=== PATIENT | male | born 1980 | race Caucasian/White ===

== ENCOUNTER 2019-10-06 16:20 | Emergency (ER) | payer SELFPAY ==
[2019-10-06 16:27] VITALS: BP 168/111; PULSE 118; RESP 18; TEMP 37.6; O2SAT 100
--- NOTE | 2019-10-06 16:49 | ED.GENADULT ---
HPI - General Adult General Chief complaint: Ear Stated complaint: fever/right ear Time Seen by Provider: 10/06/19 16:49 Source: patient and RN notes reviewed Mode of arrival: ambulatory Limitations: no limitations History of Present Illness HPI narrative: This is a 39 years old male presented office for evaluation of left ear pain since last night. Associated with sore throat and sinus congestion. He also reports cough; but contributed to smoker cough. He took tramadol and Tylenol for pain with minimal relief. Denies sick contact. He did not receive influenza vaccine. Related Data Allergies Allergy/AdvReac Type Severity Reaction Status Date / Time prednisone AdvReac Intermediate mess with Verified 10/29/15 00:21 my lungs, headache azithromycin AdvReac Unknown Other Verified 03/06/18 15:50 steroid Allergy Mild Uncoded 06/21/14 19:29 Review of Systems Review of Systems: Narrative: CONSTITUTIONAL: Denies fever or bodyache EYES: Denies visual changes, redness, discharge. ENT:Reports left ear pain with discharge, sinus congestion CARDIOVASCULAR: Denies chest pain RESPIRATORY: Denies dyspnea, wheezing. Reports cough GASTROINTESTINAL: Denies abdominal pain, nausea, vomiting, diarrhea. SKIN: Denies rash MUSCULOSKELETAL: Denies acute back pain NEUROLOGIC: Denies lightheaded PMFSH Family History Family History Mother Cerebrovascular accident Family history of diabetes mellitus in first degree relative Grandparent Family history of lung cancer Social History Social History (Updated 10/06/19 @ 18:00 by JUSTA Zambrano) Smoking status: Current every day smoker Second hand tobacco smoke exposure: No Alcohol intake: never Gender identity (if verbalized by the patient): Male Comments At time of signature, I agree with nursing past medical, surgical, social and family history. There is no relevant family history pertinent to the presenting complaint. Exam Narrative: Exam Narrative: GENERAL: This is a well-nourished, well-developed patient, in no apparent distress. EYES:Sclera clear/white. Vision is grossly intact. EARS: External ears normal, right auditory canals clear and without drainage, right TM normal without perforation. Left canal appears erythema with drainage and tragal tenderness, TM appears erythema and bulging. Hearing grossly intact. NOSE: External nose normal with no obvious nasal discharge, nares without redness, no rhinorrhea. THROAT: Mucous membranes moist, posterior pharynx clear. NECK: Neck supple, non-tender without lymphadenopathy, masses or thyromegaly. CARDIOVASCULAR: Regular rate and rhythm without murmurs, gallops, or rubs. RESPIRATORY: Clear to auscultation, Diminished in her lower lobe with occasional cough noted during examination. Breath sounds equal bilaterally. No wheezes, rales, or rhonchi. GASTROINTESTINAL: Abdomen soft, non-tender, nondistended. Bowel sounds are active.No guarding. NEURO: awake, alert, and oriented to person, place and time. There were no obvious focal neurologic abnormalities. Steady gait [place] Coma Scale Eye Opening: Spontaneous 4 [place] Coma Scale Motor: Obeys Commands 6 [place] Coma Scale Verbal: Oriented 5 Course Vital Signs Vital signs: Vital Signs Temperature 99.6 F 10/06/19 16:27 Pulse Rate 118 H 10/06/19 16:27 Respiratory Rate 18 10/06/19 16:27 Blood Pressure 168/111 H 10/06/19 16:27 Pulse Oximetry 100 10/06/19 16:27 Temperature 99.6 F 10/06/19 16:27 Pulse Rate 88 10/06/19 17:10 Respiratory Rate 20 10/06/19 17:10 Blood Pressure 140/92 H 10/06/19 17:10 Pulse Oximetry 100 10/06/19 16:27 Medical Decision Making MDM Narrative Medical decision making narrative: Discharge instructions reviewed with patient, as well as provided in writing per nursing staff. The instructions also include specific and strict return/GO TO THE ER as we
[2019-10-06 17:10] VITALS: BP 140/92; PULSE 88; RESP 20
== END 2019-10-06 17:03 | disposition home or self-care (01) ==
PROVIDERS: Emergency Provider Nurse Practitioner; PCP Internal Medicine
DX: H66.90 Otitis media, unspecified, unspecified ear (principal); H60.90 Unspecified otitis externa, unspecified ear; R03.0 Elevated blood-pressure reading, without diagnosis of hypertension; F17.200 Nicotine dependence, unspecified, uncomplicated
CPT/HCPCS: 99213; G0463

== ENCOUNTER 2019-10-09 15:29 | Emergency (ER) | payer SELFPAY ==
[2019-10-09 15:38] VITALS: BP 142/94; PULSE 103; RESP 20; TEMP 37.6; O2SAT 100
--- NOTE | 2019-10-09 15:49 | ED.EAR ---
HPI - Ear Problem General Chief complaint: Ear Stated complaint: ear pain Time Seen by Provider: 10/09/19 15:42 Source: patient and RN notes reviewed Mode of arrival: ambulatory Limitations: no limitations History of Present Illness HPI Narrative: Patient presents today complaining of left ear pain x4 days. He was seen on 10/06/2019 [facility], diagnosed with left otitis media and otitis externa. He was given prescriptions for Omnicef and Cipro Dex drops. He did not get the Ciprodex drops filled due to reagan. States he has been taking the Omnicef as prescribed. States pain is not improving. Currently rates pain 7/10 and has been taking tramadol, ibuprofen, and Tylenol without much relief. Reports drainage for a few days, but none today. MD Complaint: ear pain Location: left ear Related Data Allergies Allergy/AdvReac Type Severity Reaction Status Date / Time prednisone AdvReac Intermediate mess with Verified 10/09/19 15:41 my lungs, headache azithromycin AdvReac Unknown Other Verified 10/09/19 15:41 Review of Systems Review of Systems: Narrative: CONSTITUTIONAL: Denies body aches, fever, chills, or sweats. EYES: Denies visual changes, redness, or discharge. ENT: Denies rhinorrhea, congestion, sore throat. + Ear pain CARDIOVASCULAR: Denies chest pain, palpitations, or edema. RESPIRATORY: Denies cough or dyspnea. GASTROINTESTINAL: Denies abdominal pain, nausea, vomiting, or diarrhea. GENITOURINARY: Denies dysuria or hematuria. SKIN: Denies rash, itching, or wounds. MUSCULOSKELETAL: Denies back pain, joint pain, or myalgia. NEUROLOGIC: Denies headache, numbness, tingling, or weakness. PSYCH: Denies depression or anxiety. PMFSH Social History Social History (Updated 10/06/19 @ 18:00 by JUSTA Zambrano) Smoking status: Current every day smoker Second hand tobacco smoke exposure: No Alcohol intake: never Gender identity (if verbalized by the patient): Male Comments At time of signature, I have reviewed and agree with nursing past medical, surgical, social and family history unless otherwise noted. Please see nursing chart for further information. There is no relevant family history pertinent to the presenting complaint Exam Narrative: Exam Narrative: GENERAL: Well-appearing, well-nourished, and in no acute distress. HEAD: Normocephalic, atraumatic. EYES: EOMI. No redness or drainage. Conjunctivae normal. ENT: Mucous membranes pink and moist. Nares clear. No rhinorrhea. Right TM occluded with wax. Left ear canal is severely erythematous and mildly edematous. There is a large clear fluid-filled blister to the inferior half of the ear canal. No active drainage. Movement tenderness. Tragal tenderness.. Throat normal. Uvula midline. NECK: Normal AROM. Supple. No lymphadenopathy. CHEST: No respiratory distress. EXTREMITIES: Normal range of motion. No edema. SKIN: Warm, dry, no rash. NEURO: No focal deficits. Alert and oriented x3. Gait steady. PSYCH: Normal affect. No signs of depression or anxiety. Course Vital Signs Vital signs: Vital Signs Temperature 99.7 F H 10/09/19 15:38 Pulse Rate 103 H 10/09/19 15:38 Respiratory Rate 10/09/19 15:38 Blood Pressure 142/94 H 10/09/19 15:38 Pulse Oximetry 100 10/09/19 15:38 Temperature 99.7 F H 10/09/19 15:38 Pulse Rate 103 H 10/09/19 15:38 Respiratory Rate 10/09/19 15:38 Blood Pressure 142/94 H 10/09/19 15:38 Pulse Oximetry 100 10/09/19 15:38 Reviewed. Pt has been instructed to follow up with his PCP regarding his elevated blood pressure today. Medical Decision Making Differential Diagnosis Differential Diagnosis: Otitis media, otitis externa, ruptured TM, serous otitis, eustachian tube dysfunction Medical Records Medical records reviewed: Yes I reviewed the patient's medical records. Vital Signs Vital Signs: Vital Signs Temperature 99.7 F H 10/09/19 15:38 Pulse Rate 103 H 10/09/19 15:38
== END 2019-10-09 15:57 | disposition home or self-care (01) ==
PROVIDERS: Emergency Provider Nurse Practitioner; PCP Internal Medicine
DX: H60.502 Unspecified acute noninfective otitis externa, left ear (principal); F17.200 Nicotine dependence, unspecified, uncomplicated
CPT/HCPCS: 99213; G0463

== ENCOUNTER 2020-04-11 16:02 | Emergency (ER) | payer SELFPAY ==
[2020-04-11 16:12] VITALS: BP 153/108; PULSE 119; RESP 18; TEMP 37.9; O2SAT 100
--- NOTE | 2020-04-11 16:15 | ED.GENADULT ---
HPI - General Adult General Chief complaint: Wound/Laceration Stated complaint: R/swollen Source: patient Mode of arrival: ambulatory Limitations: no limitations History of Present Illness HPI narrative: Patient presents for evaluation of swelling and pain to the right hand. He indicates he caught the dorsal aspect of her right hand 4 days ago on an exhaust fan. He noted swelling and erythema in the affected area yesterday. Today he was physical labor with some tools when he noted some purulent drainage from the right hand. He denies any fever, chills, nausea, vomiting. No underlying history of diabetes. Date of last tetanus unknown. He is right-hand dominant. No additional complaints or concerns. Related Data Allergies Allergy/AdvReac Type Severity Reaction Status Date / Time prednisone AdvReac Intermediate mess with Verified 02/08/20 11:48 my lungs, headache azithromycin AdvReac Unknown Other Verified 02/08/20 11:48 Review of Systems Review of Systems: Narrative: CONSTITUTIONAL: Denies fever, chills, or sweats. EYES: Denies visual changes, redness, or discharge. ENT: Denies rhinorrhea, congestion, sore throat, or otalgia. CARDIOVASCULAR: Denies chest pain, palpitations, or edema. RESPIRATORY: Denies cough or dyspnea. GASTROINTESTINAL: Denies abdominal pain, nausea, vomiting, or diarrhea. GENITOURINARY: Denies dysuria or hematuria. SKIN: Denies rash or itching. Reports redness in right hand MUSCULOSKELETAL: Denies back pain. Reports pain in right hand. NEUROLOGIC: Denies headache, numbness, dizziness, or weakness. PSYCHIATRIC: Denies anxiety or depression. [facility] Surgical History Surgical History Hx of tonsillectomy Family History Family History Mother Cerebrovascular accident Family history of diabetes mellitus in first degree relative Grandparent Family history of lung cancer Social History Social History (Updated 04/11/20 @ 16:19 by JUSTA Allison, ) Smoking packs per day: 1 Smoking cigarettes per day: 20.0 Smoking status: Current every day smoker Second hand tobacco smoke exposure: No Alcohol intake: never Gender identity (if verbalized by the patient): Male Exam Narrative: Exam Narrative: GENERAL: Well-appearing, well-nourished, and in no acute distress. HEAD: Normocephalic, atraumatic. EYES: PERRLA and EOMI. ENT: Nares clear, no rhinorrhea or epistaxis. Mucous membranes moist. Oropharynx without tonsillar hypertrophy exudate or other lesions. Bilateral TMs pearly arreola nonbulging NECK: Supple. No adenopathy or masses. No carotid bruits or JVD CHEST: Clear to auscultation. No respiratory distress. No wheezes rales or rhonchi HEART: Regular rhythm. Rate 115. No murmur heard. Normal peripheral pulses. ABDOMEN: Soft, nontender, nondistended, normal active bowel sounds. EXTREMITIES: Normal range of motion. Trace swelling noted to dorsal aspect of right hand SKIN: Approximately 2 cm linear abrasion to dorsal aspect of right hand with dried sanguinous drainage noted. There is mild erythema noted to majority of dorsal aspect of right hand NEURO: No focal deficits. Alert and oriented x3. PSYCH: Normal mood and affect. Course Vital Signs Vital signs: Vital Signs Temperature 37.9 C H 04/11/20 16:12 Pulse Rate 119 H 04/11/20 16:12 Respiratory Rate 18 04/11/20 16:12 Blood Pressure 153/108 H 04/11/20 16:12 Pulse Oximetry 100 04/11/20 16:12 Temperature 37.9 C H 04/11/20 16:12 Pulse Rate 119 H 04/11/20 16:12 Respiratory Rate 18 04/11/20 16:12 Blood Pressure 153/108 H 04/11/20 16:12 Pulse Oximetry 100 04/11/20 16:12 Procedures Abscess I/D right hand: Date of Incision: 04/11/20 Side (if applicable): right (hand) Local Anesthetic: lidocaine 1% Amount of anesthesia used (mL): 3
[2020-04-11 16:18] LABS: Glucose Point of Care 116 (65-105)
[2020-04-11] MEDS: TETANUS,DIPHTHERIA,AC PERTUSSIS ADULT (0.5 ML) BOOSTRIX IM (16:23)
--- NOTE | 2020-04-11 16:37 | PC.NURSE ---
Tylenol 1000 mg admisitered as ordered Contacted pharamcy about not being able to scan medsication spoke with ED
--- NOTE | 2020-04-11 16:45 | PC.NURSE ---
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
[2020-04-11 17:13] VITALS: PULSE 105; RESP 20; TEMP 37.4; O2SAT 100
== END 2020-04-11 17:32 | disposition home or self-care (01) ==
PROVIDERS: Emergency Provider Nurse Practitioner; PCP Internal Medicine
DX: L03.113 Cellulitis of right upper limb (principal); Z23 Encounter for immunization
CPT/HCPCS: 10060; 87070; 87075; 87147; 87186; 87205; 90471; 90715; 99213; A9270; G0463

== ENCOUNTER 2020-07-18 06:54 | Outpatient (NON) | payer SELFPAY ==
[2020-07-18 19:16] LABS: SARS-CoV-2 RNA PCR Negative
== END 2020-07-18 06:55 ==
PROVIDERS: PCP Internal Medicine; Visit Provider Internal Medicine
DX: R68.89 Other general symptoms and signs (principal); Z20.828 Contact with and (suspected) exposure to other viral communicable diseases
CPT/HCPCS: 87635; C9803; U0003

== ENCOUNTER 2020-07-24 15:25 | Emergency (ER) | payer SELFPAY ==
--- NOTE | 2020-07-24 15:37 | ED.EAR ---
HPI - Ear Problem General Chief complaint: Ear Stated complaint: ear pain Time Seen by Provider: 07/24/20 15:37 Source: patient and RN notes reviewed Mode of arrival: ambulatory Limitations: no limitations History of Present Illness HPI Narrative: 40-year-old male presents concern for bilateral ear pain, sore throat. Reports symptoms started approximate 11 days ago. Denies fever, cough, shortness of breath, body aches, chills, sweats. Reports taking medication [id number] with no relief. Reports he had a negative Covid test 1 week ago. MD Complaint: ear pain Related Data Allergies Allergy/AdvReac Type Severity Reaction Status Date / Time prednisone AdvReac Intermediate mess with Verified 07/24/20 15:37 my lungs, headache azithromycin AdvReac Unknown Other Verified 07/24/20 15:37 Review of Systems Review of Systems: Narrative: CONSTITUTIONAL: Denies malaise, chills, sweats, or fever. EYES: Denies visual changes, redness, or discharge. ENT: Denies rhinorrhea, congestion, sinus pain. Reports otalgia and sore throat. CARDIOVASCULAR: Denies chest pain, palpitations, or edema. RESPIRATORY: Denies cough or dyspnea. GASTROINTESTINAL: Denies abdominal pain, nausea, vomiting, diarrhea SKIN: Denies rash or itching. MUSCULOSKELETAL: Denies myalgia. NEUROLOGIC: Denies headache. All systems reviewed & are unremarkable except as noted in HPI and below PMFSH Surgical History Surgical History Hx of tonsillectomy Family History Family History Mother Cerebrovascular accident Family history of diabetes mellitus in first degree relative Grandparent Family history of lung cancer Social History Social History (Updated 04/11/20 @ 16:19 by JUSTA Allison, ) Smoking packs per day: 1 Smoking cigarettes per day: 20.0 Smoking status: Current every day smoker Second hand tobacco smoke exposure: No Alcohol intake: never Gender identity (if verbalized by the patient): Male Comments At time of signature, agree with nursing past medical, surgical, social and family history. There is no relevant family history pertinent to the presenting complaint Exam Narrative: Exam Narrative: GENERAL: Well-appearing, well-nourished, and in no acute distress. HEAD: Normocephalic EYES: PERRLA, conjunctivae clear ENT: Nares clear, turbinates erythematous, clear discharge. Mucous membranes moist. Left TM pearly arreola with dull light reflex right TM yellow, erythematous, bulging; no tragal tenderness. Oropharynx mildly erythematous without lesions. Tonsils not enlarged and without exudate, no drooling, no hoarseness, no trismus, uvula midline. NECK: Supple. No lymphadenopathy CHEST: Clear to auscultation, breath sounds equal. No wheezing, rhonchi, rales, or stridor. No respiratory distress, speaks in full sentences. HEART: Regular rate and rhythm. No murmur heard. SKIN: Warm, dry, no rash. NEURO: Alert and oriented x3. PSYCH: Normal mood and affect Course Course Emergency Course: Patient is aware of diagnosis, understands and agrees to treatment plan. Anticipatory guidance given. Patient agrees to follow-up as directed and is aware of reasons to seek care at the emergency department. Portions of this record may have been created with voice recognition software Vital Signs Vital signs: Vital Signs Temperature 98.7 F 07/24/20 15:38 Pulse Rate 105 H 07/24/20 15:38 Respiratory Rate 07/24/20 15:38 Blood Pressure 159/105 H 07/24/20 15:38 Pulse Oximetry 100 07/24/20 15:38 Temperature 98.7 F 07/24/20 15:38 Pulse Rate 105 H 07/24/20 15:38 Respiratory Rate 20 07/24/20 15:38 Blood Pressure 159/105 H 07/24/20 15:38 Pulse Oximetry 100 07/24/20 15:38 Reviewed. Pt has been instructed to follow up with his primary care provider within the next week regarding his el
[2020-07-24 15:38] VITALS: BP 159/105; PULSE 105; RESP 20; TEMP 37.1; O2SAT 100
== END 2020-07-24 15:50 | disposition home or self-care (01) ==
PROVIDERS: Emergency Provider Nurse Practitioner; PCP Internal Medicine
DX: H66.91 Otitis media, unspecified, right ear (principal); H61.21 Impacted cerumen, right ear; F17.210 Nicotine dependence, cigarettes, uncomplicated
CPT/HCPCS: 69210; 99213; G0463

== ENCOUNTER 2021-11-03 13:13 | Emergency (ER) | payer OTHER, SELFPAY ==
[2021-11-03 13:47] VITALS: BP 152/96; PULSE 95; RESP 18; TEMP 36.9; O2SAT 100
--- NOTE | 2021-11-03 14:03 | WPDEDEXPGENP ---
HPI - General Ped General Chief complaint: Upper Respiratory Infection Stated complaint: sorethroat,bilateral ear pain Time Seen by Provider: 11/03/21 14:03 Source: patient Mode of arrival: ambulatory Limitations: no limitations Nursing Documentation: reviewed/agree History of Present Illness HPI narrative: 41-year-old male presents to the [facility] with complaints of bilateral ear pain and sore throat. Patient states that he has had issues with his right ear on and off for about a year and the left ear has started hurting him about a week ago. Patient states he is also had a sore throat that also started about couple of days ago. Denies fevers, body aches or chills. Patient states he has had some drainage coming from the right ear. Patient denies taking any [id number] medications for this issues. Patient denies any cough or fevers. Related Data Allergies Allergy/AdvReac Type Severity Reaction Status Date / Time azithromycin AdvReac Unknown Other Verified 11/03/21 14:16 Pediatric Review of Systems Review of Systems: CONSTITUTIONAL: Denies fever, chills, or sweats. EYES: Denies visual changes, redness, or discharge. ENT: Denies rhinorrhea, congestion, positive sore throat, positive bilateral otalgia. CARDIOVASCULAR: Denies chest pain, palpitations, or edema. RESPIRATORY: Denies cough or dyspnea. GASTROINTESTINAL: Denies abdominal pain, nausea, vomiting, or diarrhea. GENITOURINARY: Denies dysuria or hematuria. SKIN: Denies rash or itching. MUSCULOSKELETAL: Denies back pain, joint pain, or myalgia. NEUROLOGIC: Denies headache, numbness, or weakness. PSYCHIATRIC: Denies anxiety or depression. [facility] Past Medical History Medical History (Updated 11/03/21 @ 14:22 by JUSTA Zuñiga) Anxiety disorder, unspecified Spondylosis of lumbar region without myelopathy or radiculopathy Surgical History Surgical History Hx of tonsillectomy Family History Family History Mother Cerebrovascular accident Family history of diabetes mellitus in first degree relative Grandparent Family history of lung cancer Social History Social History Smoking packs per day: 1 Smoking cigarettes per day: 20.0 Smoking status: Current every day smoker Second hand tobacco smoke exposure: No Alcohol intake: never Gender identity (if verbalized by the patient): Male Comments At the time of my signature I agree with nursing past medical history, surgical, social, and family history. There is no relevant family history pertinent to the presenting complaint. Pediatric Exam Narrative: Physical exam: GENERAL: Well-appearing, well-nourished, and in no acute distress. HEAD: Normocephalic, atraumatic. EYES: PERRLA and EOMI. ENT: Nares clear, no rhinorrhea or epistaxis. Mucous membranes moist. Posterior pharynx does have some erythema noted to the uvula. Left ear does have some fluid behind the tympanic membrane. The right ear canal does appear to have swelling and some drainage present along with some fluid noted behind the right tympanic membrane. NECK: Supple. No lymphadenopathy CHEST: Clear to auscultation. No respiratory distress. HEART: Regular rate and rhythm. No murmur heard. Normal peripheral pulses. ABDOMEN: Soft, nontender, nondistended, normal active bowel sounds. EXTREMITIES: Normal range of motion. No edema. SKIN: Warm, dry, no rash. NEURO: No focal deficits. Alert and oriented x3. Course Course Level of Care: Express Care Visit Vital Signs Vital signs: Vital Signs Temperature 36.9 C 11/03/21 13:47 Pulse Rate 95 11/03/21 13:47 Respiratory Rate 18 11/03/21 13:47 Blood Pressure 152/96 H 11/03/21 13:47 Pulse Oximetry 100 11/03/21 13:47 Temperature 36.9 C 11/03/21 13:47 Pulse Rate 95 11/03/21 13:47 Respiratory Rate
== END 2021-11-03 14:25 | disposition home or self-care (01) ==
PROVIDERS: Emergency Provider Nurse Practitioner Family
DX: H66.93 Otitis media, unspecified, bilateral (principal); H60.91 Unspecified otitis externa, right ear; F17.210 Nicotine dependence, cigarettes, uncomplicated; M47.816 Spondylosis without myelopathy or radiculopathy, lumbar region
CPT/HCPCS: 99213; G0463

== ENCOUNTER 2022-04-23 08:45 | Observation (INO) | payer OTHER, SELFPAY ==
[2022-04-23] VITALS (7 sets, daily range): BP systolic 135–173; BP diastolic 90–107; PULSE 89–110; RESP 14–18; TEMP 36.2–37.2; O2SAT 97–100; BMI 30.4; BMI 30.5
--- NOTE | ~2022-04-23 | CT_ITS ---
EXAMINATION: CT chest abdomen pelvis w con DATE: 04/23/2022 10:27 INDICATION: Foreign body sensation in the chest, diffuse abdominal pain, hematemesis TECHNIQUE: Transaxial computed tomographic images of the chest, abdomen, and pelvis were obtained aft er the administration of 100 cc of Omnipaque 350 intravenous contrast. The dose-length product (DLP) was 1124.20 mGy-cm. Automated exposure control and iterative reconstruction technique were employed. COMPARISON: None FINDINGS: CHEST CT: There is mild dependent atelectasis. No pleural effusion or pneumothorax. No pathologically enlarged thoracic lymph nodes are identified. The heart size is normal. There is a small sliding hiatal hernia . There is mild wall thickening of the esophagus. ABDOMEN/PELVIS CT: The liver is diffusely low in attenuation when compared with the spleen, consistent with hepatic stea tosis. The spleen, pancreas, gallbladder, and adrenal glands are normal. The kidneys are unremarkable . No pathologically enlarged abdominal or pelvic lymph nodes are identified. The appendix is normal. There is no free intraperitoneal gas or evidence of bowel obstruction. There is liquid stool in the c olon to the level of the rectum. There is mild wall thickening of the distal colon which is relativel y featureless. IMPRESSION: 1. Mild wall thickening in the esophagus which could reflect esophagitis. 2. Wall thickening of the distal colon which is relatively featureless. Findings could reflect infect ious colitis or possibly ulcerative colitis. 3. Diffuse hepatic steatosis. Reviewed, dictated and finalized at location B. IMPRESSION: 1. Mild wall thickening in the esophagus which could reflect esophagitis. 2. Wall thickening of the distal colon which is relatively featureless. Finding s could reflect infectious colitis or possibly ulcerative colitis. 3. Diffuse hepatic steatosis.
--- NOTE | ~2022-04-23 | XR_ITS ---
EXAMINATION: XR soft tissue neck DATE: 04/23/2022 11:07 INDICATION: Foreign body sensation. TECHNIQUE: 2 views of the neck soft tissues were obtained. COMPARISON: CT maxillofacial and cervical spine 10/29/2015 FINDINGS: The adenoids are enlarged. The epiglottis, palatine tonsils, prevertebral soft tissues, and glottis are normal. IMPRESSION: 1. No radiopaque foreign body. 2. Enlarged adenoids. Reviewed, dictated and finalized at location A.
[2022-04-23 09:05] LABS: Basophils Absolute Auto 0.1 K/mm3 (0.0-0.1); Basophils Percent Auto 0.4 % (0.2-1.2); Eosinophils Absolute Auto 0.1 K/mm3 (0-0.3); Eosinophils Percent Auto 0.9 % (0-4.4); Hematocrit 46.7 % (42.0-52.0); Hemoglobin 15.6 g/dL (14.0-18.0); Immature Granulocyte Absolute 0.04 K/mm3 (0.00-0.031); Immature Granulocyte Percent A 0.3 % (0-0.5); Lymphocytes Absolute Auto 2.49 K/mm3 (0.9-3.2); Lymphocytes Percent Auto 20.4 % (18.3-44.2); Mean Corpuscular HGB Conc 33.4 g/dl (32-36); Mean Corpuscular Hemoglobin 30.2 pg (26-34); Mean Corpuscular Volume 90.3 fl (80-100); Mean Platelet Volume 10.1 fl (7.4-10.4); Monocytes Percent Auto 7.9 % (2.6-8.5); Neutrophils Absolute Auto 8.6 K/mm3 (1.3-6.7); Neutrophils Percent Auto 70.1 % (45.5-73.1); Platelet Count Result 330 k/mm3 (150-375); Red Blood Count 5.17 M/mm3 (4.6-6.20); Red Cell Distribution Width 13.2 % (11.5-14.5); White Blood Count 12.2 K/mm3 (4.5-10.0)
--- NOTE | 2022-04-23 09:18 | ED.NAVMDI ---
HPI - Nausea/Vomiting/Diarrhea General Chief complaint: Nausea/Vomiting/Diarrhea <JOI Way Last Filed: 04/23/22 17:30> Stated complaint: vomiting, feels like something is stuck in throat <JOI Way Last Filed: 04/23/22 17:30> Time Seen by Provider: 04/23/22 08:54 <[address] Last Filed: 04/23/22 17:30> History of Present Illness HPI Narrative: Patient is a 41-year-old male here for evaluation of nausea and vomiting over the past day. Patient states that he has had numerous episodes of vomiting that was preceded by a diffuse, stabbing abdominal pain. He notes that last evening, every episode of vomit contained a large amount of blood, looks like [employer], blood mixed in vomit and not streaking along the sides. He has never had an episode of hematemesis in the past. He also states that he has a globus sensation in his throat, but is unsure what this might be. He notes that he drinks about 10 alcoholic beverages per week, denies significant NSAID use or history of ulcer. States he used to drink a lot more. <JOI Way Last Filed: 04/23/22 17:30> Related Data Home medications: Home Medications Medication Instructions Recorded Confirmed Zoloft 50 mg PO DAILY PRN Anxiety 04/23/22 04/23/22 nicotine 21 mg/24 hr daily 1 patch transdermal DAILY 04/23/22 04/23/22 transdermal patch (Nicoderm CQ) <JOI Way Last Filed: 04/23/22 17:30> Allergies/Adverse reactions: Allergies Allergy/AdvReac Type Severity Reaction Status Date / Time azithromycin AdvReac Unknown Other Verified 04/23/22 12:[address] <[address] Last Filed: 04/23/22 17:30> Review of Systems Review of Systems: Gen: Denies fevers or chills Eyes: Denies eye pain or visual change ENT: Denies congestion Respiratory: Denies shortness of breath or cough CV: Denies chest pain or palpitations GI: Reports nausea, vomiting, diffuse abdominal pain. 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 <Darling Vera PA-C - Last Filed: 04/23/22 17:30> Surgical History Surgical History: Surgical History (Updated 04/23/22 @ 14:22 by Sunita Cook NP) Hx of tonsillectomy S/P cubital tunnel release <Darling Vera PA-C - Last Filed: 04/23/22 17:30> Family History Family History: Family History (Updated 04/23/22 @ 14:23 by Sunita Cook NP) Mother Family history of diabetes mellitus in first degree relative Grandparent Family history of lung cancer Father Cancer <Darling Vera PA-C - Last Filed: 04/23/22 17:30> Social History Social History: Social History (Updated 04/23/22 @ 14:24 by Sunita Cook NP) Social History: The patient is and he has 3 children. 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 The patient continues to smoke 1 pack a cigarettes a day. The patient stated that he usually drinks about 10 alcoholic beverages a week. He states every other week any does not drink when he has his child. The patient denies any marijuana or any other illicit drugs. 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 Code status full code Smoking packs per day: 1 Smoking cigarettes per day: 20.0 Years smoked: 20 Smoking pack-years: 20.00 Smoking status: Cur
[2022-04-23 09:32] LABS: Appearance Urine Clear (Clear); Bilirubin Urine 2+ (Negative); Blood Urine Negative (Negative); Color Urine Yellow (Yellow); Glucose Urine UA Negative (Negative); Ketones Urine Negative (Negative); Leukocyte Esterase Ur Negative LEU/UL (Negative); Nitrate Urine Negative (Negative); Protein Urine 1+ mg/dL (Negative); Specific Grav Ur 1.025 (1.001-1.035); Urobilinogen Urine 0.2 mg/dL (<2.0)
[2022-04-23 09:40] LABS: Prothrombin Time 12.6 Seconds (11.1-14.7)
[2022-04-23] MEDS: PANTOPRAZOLE SODIUM IV 40 MG VIAL 80 MG IV PUSH (09:42)
[2022-04-23] MEDS: SODIUM CHLORIDE 0.9% IV 1,000 ML 999 ML IV CONT (09:42)
[2022-04-23] MEDS: ONDANSETRON INJ 4 MG/2 ML VIAL IV PUSH (09:42)
[2022-04-23 09:45] LABS: Alanine Aminotransferase 82 U/L (6-50); Albumin Level 4.4 g/dL (3.5-5.1); Alkaline Phosphatase 123 U/L (38-126); Anion Gap 17 mmol/L (8-16); Aspartate Amino Transferase 104 U/L (17-59); Bilirubin,Total 0.6 mg/dL (0.2-1.3); Blood Urea Nitrogen 11 mg/dL (9-20); Calcium 8.5 mg/dL (8.4-10.2); Carbon Dioxide 23 mmol/L (22-30); Chloride 97 mmol/L (98-107); Estimated CRCL calculation 135 ml/min; Estimated Glomerular Filt Rate > 60; Glucose 136 mg/dL (65-110); Lipase 51 U/L (23-300); Potassium 3.4 mmol/L (3.4-5.0); Sodium 137 mmol/L (137-145)
[2022-04-23 09:50] LABS: Add Urine Microscopic? YES
[2022-04-23 09:51] LABS: Bacteria Urine Trace /hpf; Squamous Epithelial Cell Urine Few /hpf (Few)
[2022-04-23 09:52] LABS: Mucus Urine Moderate /lpf
[2022-04-23] MEDS: OCTREOTIDE ACETATE 50 MCG/ML VIAL IV PUSH (11:13)
[2022-04-23] MEDS: SODIUM CHLORIDE 0.9% IV 1,000 ML 125 ML IV CONT ×2 (13:08→21:05)
--- NOTE | 2022-04-23 14:15 | PM.IMHP ---
H&P: HPI History of Present Illness Date/Time: 04/23/22 14:15 Chief Complaint: Nausea vomiting diarrhea Narrative: This is a 41-year-old male patient who came to the emergency room for evaluation of nausea vomiting over the past day. The patient stated that he had several episodes of dry heaving and vomiting. The patient stated that he had not had any previous stomach problems except large hematoma from a fall a long time ago. The patient noted that last night he was having large amount of blood that look like Coca-[employer]a that he had vomited. The patient states that he only drinks approximately 10 alcoholic beverages per week. He has had no prior history of any ulcers. He denies any significant NSAID usage. His white count is noted to be 12.12. His H&H is within normal limits at 15.6 and 46.7. His AsT is 104 and ALT is 82. The patient was given Protonix IV, normal saline, Zofran, Rocephin, and octreotide. GI had been consulted and suggested that octreotide. Soft tissue the neck was read as no radiopaque foreign body, enlarged adenoids. CT of the abdomen and pelvis was read as the following 1. Mild wall thickening in the esophagus which could reflect esophagitis. 2. Wall thickening of the distal colon which is relatively featureless. Findings could reflect infectious colitis or possibly ulcerative colitis. 3. Diffuse hepatic steatosis. The patient was initially admitted to inpatient and then changed to observation on the date of service of 04/23/2022. Review of Systems Review of Systems: See HPI All systems reviewed & are unremarkable except as noted in HPI and below Constitutional: Constitutional: Reports as per HPI and Reports no additional constitutional complaints Eyes: Eyes: Reports as per HPI and Reports no additional eye complaints ENT: Reports system reviewed and no additional complaints, except as documented and Reports Normal hearing present Cardiovascular: Cardiovascular: Reports no additional cardiovascular complaints Respiratory: Respiratory: Reports no additional respiratory complaints and Reports no additional respiratory complaints Gastrointestinal: Gastrointestinal: Reports as per HPI and Reports no additional gastrointestinal complaints Musculoskeletal: Musculoskeletal: Reports no additional musculoskeletal complaints Integumentary/Breasts: Skin/Breast: Reports system reviewed and no additional complaints, except as docu and Reports as per HPI Neurologic: Reports system reviewed and no additional complaints, except as documented, Reports as per HPI and Reports Normal hearing present Psychiatric: Psychiatric: Reports no additional psychiatric complaints and Reports as per HPI Endocrine: Endocrine: Reports no additional endocrine complaints Hematologic/Lymphatic: Hematologic/Lymphatic: Reports no additional hematologic/lymphatic complaints Allergic/Immunologic: Allergic/Immunologic: Reports no additional allergic/immunologic complaints [facility] Past Medical History Medical History (Updated 04/23/22 @ 14:30 by Sunita Cook NP) Anxiety disorder, unspecified 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 The patient continues to smoke 1 pack a cigarettes a day. The patient stated that he usually drinks about 10 alcoholic beverages a week. He states every other week any does not drink when he has his child. T
--- NOTE | 2022-04-23 14:55 | WPDGICN ---
Assessment and Plan Assessment and plan (1) Upper GI bleed: Code(s): K92.2 - Gastrointestinal hemorrhage, unspecified Status: Acute Assessment and Plan: noted abnormal esophagus by ct scan, differential includes esophagitis, also varices given alcohol abuse- started on octreotide and given iv protonix egd in am monitor for more signs of bleeding (2) Coffee ground emesis: Code(s): K92.0 - Hematemesis Status: Acute Assessment and Plan: iv protonix (3) Alcohol abuse: Code(s): F10.10 - Alcohol abuse, uncomplicated Status: Acute Assessment and Plan: will need to quit drinking supportive care (4) Elevated liver enzymes: Code(s): R74.8 - Abnormal levels of other serum enzymes Status: Acute Assessment and Plan: probably from alcohol use, will get hepatitis panel GI Consult Note Consult date/time: 04/23/22 14:55 Reason for consult: coffee ground emesis HPI: Sagar Cota is a 41 year old male with history of depression and alcohol abuse (he says that used to get drunk most of the nights with vodka, for last 6 months only drinking 1-2 beers daily). He came here with new onset of several episodes of dry heaving and vomiting, finally then noted coffee ground emesis with blood. No recent nsaid's use. His white count 12, H&H is within normal limits at 15.6 and 46.7.? His AsT is 104 and ALT is 82.? The patient was given Protonix IV, normal saline, Zofran, Rocephin, and octreotide.?CT of the abdomen and pelvis reviewed and showed Mild wall thickening in the esophagus which could reflect esophagitis, Wall thickening of the distal colon which is relatively featureless, Diffuse hepatic steatosis. Never had EGD. Review of Systems Review of Systems: See HPI All systems reviewed & are unremarkable except as noted in HPI and below Constitutional: Constitutional: Reports as per HPI and Reports no additional constitutional complaints Eyes: Eyes: Reports as per HPI and Reports no additional eye complaints ENT: Reports system reviewed and no additional complaints, except as documented and Reports Normal hearing present Cardiovascular: Cardiovascular: Reports no additional cardiovascular complaints Respiratory: Respiratory: Reports no additional respiratory complaints and Reports no additional respiratory complaints Gastrointestinal: Gastrointestinal: Reports as per HPI and Reports no additional gastrointestinal complaints Musculoskeletal: Musculoskeletal: Reports no additional musculoskeletal complaints Integumentary/Breasts: Skin/Breast: Reports system reviewed and no additional complaints, except as docu and Reports as per HPI Neurologic: Reports system reviewed and no additional complaints, except as documented, Reports as per HPI and Reports Normal hearing present Psychiatric: Psychiatric: Reports no additional psychiatric complaints and Reports as per HPI Endocrine: Endocrine: Reports no additional endocrine complaints Hematologic/Lymphatic: Hematologic/Lymphatic: Reports no additional hematologic/lymphatic complaints Allergic/Immunologic: Allergic/Immunologic: Reports no additional allergic/immunologic complaints [facility] Past Medical History Medical History (Updated 04/23/22 @ 15:00 by Tato Beltran MD) Alcohol abuse Anxiety disorder, unspecified Coffee ground emesis Elevated liver enzymes 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
[2022-04-23 15:48] LABS: Hematocrit 42.3 % (42.0-52.0); Hemoglobin 14.1 g/dL (14.0-18.0)
[2022-04-23] MEDS: NICOTINE (*PBKC) 21 MG PATCH 1 PATCH TRANSDERM (16:55)
[2022-04-23] MEDS: metroNIDAZOLE 500 MG/ISO 100ML 500 MG/100 ML BAG 100 MG IVPB ×2 (17:01→21:04)
--- NOTE | 2022-04-23 17:59 | ADMGEN ---
This patient, Sagar Cota, was admitted to 3 [facility] Surg Room 317-01 at 1220. Patient/family oriented to hospital policies and general routines including ID bracelet, bed and alarms, visiting hours, pain management, procedures, bathroom and other care routines, personal items, smoking policy, room service/diet, and visiting hours. Information on how to activate the Rapid Response Team has been discussed. Patient/Family are encouraged to report perceived risks to care and to ask questions if they do not understand what they are told or what they should do.
[2022-04-23] MEDS: hydrALAZINE HCL 20 MG/ML VIAL 10 MG IV PUSH (19:38)
[2022-04-23] MEDS: PANTOPRAZOLE SODIUM IV 40 MG VIAL IV PUSH (21:04)
[2022-04-23 21:24] LABS: Hematocrit 42.4 % (42.0-52.0)
[2022-04-23] MEDS: diphenhydrAMINE HCl INJ 50 MG/ML VIAL IV PUSH (22:37)
[2022-04-24] VITALS (7 sets, daily range): BP systolic 146–164; BP diastolic 95–114; PULSE 65–93; RESP 17–26; TEMP 36.6; O2SAT 97–98
[2022-04-24 03:14] LABS: Alanine Aminotransferase 62 U/L (6-50); Albumin Level 3.3 g/dL (3.5-5.1); Alkaline Phosphatase 106 U/L (38-126); Anion Gap 4 mmol/L (8-16); Aspartate Amino Transferase 66 U/L (17-59); Basophils Absolute Auto 0.1 K/mm3 (0.0-0.1); Basophils Percent Auto 0.7 % (0.2-1.2); Blood Urea Nitrogen 9 mg/dL (9-20); Calcium 8.3 mg/dL (8.4-10.2); Carbon Dioxide 25 mmol/L (22-30); Chloride 106 mmol/L (98-107); Eosinophils Absolute Auto 0.2 K/mm3 (0-0.3); Eosinophils Percent Auto 2.2 % (0-4.4); Estimated CRCL calculation 121 ml/min; Estimated Glomerular Filt Rate > 60; Glucose 126 mg/dL (65-110); Hemoglobin 13.6 g/dL (14.0-18.0); Immature Granulocyte Absolute 0.02 K/mm3 (0.00-0.031); Immature Granulocyte Percent A 0.3 % (0-0.5); Lactate Dehydrogenase 156 U/L (120-246); Lactic Acid Reflex 0.8 mmol/L (0.7-2.0); Lymphocytes Absolute Auto 2.45 K/mm3 (0.9-3.2); Lymphocytes Percent Auto 35.3 % (18.3-44.2); Magnesium 2.1 mg/dL (1.6-2.3); Mean Corpuscular HGB Conc 32.4 g/dl (32-36); Mean Corpuscular Hemoglobin 30.1 pg (26-34); Mean Corpuscular Volume 92.9 fl (80-100); Mean Platelet Volume 10.5 fl (7.4-10.4); Monocytes Absolute Auto 0.7 K/mm3 (0.1-0.6); Monocytes Percent Auto 10.2 % (2.6-8.5); Neutrophils Absolute Auto 3.6 K/mm3 (1.3-6.7); Neutrophils Percent Auto 51.3 % (45.5-73.1); Platelet Count Result 241 k/mm3 (150-375); Potassium 3.4 mmol/L (3.4-5.0); Red Blood Count 4.52 M/mm3 (4.6-6.20); Red Cell Distribution Width 13.2 % (11.5-14.5); Sodium 135 mmol/L (137-145)
[2022-04-24 04:13] LABS: Thyroid Stimulating Hormone Reflex 0.886 uIU/mL (0.465-4.68)
[2022-04-24 04:18] LABS: Hepatitis B Surface Antigen Negative (Negative)
[2022-04-24 04:23] LABS: HAV RESULT Negative (Negative); Hepatitis B Core IgM Result Negative (Negative)
[2022-04-24 04:54] LABS: Hepatitis C Virus Antibody Negative (Negative)
[2022-04-24] MEDS: metroNIDAZOLE 500 MG/ISO 100ML 500 MG/100 ML BAG 100 MG IVPB (05:32)
[2022-04-24 08:15] LABS: Hematocrit 43.5 % (42.0-52.0); Hemoglobin 14.1 g/dL (14.0-18.0)
--- NOTE | 2022-04-24 08:32 | PC.NURSE ---
patient leaving for EGD now, will give protonix and nicotine patch when patient returns.
[2022-04-24] MEDS: LACTATED RINGERS 1,000 ML 150 ML IV CONT (08:59)
--- NOTE | 2022-04-24 09:19 | WPDANESEPPF ---
Anes - Initial Pre Proc Eval Procedure: Operation Date: 04/24/22 14:00 Proposed Procedures p Esophagogastroduodenoscopy EGD - Tato Beltran MD Date/Time: 04/24/22 09:19 Surgeon: Agustin Morillo MD Pre Op Diagnosis: Hematemesis Patient Data Age: 41 Gender: M Height: 1.85 m Weight: 105 kg Last Vital Signs Temp 97.9 F 04/24/22 09:00 Pulse 76 04/24/22 09:00 Resp 20 04/24/22 09:00 BP 158/97 H 04/24/22 09:00 Pulse Ox 97 04/24/22 09:00 O2 Del Method Room Air 04/24/22 09:00 Allergies Allergy/AdvReac Type Severity Reaction Status Date / Time azithromycin AdvReac Unknown Other Verified 04/24/22 08:50 Home Medications Medication Instructions Recorded Confirmed Type Zoloft 50 mg PO DAILY PRN Anxiety 04/23/22 04/23/22 History nicotine 21 mg/24 hr daily 1 patch transdermal DAILY 04/23/22 04/23/22 History transdermal patch (Nicoderm CQ) Laboratory Tests 04/23/22 04/23/22 04/23/22 09:20 09:20 09:20 WBC RBC Hgb Hct MCV MCH MCHC RDW Plt Count MPV Immature Gran % (Auto) Neut % (Auto) Lymph % (Auto) [place] % (Auto) Eos % (Auto) Baso % (Auto) Lymph # (Auto) [place]iwether # (Auto) Eos # (Auto) Baso # (Auto) Abs Immat Gran (auto) Absolute Neuts (auto) Absolute Nucleated RBC Nucleated RBC % PT 12.6 Seconds Seconds (11.1-14.7) INR 1.0 APTT 25.0 SECONDS SECONDS (22.3-36.8) Sodium 137 mmol/L mmol/L (137-145) Potassium 3.4 mmol/L mmol/L (3.4-5.0) Chloride 97 mmol/L L mmol/L (98-107) Carbon Dioxide 23 mmol/L mmol/L (22-30) Anion Gap 17 mmol/L H mmol/L (8-16) BUN 11 mg/dL mg/dL (9-20) Creatinine 0.70 mg/dL mg/dL (0.7-1.3) Estim Creat Clear Calc 135 ml/min ml/min Estimated GFR > 60 (59 - ) Glucose 136 mg/dL H mg/dL (65-110) Lactic Acid Calcium 8.5 mg/dL mg/dL (8.4-10.2) Magnesium Ferritin Total Bilirubin 0.6 mg/dL mg/dL (0.2-1.3) AST 104 U/L H U/L (17-59) ALT 82 U/L H U/L (6-50) Alkaline Phosphatase 123 U/L U/L (38-126) Lactate Dehydrogenase Total Protein 8.0 g/dL g/dL (6.3-8.2) Albumin 4.4 g/dL g/dL (3.5-5.1) Lipase 51 U/L U/L (23-300) TSH (Reflex) Urine Color Yellow (Yellow) Urine Appearance Clear (Clear) Urine pH 7.0 (5.0-9.0) Ur Specific Varney 1.025 (1.001-1.035) Urine Protein 1+ mg/dL H mg/dL (Negative) Urine Glucose (UA) Negative mg/dL mg/dL (Negative) Urine Ketones Negative mg/dL mg/dL (Negative) Ur Blood (Man) Negative (Negative) Urine Nitrate Negative (Negative) Urine Bilirubin 2+ H (Negative) Urine Urobilinogen 0.2 mg/dL mg/dL (<2.0) Leukocyte Esterase Rfl Negative DIMAS/UL DIMAS/UL (Negative) Urine WBC 4-6 /hpf H /hpf (0-3) Ur Squamous Epith Cells Few /hpf /hpf (Few) Urine Bacteria Trace /hpf /hpf (None) Hyaline Casts 1-2 /lpf /lpf (None) Urine Mucus Moderate /lpf H /lpf Hepatitis A IgM Ab Hep Bs Antigen Hep B Core IgM Ab Hepatitis C Ab Screen Blood Type Antibody Screen 04/23/22 04/23/22 04/23/22 09:20 15:28 21:07 WBC RBC Hgb 14.1 g/dL g/dL 14.0 g/dL g/dL (14.0-18.0) (14.0-18.0) Hct 42.3 % % 42.4 % % (42.0-52.0) (42.0-52.0) MCV MCH
[2022-04-24] MEDS: BENZOCAINE (*SP) 60 ML SPRAY CAN (HURRICAINE) 1 SPRAY MUCOUS MEM (09:28)
[2022-04-24] MEDS: PANTOPRAZOLE SODIUM IV 40 MG VIAL IV PUSH (10:40)
--- NOTE | 2022-04-24 12:44 | PM.DS ---
DS: Admitting Diagnosis Discharge Date Admitting Diagnosis nausea vomiting DS: Discharge Diagnosis Discharge Diagnosis (1) Upper GI bleed: Code(s): K92.2 - Gastrointestinal hemorrhage, unspecified Status: Acute (2) Colitis: Code(s): K52.9 - Noninfective gastroenteritis and colitis, unspecified Status: Acute (3) Tobacco use: Code(s): Z72.0 - Tobacco use Status: Acute (4) Anxiety disorder, unspecified: Code(s): F41.9 - Anxiety disorder, unspecified Status: Acute (5) Spondylosis of lumbar region without myelopathy or radiculopathy: Code(s): M47.816 - Spondylosis without myelopathy or radiculopathy, lumbar region Status: Acute DS: Summary Hospital Course Reason for hospitalization: This is a 41-year-old male patient who came to the emergency room for evaluation of nausea vomiting over the past day.? The patient stated that he had several episodes of dry heaving and vomiting.? The patient stated that he had not had any previous stomach problems except large hematoma from a fall a long time ago.? The patient noted that last night he was having large amount of blood that look like Coca-Cola that he had vomited.? The patient states that he only drinks approximately 10 alcoholic beverages per week.? He has had no prior history of any ulcers.? He denies any significant NSAID usage.? His white count is noted to be 12.12.? His H&H is within normal limits at 15.6 and 46.7.? His AsT is 104 and ALT is 82.? The patient was given Protonix IV, normal saline, Zofran, Rocephin, and octreotide.? GI had been consulted and suggested that octreotide.? Soft tissue the neck was read as no radiopaque foreign body, enlarged adenoids.? CT of the abdomen and pelvis was read as the following 1. Mild wall thickening in the esophagus which could reflect esophagitis. 2. Wall thickening of the distal colon which is relatively featureless. Findings could reflect infectious colitis or possibly ulcerative colitis. 3. Diffuse hepatic steatosis. The patient was initially admitted to inpatient and then changed to observation on the date of service of 04/23/2022. Hospital Course: patient was admitted for observation. GI was consulted. He underwent EGD which showed reflux esophagitis and small hiatal hernia. His advised to stay away from alcohol. Hepatitis panel was negative. His started on Protonix twice daily. Avoid NSAIDs which he does not take regularly. Hemodynamically stable blood pressure was elevated during the hospital stay. He advised to follow-up with PCP for further evaluation and recheck of blood pressure and monitoring. H&H was monitored during the hospital stay and remained stable. He was initially also on Protonix and octreotide drip. CT abdomen showed some wall thickening of the distal colon could reflect infectious colitis or ulcerative colitis however he did not have any abdominal pain to count for this he was on IV antibiotics initially for this which was stopped at the time of discharge. Time Spent with Patient Time attestation: Total time spent providing and/or coordinating discharge services: 40 minutes Exam Narrative: GENERAL: The patient is well developed, not in acute distress HEENT: Nonicteric sclerae, PERRLA, EOMI. Oropharynx clear. Moist mucous membranes. Conjunctivae appear well perfused. CHEST: Chest wall is nontender. HEART: Regular rate and rhythm without murmur, rubs, or gallops LUNGS: Clear to auscultation bilaterally. no respiratory distress ABDOMEN: Soft, positive bowel sounds, non-tender, no organomegaly. SKIN: No rash, no excessive bruising, petechiae, or purpura. NEUROLOGIC: Cranial nerves II-XII intact, alert and oriented x 3, no gross motor deficits EXTREMITIES: no edema, cyanosis or clubbing DS: Data Data Completed and Pending Pending studies at discharge: Pending at discharge 04/24/22 09:36 Surgical [PTH] Routine Labs on day of discharge: Labs
--- NOTE | 2022-04-24 14:13 | PC.NURSE ---
Spoke with Dr. Rodgers to confirm he is okay with patietn discharging. He confirmed that is okay
== END 2022-04-24 14:27 | disposition home or self-care (01) ==
LOC: ANHED 09:07 → ANH3MEDSUR 12:28
PROVIDERS: Internal Medicine Gastroenterology; Nurse Practitioner; Physician Assistant; Admitting Provider Student in an Organized Health Care Education/Training Program; Emergency Provider Emergency Medicine; Visit Provider Internal Medicine
PROC: 0DJ08ZZ Inspection of Upper Intestinal Tract, Via Natural or Artificial Opening Endoscopic (ICD-10-PCS; CPT 43235; principal; 2022-04-24 14:00)
DX: K52.9 Noninfective gastroenteritis and colitis, unspecified (principal); F17.210 Nicotine dependence, cigarettes, uncomplicated; F41.9 Anxiety disorder, unspecified; M47.816 Spondylosis without myelopathy or radiculopathy, lumbar region; K21.00 Gastro-esophageal reflux disease with esophagitis, without bleeding; K44.9 Diaphragmatic hernia without obstruction or gangrene; F10.10 Alcohol abuse, uncomplicated; R00.0 Tachycardia, unspecified; R74.8 Abnormal levels of other serum enzymes; K76.0 Fatty (change of) liver, not elsewhere classified; J35.2 Hypertrophy of adenoids; E66.9 Obesity, unspecified; Z68.30 Body mass index [BMI] 30.0-30.9, adult; Z79.899 Other long term (current) drug therapy
CPT/HCPCS: 43239; 36415; 70360; 71260; 74177; 80053; 80074; 81001; 82728; 83605; 83615; 83690; 83735; 84443; 85014; 85018; 85025; 85610; 85730; 86850; 86900; 86901; 88305; 96361; 96365; 96366; 96368; 96375; 96376; 99285; A9270; C9113; G0378; J0131; J0360; J0696; J1200; J2354; J2405; J2704; J7030; J7120; Q9967

== ENCOUNTER 2022-07-23 17:45 | Emergency (ER) | payer OTHER, SELFPAY ==
[2022-07-23 18:07] VITALS: BP 147/94; PULSE 100; RESP 18; TEMP 37.1; O2SAT 99
--- NOTE | 2022-07-23 18:20 | ED.URI ---
HPI - URI/Sore Throat General Chief Complaint: Upper Respiratory Infection Stated Complaint: cough,nasal congestion Time Seen by Provider: 07/23/22 18:20 Source: patient Mode of arrival: ambulatory Limitations: no limitations History of Present Illness HPI Narrative: 42-year-old male presents with complaint of fever, fatigue, congestion, sinus pressure for 5 days. Reports bilateral ear pain for over week. Is concerned he has bacterial sinusitis. Also reports recent influenza exposure. Has missed several days of work and needs note. denies chest pain and shortness of breath. Denies nausea vomiting diarrhea. Taking ibuprofen and Tylenol to treat symptoms. All Systems reviewed and negative except as noted above. Related Data Home Medications Medication Instructions Recorded Confirmed sertraline 50 mg tablet 50 mg PO HS 07/23/22 07/23/22 Allergies Allergy/AdvReac Type Severity Reaction Status Date / Time azithromycin AdvReac Unknown Other Verified 07/23/22 18:10 Review of Systems Review of Systems: CONSTITUTIONAL: reports fever, chills, or sweats. EYES: Denies visual changes, redness, or discharge. ENT: reports rhinorrhea, congestion, sore throat, or otalgia. CARDIOVASCULAR: Denies chest pain, palpitations, or edema. RESPIRATORY: reports cough. Deniesdyspnea. GASTROINTESTINAL: Denies abdominal pain, nausea, vomiting, or diarrhea. GENITOURINARY: Denies dysuria or hematuria. SKIN: Denies rash or itching. MUSCULOSKELETAL: Denies back pain, joint pain, or myalgia. NEUROLOGIC: Denies headache, numbness, or weakness. PSYCHIATRIC: Denies anxiety or depression. All other systems reviewed are negative, except as documented in HPI. 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 The patient continues to smoke 1 pack a cigarettes a day. The patient stated that he usually drinks about 10 alcoholic beverages a week. He states every other week any does not drink when he has his child. The patient denies any marijuana or any other illicit drugs. 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 Code status full code Smoking packs per day: 1 Smoking cigarettes per day: 20.0 Years smoked: 20 Smoking pack-years: 20.00 Smoking status: Current every day smoker Tobacco type: cigarettes Second hand tobacco smoke exposure: No Alcohol intake: current Drinks per week: 2 Substance use: never Gender identity (if verbalized by the patient): Male Spiritual care concerns: No Comments At time of signature, agree with nursing past medical, surgical, social and family history. There is no relevant family history pertinent to the presenting complaint. Exam Narrative: GENERAL: This is a well-nourished, well-developed patient. Patient ill-appearing but no distress. HEAD: normocephalic, atraumatic. EYES: PERRL. Sclera clear/white. Vision is grossly intact. EARS: External ears normal, auditory canals clear and without drainage, Fluid, erythema to bilateral TMs. NOSE: External nose normal with Clear nasal drainage, moderate congestion, maxillary sinus tenderness bilaterally. THROAT: Mucous membranes moist, Erythema wit
== END 2022-07-23 18:35 | disposition home or self-care (01) ==
PROVIDERS: Emergency Provider Nurse Practitioner Family
DX: J01.90 Acute sinusitis, unspecified (principal); H65.03 Acute serous otitis media, bilateral; Z20.822 Contact with and (suspected) exposure to COVID-19; F17.210 Nicotine dependence, cigarettes, uncomplicated; F41.9 Anxiety disorder, unspecified; M47.816 Spondylosis without myelopathy or radiculopathy, lumbar region
CPT/HCPCS: 87426; 99213; C9803; G0463

== ENCOUNTER 2022-08-05 17:24 | Emergency (ER) | payer OTHER, SELFPAY ==
[2022-08-05 17:48] VITALS: BP 134/96; PULSE 115; RESP 18; TEMP 37.3; O2SAT 97
--- NOTE | 2022-08-05 18:25 | ED.URI ---
HPI - URI/Sore Throat General Chief Complaint: Upper Respiratory Infection Stated Complaint: fever,bilateral ear pain,bodyache Time Seen by Provider: 08/05/22 18:26 Source: patient and RN notes reviewed Mode of arrival: ambulatory Limitations: no limitations History of Present Illness HPI Narrative: 42-year-old male presented for complaint of headache, body aches, sinus pressure/congestion, cough, fever/chills. onset yesterday. Endorses temp up to 102. He denies sick contacts. He has taken Tylenol and ibuprofen and resting for symptoms. He denies shortness of breath, wheezing, vomiting or diarrhea. 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 The patient continues to smoke 1 pack a cigarettes a day. The patient stated that he usually drinks about 10 alcoholic beverages a week. He states every other week any does not drink when he has his child. The patient denies any marijuana or any other illicit drugs. The patient a durable power traffic law attorney for healthcare. Code status full code Smoking packs per day: 1 Smoking cigarettes per day: 20.0 Years smoked: 20 Smoking pack-years: 20.00 Smoking status: Current every day smoker Tobacco type: cigarettes Second hand tobacco smoke exposure: No Alcohol intake: current Drinks per week: 2 Substance use: never Gender identity (if verbalized by the patient): Male Spiritual care concerns: No Exam Narrative: GENERAL: Ill-appearing, nontoxic EYES: PERRLA, conjunctivae clear ENT: Mucous membranes moist. TMs pearly arreola with dull light reflex bilaterally; no tragal tenderness. CHEST: Clear to auscultation, breath sounds equal. No wheezing, rhonchi, rales, or stridor. HEART: Regular rate and rhythm. No murmur heard. SKIN: Warm, dry, no rash. NEURO: Alert and oriented x3. PSYCH: Normal mood and affect Course Course Emergency Course: Patient is aware of diagnosis, understands and agrees to treatment plan. Anticipatory guidance given. Patient agrees to follow-up as directed and is aware of reasons to seek care at the emergency department. Portions of this record may have been created with voice recognition software Level of Care: Express Care Visit Vital Signs Vital signs: Vital Signs Temperature 99.2 F 08/05/22 17:48 Pulse Rate 115 H 08/05/22 17:48 Respiratory Rate 18 08/05/22 17:48 Blood Pressure 134/96 H 08/05/22 17:48 Pulse Oximetry 97 08/05/22 17:48 Oxygen Delivery Room Air 08/05/22 17:48 Temperature 99.2 F 08/05/22 17:48 Pulse Rate 115 H 08/05/22 17:48 Respiratory Rate 18 08/05/22 17:48 Blood Pressure 134/96 H 08/05/22 17:48 Pulse Oximetry 97 08/05/22 17:48 Oxygen Delivery Room Air 08/05/22 17:48 reviewed MDM - URI/Sore Throat MDM Narrative Medical decision making narrative: result of positive COVID test reviewed with patient. He requests the positive COVID B printed on the ret
== END 2022-08-05 18:34 | disposition home or self-care (01) ==
PROVIDERS: Emergency Provider Nurse Practitioner Family
DX: U07.1 COVID-19 (principal); F17.210 Nicotine dependence, cigarettes, uncomplicated; M47.816 Spondylosis without myelopathy or radiculopathy, lumbar region
CPT/HCPCS: 87426; 87804; 99213; C9803; G0463

== ENCOUNTER 2023-06-26 09:48 | Outpatient (CLI) | payer OTHER, SELFPAY ==
--- NOTE | ~2023-06-26 | XR_ITS ---
Left Shoulder Technique: AP and axillary views were obtained. Clinical History: Pain Findings: No fracture or dislocation is seen. Osseous alignment is anatomic. Glenohumeral joint is pr eserved. There is mild degenerative changes AC joint. Soft tissues are unremarkable. Impression: Mild AC joint degenerative change. Reviewed, dictated and finalized at location . NA ATTENDANT Impression: Mild AC joint degenerative change.
--- NOTE | ~2023-06-26 | XR_ITS ---
Right Shoulder Technique: AP and axillary views were obtained. Clinical History: Pain Findings: No fracture or dislocation is seen. Osseous alignment is anatomic. The glenohumeral and acr omioclavicular joint spaces are preserved. Soft tissues are unremarkable. Impression: Unremarkable right shoulder radiographs. Reviewed, dictated and finalized at [facility]. RAL RESOURCE MANAGER Impression: Unremarkable right shoulder radiographs.
[2023-06-26 10:44] LABS: Basophils Absolute Auto 0.1 K/mm3 (0.0-0.1); Basophils Percent Auto 0.9 % (0.2-1.2); Eosinophils Absolute Auto 0.2 K/mm3 (0-0.3); Eosinophils Percent Auto 2.3 % (0-4.4); Hematocrit 46.8 % (42.0-52.0); Hemoglobin 15.2 g/dL (14.0-18.0); Immature Granulocyte Absolute 0.05 K/mm3 (0.00-0.031); Immature Granulocyte Percent A 0.6 % (0-0.5); Lymphocytes Absolute Auto 2.12 K/mm3 (0.9-3.2); Lymphocytes Percent Auto 23.5 % (18.3-44.2); Mean Corpuscular HGB Conc 32.5 g/dl (32-36); Mean Corpuscular Hemoglobin 30.5 pg (26-34); Mean Corpuscular Volume 93.8 fl (80-100); Mean Platelet Volume 10.1 fl (7.4-10.4); Monocytes Absolute Auto 0.8 K/mm3 (0.1-0.6); Neutrophils Absolute Auto 5.8 K/mm3 (1.3-6.7); Neutrophils Percent Auto 63.7 % (45.5-73.1); Platelet Count Result 243 k/mm3 (150-375); Red Blood Count 4.99 M/mm3 (4.6-6.20); Red Cell Distribution Width 13.5 % (11.5-14.5)
[2023-06-26 10:51] LABS: Appearance Urine Clear (Clear); Bacteria Urine None Seen /hpf; Bilirubin Urine 1+ (Negative); Blood Urine Negative (Negative); Color Urine Dark Yellow (Yellow); Glucose Urine UA Negative (Negative); Ketones Urine Negative (Negative); Leukocyte Esterase Ur Negative LEU/UL (NEGATIVE); Nitrate Urine Negative (Negative); Protein Urine Trace mg/dL (Negative); RBC Urine 0-2 /hpf (0-2); Squamous Epithelial Cell Urine None seen /hpf (Few); WBC Urine 0-5 /hpf (0-3); pH Urine 5.5 (5.0-9.0)
[2023-06-26 10:56] LABS: Alanine Aminotransferase 137 U/L (6-50); Albumin Level 4.8 g/dL (3.5-5.1); Alkaline Phosphatase 106 U/L (38-126); Anion Gap 7 mmol/L (8-16); Aspartate Amino Transferase 109 U/L (17-59); Bilirubin,Total 1.1 mg/dL (0.2-1.3); Blood Urea Nitrogen 9 mg/dL (9-20); Calcium 9.2 mg/dL (8.4-10.2); Carbon Dioxide 29 mmol/L (22-30); Chloride 101 mmol/L (98-107); Cholesterol 234 mg/dL (0-200); Estimated Glomerular Filt Rate > 60; Glucose 117 mg/dL (65-110); HDL Direct 75 mg/dL; Sodium 137 mmol/L (137-145); Triglycerides 144 mg/dL (<150)
--- NOTE | 2023-06-26 11:00 | ECG_ITS ---
Measurements Intervals [place] Rate: 104 P: -11 W[place]: 116 QRS: -13 QRSD: 98 T: -7 QT: 358 QTc: 472 Interpretive Statements SINUS TACHYCARDIA WITH SHORT WY INTERVAL VOLTAGE CRITERIA FOR LVH BORDERLINE ST-T WAVE ABNORMALITY- INFERIOR LEADS BORDERLINE ECG NO PREVIOUS ECG AVAILABLE FOR COMPARISON Electronically Signed On 06-26-2023 11:36:48 COREMAKER MACHINE by Cristiano Ramirez D.O.
[2023-06-26 11:01] LABS: Add Urine Microscopic? YES
[2023-06-26 11:07] LABS: LDL Cholesterol Direct 121 mg/dL
== END 2023-06-26 09:49 | disposition home or self-care (01) ==
PROVIDERS: PCP Nurse Practitioner Family; Visit Provider Nurse Practitioner Family
DX: R00.0 Tachycardia, unspecified (principal); I10 Essential (primary) hypertension; R53.83 Other fatigue; R74.8 Abnormal levels of other serum enzymes; E78.5 Hyperlipidemia, unspecified; M25.511 Pain in right shoulder; M25.512 Pain in left shoulder; R94.31 Abnormal electrocardiogram [ECG] [EKG]; M19.012 Primary osteoarthritis, left shoulder; M19.011 Primary osteoarthritis, right shoulder
CPT/HCPCS: 36415; 73030; 80053; 80061; 81001; 84443; 85025; 93005

== ENCOUNTER 2023-08-19 11:48 | Emergency (ER) | payer OTHER, SELFPAY ==
--- NOTE | 2023-08-19 12:01 | ED.URI ---
HPI - URI/Sore Throat General Chief Complaint: Ear Stated Complaint: bilateral ear discomfort,cough Time Seen by Provider: 08/19/23 12:10 Source: patient, RN notes reviewed and old records reviewed Mode of arrival: ambulatory Limitations: no limitations History of Present Illness HPI Narrative: 43-year-old male presents to the [facility] with complaints of bilateral ear pressure, cough, fatigue and a sore throat only when coughing, not when swallowing. Denies any fevers. Has had symptoms since Friday, 4 days. No treatment prior to arrival. Requesting a work note the called off work today. States he has not taken his blood pressure medication, does not taking pills. Onset (ago): day(s) (4) Related Data Allergies Allergy/AdvReac Type Severity Reaction Status Date / Time azithromycin AdvReac Unknown Other Verified 08/19/23 12:02 Review of Systems Review of Systems: All systems reviewed & are unremarkable except as noted in HPI and below Constitutional: Constitutional: Reports as per HPI, Reports fatigue and Denies fever(s) Eyes: Eyes: Reports no additional eye complaints ENT: Reports as per HPI and Reports otalgia Cardiovascular: Cardiovascular: Reports no additional cardiovascular complaints, Denies chest pain and Denies dyspnea Respiratory: Respiratory: Reports as per HPI, Denies chest congestion, Reports cough and Denies dyspnea Gastrointestinal: Gastrointestinal: Reports no additional gastrointestinal complaints, Denies abdominal pain, Denies nausea and Denies vomiting Musculoskeletal: Musculoskeletal: Reports no additional musculoskeletal complaints Integumentary/Breasts: Skin/Breast: Reports system reviewed and no additional complaints, except as docu Neurologic: Reports system reviewed and no additional complaints, except as documented Psychiatric: Psychiatric: Reports no additional psychiatric complaints Allergic/Immunologic: Allergic/Immunologic: Reports no additional allergic/immunologic complaints [facility] Past Medical History Medical History Acute otitis media Alcohol abuse Anxiety disorder, unspecified Bilateral shoulder pain Coffee ground emesis Elevated glucose Elevated liver enzymes Encounter to establish care Fatigue GERD (gastroesophageal reflux disease) Headache Hyperlipidemia Hypertension Loose stools Nausea & vomiting Spondylosis of lumbar region without myelopathy or radiculopathy Tachycardia 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 The patient continues to smoke 1 pack a cigarettes a day. The patient stated that he usually drinks about 10 alcoholic beverages a week. He states every other week any does not drink when he has his child. The patient denies any marijuana or any other illicit drugs. The patient a durable power fieldwork coordinator for healthcare. Code status full code Smoking packs per day: 1 Smoking cigarettes per day: 20.0 Years smoked: 20 Smoking pack-years: 20.00 Smoking status: Current every day smoker Tobacco type: cigarettes Second hand tobacco smoke exposure: No Alcohol intake: current Drinks per week: 10 Substance use: never Substance use type: does not use Lack of Transportation: No Lack of Food: Never True Current Housing: I Have Housing Concerned About Future Housing: No Difficulty Paying Gas/Electric Bills: No Difficulty Paying for Meds:
[2023-08-19 12:05] VITALS: BP 167/108; PULSE 105; RESP 16; TEMP 36.7; O2SAT 100
== END 2023-08-19 12:40 | disposition home or self-care (01) ==
PROVIDERS: Emergency Provider Nurse Practitioner; PCP Nurse Practitioner Family
DX: J40 Bronchitis, not specified as acute or chronic (principal); J01.40 Acute pansinusitis, unspecified; E78.5 Hyperlipidemia, unspecified; I10 Essential (primary) hypertension; F17.210 Nicotine dependence, cigarettes, uncomplicated; Z20.822 Contact with and (suspected) exposure to COVID-19
CPT/HCPCS: 87426; 87804; 99213; C9803; G0463

== ENCOUNTER 2024-10-13 14:17 | Emergency (ER) | payer OTHER, SELFPAY ==
--- NOTE | 2024-10-13 14:22 | ED.EXTPRO ---
HPI - Extremity Problem General Chief complaint: Extremity Problem,Nontraumatic Stated complaint: shoulder pain Time Seen by Provider: 10/13/24 14:22 Source: patient Mode of arrival: ambulatory Limitations: no limitations History of Present Illness HPI Narrative: 44 yo M presents with pain to L shoulder. Has been worse that last 2 to 3 wks. Has seen his PCP in the past and told arthritis. Given meloxicam and states never helped. 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 Pt's BP elevated today. States he checks at home with home monitor and it's never elevated so he does not take his prescribed BP medication. all systems reviewed and negative except as noted above. Related Data Allergies Allergy/AdvReac Type Severity Reaction Status Date / Time azithromycin AdvReac Unknown Other Verified 10/13/24 14:19 Review of Systems Review of Systems: CONSTITUTIONAL: Denies fever, chills, or sweats. EYES: Denies visual changes, redness, or discharge. ENT: Denies rhinorrhea, congestion, sore throat, or otalgia. CARDIOVASCULAR: Denies chest pain, palpitations, or edema. RESPIRATORY: Denies cough or dyspnea. GASTROINTESTINAL: Denies abdominal pain, nausea, vomiting, or diarrhea. GENITOURINARY: Denies dysuria or hematuria. SKIN: Denies rash or itching. MUSCULOSKELETAL: Denies back pain, joint pain, or myalgia. Reports pain to left shoulder NEUROLOGIC: Denies headache, numbness, or weakness. PSYCHIATRIC: Denies anxiety or depression. All other systems reviewed are negative, except as documented in HPI. 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 The patient continues to smoke 1 pack a cigarettes a day. The patient stated that he usually drinks about 10 alcoholic beverages a week. He states every other week any does not drink when he has his child. The patient denies any marijuana or any other illicit drugs. The patient a durable power deputy attorney general for healthcare. Code status full code Smoking packs per day: 1 Smoking cigarettes per day: 20.0 Years smoked: 20 Smoking pack-years: 20.00 Smoking status: Current every day smoker Tobacco type: cigarettes Second hand tobacco smoke exposure: No Alcohol intake: current Drinks per week: 10 Substance use: never Substance use type: does not use Lack of Transportation: No Lack of Food: Never True Current Housing: I Have Housing Concerned About Future Housing: No Difficulty Paying Gas/Electric Bills: No Difficulty Paying for Meds: No Currently Unemployed: No Education: High School Diploma/GED Difficulty w/ Childcare or Family Care: No Gender identity (if verbalized by the patient): Male Spiritual care concerns: No Comments At time of signature, agree with nursing past medical, surgical, social and family history. There is no relevant family history pertinent to the presenting complaint. Exam Narrative: GENERAL: This is a well-nourished, well-developed patient, in no apparent distress. HEAD: normocephalic, atraumatic. EYES: PERRL. Sclera clear/white. Vision is grossly intact. EARS: External ears normal NOSE: External nose normal NECK: Neck supple, non-tender without lymphadenopathy, masses or thyromegaly. CARDIOVASCULAR: Regular rate and rhythm without murmurs, gallops, or rubs. RESPIRATORY: Clear to auscultation. Breath sounds equal bilaterally. No wheezes, rales, or rhonchi. SKIN: warm, Dry, intact with no suspicious lesions or rash, good texture and turgor. NEURO: awake, alert, and oriented to person, place and time. There were no obvious focal neurologic abnormalities. EXTREMITIES:generalized tenderness to L shoulder joint and L rhomboid muscle. full passive ROM Course Course Level of Care: Express Care Visit Vital Signs Vital signs: reviewed MDM - Extremity (Nontraumatic) MDM Narrative Medical decision making narrative: patient had x-ray of shoulder June 2023. Has requested an MRI from his primary care physician but she recommended physical therapy First and patient stating he does not have time to schedule those. Recommend he follow-up with his primary care physician at next available appointment. Is currently not taking his prescribed blood pressure medications because he does not feel that his blood pressure is elevated. Did explain to him that his blood pressure was elevated today. Patient is alert, nontoxic. Please be advised this is a medical document. It is intended for [id number] communication. It is written in medical language and may contain unfamiliar abbreviations or verbiage. Medical documents are intended to carry relevant information, facts as evident, and the clinical opinion of the practitioner at the time of the encounter. This report may have been done utilizing a voice recognition system. Attempts have been made to correct errors. However, there may be uncorrected grammatical, spelling, and recognition errors present. The file time of this note does not necessarily represent the time of service. Discharge Plan Discharge Clinical Impression: Acute pain of left shoulder, Elevated blood pressure reading Patient Disposition: Home, Self-Care Condition: Stable Instructions: Shoulder Pain (ED) Additional Instructions: take medications as prescribed. Methocarbamol as a muscle relaxant may cause drowsiness. Do not drive while taking this medication. Alternate between ice and heat. Do stretching exercises as tolerated. Follow-up with your primary care physician in 1 week. Patient Language: Lithuanian Prescriptions: New prednisone 20 mg tablet See Rx Instructions .ROUTE .COMPLEX Qty: 12 0RF Rx Instructions: Take 3 tablets today, then 2 tablets daily for 3 days then 1 tablet daily for 3 days. methocarbamol 750 mg tablet 750 mg PO Q8H PRN (Reason: muscle pain/spasm) Qty: 30 0RF diclofenac sodium 50 mg tablet,delayed release (DR/EC) 50 mg PO BID 30 Days Qty: 60 0RF No Action methylprednisolone [Medrol (Teddy)] 4 mg tablets,dose pack See Rx Instructions PO .COMPLEX Qty: 21 0RF Rx Instructions: orally per package directions Follow-up/Referrals: Kell Lopez NP [Primary Care Provider] - Stand Alone Forms: Work/School Release IP Time of Disposition: 14:38
[2024-10-13 14:26] VITALS: BP 157/116; PULSE 100; RESP 18; TEMP 36.3; O2SAT 100
--- OUTSIDE RECORDS SUMMARY | 2024-10-13 16:18 | XMS_ITS | Clinical Summary ---
Author Organization [facility] Address [address] [place] [address] Care Team Providers Care Clamp Forklift Operator Name Role Phone Kell Lopez Primary Care Provider [phone] Allergies No known active allergies Medications No known medications Active Problems Problem Noted Date Diagnosed Date Hematoma 03/15/2019 Family History Medical History Relation Comments Cancer Father Depression Mother Cancer Paternal Grandfather Relation Status Comments Father Mother Paternal Grandfather Social History Tobacco Use Types Packs/Day Years Used Date Smoking Tobacco: Every Day Cigarettes Smokeless Tobacco: Never Tobacco Cessation:Ready to Q uit: Not Asked; Counseling Given: Not Answered Alcohol Use Standard Drinks/Week Comments Yes 13.3 (1 standard drink = 0.6 oz pure alcohol) Sex and Gender Information Value Date Recorded Sex Assigned at Not on file Legal Sex Male 8:29 PM CDT Gender Identity Not on file Sexual Orientation Not on file Last Filed Vital Signs Vital Sign Reading Time Taken Comments Blood Pressure 151/100 04/09/2024 1:22 PM CDT Pulse 94 04/09/2024 1:22 PM CDT Temperature 36.6 C (97.8 F) 04/09/2024 1:22 PM CDT Respiratory Rate 17 04/09/2024 1:22 PM CDT Oxygen Saturation 99% 04/09/2024 1:22 PM CDT Inhaled Oxygen Concentration - - Weight 110.4 kg (243 lb 6.2 oz) 024 11:34 AM CDT Height 185.4 cm (6' 1 ) 04/09/2024 11:3 4 AM CDT Body Mass Index 32.11 04/09/2024 11:34 AM CDT Plan of Treatment Health Maintenance Due Date Last Done Comments Annual Physical 1983 Pneumococcal Vaccine: Pediat rics (0 to 5 Years) and At-Risk Patients (6 to 64 Years) (1 of 2 - PCV) 1986 Hepatitis C 1998 Hepatitis B Vaccines (1 of 3 - 19+ 3-dose series) 1999 COVID-19 Vaccine ( - 2023-2 5 season) 2024 Influenza Adult (#1) 2024 DTaP, Tdap and Td Vaccines ( 2 - Td or Tdap) 10/28/2025 10/29/2015 HPV Vaccines Aged Out No longer eligi ble based on patient's age to complete this topic Meningococcal B Vaccine Aged Out No l onger eligible based on patient's age to complete this topic Meningococcal Vaccine Aged Out No adrienne donna eligible based on patient's age to complete this topic RSV Immunizations Under 20 Months Aged Out No longer eligible based on patient's age to complete this topic Insurance UHC [facility] Care Teams Clamp Forklift Operator Relationship Specialty Start Date End Date Kell Lopez APNP [address] [address] PCP - General Nurse Practitioner Family 01/31/23
--- OUTSIDE RECORDS SUMMARY | 2024-10-13 16:18 | XMS_ITS ---
Author Organization [facility] [employer] [facility] Address [facility] [facility] [address] [place] [address] Care Team Providers Care Fiber Locking Supervisor Name Role Phone Raf Vera Unavailable [phone] Migration, Provider Unavailable Unavailable REASON FOR VISIT EMR-[facility] Social History Sex Assigned At : Social History Observation Description Sex Assigned At Male Encounters Encounter Location Date Provider Diagnosis [facility] [employer] [facility] [address] [address] 01/04/2024 Provider Migration Plan Of Treatment No Information Progress Notes * CHERELLE SHERWOODDOB:[birth year] (43 yo M)Acc No.[id number]:01/04/2024 Patient: Karla CONNORCHERELLE :1980 A ge:43 Y S ex:Male Phone: Address:[address] [place] [address], [id number] Subjective: * Chief Complaints: * E MR-Venancio * Medical History: * Surgical History: * Hospitalization/Major Diagno stic Procedure: * Medications: Objective: * Vitals: * Physical Examination: Assessment: Plan: * Treatment: * Procedure Codes: * true * Date: Generated for Beny choi/Fapaulinag/eTransmitting on: 0 10/13/2024 04:18 PM SHADE MAKER
--- OUTSIDE RECORDS SUMMARY | 2024-10-13 16:18 | XMS_ITS | Patient Health Record ---
Author Organization [facility] [employer] [facility] Address [facility] [address] [facility] [address] [place] [address] Care Team Providers Care Immigration Services Officer Name Role Phone JodyTeo reyesjay Unavailable [phone] Migration, Provider Unavailable Unavailable Reason For Referral No Information Social History Sex Assigned At : Social History Observation Description Sex Assigned At Male Encounters Encounter Location Date Provider Diagnosis [facility] [employer] [facility] [address] [facility] [address] [address] 2024 Raf Vera [facility] [place] [address] [address] [facility] [address] [address] 01/03/2024 Provider Migration [facility] [employer] [facility] [address] [facility] [address] [address] 01/04/2024 Provider Migration Plan Of Treatment No Information Insurance Providers Payer Name Payer Address Payer Phone Subscriber Number Group Number Insured Name Patient Relationship to Insured Coverage Start Date Coverage End Date [facility] [address] [place] [phone] [id number] CHERELLE THOMAS Self - patient is the insured
--- OUTSIDE RECORDS SUMMARY | 2024-10-13 16:19 | XMS_ITS | Patient Health Record ---
Author Organization [facility] Address [address] [place] [address] Care Team Providers Care Furniture Finisher Name Role Phone Margo Jimenez Primary Care Provider Allergies Allergen (clinical drug ingredient) Drug/Non Drug Allergy documented on EMR Reaction Allergy Type Onset Date Status STEROID FOR HIVES & SWELLING (uncoded) Unknown Allergy Active Reason For Referral No Information Medications Medication SIG (Take, Route, Frequency, Duration) Notes Start Date End Date Status Zoloft 50 MG 1 tablet Orally Once a day for 30 day(s) 02/28/2022 Active Social History Tobacco Use: Social History Observation Description Date Details (start date - stop date) Current Smoker NA - NA Sex Assigned At : Social History Observation Description Sex Assigned At Male Dont use, Tobacco Use/Smoking Question Answer Notes Are you a current every day smoker Problems Problem Type SNOMED Code ICD Code Onset Dates Problem Status W/U Status Risk Notes Problem Generalized anxiety disorder (74900141) Generalized anxiety disorder (F41.1) Active confirmed Problem Major depressive disorder (805730942) Major depressive disorder (F32.9) Active confirmed Problem Nicotine dependence (39528563) Nicotine dependence (F17.200) Active confirmed Plan Of Treatment No Information Insurance Providers Payer Name Payer Address Payer Phone Subscriber Number Group Number Insured Name Patient Relationship to Insured Coverage Start Date Coverage End Date [facility] [id number] [place] [phone] [id number] Sagar Quiñonez Self - patient is the insured 2 Medical (General) History Medical History History ICD Code DRUG ABUSE DISORDER ALCOHOL ABUSE DISORDER SEVERE DEPRESSION Surgical History Surgery Date(Month/Year) Tonsillectomy 2011 Hospitalization History Reason Date(Month/Year) Severe depression- admitted to [place] o n Friday01/16/2022 Shira @ age 17
--- OUTSIDE RECORDS SUMMARY | 2024-10-13 16:19 | XMS_ITS ---
Author Organization [facility] [employer] [facility] Address [facility] [facility] [address] [place] [address] Care Team Providers Care File Keeper Name Role Phone Raf Vera Unavailable [phone] Migration, Provider Unavailable Unavailable REASON FOR VISIT [place] [place] [place] Sex Assigned At : Social History Observation Description Sex Assigned At Male Encounters Encounter Location Date Provider Diagnosis [facility] [employer] [facility] [address] [address] 01/03/2024 Provider Migration Plan Of Treatment No Information Progress Notes * CHERELLE SHERWOODDOB:[birth year] (43 yo M)Acc No.[id number]:01/03/2024 Patient: Karla CONNORCHERELLE :1980 A ge:43 Y S ex:Male Phone: Address:[address] [place] [address], [address] Subjective: * Chief Complaints: * E MR-Venancio * Medical History: * Surgical History: * Hospitalization/Major Diagno stic Procedure: * Medications: Objective: * Vitals: * Physical Examination: Assessment: Plan: * Treatment: * Procedure Codes: * true * Date: Generated for Beny choi/Fapaulinag/eTransmitting on: 0 10/13/2024 04:18 PM ENGRAVING PLATE MAKER
--- OUTSIDE RECORDS SUMMARY | 2024-10-13 16:19 | XMS_ITS ---
Author Organization [facility] [employer] Address [facility] [address] [facility] [address] [place] [address] Care Team Providers Care Molybdenum Steamer Operator Name Role Phone Jody, Raf Unavailable [phone] Social History Sex Assigned At : Social History Observation Description Sex Assigned At Male Encounters Encounter Location Date Provider Diagnosis [facility] [employer] [facility] [address] [facility] [address] [address] 2024 Raf Caraballo Plan Of Treatment No Information Progress Notes * CHERELLE SHERWOODDOB:[birth year] (44 yo M)Acc No.[id number]:2024 Patient: CHERELLE RUDD Provider: Emely CARABALLO MD :1980 A ge:44 Y S ex:Male Date:2024 Phone: Address:[address] [place], [place] [phone] Subjective: * Chief Complaints: * * Medical History: Objective: * Vitals: Assessment: Plan: * Treatment: * Procedure Codes: N S NO SHOW * Billing Information: * Visit Code: * Procedure Codes: NS NO SHOW. 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
== END 2024-10-13 14:40 | disposition home or self-care (01) ==
PROVIDERS: Emergency Provider Nurse Practitioner Family; PCP Nurse Practitioner Family
DX: M25.512 Pain in left shoulder (principal); I10 Essential (primary) hypertension; F17.210 Nicotine dependence, cigarettes, uncomplicated; K21.9 Gastro-esophageal reflux disease without esophagitis; E78.5 Hyperlipidemia, unspecified; M47.816 Spondylosis without myelopathy or radiculopathy, lumbar region
CPT/HCPCS: 99213; G0463

== ENCOUNTER 2024-11-02 20:48 | Observation (INO) | payer OTHER, SELFPAY ==
[2024-11-02] VITALS (8 sets, daily range): BP systolic 139–153; BP diastolic 104–122; PULSE 111–128; RESP 17–20; TEMP 36.7; O2SAT 96–100
--- NOTE | ~2024-11-02 | CT_ITS ---
CLINICAL INDICATION: Abdominal pain, proteinuria, elevated transaminases COMPARISON: 04/23/2022. TECHNIQUE: Multiple contiguous axial images of the abdomen and pelvis were performed following the ad ministration of with 100 mL Omnipaque-350 intravenous contrast The dose-length product (DLP) was 1012.10 mGy-cm. Automated exposure control and iterative reconstruction technique were employed. FINDINGS/OBSERVATIONS: Visualized lower thorax: The bilateral lung bases are clear. Multiple nonpathologically enlarged but morphologically suspicious paraesophageal lymph nodes are antwan ntified, increased in size and number since 2021 examination. Redemonstration of mural thickening within the distal esophagus demonstrating progression from 2021 e xamination for which direct visualization is recommended. The heart is within the upper limits of normal for size, without pericardial effusion. A small hiatal hernia is present. Liver: The liver demonstrates homogeneous enhancement, decreased attenuation and global enlargement, measuri ng 23 cm in longitudinal dimension, increased from 2021 examination. Gallbladder and biliary system: The gallbladder is only minimally distended, and otherwise unremarkable. Pancreas: The pancreas enhances homogeneously without ductal dilatation. Spleen: The spleen enhances homogeneously and is not enlarged measuring 10 cm in longitudinal dimension. Kidneys: The bilateral kidneys enhance symmetrically without hydronephrosis or renal calculi. Adrenal glands: Unremarkable. Gastrointestinal tract: Mural thickening and edema is identified within the ascending colon to the level of the hepatic flexu re with trace surrounding inflammatory change, for which a short segment colitis suspected. Appendix: The air-filled appendix is of normal caliber (axial series, images 137 through 150). Vasculature: Unremarkable. Lymph nodes: No pathologically enlarged or morphologically suspicious lymph nodes within the retroperitoneum or at the root of the mesentery. Pelvic structures: The bladder is decompressed, and otherwise unremarkable. The prostate gland is not enlarged, but contains multiple bulky calcifications.. Body wall and musculoskeletal: Trace degenerative disease within the lumbosacral spine at the level of L5/S1 with osteophyte formati on, disc space narrowing and vacuum phenomena. IMPRESSION: Interval increase in the mural thickening of the distal esophagus with multiple paraesophageal lymph nodes, increased in size from the 2021 examination for which direct visualization is recommended. Fatty infiltration of a significantly enlarged liver, increased in size from the 2021 examination. Short segment colitis involving the ascending colon is suspected. Reviewed, dictated and finalized at location A. IMPRESSION: Interval increase in the mural thickening of the distal esophagus with multiple paraesophageal lymph nodes, increased in size from the 2021 examination for wh ich direct visualization is recommended. Fatty infiltration of a significantly enlarged liver, increased in size from e 2021 examination. Short segment colitis involving the ascending colon is suspected.
--- NOTE | ~2024-11-02 | XR_ITS ---
CHEST RADIOGRAPH, PA AND LATERAL CLINICAL HISTORY: cough x 3 weeks . COMPARISON: None TECHNIQUE: PA and lateral views of the chest. FINDINGS The cardiomediastinal silhouette is unremarkable. The lungs are clear. Visualized osseous structures and soft tissues are unremarkable. IMPRESSION: No focal infiltrate or effusion. Reviewed, dictated and finalized at location A.
--- OUTSIDE RECORDS SUMMARY | 2024-11-02 20:51 | XMS_ITS | Patient Health Record ---
Author Organization [facility] [employer] [facility] Address [facility] [address] [facility] [address] [place] [address] Care Team Providers Care Lecturer In Computer Science Name Role Phone JodyTeo reyesjay Unavailable [phone] Migration, Provider Unavailable Unavailable Reason For Referral No Information Social History Sex Assigned At : Social History Observation Description Sex Assigned At Male Encounters Encounter Location Date Provider Diagnosis [facility] [employer] [facility] [address] [facility] [address] [address] 2024 Raf Vera [facility] [employer] [place] [address] [facility] [address] [address] 01/03/2024 Provider Migration [facility] [employer] [facility] [address] [facility] [address] [address] 01/04/2024 Provider Migration Plan Of Treatment No Information Insurance Providers Payer Name Payer Address Payer Phone Subscriber Number Group Number Insured Name Patient Relationship to Insured Coverage Start Date Coverage End Date [facility] [address] [place] [phone] [id number] CHERELLE THOMAS Self - patient is the insured
--- OUTSIDE RECORDS SUMMARY | 2024-11-02 20:51 | XMS_ITS ---
Author Organization [facility] [employer] [facility] Address [facility] [facility] [address] [place] [address] Care Team Providers Care Network Support Engineer Name Role Phone Raf Vera Unavailable [phone] Migration, Provider Unavailable Unavailable REASON FOR VISIT EMR-[facility] [place] Social History Sex Assigned At : Social History Observation Description Sex Assigned At Male Encounters Encounter Location Date Provider Diagnosis [facility] [employer] [facility] [address] [address] 01/04/2024 Provider Migration Plan Of Treatment No Information Progress Notes * CHERELLE SHERWOODDOB:[birth year] (43 yo M)Acc No.[id number]:01/04/2024 Patient: Karla CONNORCHERELLE :1980 A ge:43 Y S ex:Male Phone: Address:[address] [place] [address], [address] Subjective: * Chief Complaints: * E MR-Venancio * Medical History: * Surgical History: * Hospitalization/Major Diagno stic Procedure: * Medications: Objective: * Vitals: * Physical Examination: Assessment: Plan: * Treatment: * Procedure Codes: * true * Date: Generated for Angiei ng/Fapaulinag/eTransmitting on: 0 11/02/2024 08:50 PM CDT
--- OUTSIDE RECORDS SUMMARY | 2024-11-02 20:51 | XMS_ITS | Patient Health Record ---
Author Organization [facility] Address [address] [place] [address] Care Team Providers Care Information Technology Audit Manager Name Role Phone Margo Jimenez Primary Care [...] Status Risk Notes Problem Generalized anxiety disorder (14297243) Generalized anxiety disorder (F41.1) Active confirmed Problem Major depressive disorder (911230713) Major depressive disorder (F32.9) Active confirmed Problem Nicotine dependence (37309648) Nicotine dependence (F17.200) Active confirmed Plan Of Treatment No Information Insurance Providers Payer Name Payer Address Payer Phone Subscriber Number Group Number Insured Name Patient Relationship to Insured Coverage Start Date Coverage End Date [facility] [address] [place] [phone] [id number] Sagar Quiñonez Self - patient is the insured 2 Medical (General) History Medical History History ICD Code DRUG ABUSE DISORDER ALCOHOL ABUSE DISORDER SEVERE DEPRESSION Surgical History Surgery Date(Month/Year) Tonsillectomy 2011 Hospitalization History Reason Date(Month/Year) Severe depression- admitted to [facility] o n Friday01/16/2022 Shira @ age 17
--- OUTSIDE RECORDS SUMMARY | 2024-11-02 20:51 | XMS_ITS ---
Author Organization [facility] [employer] Address [facility] [address] [facility] [address] [place] [address] Care Team Providers Care Metal Burrer Name Role Phone Jody, Raf Unavailable [phone] Social History Sex Assigned At : Social History Observation Description Sex Assigned At Male Encounters Encounter Location Date Provider Diagnosis [facility] [employer] [facility] [address] [facility] [address] [facility] [address] [place] [address] 2024 Raf Caraballo Plan Of Treatment No Information Progress Notes * CHERELLE SHERWOODDOB:[birth year] (44 yo M)Acc No.[id number]:2024 Patient: CHERELLE RUDD Provider: Emely CARABALLO MD :1980 A ge:44 Y S ex:Male Date:2024 Phone: Address:[address] [place], [place] [phone] Subjective: * Chief Complaints: * * Medical History: Objective: * Vitals: Assessment: Plan: * Treatment: * Procedure Codes: N S NO SHOW * Billing Information: * Visit Code: * Procedure Codes: NS NO SHOW. * Sign off status: Completed true * Provider: Emely CARABALLO MD Date: Generated for Beny choi/Adan/Fide on: 11/02/2024 08:51 PM CDT
--- OUTSIDE RECORDS SUMMARY | 2024-11-02 20:51 | XMS_ITS | Clinical Summary ---
Author Organization [facility] Address [address] [place] [address] Care Team Providers Care Linen Keeper Name Role Phone Kell Lopez Primary Care Provider [phone] Allergies No known active allergies Medications No [...] age to complete this topic Insurance UHC [facility] Care Teams Linen Keeper Relationship Specialty Start Date End Date Kell Lopez APNP [address] [address] PCP - General Nurse Practitioner Family 01/31/23
--- OUTSIDE RECORDS SUMMARY | 2024-11-02 20:51 | XMS_ITS ---
Author Organization [facility] [employer] [facility] Address [facility] [address] Care Team Providers Care Biomass Power Plant Superintendent Name Role Phone Raf Vera Unavailable [phone] Migration, Provider Unavailable Unavailable REASON FOR VISIT [place] [place] Social History Sex Assigned At : Social History Observation Description Sex Assigned At Male Encounters Encounter Location Date Provider Diagnosis [facility] [place] [address] [address] 01/03/2024 Provider Migration Plan Of Treatment No Information Progress Notes * CHERELLE SHERWOODDOB:[birth year] (43 yo M)Acc No.[id number]:01/03/2024 Patient: Karla CONNORCHERELLE :1980 A ge:43 Y S ex:Male Phone: Address:[address] [place] [address], [address] Subjective: * Chief Complaints: * E MR-Venancio * Medical History: * Surgical History: * Hospitalization/Major Diagno stic Procedure: * Medications: Objective: * Vitals: * Physical Examination: Assessment: Plan: * Treatment: * Procedure Codes: * true * Date: Generated for Angiei ng/Fapaulinag/eTransmitting on: 0 11/02/2024 08:50 PM CDT
[2024-11-02 21:37] LABS: Hematocrit 44.2 % (42.0-52.0); Hemoglobin 15.9 g/dL (14.0-18.0); Mean Corpuscular Hemoglobin 31.4 pg (26-34); Mean Corpuscular Volume 87.2 fl (80-100); Mean Platelet Volume 11.2 fl (7.4-10.4); Platelet Count Result 151 k/mm3 (150-375); Red Blood Count 5.07 M/mm3 (4.6-6.20); Red Cell Distribution Width 14.7 % (11.5-14.5); White Blood Count 7.6 K/mm3 (4.5-10.0)
[2024-11-02 21:47] LABS: Alanine Aminotransferase 183 U/L (6-50); Albumin Level 3.8 g/dL (3.5-5.1); Alkaline Phosphatase 289 U/L (38-126); Anion Gap 14 mmol/L (4-12); Aspartate Amino Transferase 251 U/L (17-59); Bilirubin,Total 6.3 mg/dL (0.2-1.3); Blood Urea Nitrogen 9 mg/dL (9-20); Calcium 8.7 mg/dL (8.4-10.2); Carbon Dioxide 22 mmol/L (22-30); Chloride 98 mmol/L (98-107); Estimated CRCL calculation 99 ml/min; Estimated Glomerular Filt Rate > 60; Glucose 216 mg/dL (65-110); Potassium 3.7 mmol/L (3.4-5.0); Sodium 134 mmol/L (137-145)
[2024-11-02 21:52] LABS: Neutrophils Percent Manual 59 % (46-73); Total Cells Counted 100
[2024-11-02 21:53] LABS: Band Neutrophils Percent 0 % (0-6); Eosinophils Absolute Manual 0.07 K/mm3 (0.02-0.50); Eosinophils Percent Manual 1 % (0-4); Lymphocytes Absolute Manual 2.73 K/mm3 (1.1-4.5); Lymphocytes Percent Manual 36 % (18-44); Monocytes Percent Manual 4 % (3-9); Neutrophils Absolute Manual 4.48 K/mm3 (1.3-6.7); Platelet Estimate Adequate (Adequate); Schistocytes None Seen; Target Cells 2+
[2024-11-02 22:13] LABS: Influenza A QL RT-PCR Negative (Negative); Influenza B QL RT-PCR Negative (Negative); SARS-CoV-2 RNA PCR Negative (Negative)
[2024-11-02 22:17] LABS: Lipase 130 U/L (23-300)
[2024-11-02 22:26] LABS: Add Urine Microscopic? YES; Appearance Urine Turbid (Clear); Bacteria Urine Rare /hpf; Blood Urine Negative (Negative); Color Urine Orange (Yellow); Glucose Urine UA Trace mg/dL (Negative); Hyaline Casts Urine Present /lpf; Mucus Urine Present /lpf; Need Manual Microscopic Reviewed; Non Pathogenic Casts >20; Protein Urine 2+ mg/dL (Negative); Specific Grav Ur 1.037 (1.001-1.035); Squamous Epithelial Cell Urine Many /hpf (Few)
[2024-11-02] MEDS: SODIUM CHLORIDE 0.9% IV 1,000 ML 999 ML IV CONT ×2 (22:29→22:30)
[2024-11-02 22:34] LABS: Prothrombin Time 13.1 Seconds (11.1-14.7)
[2024-11-02 22:35] LABS: Partial Thromboplastin Time 24.9 Seconds (22.3-36.8)
[2024-11-02 22:45] LABS: Procalcitonin 1.2 ng/mL
--- OUTSIDE RECORDS SUMMARY | 2024-11-02 22:46 | XMS_ITS | Clinical Summary ---
Author Organization [facility] Address [address] [place] [address] Care Team Providers Care Balancer Scale Name Role Phone Kell Lopez Primary Care Provider Allergies No known active allergies Medications No [...] age to complete this topic Insurance [employer] [facility] Care Teams Balancer Scale Relationship Specialty Start Date End Date Kell Lopez APNP [address] [address] PCP - General Nurse Practitioner Family 01/31/23
[2024-11-02 22:56] LABS: Lactic Acid Reflex 2.1 mmol/L (0.7-2.0)
[2024-11-03] VITALS (20 sets, daily range): BP systolic 129–165; BP diastolic 93–103; PULSE 78–115; RESP 13–20; TEMP 37; O2SAT 95–100; BMI 30.4
--- NOTE | 2024-11-03 00:11 | ED_ITS ---
HPI - General Adult General Chief complaint: Urogenital-Male Stated complaint: Urinating blood, N/V Time Seen by Provider: 11/02/24 22:03 History of Present Illness HPI narrative: Patient is a 44-year-old woman emergency department with chief complaint of dark colored urine. The patient states that he has had some episodes of vomiting and has noticed that his urine has turned very dark colored and is concerned that there might be blood in his urine patient does report that he does drink alcohol the patient reports no bright red blood reports no trauma reports no abdominal pain Related Data Allergies Allergy/AdvReac Type Severity Reaction Status Date / Time azithromycin AdvReac Unknown Other Verified 10/13/24 14:19 Review of Systems 2 Review of Systems: A 10 system review of systems was completed on the patient and is negative except for what is stated in the HPI. Nursing and ancillary documentation was reviewed. 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 The patient continues to smoke 1 pack a cigarettes a day. The patient stated that he usually drinks about 10 alcoholic beverages a week. He states every other week any does not drink when he has his child. The patient denies any marijuana or any other illicit drugs. The patient a durable power litigation attorney for healthcare. Code status full code Smoking packs per day: 1 Smoking cigarettes per day: 20.0 Years smoked: 20 Smoking pack-years: 20.00 Smoking status: Current every day smoker Tobacco type: cigarettes Second hand tobacco smoke exposure: No Alcohol intake: current Drinks per week: 10 Substance use: never Substance use type: does not use Lack of Transportation: No Lack of Food: Never True Current Housing: I Have Housing Concerned About Future Housing: No Difficulty Paying Gas/Electric Bills: No Difficulty Paying for Meds: No Currently Unemployed: No Education: High School Diploma/GED Difficulty w/ Childcare or Family Care: No Gender identity (if verbalized by the patient): Male Spiritual care concerns: No Exam 2 Narrative: GENERAL: Well-appearing, well-nourished, and in no acute distress. HEAD: Normocephalic, atraumatic. EYES: PERRLA and EOMI. Slight icteric nature of the sclera ENT: Nares clear, no rhinorrhea or epistaxis. Mucous membranes moist. NECK: Supple. CHEST: Clear to auscultation. No respiratory distress. HEART: Regular rate and rhythm. No murmur heard. Normal peripheral pulses. ABDOMEN: Soft, nontender, nondistended, normal active bowel sounds. EXTREMITIES: Normal range of motion. No edema. SKIN: Warm, dry, no rash. NEURO: No focal deficits. Alert and oriented x3. PSYCH: Normal mood and affect. Course Vital Signs Vital signs: Vital Signs Temperature 36.7 C 11/02/24 21:19 Pulse Rate 126 H 11/02/24 21:19 Respiratory Rate 18 11/02/24 21:19 Blood Pressure 153/122 H 11/02/24 21:19 Pulse Oximetry 99 11/02/24 21:19 Oxygen Delivery Room Air 11/02/24 21:19 Temperature 36.7 C 11/02/24 21:19 Pulse Rate 105 H 11/03/24 00:15 Respiratory Rate 20 11/03/24 00:15 Blood Pressure 139/104 H 11/02/24 23:15 Pulse Oximetry 98 11/03/24 00:15 Oxygen Delivery Room Air 11/02/24 21:19 Medical Decision Making MDM Narrative Medical decision making narrative: Differential diagnosis includes intra-abdominal infection, cholecystitis, choledocholithiasis, acute hepatitis, Laboratory studies were obtained showed elevated bilirubin at 6.3. CT scan of the abdomen pelvis showed no acute obstructive process Vital Signs Vital Signs: Vital Signs Temperature 36.7 C 11/02/24 21:19 Pulse Rate 126 H 11/02/24 21:19 Respiratory Rate 18 11/02/24 21:19 Blood Pressure 153/122 H 11/02/24 21:19 Pulse Oximetry 99 11/02/24 21:19 Oxygen Delivery Room Air 11/02/24 21:19 Temperature 36.7 C 11/02/24 21:19 Pulse Rate 105 H 11/03/24 00:15 Respiratory Rate 20 11/03/24 00:15 Blood Pressure 139/104 H 11/02/24 23:15 Pulse Oximetry 98 11/03/24 00:15 Oxygen Delivery Room Air 11/02/24 21:19 Lab Data 11/02/24 21:31 11/02/24 21:31 Labs: Lab Results 11/02/24 11/02/24 11/02/24 Range/Units 21:30 21:31 22:08 WBC 7.6 (4.5-10.0) K/mm3 RBC 5.07 (4.6-6.20) M/mm3 Hgb 15.9 (14.0-18.0) g/dL Hct 44.2 (42.0-52.0) % MCV 87.2 (80-100) fl MCH 31.4 (26-34) pg MCHC 36.0 (32-36) g/dl RDW 14.7 H (11.5-14.5) % Plt Count 151 (150-375) k/mm3 MPV 11.2 H (7.4-10.4) fl Immature Gran % (Auto) Not Reportable Neut % (Auto) Not Reportable Lymph % (Auto) Not Reportable [place] % (Auto) Not Reportable Eos % (Auto) Not Reportable Baso % (Auto) Not Reportable Lymph # (Auto) Not Reportable [place] # (Auto) Not Reportable Eos # (Auto) Not Reportable Baso # (Auto) Not Reportable Abs Immat Gran (auto) Not Reportable Absolute Neuts (auto) Not Reportable Absolute Nucleated RBC Not Reportable Total Counted 100 Neutrophils % (Manual) 59 (46-73) % Band Neutrophils % 0 (0-6) % Lymphocytes % (Manual) 36 (18-44) % Monocytes % (Manual) 4 (3-9) % Eosinophils % (Manual) 1 (0-4) % Nucleated RBC % Not Reportable Abs Neuts (Manual) 4.48 (1.3-6.7) K/mm3 Abs Lymphs (Manual) 2.73 (1.1-4.5) K/mm3 Abs Monocytes (Manual) 0.30 (0.1-0.90) K/mm3 Absolute Eos (Manual) 0.07 (0.02-0.50) K/mm3 Platelet Estimate Adequate (Adequate) Target Cells 2+ Schistocytes None seen PT 13.1 (11.1-14.7) Seconds INR 1.0 APTT 24.9 (22.3-36.8) Seconds Sodium 134 L (137-145) mmol/L Potassium 3.7 (3.4-5.0) mmol/L Chloride 98 (98-107) mmol/L Carbon Dioxide 22 (22-30) mmol/L Anion Gap 14 H (4-12) mmol/L BUN 9 (9-20) mg/dL Creatinine 1.07 (0.7-1.3) mg/dL Estim Creat Clear Calc 99 ml/min Estimated GFR > 60 (59 - ) Glucose 216 H (65-110) mg/dL Lactic Acid (0.7-2.0) mmol/L Calcium 8.7 (8.4-10.2) mg/dL Total Bilirubin 6.3 H (0.2-1.3) mg/dL AST 251 H (17-59) U/L ALT 183 H (6-50) U/L Alkaline Phosphatase 289 H (38-126) U/L Total Protein 8.0 (6.3-8.2) g/dL Albumin 3.8 (3.5-5.1) g/dL Lipase 130 (23-300) U/L Procalcitonin 1.2 ng/mL Urine Color [place] H (Yellow) Urine Appearance Turbid H (Clear) Urine pH 5.0 (5.0-9.0) Ur Specific [place] 1.037 H (1.001-1.035) Urine Protein 2+ H (Negative) mg/dL Urine Glucose (UA) Trace H (Negative) mg/dL Urine Ketones TNP Ur Blood (Man) Negative (Negative) Urine Nitrate TNP Urine Bilirubin TNP Urine Urobilinogen TNP Add Ur Microanalysis Reviewed Leukocyte Esterase Rfl TNP Urine RBC 6-10 H (0-2) /hpf Urine WBC 6-10 H (0-3) /hpf Ur Squamous Epith Cells Many H (Few) /hpf Urine Bacteria Rare /hpf Urine Casts >20 Hyaline Casts Present (None) /lpf Urine Mucus Present /lpf Ethyl Alcohol < 10 (<10) mg/dL Influenza A (RT-PCR) Negative (Negative) Influenza B (RT-PCR) Negative (Negative) SARS-CoV-2 RNA (RT-PCR) Negative (Negative) 11/02/24 11/03/24 Range/Units 22:24 00:38 WBC (4.5-10.0) K/mm3 RBC (4.6-6.20) M/mm3 Hgb (14.0-18.0) g/dL Hct (42.0-52.0) % MCV (80-100) fl MCH (26-34) pg MCHC (32-36) g/dl RDW (11.5-14.5) % Plt Count (150-375) k/mm3 MPV (7.4-10.4) fl Immature Gran % (Auto) Neut % (Auto) Lymph % (Auto) [place] % (Auto) Eos % (Auto) Baso % (Auto) Lymph # (Auto) [place] # (Auto) Eos # (Auto) Baso # (Auto) Abs Immat Gran (auto) Absolute Neuts (auto) Absolute Nucleated RBC Total Counted Neutrophils % (Manual) (46-73) % Band Neutrophils % (0-6) % Lymphocytes % (Manual) (18-44) % Monocytes % (Manual) (3-9) % Eosinophils % (Manual) (0-4) % Nucleated RBC % Abs Neuts (Manual) (1.3-6.7) K/mm3 Abs Lymphs (Manual) (1.1-4.5) K/mm3 Abs Monocytes (Manual) (0.1-0.90) K/mm3 Absolute Eos (Manual) (0.02-0.50) K/mm3 Platelet Estimate (Adequate) Target Cells Schistocytes PT (11.1-14.7) Seconds INR APTT (22.3-36.8) Seconds Sodium (137-145) mmol/L Potassium (3.4-5.0) mmol/L Chloride (98-107) mmol/L Carbon Dioxide (22-30) mmol/L Anion Gap (4-12) mmol/L BUN (9-20) mg/dL Creatinine (0.7-1.3) mg/dL Estim Creat Clear Calc ml/min Estimated GFR (59 - ) Glucose (65-110) mg/dL Lactic Acid 2.1 H Pending (0.7-2.0) mmol/L Calcium (8.4-10.2) mg/dL Total Bilirubin (0.2-1.3) mg/dL AST (17-59) U/L ALT (6-50) U/L Alkaline Phosphatase (38-126) U/L Total Protein (6.3-8.2) g/dL Albumin (3.5-5.1) g/dL Lipase (23-300) U/L Procalcitonin ng/mL Urine Color (Yellow) Urine Appearance (Clear) Urine pH (5.0-9.0) Ur Specific [place] (1.001-1.035) Urine Protein (Negative) mg/dL Urine Glucose (UA) (Negative) mg/dL Urine Ketones Ur Blood (Man) (Negative) Urine Nitrate Urine Bilirubin Urine Urobilinogen Add Ur Microanalysis Leukocyte Esterase Rfl Urine RBC (0-2) /hpf Urine WBC (0-3) /hpf Ur Squamous Epith Cells (Few) /hpf Urine Bacteria /hpf Urine Casts Hyaline Casts (None) /lpf Urine Mucus /lpf Ethyl Alcohol (<10) mg/dL Influenza A (RT-PCR) (Negative) Influenza B (RT-PCR) (Negative) SARS-CoV-2 RNA (RT-PCR) (Negative) Discharge Plan Discharge Clinical Impression: Transaminitis Patient Disposition: Still a Patient Condition: Stable Patient Language: Macedonian Prescriptions: No Action prednisone 20 mg tablet See Rx Instructions .ROUTE .COMPLEX Qty: 12 0RF Rx Instructions: Take 3 tablets today, then 2 tablets daily for 3 days then 1 tablet daily for 3 days. methocarbamol 750 mg tablet 750 mg PO Q8H PRN (Reason: muscle pain/spasm) Qty: 30 0RF diclofenac sodium 50 mg tablet,delayed release (DR/EC) 50 mg PO BID 30 Days Qty: 60 0RF methylprednisolone [Medrol (Teddy)] 4 mg tablets,dose pack See Rx Instructions PO .COMPLEX Qty: 21 0RF Rx Instructions: orally per package directions Follow-up/Referrals: Kell Lopez, COLLE[facility] DEAN [Primary Care Provider] - Time of Disposition: 01:18
[2024-11-03 00:30] LABS: Reflex Lactic Acid Yes or No Add Lactic
[2024-11-03] MEDS: LORazepam INJ (*CRX) 2 MG/ML VIAL 1 MG IV PUSH (00:44)
[2024-11-03 00:50] LABS: Ethanol < 10 mg/dL (<10)
[2024-11-03] MEDS: THIAMINE 500 MG/NS 100 ML 500 MG/100 ML BAG 200 MG IVPB (01:09)
[2024-11-03 01:35] LABS: Glucose Point of Care 124 mg/dl (65-105)
[2024-11-03] MEDS: DEXTROSE 5%/0.9% SOD CHL 1,000 ML 125 ML IV CONT ×3 (01:36→17:57)
[2024-11-03] MEDS: SODIUM CHLORIDE 0.9% IV 1,000 ML 999 ML IV CONT (01:36)
[2024-11-03 05:15] LABS: Hepatitis B Surface Antigen Negative (Negative)
[2024-11-03 05:20] LABS: HAV RESULT Negative (Negative); Hepatitis B Core IgM Result Negative (Negative)
[2024-11-03 05:32] LABS: Hepatitis C Virus Antibody Negative (Negative)
--- NOTE | 2024-11-03 08:12 | PC.NURSE ---
called hospitalist at this time. pt requesting a nicotine patch and pt asked for anxiety meds. this RN passed the message along to the hospitalist. no new orders at this time
--- NOTE | 2024-11-03 09:25 | PC.NURSE ---
talked to Dr. Odonnell at this time. Hospitalist gave a verbal order for 5mg PO of Buspar, this RN entered the order
--- NOTE | 2024-11-03 09:46 | PC.NURSE ---
pt refused the Buspar. pt says it doesn't work for me
--- NOTE | 2024-11-03 10:48 | P.HP_ITS ---
H&P: HPI History of Present Illness Date/Time: 11/03/24 10:48 Chief Complaint: Urinating blood, N/V Narrative: 44-year-old man emergency department with chief complaint of dark colored urine. Patient states that he has had nausea and vomiting with a cough for about 3 weeks. He states that he has had very little p.o. intake. He states that he also has a sore throat. He also complains of blood in urine. Patient denies diarrhea or blood in stools. In the ED patient had hyponatremia at 1:36 a.m., glucose of 216, total bili of 6.3, AST of 251, ALT of 183, alkaline phos of 289, UA shows orange turbid urine with 6-10 rbc's. Chest x-ray with no acute findings. CT chest abdomen pelvis show Interval increase in the mural thickening of the distal esophagus with multiple paraesophageal lymph nodes, increased in size from the 2021 examination for which direct visualization is recommended. Fatty infiltration of a significantly enlarged liver, increased in size from the 2021 examination. Short segment colitis involving the ascending colon is suspected. GI was consulted. Review of Systems Review of Systems: 12 systems were reviewed and are negativ e except for as per HPI. 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 The patient continues to smoke 1 pack a cigarettes a day. The patient stated that he usually drinks about 10 alcoholic beverages a week. He states every other week any does not drink when he has his child. The patient denies any marijuana or any other illicit drugs. The patient a durable power criminal defense attorney for healthcare. Code status full code Smoking packs per day: 1 Smoking cigarettes per day: 20.0 Years smoked: 20 Smoking pack-years: 20.00 Smoking status: Current every day smoker Tobacco type: cigarettes Second hand tobacco smoke exposure: No Alcohol intake: current Drinks per week: 10 Substance use: never Substance use type: does not use Lack of Transportation: No Lack of Food: Never True Current Housing: I Have Housing Concerned About Future Housing: No Difficulty Paying Gas/Electric Bills: No Difficulty Paying for Meds: No Currently Unemployed: No Education: High School Diploma/GED Difficulty w/ Childcare or Family Care: No Gender identity (if verbalized by the patient): Male Spiritual care concerns: No Meds Home Medications and Allergies Home Medications ?Medication ?Instructions ?Recorded ?Confirmed ?Type methylprednisolone 4 mg tablets in See Rx Instructions PO .COMPLEX 08/19/23 Rx a dose pack (Medrol ([place])) #21 ea diclofenac sodium 50 mg 50 mg PO BID 30 days #60 tabs 10/13/24 Rx tablet,delayed release methocarbamol 750 mg tablet 750 mg PO Q8H PRN muscle 10/13/24 Rx pain/spasm #30 tabs prednisone 20 mg tablet See Rx Instructions .Route 10/13/24 Rx .COMPLEX #12 tabs Allergies Allergy/AdvReac Type Severity Reaction Status Date / Time azithromycin AdvReac Unknown Other Verified 10/13/24 14:19 Vital Signs Vital Signs - 24 hr 11/02/24 21:19 11/02/24 22:20 11/02/24 22:30 Temperature 98.1 F Pulse Rate 126 H 128 H 124 H Respiratory Rate 18 20 17 Blood Pressure 153/122 H Pulse Oximetry 99 Oxygen Delivery Room Air 11/02/24 22:54 11/02/24 23:10 11/02/24 23:11 Temperature Pulse Rate 118 H 120 H 112 H Respiratory Rate 19 17 18 Blood Pressure 146/104 H Pulse Oximetry 97 97 100 Oxygen Delivery 11/02/24 23:12 11/02/24 23:15 11/03/24 00:04 Temperature Pulse Rate 111 H 112 H 108 H Respiratory Rate 20 20 20 Blood Pressure 139/104 H Pulse Oximetry 98 96 99 Oxygen Delivery 11/03/24 00:15 11/03/24 01:11 11/03/24 01:50 Temperature Pulse Rate 105 H 109 H 115 H Respiratory Rate 20 17 16 Blood Pressure Pulse Oximetry 98 98 97 Oxygen Delivery 11/03/24 02:01 11/03/24 02:40 11/03/24 03:45 Temperature Pulse Rate 110 H 110 H 94 Respiratory Rate 13 19 19 Blood Pressure Pulse Oximetry 98 99 97 Oxygen Delivery 11/03/24 04:00 11/03/24 04:30 11/03/24 04:46 Temperature Pulse Rate 88 89 89 Respiratory Rate 16 17 18 Blood Pressure Pulse Oximetry 98 97 97 Oxygen Delivery 11/03/24 05:00 11/03/24 05:45 11/03/24 06:30 Temperature Pulse Rate 85 87 84 Respiratory Rate 17 16 19 Blood Pressure 129/93 H 134/99 H 135/96 H Pulse Oximetry 98 98 95 Oxygen Delivery 11/03/24 06:55 11/03/24 07:54 11/03/24 08:00 Temperature Pulse Rate 83 85 86 Respiratory Rate 14 15 19 Blood Pressure 135/96 H 155/102 H 165/103 H Pulse Oximetry 100 96 97 Oxygen Delivery 11/03/24 09:02 Temperature Pulse Rate 86 Respiratory Rate 20 Blood Pressure 140/99 H Pulse Oximetry 98 Oxygen Delivery Exam Narrative: General: well appearing, appears stated age. HEENT: normocephalic, atraumatic. Mucous membranes moist. EOMI, PERRLA, bilateral sclera anicteric, no conjunctival injection. Neck supple without JVD, lymphadenopathy, or bruit. Unable to feel lymph nodes Respiratory: clear to ascultation bilaterally. No rales/rhonic/wheezes. Cardiovascular: Regular rate and rhythm, normal S1-S2 upon ascultation. No murmurs, rubs, or clicks. PMI is nondisplaced, capillary refill less than 3 second. Abdomen: Soft, round, no pulsatile masses, nondistended and nontender. No rebound, no guarding. No CVA tenderness, no hepatosplenomegaly. Bowel sounds present to all four quadrants. No high pitch or tinkling sounds, resonant to percussion. Extremities: No cyanosis, clubbing, or edema present. Pulses are palpable 2/2. Active ROM to all four extremities. Neuro: Alert and orientated x 4. PERRLA. Cranial nerves 2-12 intact without focal deficit. Skin: Warm, dry, and intact, without rash, erythema, or lesion. Psych: pleasant, cooperative, normal speech, normal affect, no hallucinations, no dysarthia H&P: Results Labs Labs: Short CBC 11/02/24 Range/Units 21:31 WBC 7.6 (4.5-10.0) K/mm3 Hgb 15.9 (14.0-18.0) g/dL Hct 44.2 (42.0-52.0) % Plt Count 151 (150-375) k/mm3 BMP 11/02/24 21:31 Sodium 134 L Potassium 3.7 Chloride 98 Carbon Dioxide 22 BUN 9 Creatinine 1.07 Glucose 216 H Calcium 8.7 Liver Function 11/02/24 Range/Units 21:31 Total Bilirubin 6.3 H (0.2-1.3) mg/dL AST 251 H (17-59) U/L ALT 183 H (6-50) U/L Alkaline Phosphatase 289 H (38-126) U/L Albumin 3.8 (3.5-5.1) g/dL Urine 11/02/24 Range/Units 22:08 Urine Color [place] H (Yellow) Urine Appearance Turbid H (Clear) Urine pH 5.0 (5.0-9.0) Ur Specific [place] 1.037 H (1.001-1.035) Urine Protein 2+ H (Negative) mg/dL Urine Glucose (UA) Trace H (Negative) mg/dL Assessment and Plan Assessment and plan (1) Alcoholic hepatitis: Code(s): K70.10 - Alcoholic hepatitis without ascites Status: Acute Assessment and Plan: GI consulted MELD 3.0 score of 16 Recommends hospitalization for 7 days to monitor for withdrawals cessation of chronic alcohol use (2) Hematuria: Code(s): R31.9 - Hematuria, unspecified Status: Acute Assessment and Plan: UA shows orange turbid urine noninfective, RBCs 6-10 Hematuria versus bilirubin in urine Continue to monitor CT with normal kidneys and bladder Continue to monitor (3) Alcohol abuse: Code(s): F10.10 - Alcohol abuse, uncomplicated Status: Acute Assessment and Plan: Fatty infiltration of a significantly enlarged liver, increased in size from the 2021 examination. Hepatitis A, B, C negative [facility] protocol with Ativan, thiamine, B12 and folic acid. (4) Nausea & vomiting: Code(s): R11.2 - Nausea with vomiting, unspecified Status: Acute Assessment and Plan: Could be due to withdrawals IVF for hydration (5) Hyperglycemia: Code(s): R73.9 - Hyperglycemia, unspecified Status: Acute Assessment and Plan: A1C pending (6) Abnormal finding on CT scan: Code(s): R93.89 - Abnormal findings on diagnostic imaging of other specified body st ructures Status: Acute Assessment and Plan: Interval increase in the mural thickening of the distal esophagus with multiple paraesophageal lymph nodes, increased in size from the 2021 examination for which direct visualization is recommended. Unable palpate lymph nodes Patient states that he had of sore throat from vomiting Protonix (7) Colitis: Code(s): K52.9 - Noninfective gastroenteritis and colitis, unspecified Status: Acute Assessment and Plan: Short segment colitis involving the ascending colon is suspected. Patient denies diarrhea or blood in stools (8) Hyperlipidemia: Code(s): E78.5 - Hyperlipidemia, unspecified Status: Acute Assessment and Plan: Patient does not appear to be on medications for hyperlipidemia (9) Hypertension: Code(s): I10 - Essential (primary) hypertension Status: Acute Assessment and Plan: Patient does not appear to be on medications for hypertension Quality VTE Prophylaxis VTE prophylaxis: mechanical ordered Waiting for med rec from nurse. Hospitalist MIPS Advance Care Plan I have confirmed that the patient's Advanced Care Plan is present, code status is documented, or surrogate decision maker is listed in patient medical record.: Yes Medication Reconciliation I have utilized all available resources to obtain, update and review the patients current medications (includes all prescriptions, OTC, herbals, cannabis, and nutritional supplements).: No The patient is not eligible for med reconciliation; the patient is in a emergent medical situation where delaying treatment would jeopardize the patients health.: No
[2024-11-03 12:32] LABS: Glucose Point of Care 166 mg/dl (65-105)
[2024-11-03] MEDS: NICOTINE (*PBKC) 21 MG PATCH 1 PATCH TRANSDERM (13:59)
[2024-11-03] MEDS: LORazepam (*CRX) 1 MG TABLET PO ×2 (14:01→19:24)
--- NOTE | 2024-11-03 14:40 | P.CONGI_ITS ---
Assessment and Plan Assessment and plan (1) Alcoholic hepatitis: Code(s): K70.10 - Alcoholic hepatitis without ascites Status: Acute Assessment and Plan: The patient demonstrates clinical and laboratory findings consistent with acute alcoholic hepatitis. Although current hepatic synthetic function is intact and there are no clinical signs of portal hypertension, his prolonged history of heavy alcohol consumption raises strong suspicion for advanced liver fibrosis. His MELD 3.0 score of 16 does not meet criteria for corticosteroid treatment,however we will check labs daily while hospitalized. He will be closely observed for alcohol withdrawal syndrome, with daily laboratory monitoring for up to 7 days, given the potential for delayed onset DTs following cessation of chronic alcohol use. Thiamine and lorazepam will be administered for withdrawal prophylaxis Plan - Thiamine and Lorazepam -Daily labs: CMP, Liver profile, INR - Should be kept to complete 7 days of [place] abstinence for observation - Arrange for alcohol abuse counseling as an outpatient GI Consult Note Consult date/time: 11/03/24 14:40 HPI: Sagar Cota, a 44-year-old male, presents to the emergency department complaining of dark urine of recent onset. He has a 10-year history of chronic alcohol abuse, consuming an average of 4-5 shots of vodka daily, with consumption doubling on weekends. His last alcohol intake was four days prior, ceasing due to severe nausea. He denies prior attempts at alcohol cessation or participation in rehabilitation programs. 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 The patient continues to smoke 1 pack a cigarettes a day. The patient stated that he usually drinks about 10 alcoholic beverages a week. He states every other week any does not drink when he has his child. The patient denies any marijuana or any other illicit drugs. The patient a durable power workers compensation defense attorney for healthcare. Code status full code Smoking packs per day: 1 Smoking cigarettes per day: 20.0 Years smoked: 20 Smoking pack-years: 20.00 Smoking status: Current every day smoker Tobacco type: cigarettes Second hand tobacco smoke exposure: No Alcohol intake: current Drinks per week: 10 Substance use: never Substance use type: does not use Lack of Transportation: No Lack of Food: Never True Current Housing: I Have Housing Concerned About Future Housing: No Difficulty Paying Gas/Electric Bills: No Difficulty Paying for Meds: No Currently Unemployed: No Education: High School Diploma/GED Difficulty w/ Childcare or Family Care: No Gender identity (if verbalized by the patient): Male Spiritual care concerns: No Meds Home Medications and Allergies Home Medications ?Medication ?Instructions ?Recorded ?Confirmed ?Type methylprednisolone 4 mg tablets in See Rx Instructions PO .COMPLEX 08/19/23 Rx a dose pack (Medrol ([place])) #21 ea diclofenac sodium 50 mg 50 mg PO BID 30 days #60 tabs 10/13/24 Rx tablet,delayed release methocarbamol 750 mg tablet 750 mg PO Q8H PRN muscle 10/13/24 Rx pain/spasm #30 tabs prednisone 20 mg tablet See Rx Instructions .Route 10/13/24 Rx .COMPLEX #12 tabs Allergies Allergy/AdvReac Type Severity Reaction Status Date / Time azithromycin AdvReac Unknown Other Verified 10/13/24 14:19 Vital Signs Vital Signs - 24 hr 11/02/24 21:19 11/02/24 22:20 11/02/24 22:30 Temperature 98.1 F Pulse Rate 126 H 128 H 124 H Respiratory Rate 18 20 17 Blood Pressure 153/122 H Pulse Oximetry 99 Oxygen Delivery Room Air 11/02/24 22:54 11/02/24 23:10 11/02/24 23:11 Temperature Pulse Rate 118 H 120 H 112 H Respiratory Rate 19 17 18 Blood Pressure 146/104 H Pulse Oximetry 97 97 100 Oxygen Delivery 11/02/24 23:12 11/02/24 23:15 11/03/24 00:04 Temperature Pulse Rate 111 H 112 H 108 H Respiratory Rate 20 20 20 Blood Pressure 139/104 H Pulse Oximetry 98 96 99 Oxygen Delivery 11/03/24 00:15 11/03/24 01:11 11/03/24 01:50 Temperature Pulse Rate 105 H 109 H 115 H Respiratory Rate 20 17 16 Blood Pressure Pulse Oximetry 98 98 97 Oxygen Delivery 11/03/24 02:01 11/03/24 02:40 11/03/24 03:45 Temperature Pulse Rate 110 H 110 H 94 Respiratory Rate 13 19 19 Blood Pressure Pulse Oximetry 98 99 97 Oxygen Delivery 11/03/24 04:00 11/03/24 04:30 11/03/24 04:46 Temperature Pulse Rate 88 89 89 Respiratory Rate 16 17 18 Blood Pressure Pulse Oximetry 98 97 97 Oxygen Delivery 11/03/24 05:00 11/03/24 05:45 11/03/24 06:30 Temperature Pulse Rate 85 87 84 Respiratory Rate 17 16 19 Blood Pressure 129/93 H 134/99 H 135/96 H Pulse Oximetry 98 98 95 Oxygen Delivery 11/03/24 06:55 11/03/24 07:54 11/03/24 08:00 Temperature Pulse Rate 83 85 86 Respiratory Rate 14 15 19 Blood Pressure 135/96 H 155/102 H 165/103 H Pulse Oximetry 100 96 97 Oxygen Delivery 11/03/24 09:02 Temperature Pulse Rate 86 Respiratory Rate 20 Blood Pressure 140/99 H Pulse Oximetry 98 Oxygen Delivery Exam 2 Narrative: Alert and oriented x3. Moderately jaundiced, cooperative. Lungs and cardiovascular: Within normal limits. Abdomen: No collateral circulation, no shifting dullness, no hepatosplenomegaly, no tenderness. Extremities: No edema. Neurologically: Grossly intact. Results Labs 11/02/24 21:31 11/02/24 21:31 Labs: Short CBC 11/02/24 Range/Units 21:31 WBC 7.6 (4.5-10.0) K/mm3 Hgb 15.9 (14.0-18.0) g/dL Hct 44.2 (42.0-52.0) % Plt Count 151 (150-375) k/mm3 BMP 11/02/24 21:31 Sodium 134 L Potassium 3.7 Chloride 98 Carbon Dioxide 22 BUN 9 Creatinine 1.07 Glucose 216 H Calcium 8.7 Liver Function 11/02/24 Range/Units 21:31 Total Bilirubin 6.3 H (0.2-1.3) mg/dL AST 251 H (17-59) U/L ALT 183 H (6-50) U/L Alkaline Phosphatase 289 H (38-126) U/L Albumin 3.8 (3.5-5.1) g/dL Urine 11/02/24 Range/Units 22:08 Urine Color [place] H (Yellow) Urine Appearance Turbid H (Clear) Urine pH 5.0 (5.0-9.0) Ur Specific [place] 1.037 H (1.001-1.035) Urine Protein 2+ H (Negative) mg/dL Urine Glucose (UA) Trace H (Negative) mg/dL
[2024-11-03 17:01] LABS: Glucose Point of Care 143 mg/dl (65-105)
--- NOTE | 2024-11-03 17:02 | ADMGEN ---
This patient, Sagar Cota, was admitted to Medical Room 348-01. Patient/family oriented to hospital policies and general routines including ID bracelet, bed and alarms, visiting hours, pain management, procedures, bathroom and other care routines, personal items, smoking policy, room service/diet, and visiting hours. Information on how to activate the Rapid Response Team has been discussed. Patient/Family are encouraged to report perceived risks to care and to ask questions if they do not understand what they are told or what they should do.
[2024-11-03] MEDS: PANTOPRAZOLE SODIUM IV 40 MG VIAL IV PUSH (17:59)
[2024-11-03 20:53] LABS: Glucose Point of Care 139 mg/dl (65-105)
[2024-11-04] VITALS (7 sets, daily range): BP systolic 144–153; BP diastolic 97–98; PULSE 71–115; RESP 18; TEMP 36.5–36.7; O2SAT 98–99
[2024-11-04] MEDS: LORazepam (*CRX) 1 MG TABLET PO ×3 (00:11→15:34)
[2024-11-04 06:26] LABS: Hematocrit 36.4 % (42.0-52.0); Hemoglobin 12.6 g/dL (14.0-18.0); Immature Platelet Fraction Pct 10.3 % (0.9-11.2); Mean Corpuscular HGB Conc 34.6 g/dl (32-36); Mean Corpuscular Hemoglobin 30.7 pg (26-34); Mean Corpuscular Volume 88.6 fl (80-100); Mean Platelet Volume 11.5 fl (7.4-10.4); Platelet Count Result 128 k/mm3 (150-375); Red Blood Count 4.11 M/mm3 (4.6-6.20)
[2024-11-04 06:34] LABS: Partial Thromboplastin Time 25.5 Seconds (22.3-36.8); Prothrombin Time 13.7 Seconds (11.1-14.7)
[2024-11-04 07:08] LABS: Alanine Aminotransferase 112 U/L (6-50); Albumin Level 2.9 g/dL (3.5-5.1); Alkaline Phosphatase 186 U/L (38-126); Anion Gap 7 mmol/L (4-12); Aspartate Amino Transferase 134 U/L (17-59); Bilirubin,Total 4.8 mg/dL (0.2-1.3); Calcium 8.2 mg/dL (8.4-10.2); Carbon Dioxide 24 mmol/L (22-30); Chloride 106 mmol/L (98-107); Estimated CRCL calculation 142 ml/min; Estimated Glomerular Filt Rate > 60; Glucose 131 mg/dL (65-110); Magnesium 1.8 mg/dL (1.6-2.3); Potassium 3.5 mmol/L (3.4-5.0); Sodium 137 mmol/L (137-145)
[2024-11-04 07:17] LABS: Blood Urea Nitrogen < 2 mg/dL (9-20)
[2024-11-04] MEDS: NICOTINE (*PBKC) 21 MG PATCH 1 PATCH TRANSDERM (08:20)
[2024-11-04] MEDS: THIAMINE HCL 200 MG/2 ML VIAL 100 MG IV PUSH (08:20)
[2024-11-04] MEDS: PANTOPRAZOLE SODIUM IV 40 MG VIAL IV PUSH (08:20)
[2024-11-04 09:14] LABS: Glucose Point of Care 142 mg/dl (65-105)
--- NOTE | 2024-11-04 10:06 | P.PNIM_ITS ---
Progress Note: A&P Assessment and Plan (1) Alcoholic hepatitis: Code(s): K70.10 - Alcoholic hepatitis without ascites Status: Acute Assessment and Plan: GI consulted MELD 3.0 score of 16 Recommends hospitalization for 7 days to monitor for withdrawals cessation of chronic alcohol use (2) Hematuria: Code(s): R31.9 - Hematuria, unspecified Status: Acute Assessment and Plan: UA shows orange turbid urine noninfective, RBCs 6-10 Hematuria versus bilirubin in urine Continue to monitor CT with normal kidneys and bladder Continue to monitor Check for urine bilirubin (3) Alcohol abuse: Code(s): F10.10 - Alcohol abuse, uncomplicated Status: Acute Assessment and Plan: Fatty infiltration of a significantly enlarged liver, increased in size from the 2021 examination. Hepatitis A, B, C negative [facility] protocol with Ativan, thiamine, B12 and folic acid. (4) Nausea & vomiting: Code(s): R11.2 - Nausea with vomiting, unspecified Status: Acute Assessment and Plan: Could be due to withdrawals IVF for hydration (5) Hyperglycemia: Code(s): R73.9 - Hyperglycemia, unspecified Status: Acute Assessment and Plan: A1C 5.3 (6) Abnormal finding on CT scan: Code(s): R93.89 - Abnormal findings on diagnostic imaging of other specified body structures Status: Acute Assessment and Plan: Interval increase in the mural thickening of the distal esophagus with multiple paraesophageal lymph nodes, increased in size from the 2021 examination for whic h direct visualization is recommended. Unable palpate lymph nodes Patient states that he had of sore throat from vomiting Protonix (7) Colitis: Code(s): K52.9 - Noninfective gastroenteritis and colitis, unspecified Status: Acute Assessment and Plan: Short segment colitis involving the ascending colon is suspected. GI on board Patient denies diarrhea or blood in stools (8) Hyperlipidemia: Code(s): E78.5 - Hyperlipidemia, unspecified Status: Acute Assessment and Plan: Patient does not appear to be on medications for hyperlipidemia (9) Hypertension: Code(s): I10 - Essential (primary) hypertension Status: Acute Assessment and Plan: Patient does not appear to be on medications for hypertension Subjective Date/time seen: 11/04/24 10:06 Interval history: 44-year-old man emergency department with chief complaint of dark colored urine. Patient states that he has had nausea and vomiting with a cough for about 3 weeks, and a chronic drinker. Review of Systems Review of Systems: 12 systems were reviewed and are negativ e except for as per HPI. Exam Narrative: General: well appearing, appears stated age. HEENT: normocephalic, atraumatic. Mucous membranes moist. EOMI, PERRLA, bilateral sclera anicteric, no conjunctival injection. Neck supple without JVD, lymphadenopathy, or bruit. Unable to feel lymph nodes Respiratory: clear to ascultation bilaterally. No rales/rhonic/wheezes. Cardiovascular: Regular rate and rhythm, normal S1-S2 upon ascultation. No murmurs, rubs, or clicks. PMI is nondisplaced, capillary refill less than 3 second. Abdomen: Soft, round, no pulsatile masses, nondistended and nontender. No rebound, no guarding. No CVA tenderness, no hepatosplenomegaly. Bowel sounds present to all four quadrants. No high pitch or tinkling sounds, resonant to percussion. Extremities: No cyanosis, clubbing, or edema present. Pulses are palpable 2/2. Active ROM to all four extremities. Neuro: Alert and orientated x 4. PERRLA. Cranial nerves 2-12 intact without focal deficit. Skin: Warm, dry, and intact, without rash, erythema, or lesion. Psych: pleasant, cooperative, normal speech, normal affect, no hallucinations, no dysarthia Objective Data Vital Signs Vital Signs: Vital Signs - 24 hr 11/03/24 16:00 11/03/24 18:18 11/03/24 20:00 Temperature Pulse Rate Respiratory Rate Blood Pressure 140/99 H Pulse Oximetry Oxygen Delivery Room Air Room Air 11/03/24 20:00 11/03/24 20:09 11/04/24 00:00 Temperature 98.6 F Pulse Rate 79 78 71 Respiratory Rate 17 Blood Pressure 159/96 H Pulse Oximetry 97 Oxygen Delivery 11/04/24 04:00 11/04/24 05:03 11/04/24 08:00 Temperature 98.0 F Pulse Rate 79 89 Respiratory Rate 18 Blood Pressure 153/97 H 144/98 H Pulse Oximetry 98 Oxygen Delivery 11/04/24 08:00 11/04/24 08:37 Temperature 97.7 F Pulse Rate 103 H Respiratory Rate 18 Blood Pressure 144/98 H Pulse Oximetry 99 Oxygen Delivery Room Air Intake/Output Intake/Output: Intake & Output 11/01/24 11/02/24 11/03/24 11/04/24 23:59 23:59 23:59 23:59 Intake Total 5100 0 Output Total 200 Balance 4900 0 Meds/Results Medications: Active Medications Generic Name Dose Route Start Last Admin Trade Name Freq PRN Reason Stop Dose Admin Dextrose 12.5 gm 11/03/24 11:00 Dextrose 50% 25 Gm/50 Ml Syringe IV PUSH PRN PRN Hypoglycemia Protocol Glucagon 1 mg 11/03/24 11:00 Glucagon For Inj 1 Mg Vial IM PRN PRN Hypoglycemia Protocol Glucose 15 gm 11/03/24 11:00 Glucose Oral Gel 15 Gm Of Glucse In 37.5 Gm Tube PO PRN PRN Hypoglycemia Protocol Dextrose/Sodium Chloride 1,000 mls @ 125 mls/hr 11/03/24 01:15 11/03/24 17:57 Dextrose 5% Sodium Chloride 0.9% IV CONT 125 mls/hr .Q8H BRAULIO Administration Dextrose 1,000 mls @ 100 mls/hr 11/03/24 11:00 Dextrose 5% 1,000 Ml IVPB PRN PRN Hypoglycemia Protocol Insulin Aspart 2 - 5 units 11/03/24 12:00 11/03/24 17:10 Insulin Aspart (*Bkc) 100 Units/Ml SUB-Q Not Given TIDWM BRAULIO Protocol Lorazepam 1 mg 11/03/24 11:56 11/04/24 08:23 Lorazepam (*Crx) 1 Mg Tablet PO 1 mg Q4H PRN Administration Anxiety Nicotine 1 patch 11/03/24 11:45 11/04/24 08:20 Nicotine (*Pbkc) 21 Mg Patch TRANSDERM 1 patch DAILY BRAULIO Administration Ondansetron HCl 4 mg 11/03/24 01:12 Ondansetron Inj 4 Mg/2 Ml Vial IV PUSH Q6H PRN Nausea And Vomiting Pantoprazole Sodium 40 mg 11/03/24 17:10 11/04/24 08:20 Pantoprazole Sodium Iv 40 Mg Vial IV PUSH 40 mg QAM BRAULIO Administration Thiamine HCl 100 mg 11/04/24 09:00 11/04/24 08:20 Thiamine Hcl 200 Mg/2 Ml Vial IV PUSH 100 mg DAILY BRAULIO Administration Radiology Results: ITS Impressions Chest X-Ray 11/02/24 21:46 IMPRESSION: No focal infiltrate or effusion. Abdomen/Pelvis CT 11/02/24 23:13 IMPRESSION: Interval increase in the mural thickening of the distal esophagus with multiple paraesophageal lymph nodes, increased in size from the 2021 examination for which direct visualization is recommended. Fatty infiltration of a significantly enlarged liver, increased in size from the 2021 examination. Short segment colitis involving the ascending colon is suspected. Labs Labs: Laboratory Results - last 24 hr 11/02/24 11/03/24 11/03/24 21:30 12:28 16:54 WBC RBC Hgb Hct MCV MCH MCHC RDW Plt Count MPV % Immature Plt Fraction PT INR APTT Sodium Potassium Chloride Carbon Dioxide Anion Gap BUN Creatinine Estim Creat Clear Calc Estimated GFR Glucose POC Capillary Glucose 166 H 143 H Calcium Magnesium Total Bilirubin AST ALT Alkaline Phosphatase Total Protein Albumin Vitamin B12 954.0 H Folate 6.0 11/03/24 11/04/24 11/04/24 20:07 05:52 09:08 WBC 8.0 RBC 4.11 L Hgb 12.6 L D Hct 36.4 L MCV 88.6 MCH 30.7 MCHC 34.6 RDW 15.0 H Plt Count 128 L MPV 11.5 H % Immature Plt Fraction 10.3 PT 13.7 INR 1.0 APTT 25.5 Sodium 137 Potassium 3.5 Chloride 106 Carbon Dioxide 24 Anion Gap 7 BUN < 2 L Creatinine 0.73 Estim Creat Clear Calc 142 Estimated GFR > 60 Glucose 131 H POC Capillary Glucose 139 H 142 H Calcium 8.2 L Magnesium 1.8 Total Bilirubin 4.8 H AST 134 H ALT 112 H Alkaline Phosphatase 186 H Total Protein 6.0 L Albumin 2.9 L Vitamin B12 Folate Quality VTE Prophylaxis VTE prophylaxis: mechanical ordered
--- NOTE | 2024-11-04 14:58 | WPDGIPROGNO ---
Progress Note: A&P Assessment and Plan (1) Alcoholic hepatitis: Code(s): K70.10 - Alcoholic hepatitis without ascites Status: Acute Assessment and Plan: Patient with alcoholic hepatitis, not fulfilling criteria for steroid therapy. No evidence of withdrawal. Ideally he should complete 7 days of observation for withdrawal prevention, however he needs to be discharged due to family issues. He will get specialized counseling for alcohol abuse after discharge. Plan - Follow up in our clinic in 3-4 weeks - Outpatient counselling for alcohol abuse Time Spent With Patient Time with patient: less than 15 minutes Subjective Date/time seen: 11/04/24 14:58 Interval history: the patient did not have evidence of alcohol withdrawal. He is currenty asymptomatic. Review of Systems Review of Systems: All systems reviewed & are unremarkable except as noted in HPI and below Exam Narrative: Unchanged from yesterday. Objective Data Vital Signs Vital Signs: Vital Signs - 24 hr 11/03/24 16:00 11/03/24 18:18 11/03/24 20:00 Temperature Pulse Rate Respiratory Rate Blood Pressure 140/99 H Pulse Oximetry Oxygen Delivery Room Air Room Air 11/03/24 20:00 11/03/24 20:09 11/04/24 00:00 Temperature 98.6 F Pulse Rate 79 78 71 Respiratory Rate 17 Blood Pressure 159/96 H Pulse Oximetry 97 Oxygen Delivery 11/04/24 04:00 11/04/24 05:03 11/04/24 08:00 Temperature 98.0 F Pulse Rate 79 89 Respiratory Rate 18 Blood Pressure 153/97 H 144/98 H Pulse Oximetry 98 Oxygen Delivery 11/04/24 08:00 11/04/24 08:00 11/04/24 08:37 Temperature 97.7 F Pulse Rate 115 H 103 H Respiratory Rate 18 Blood Pressure 144/98 H Pulse Oximetry 99 Oxygen Delivery Room Air 11/04/24 12:00 Temperature Pulse Rate 92 Respiratory Rate Blood Pressure Pulse Oximetry Oxygen Delivery Intake/Output Intake/Output: Intake & Output 11/01/24 11/02/24 11/03/24 11/04/24 23:59 23:59 23:59 23:59 Intake Total 5100 0 Output Total 200 Balance 4900 0 Meds/Results Medications: Active Medications Generic Name Dose Route Start Last Admin Trade Name Freq PRN Reason Stop Dose Admin Dextrose 12.5 gm 11/03/24 11:00 Dextrose 50% 25 Gm/50 Ml Syringe IV PUSH PRN PRN Hypoglycemia Protocol Glucagon 1 mg 11/03/24 11:00 Glucagon For Inj 1 Mg Vial IM PRN PRN Hypoglycemia Protocol Glucose 15 gm 11/03/24 11:00 Glucose Oral Gel 15 Gm Of Glucse In 37.5 Gm Tube PO PRN PRN Hypoglycemia Protocol Dextrose/Sodium Chloride 1,000 mls @ 125 mls/hr 11/03/24 01:15 11/04/24 12:32 Dextrose 5% Sodium Chloride 0.9% IV CONT Not Given .Q8H BRAULIO Dextrose 1,000 mls @ 100 mls/hr 11/03/24 11:00 Dextrose 5% 1,000 Ml IVPB PRN PRN Hypoglycemia Protocol Insulin Aspart 2 - 5 units 11/03/24 12:00 11/04/24 12:32 Insulin Aspart (*Bkc) 100 Units/Ml SUB-Q Not Given TIDWM BRAULIO Protocol Lorazepam 1 mg 11/03/24 11:56 11/04/24 08:23 Lorazepam (*Crx) 1 Mg Tablet PO 1 mg Q4H PRN Administration Anxiety Nicotine 1 patch 11/03/24 11:45 11/04/24 08:20 Nicotine (*Pbkc) 21 Mg Patch TRANSDERM 1 patch DAILY BRAULIO Administration Ondansetron HCl 4 mg 11/03/24 01:12 Ondansetron Inj 4 Mg/2 Ml Vial IV PUSH Q6H PRN Nausea And Vomiting Pantoprazole Sodium 40 mg 11/03/24 17:10 11/04/24 08:20 Pantoprazole Sodium Iv 40 Mg Vial IV PUSH 40 mg QAM BRAULIO Administration Thiamine HCl 100 mg 11/04/24 09:00 11/04/24 08:20 Thiamine Hcl 200 Mg/2 Ml Vial IV PUSH 100 mg DAILY BRAULIO Administration Radiology Results: ITS Impressions Chest X-Ray 11/02/24 21:46 IMPRESSION: No focal infiltrate or effusion. Abdomen/Pelvis CT 11/02/24 23:13 IMPRESSION: Interval increase in the mural thickening of the distal esophagus with multiple paraesophageal lymph nodes, increased in size from the 2021 examination for which direct visualization is recommended. Fatty infiltration of a significantly enlarged liver, increased in size from the 2021 examination. Short segment colitis involving the ascending colon is suspected. Labs Labs: Laboratory Results - last 24 hr 11/02/24 11/03/24 11/03/24 21:30 16:54 20:07 WBC RBC Hgb Hct MCV MCH MCHC RDW Plt Count MPV % Immature Plt Fraction PT INR APTT Sodium Potassium Chloride Carbon Dioxide Anion Gap BUN Creatinine Estim Creat Clear Calc Estimated GFR Glucose POC Capillary Glucose 143 H 139 H Calcium Magnesium Total Bilirubin AST ALT Alkaline Phosphatase Total Protein Albumin Vitamin B12 954.0 H Folate 6.0 11/04/24 11/04/24 05:52 09:08 WBC 8.0 RBC 4.11 L Hgb 12.6 L D Hct 36.4 L MCV 88.6 MCH 30.7 MCHC 34.6 RDW 15.0 H Plt Count 128 L MPV 11.5 H % Immature Plt Fraction 10.3 PT 13.7 INR 1.0 APTT 25.5 Sodium 137 Potassium 3.5 Chloride 106 Carbon Dioxide 24 Anion Gap 7 BUN < 2 L Creatinine 0.73 Estim Creat Clear Calc 142 Estimated GFR > 60 Glucose 131 H POC Capillary Glucose 142 H Calcium 8.2 L Magnesium 1.8 Total Bilirubin 4.8 H AST 134 H ALT 112 H Alkaline Phosphatase 186 H Total Protein 6.0 L Albumin 2.9 L Vitamin B12 Folate
--- NOTE | 2024-11-04 16:14 | P.DS_ITS ---
DS: Admitting Diagnosis Discharge Date 11/04/2024 Admitting Diagnosis Alcohol induced nausea and vomiting DS: Discharge Diagnosis Discharge Diagnosis (1) Alcoholic hepatitis: Code(s): K70.10 - Alcoholic hepatitis without ascites Status: Acute Assessment and Plan: GI consulted MELD 3.0 score of 16 Recommends hospitalization for 7 days to monitor for withdrawals cessation of chronic alcohol use (2) Hematuria: Code(s): R31.9 - Hematuria, unspecified Status: Acute Assessment and Plan: Improved with hydration UA shows orange turbid urine noninfective, RBCs 6-10 Hematuria versus bilirubin in urine Continue to monitor CT with normal kidneys and bladder Continue to monitor (3) Alcohol abuse: Code(s): F10.10 - Alcohol abuse, uncomplicated Status: Acute Assessment and Plan: Fatty infiltration of a significantly enlarged liver, increased in size from the 2021 examination. Hepatitis A, B, C negative [facility] protocol with Ativan, thiamine, B12 and folic acid. (4) Nausea & vomiting: Code(s): R11.2 - Nausea with vomiting, unspecified Status: Acute Assessment and Plan: Could be due to withdrawals Current oral intake Patient tolerating diet (5) Hyperglycemia: Code(s): R73.9 - Hyperglycemia, unspecified Status: Acute Assessment and Plan: A1C 5.3 (6) Abnormal finding on CT scan: Code(s): R93.89 - Abnormal findings on diagnostic imaging of other specified body structures Status: Acute Assessment and Plan: Interval increase in the mural thickening of the distal esophagus with multiple paraesophageal lymph nodes, increased in size from the 2021 examination for which direct visualization is recommended. Unable palpate lymph nodes Patient states that he had of sore throat from vomiting Protonix (7) Colitis: Code(s): K52.9 - Noninfective gastroenteritis and colitis, unspecified Status: Acute Assessment and Plan: Short segment colitis involving the ascending colon is suspected. GI on board Patient denies diarrhea or blood in stools (8) Hyperlipidemia: Code(s): E78.5 - Hyperlipidemia, unspecified Status: Acute Assessment and Plan: Patient does not appear to be on medications for hyperlipidemia Follow up with PCP (9) Hypertension: Code(s): I10 - Essential (primary) hypertension Status: Acute Assessment and Plan: Patient does not appear to be on medications for hypertension Follow up with PCP (10) Alcoholic hepatitis without ascites: Code(s): K70.10 - Alcoholic hepatitis without ascites Status: Acute Assessment and Plan: GI consulted Plan for follow-up with GI in 3-4 weeks Outpatient counseling for alcohol abuse No current signs of withdrawals DS: Summary Hospital Course Reason for hospitalization: Alcoholic hepatitis Hospital Course: 44-year-old man emergency department with chief complaint of dark colored urine. Patient states that he has had nausea and vomiting with a cough for about 3 weeks. He states that he has had very little p.o. intake. He states that he also has a sore throat. He also complains of blood in urine. Patient denies diarrhea or blood in stools. In the ED patient had hyponatremia at 1:36 a.m., glucose of 216, total bili of 6.3, AST of 251, ALT of 183, alkaline phos of 289, UA shows orange turbid urine with 6-10 rbc's. Chest x-ray with no acute findings. CT chest abdomen pelvis show Interval increase in the mural thickening of the distal esophagus with multiple paraesophageal lymph nodes, increased in size from the 2021 examination for which direct visualization is recommended. Fatty infiltration of a significantly enlarged liver, increased in size from the 2021 examination. Short segment colitis involving the ascending colon is suspected. GI was consulted. Time Spent with Patient Time attestation: Total time spent providing and/or coordinating discharge services: Time spent: Greater than 30 minutes Exam Narrative: General: well appearing, appears stated age. HEENT: normocephalic, atraumatic. Mucous membranes moist. EOMI, PERRLA, bilateral sclera anicteric, no conjunctival injection. Neck supple without JVD, lymphadenopathy, or bruit. Unable to feel lymph nodes Respiratory: clear to ascultation bilaterally. No rales/rhonic/wheezes. Cardiovascular: Regular rate and rhythm, normal S1-S2 upon ascultation. No murmurs, rubs, or clicks. PMI is nondisplaced, capillary refill less than 3 second. Abdomen: Soft, round, no pulsatile masses, nondistended and nontender. No rebound, no guarding. No CVA tenderness, no hepatosplenomegaly. Bowel sounds present to all four quadrants. No high pitch or tinkling sounds, resonant to percussion. Extremities: No cyanosis, clubbing, or edema present. Pulses are palpable 2/2. Active ROM to all four extremities. Neuro: Alert and orientated x 4. PERRLA. Cranial nerves 2-12 intact without focal deficit. Skin: Warm, dry, and intact, without rash, erythema, or lesion. Psych: pleasant, cooperative, normal speech, normal affect, no hallucinations, no dysarthia DS: Data Data Completed and Pending Labs on day of discharge: Labs from last 24 hours 11/04/24 11/04/24 11/03/24 09:08 05:52 20:07 WBC 8.0 RBC 4.11 L Hgb 12.6 L D Hct 36.4 L MCV 88.6 MCH 30.7 MCHC 34.6 RDW 15.0 H Plt Count 128 L MPV 11.5 H % Immature Plt Fraction 10.3 PT 13.7 INR 1.0 APTT 25.5 Sodium 137 Potassium 3.5 Chloride 106 Carbon Dioxide 24 Anion Gap 7 BUN < 2 L Creatinine 0.73 Estim Creat Clear Calc 142 Estimated GFR > 60 Glucose 131 H POC Capillary Glucose 142 H 139 H Calcium 8.2 L Magnesium 1.8 Total Bilirubin 4.8 H AST 134 H ALT 112 H Alkaline Phosphatase 186 H Total Protein 6.0 L Albumin 2.9 L Vitamin B12 Folate 11/03/24 11/02/24 16:54 21:30 WBC RBC Hgb Hct MCV MCH MCHC RDW Plt Count MPV % Immature Plt Fraction PT INR APTT Sodium Potassium Chloride Carbon Dioxide Anion Gap BUN Creatinine Estim Creat Clear Calc Estimated GFR Glucose POC Capillary Glucose 143 H Calcium Magnesium Total Bilirubin AST ALT Alkaline Phosphatase Total Protein Albumin Vitamin B12 954.0 H Folate 6.0 Preliminary micro results at discharge 11/02/24 22:24 Blood Culture - Preliminary Blood 11/02/24 22:32 Blood Culture - Preliminary Blood Discharge Plan Discharge Consulting providers: Viri Concepcion; Clyde Macedo; Collette Buck Discharging Clinician: Viri Concepcion Anticipated Discharge Date/Time: 11/04/24 16:19 Patient Disposition: Home, Self-Care Activity: may shower Diet: regular Discharge Instructions: Discharge instructions: Take medications as prescribed No new medications were prescribed you in the hospital You have alcoholic hepatitis, you have been counseled for alcohol abuse while in hospital and is recommended that you follow-up outpatient. You are activity as tolerated Monitor blood pressures Avoid social areas, you wear a mask when in social settings Encouraged to continue with yearly vaccinations Return to the emergency department if he developed sudden shortness of breath, chest pain, nausea, vomiting, upset stomach or intractable diarrhea Return to the emergency department if you develop fever greater than 101.5 Follow-up with: Your primary care physician within 1-2 weeks for post hospitalization check up Follow-up with GI in 3-4 weeks Thank you for [facility] for your healthcare needs Patient Instructions: Antibiotic Form, Alcoholic Hepatitis (DC), Chronic Liver Disease (DC) Patient Language: Romansh Stand Alone Forms: General Discharge Information, Work/School Release IP Follow-up/Referrals: Tato Beltran MD [Physician] - 3 Weeks Discharge Medications: Continued methocarbamol 750 mg tablet 750 mg PO Q8H PRN (Reason: muscle pain/spasm) Qty: 30 0RF No Action fluticasone propionate [Flonase Allergy Relief] 50 mcg/actuation spray,suspension 1 spray intranasal Q12H Qty: 16 2RF Rx Instructions: administer into each nostril buspirone 7.5 mg tablet 7.5 mg PO BID Qty: 60 5RF amlodipine 5 mg tablet 5 mg PO DAILY Date of admission: 11/03/24 01:12 Primary Care Provider: Kell Lopez Admitting Provider: Judy Bernabe Attending physician on admission: Judy Bernabe Condition: Stable Quality VTE Prophylaxis VTE prophylaxis: mechanical ordered Hospitalist MIPS Heart Failure (Exclusion) Patient has history of Heart Transplant or Left Ventricular Assistive Device?: No IF YES, STOP HERE Heart Failure (Qualifier) Patient has current or prior documentation of LVEF less than or equal to 40%, or mod/servere depressed LVSF?: No IF NO, STOP HERE
== END 2024-11-04 17:05 | disposition home or self-care (01) ==
LOC: ANHED 11-03 01:18 → ANH3MEDSUR 11-03 01:22 → ANH3MED 11-03 15:43
PROVIDERS: Nurse Practitioner Gerontology; Admitting Provider Internal Medicine; Emergency Provider Emergency Medicine; PCP Nurse Practitioner Family; Visit Provider Internal Medicine
DX: K70.10 Alcoholic hepatitis without ascites (principal); F10.10 Alcohol abuse, uncomplicated; R31.9 Hematuria, unspecified; R74.01 Elevation of levels of liver transaminase levels; E87.1 Hypo-osmolality and hyponatremia; R11.2 Nausea with vomiting, unspecified; R73.9 Hyperglycemia, unspecified; R93.89 Abnormal findings on diagnostic imaging of other specified body structures; K52.9 Noninfective gastroenteritis and colitis, unspecified; I10 Essential (primary) hypertension; E78.5 Hyperlipidemia, unspecified; F17.210 Nicotine dependence, cigarettes, uncomplicated; Z20.822 Contact with and (suspected) exposure to COVID-19; Z79.899 Other long term (current) drug therapy
CPT/HCPCS: 36415; 71046; 74177; 80053; 80074; 81001; 82077; 82607; 82746; 82948; 83605; 83690; 83735; 84145; 85025; 85027; 85055; 85610; 85730; 87040; 87636; 96361; 96365; 96375; 99285; A9270; G0378; J2060; J2470; J3411; J7030; J7042; Q9967

== ENCOUNTER 2024-12-17 20:10 | Emergency (ER) | payer SELFPAY ==
--- NOTE | 2024-12-17 20:15 | PC.NURSE ---
Kiya provided for pt d/t SI attempt
--- NOTE | 2024-12-17 20:23 | ECG_ITS ---
Test Date: 2024-12-17 20:29:58 Measurements Intervals [place] Rate: 111 P: 24 MI: 133 QRS: -32 QRSD: 102 T: 14 QT: 344 QTc: 468 Interpretive Statements SINUS TACHYCARDIA POSSIBLE LEFT ATRIAL ENLARGEMENT [-0.1mV P WAVE IN V1/V2] MARKED LEFT AXIS DEVIATION [QRS AXIS < -30] PATTERN CONSISTENT WITH PULMONARY DISEASE LEFT VENTRICULAR HYPERTROPHY AND ST-T CHANGE [VOLTAGE CRITERIA PLUS ST/T ABNORMALITY] No previous ECG available for comparison Electronically Signed On 12-18-2024 11:46:27 CDT by Bora Harmon M.D.
[2024-12-17 20:24] VITALS: BP 168/107; PULSE 120; RESP 15; O2SAT 97
--- NOTE | 2024-12-17 20:30 | PC.NURSE ---
patient provided with green disposable scrubs and belongings placed in a patient belongings bag and locked in a locker.
--- NOTE | 2024-12-17 20:35 | ED.GENADULT ---
HPI - General Adult General Chief complaint: Psychiatric Symptoms <Michael Montano MD - Last Filed: 12/18/24 02:48> Stated complaint: SI, with attempt/Heavy ETOH <Michael Montano MD - Last Filed: 12/18/24 02:48> Time Seen by Provider: 12/17/24 20:11 <Michael Montano MD - Last Filed: 12/18/24 02:48> History of Present Illness HPI narrative: Patient is a 44-year-old male who presents to the emergency department this evening due to concern for suicidal ideations. Patient is also intoxicated and admits to drinking 16 shots in the past 5 hours. Patient does have a history of alcohol abuse. Patient did cut his forearm prior to calling EMS. Otherwise, EMS deny any additional injuries. Patient denies any additional concerns at this time. <Michael Montano MD - Last Filed: 12/18/24 02:48> Related Data Allergies/adverse reactions: Allergies Allergy/AdvReac Type Severity Reaction Status Date / Time azithromycin AdvReac Unknown Other Verified 11/11/24 11:23 <Michael Montano MD - Last Filed: 12/18/24 02:48> Review of Systems Review of Systems: All systems are reviewed and are negative unless stated otherwise in the HPI. 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 Anxiety disorder, unspecified Spondylosis of lumbar region without myelopathy or radiculopathy <Michael Montano MD - Last Filed: 12/18/24 02:48> Surgical History Surgical History: Surgical History S/P cubital tunnel release Hx of tonsillectomy <Michael Montano MD - Last Filed: 12/18/24 02:48> Family History Family History: Family History Mother Family history of diabetes mellitus in first degree relative Grandparent Family history of lung cancer Father Cancer <Michael Montano MD - Last Filed: 12/18/24 02:48> Social History Social History: Social History Social History: The patient is and he has 3 children. 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 The patient continues to smoke 1 pack a cigarettes a day. The patient stated that he usually drinks about 10 alcoholic beverages a week. He states every other week any does not drink when he has his child. The patient denies any marijuana or any other illicit drugs. 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 Code status full code Smoking packs per day: 1 Smoking cigarettes per day: 20.0 Years smoked: 20 Smoking pack-years: 20.00 Smoking status: Current every day smoker Second hand tobacco smoke exposure: No Alcohol intake: current Drinks per week: 10 Substance use: never Substance use type: does not use Do You Feel Safe in your Home?: Yes Lack of Transportation: No Lack of Food: Never True Current Housing: I Have Housing Concerned About Future Housing: No Difficulty Paying Gas/Electric Bills: No Difficulty Paying for Meds: No Currently Unemployed: No Education: High School Diploma/GED Difficulty w/ Childcare or Family Care: No Gender identity (if verbalized by the patient): Male Spiritual care concerns: No <Michael Montano MD - Last Filed: 12/18/24 02:48> Exam Narrative: General: Alert, awake, afebrile, in no acute distress, intoxicated. HEENT: PERRL, no rhinorrhea, no post nasal drip, oropharynx clear. Neck: Trachea midline, no JVD, no lymphadenopathy. Cardiovascular: Tachycardic with regular rhythm, no murmurs, rubs or gallops, no peripheral edema. Respiratory: Clear to auscultation bilaterally, no tachypnea, no wheezing, no rhonchi, no rubs, no respiratory distress. Abdomen: Soft, nontender, nondistended, no rebound, no guarding, no peritoneal signs. Musculoskeletal: No joint swelling or deformity, normal muscle tone. Skin: Superficial linear laceration to the left forearm along the volar aspect measuring approximately 8 cm, no active bleeding. Psychiatric: Alert and oriented, intoxicated otherwise normal behavior and judgment for situation. Neurological: Alert and oriented to person, place, and time. Follows all commands. No focal deficits, speech is clear and fluent. <Michael Montano MD - Last Filed: 12/18/24 02:48> Course Vital Signs Vital signs: Vital Signs Pulse Rate 120 H 12/17/24 20:24 Respiratory Rate 15 12/17/24 20:24 Blood Pressure 168/107 H 12/17/24 20:24 Pulse Oximetry 97 12/17/24 20:24 Oxygen Delivery Room Air 12/17/24 20:24 Pulse Rate 100 12/17/24 21:30 Respiratory Rate 14 12/17/24 21:30 Blood Pressure 136/102 H 12/17/24 21:30 Pulse Oximetry 96 12/17/24 21:30 Oxygen Delivery Room Air 12/17/24 20:24 <Michael Montano MD - Last Filed: 12/18/24 02:48> Vital Signs Pulse Rate 120 H 12/17/24 20:24 Respiratory Rate 15 12/17/24 20:24 Blood Pressure 168/107 H 12/17/24 20:24 Pulse Oximetry 97 12/17/24 20:24 Oxygen Delivery Room Air 12/17/24 20:24 Pulse Rate 100 12/17/24 21:30 Respiratory Rate 14 12/17/24 21:30 Blood Pressure 136/102 H 12/17/24 21:30 Pulse Oximetry 96 12/17/24 21:30 Oxygen Delivery Room Air 12/17/24 20:24 <JOI Carney Last Filed: 12/18/24 00:09> Procedures Laceration Laceration 1: Date: 01/19/25 <JOI Carney Last Filed: 12/18/24 00:09> Time: 00:08 <JOI Carney Last Filed: 12/18/24 00:09> Site: upper extremity <JOI Carney Hever Filed: 12/18/24 00:09> Side (If applicable): left <JOI Carney Hever Filed: 12/18/24 00:09> Size (cm): 8 <JOI Carney Hever Filed: 12/18/24 00:09> Description: linear <JOI Carney Hever Filed: 12/18/24 00:09> Depth: simple, single layer <JOI Carney Hever Filed: 12/18/24 00:09> Pre-repair: wound explored, irrigated and irrigated extensively <JOI Carney Hever Filed: 12/18/24 00:09> ====== Skin Level ======: Skin layer closed with: dermabond <JOI Carney Hever Filed: 12/18/24 00:09> ====== Subcutaneous Layer ======: ====== Muscle Layer ======: ====== Tendon Layer ======: Medical Decision Making MDM Narrative Medical decision making narrative: The patient was evaluated by myself in the emergency department. History is obtained from patient who is an independent historian along with EMS report and physical exam was performed. External medical records were reviewed at this time. IV was established and pertinent tests were ordered. Patient was administered 1 L IV fluid bolus with normal saline. EKG was obtained which revealed sinus tachycardia rate of 111 beats per minute, no evidence of acute ischemia. EKG was independently interpreted by me and is currently pending official cardiology read. Laboratory results obtained revealing a blood alcohol level of 285 otherwise unremarkable. Urinalysis unremarkable. Your urine drug screen negative. Patient has a repeat blood alcohol level timed for 6 AM. Differential diagnosis considerations include alcohol occasion, suicidal ideations, homicidal ideation depression/anxiety. Comorbidities impacting this visit include history of alcohol abuse. I have evaluated and discussed social determinants of health with the patient that could potentially impact subsequent diagnosis and treatment plans. On repeat assessment of the patient, reevaluation revealed that the patient is doing well and is in no acute distress. Patient symptoms have improved since he arrived to our emergency department. Repeat vital signs were all reviewed and noted to be stable. Patient was signed out to AM ED physician pending clinical sobriety and psychiatric evaluation. <Michael Montano MD - Last Filed: 12/18/24 02:48> Vital Signs Vital Signs: Vital Signs Pulse Rate 120 H 12/17/24 20:24 Respiratory Rate 15 12/17/24 20:24 Blood Pressure 168/107 H 12/17/24 20:24 Pulse Oximetry 97 12/17/24 20:24 Oxygen Delivery Room Air 12/17/24 20:24 Pulse Rate 100 12/17/24 21:30 Respiratory Rate 14 12/17/24 21:30 Blood Pressure 136/102 H 12/17/24 21:30 Pulse Oximetry 96 12/17/24 21:30 Oxygen Delivery Room Air 12/17/24 20:24 <Michael Montano MD - Last Filed: 12/18/24 02:48> Vital Signs Pulse Rate 120 H 12/17/24 20:24 Respiratory Rate 15 12/17/24 20:24 Blood Pressure 168/107 H 12/17/24 20:24 Pulse Oximetry 97 12/17/24 20:24 Oxygen Delivery Room Air 12/17/24 20:24 Pulse Rate 100 12/17/24 21:30 Respiratory Rate 14 12/17/24 21:30 Blood Pressure 136/102 H 12/17/24 21:30 Pulse Oximetry 96 12/17/24 21:30 Oxygen Delivery Room Air 12/17/24 20:24 <Elvira Matthew PA-C - Last Filed: 12/18/24 00:09> Lab Data Result diagrams: 12/17/24 20:48 12/17/24 20:48 <Michael Montano MD - Last Filed: 12/18/24 02:48> Labs: Lab Results 12/17/24 Range/Units 20:48 WBC 9.5 (4.5-10.0) K/mm3 RBC 5.15 (4.6-6.20) M/mm3 Hgb 15.9 D (14.0-18.0) g/dL Hct 49.7 (42.0-52.0) % MCV 96.5 (80-100) fl MCH 30.9 (26-34) pg MCHC 32.0 (32-36) g/dl RDW 13.5 (11.5-14.5) % Plt Count 357 D (150-375) k/mm3 MPV 10.2 (7.4-10.4) fl Immature Gran % (Auto) 0.3 (0-0.5) % Neut % (Auto) 53.7 (45.5-73.1) % Lymph % (Auto) 32.0 (18.3-44.2) % [place] % (Auto) 11.4 H (2.6-8.5) % Eos % (Auto) 1.2 (0-4.4) % Baso % (Auto) 1.4 H (0.2-1.2) % Lymph # (Auto) 3.04 (0.9-3.2) K/mm3 [place] # (Auto) 1.1 H (0.1-0.6) K/mm3 Eos # (Auto) 0.1 (0-0.3) K/mm3 Baso # (Auto) 0.1 (0.0-0.1) K/mm3 Abs Immat Gran (auto) 0.03 (0.00-0.031) K/mm3 Absolute Neuts (auto) 5.1 (1.3-6.7) K/mm3 Absolute Nucleated RBC 0.000 (0.0-0.012) K/mm3 Nucleated RBC % 0.0 (0.0-0.2) % Sodium 145 (137-145) mmol/L Potassium 3.5 (3.4-5.0) mmol/L Chloride 104 (98-107) mmol/L Carbon Dioxide 26 (22-30) mmol/L Anion Gap 15 H (4-12) mmol/L BUN 5 L (9-20) mg/dL Creatinine 0.85 (0.7-1.3) mg/dL Estim Creat Clear Calc 113 ml/min Estimated GFR > 60 (59 - ) Glucose 104 (65-110) mg/dL Calcium 9.3 (8.4-10.2) mg/dL Magnesium 2.2 (1.6-2.3) mg/dL Total Bilirubin 0.3 (0.2-1.3) mg/dL AST 81 H (17-59) U/L ALT 79 H (6-50) U/L Alkaline Phosphatase 97 (38-126) U/L Total Protein 9.0 H (6.3-8.2) g/dL Albumin 4.9 (3.5-5.1) g/dL Urine Color Yellow (Yellow) Urine Appearance Clear (Clear) Urine pH 6.0 (5.0-9.0) Ur Specific [place] 1.004 (1.001-1.035) Urine Protein Negative (Negative) mg/dL Urine Glucose (UA) Negative (Negative) mg/dL Urine Ketones Negative (Negative) mg/dL Ur Blood (Man) Negative (Negative) Urine Nitrate Negative (Negative) Urine Bilirubin Negative (Negative) Urine Urobilinogen 0.2 (<2.0) mg/dL Leukocyte Esterase Rfl Negative (Negative) DIMAS/UL Salicylates < 1.0 L (2-20) mg/dL Urine Opiates Screen Negative (Negative) Urine Methadone Screen Negative (Negative) Acetaminophen < 10 L (10-30) ug/mL Ur Barbiturates Screen Negative (Negative) Ur Phencyclidine Scrn Negative (Negative) Ur Amphetamine Screen Negative (Negative) U Benzodiazepines Scrn Negative (Negative) Urine Cocaine Screen Negative (Negative) U Cannabinoids Screen Negative (Negative) Ethyl Alcohol 285 (<10) mg/dL Influenza A (RT-PCR) Negative (Negative) Influenza B (RT-PCR) Negative (Negative) RSV (RT-PCR) Negative (Negative) SARS-CoV-2 RNA (RT-PCR) Negative (Negative) <Michael Montano MD - Last Filed: 12/18/24 02:48> Lab Results 12/17/24 Range/Units 20:48 WBC 9.5 (4.5-10.0) K/mm3 RBC 5.15 (4.6-6.20) M/mm3 Hgb 15.9 D (14.0-18.0) g/dL Hct 49.7 (42.0-52.0) % MCV 96.5 (80-100) fl MCH 30.9 (26-34) pg MCHC 32.0 (32-36) g/dl RDW 13.5 (11.5-14.5) % Plt Count 357 D (150-375) k/mm3 MPV 10.2 (7.4-10.4) fl Immature Gran % (Auto) 0.3 (0-0.5) % Neut % (Auto) 53.7 (45.5-73.1) % Lymph % (Auto) 32.0 (18.3-44.2) % [place] % (Auto) 11.4 H (2.6-8.5) % Eos % (Auto) 1.2 (0-4.4) % Baso % (Auto) 1.4 H (0.2-1.2) % Lymph # (Auto) 3.04 (0.9-3.2) K/mm3 [place] # (Auto) 1.1 H (0.1-0.6) K/mm3 Eos # (Auto) 0.1 (0-0.3) K/mm3 Baso # (Auto) 0.1 (0.0-0.1) K/mm3 Abs Immat Gran (auto) 0.03 (0.00-0.031) K/mm3 Absolute Neuts (auto) 5.1 (1.3-6.7) K/mm3 Absolute Nucleated RBC 0.000 (0.0-0.012) K/mm3 Nucleated RBC % 0.0 (0.0-0.2) % Sodium 145 (137-145) mmol/L Potassium 3.5 (3.4-5.0) mmol/L Chloride 104 (98-107) mmol/L Carbon Dioxide 26 (22-30) mmol/L Anion Gap 15 H (4-12) mmol/L BUN 5 L (9-20) mg/dL Creatinine 0.85 (0.7-1.3) mg/dL Estim Creat Clear Calc 113 ml/min Estimated GFR > 60 (59 - ) Glucose 104 (65-110) mg/dL Calcium 9.3 (8.4-10.2) mg/dL Magnesium 2.2 (1.6-2.3) mg/dL Total Bilirubin 0.3 (0.2-1.3) mg/dL AST 81 H (17-59) U/L ALT 79 H (6-50) U/L Alkaline Phosphatase 97 (38-126) U/L Total Protein 9.0 H (6.3-8.2) g/dL Albumin 4.9 (3.5-5.1) g/dL Urine Color Yellow (Yellow) Urine Appearance Clear (Clear) Urine pH 6.0 (5.0-9.0) Ur Specific [place] 1.004 (1.001-1.035) Urine Protein Negative (Negative) mg/dL Urine Glucose (UA) Negative (Negative) mg/dL Urine Ketones Negative (Negative) mg/dL Ur Blood (Man) Negative (Negative) Urine Nitrate Negative (Negative) Urine Bilirubin Negative (Negative) Urine Urobilinogen 0.2 (<2.0) mg/dL Leukocyte Esterase Rfl Negative (Negative) DIMAS/UL Salicylates < 1.0 L (2-20) mg/dL Urine Opiates Screen Negative (Negative) Urine Methadone Screen Negative (Negative) Acetaminophen < 10 L (10-30) ug/mL Ur Barbiturates Screen Negative (Negative) Ur Phencyclidine Scrn Negative (Negative) Ur Amphetamine Screen Negative (Negative) U Benzodiazepines Scrn Negative (Negative) Urine Cocaine Screen Negative (Negative) U Cannabinoids Screen Negative (Negative) Ethyl Alcohol 285 (<10) mg/dL Influenza A (RT-PCR) Negative (Negative) Influenza B (RT-PCR) Negative (Negative) RSV (RT-PCR) Negative (Negative) SARS-CoV-2 RNA (RT-PCR) Negative (Negative) <Elvira Matthew PA-C - Last Filed: 12/18/24 00:09> Discharge Plan Discharge Clinical Impression: Alcohol intoxication, Alcohol abuse, Transaminitis <Michael Montano MD - Last Filed: 12/18/24 02:48> Patient Disposition: Still a Patient <Michael Montano MD - Last Filed: 12/18/24 02:48> Condition: Stable <Michael Montnao MD - Last Filed: 12/18/24 02:48> Patient Language: Polish <Michael Montano MD - Last Filed: 12/18/24 02:48> Prescriptions: No Action methocarbamol 750 mg tablet 750 mg PO Q8H PRN (Reason: muscle pain/spasm) Qty: 30 0RF fluticasone propionate [Flonase Allergy Relief] 50 mcg/actuation spray,suspension 1 spray intranasal Q12H Qty: 16 2RF Rx Instructions: administer into each nostril buspirone 7.5 mg tablet 7.5 mg PO BID Qty: 60 5RF amlodipine 5 mg tablet 5 mg PO DAILY Qty: 30 5RF <Michael Montano MD - Last Filed: 12/18/24 02:48> Follow-up/Referrals: Kell Lopez, PROMISE [Primary Care Provider] - <Michael Montano MD - Last Filed: 12/18/24 02:48> Time of Disposition: 02:46 <Michael Montano MD - Last Filed: 12/18/24 02:48> 02:46 <Elvira Matthew PA-C - Last Filed: 12/18/24 00:09>
[2024-12-17 20:57] LABS: Basophils Absolute Auto 0.1 K/mm3 (0.0-0.1); Basophils Percent Auto 1.4 % (0.2-1.2); Eosinophils Absolute Auto 0.1 K/mm3 (0-0.3); Eosinophils Percent Auto 1.2 % (0-4.4); Hematocrit 49.7 % (42.0-52.0); Hemoglobin 15.9 g/dL (14.0-18.0); Immature Granulocyte Absolute 0.03 K/mm3 (0.00-0.031); Immature Granulocyte Percent A 0.3 % (0-0.5); Lymphocytes Absolute Auto 3.04 K/mm3 (0.9-3.2); Mean Corpuscular Hemoglobin 30.9 pg (26-34); Mean Corpuscular Volume 96.5 fl (80-100); Mean Platelet Volume 10.2 fl (7.4-10.4); Monocytes Absolute Auto 1.1 K/mm3 (0.1-0.6); Monocytes Percent Auto 11.4 % (2.6-8.5); Neutrophils Absolute Auto 5.1 K/mm3 (1.3-6.7); Neutrophils Percent Auto 53.7 % (45.5-73.1); Platelet Count Result 357 k/mm3 (150-375); Red Blood Count 5.15 M/mm3 (4.6-6.20); Red Cell Distribution Width 13.5 % (11.5-14.5); White Blood Count 9.5 K/mm3 (4.5-10.0)
[2024-12-17 20:58] LABS: Add Urine Microscopic? NO; Appearance Urine Clear (Clear); Bilirubin Urine Negative (Negative); Blood Urine Negative (Negative); Color Urine Yellow (Yellow); Glucose Urine UA Negative (Negative); Ketones Urine Negative (Negative); Leukocyte Esterase Ur Negative LEU/UL (Negative); Nitrate Urine Negative (Negative); Protein Urine Negative (Negative); Specific Grav Ur 1.004 (1.001-1.035); Urobilinogen Urine 0.2 mg/dL (<2.0)
[2024-12-17] MEDS: SODIUM CHLORIDE 0.9% IV 1,000 ML 999 ML IV CONT (21:07)
[2024-12-17 21:08] LABS: Alanine Aminotransferase 79 U/L (6-50); Albumin Level 4.9 g/dL (3.5-5.1); Alkaline Phosphatase 97 U/L (38-126); Anion Gap 15 mmol/L (4-12); Aspartate Amino Transferase 81 U/L (17-59); Bilirubin,Total 0.3 mg/dL (0.2-1.3); Blood Urea Nitrogen 5 mg/dL (9-20); Calcium 9.3 mg/dL (8.4-10.2); Carbon Dioxide 26 mmol/L (22-30); Chloride 104 mmol/L (98-107); Estimated CRCL calculation 113 ml/min; Estimated Glomerular Filt Rate > 60; Glucose 104 mg/dL (65-110); Magnesium 2.2 mg/dL (1.6-2.3); Potassium 3.5 mmol/L (3.4-5.0); Sodium 145 mmol/L (137-145)
[2024-12-17 21:15] LABS: Acetaminophen < 10 ug/mL (10-30); Ethanol 285 mg/dL (<10); Salicylate < 1.0 mg/dL (2-20)
--- NOTE | 2024-12-17 21:20 | PC.NURSE ---
Pt told sitter he wants to leave. This RN to bedside to discuss plan of care. 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 Pt agreeable to stay until sober to speak with crisis.
--- NOTE | 2024-12-17 21:20 | PC.NURSE ---
patient easily agitated, when he was told his insurance was cancelled he ripped off his telemetry leads, bandage on his wound, and blood pressure cuff and threw them across the room. discussed that behavior is inappropriate. patient verbalized understanding and stated that he just got pissed
[2024-12-17 21:26] LABS: Amphetamine Screen Urine Negative (Negative); Barbiturate Screen Urine Negative (Negative); Benzodiazepines Screen Urine Negative (Negative); Cannabinoid Screen Urine Negative (Negative); Cocaine Screen Urine Negative (Negative); Methadone Screen Urine Negative (Negative); Opiate Screen Urine Negative (Negative); Phencyclidine Screen Urine Negative (Negative)
[2024-12-17 21:30] VITALS: BP 136/102; PULSE 100; RESP 14; O2SAT 96
[2024-12-17 21:34] LABS: Influenza A QL RT-PCR Negative (Negative); Influenza B QL RT-PCR Negative (Negative); RSV RNA, RT-PCR Negative (Negative); SARS-CoV-2 RNA PCR Negative (Negative)
--- NOTE | 2024-12-17 22:00 | PC.NURSE ---
Addendum entered by Tejal Carrizales RN 12/17/24 22:47: Pt only received approx 500 ml NS before leaking on floor. Per Dr Montano, give pt an additional liter. Original Note: Pt had asked to speak to this RN, but informed sitter it may be a bit d/t department load. Pt became upset and pulled apart his IV tubing and was bleeding onto floor, as well as saline draining from his IV bag onto floor. Pt very apologetic afterwards. Pt's IV addressed and room/floor/linens cleaned. Pt ambulatory to restroom with a steady gait.
[2024-12-18] MEDS: SODIUM CHLORIDE 0.9% IV 1,000 ML 999 ML IV CONT (00:33)
[2024-12-18 06:26] LABS: Ethanol 82 mg/dL (<10)
[2024-12-18 09:18] VITALS: BP 158/113; PULSE 105; RESP 16; TEMP 36.6; O2SAT 98
--- OUTSIDE RECORDS SUMMARY | 2024-12-18 15:31 | XMS_ITS | Patient Health Record ---
Author Organization [facility] [employer] [facility] Address [facility] [address] [facility] [address] [place] [address] Care Team Providers Care Business Systems Technician Name Role Phone JodyTeo reyesjay Unavailable [phone] Migration, Provider Unavailable Unavailable Reason For Referral No Information Social History Sex Assigned At : Social History Observation Description Sex Assigned At Male Encounters Encounter Location Date Provider Diagnosis [facility] [address] [facility] [address] [address] 2024 Raf Vera [facility] [place] [id number] [facility] [address] [phone] 01/03/2024 Provider Migration [facility] [address] [facility] [address] [address] 01/04/2024 Provider Migration Plan Of Treatment No Information Insurance Providers Payer Name Payer Address Payer Phone Subscriber Number Group Number Insured Name Patient Relationship to Insured Coverage Start Date Coverage End Date [facility] [address] [place] [phone] [id number] CHERELLE THOMAS Self - patient is the insured
--- OUTSIDE RECORDS SUMMARY | 2024-12-18 15:31 | XMS_ITS | Clinical Summary ---
Author Organization [facility] Address [address] [place] [address] Care Team Providers Care Managing Director Atlas Name Role Phone Kell Lopez WILFRIDO Primary Care Provider [phone] Allergies No known active allergies Medications No [...] Date Last Done Comments Annual Physical 1983 Hepatitis C 1998 Hepatitis B Vaccines (1 of 3 - 19+ 3-dose series) 1999 Pneumococcal Vaccine: Pediat rics (0 to 5 Years) and At-Risk Patients (6 to 49 Years) (1 of 2 - PCV) 1999 COVID-19 Vaccine ( - 2023-2 5 season) 2024 DTaP, Tdap and Td Vaccines ( [...] patient's age to complete this topic Insurance [facility] Care Teams Managing Director Atlas Relationship Specialty Start Date End Date Kell Lopez APNP [address] [address] PCP - General Nurse Practitioner Family 01/31/23
--- OUTSIDE RECORDS SUMMARY | 2024-12-18 15:31 | XMS_ITS | Patient Health Record ---
Author Organization [facility] Address [address] [place] [address] Care Team Providers Care Coil Winding Machines Set Up Mechanic Name Role Phone Margo Jimenez Primary Care [...] Status Risk Notes Problem Generalized anxiety disorder (38248303) Generalized anxiety disorder (F41.1) Active confirmed Problem Major depressive disorder (F32.9) Active confirmed Problem Nicotine dependence (40776044) Nicotine dependence (F17.200) Active confirmed Plan Of Treatment No Information Insurance Providers Payer Name Payer Address Payer Phone Subscriber Number Group Number Insured Name Patient Relationship to Insured Coverage Start Date Coverage End Date [facility] [address] [place] [phone] [id number] Sagar Quiñonez Self - patient is the insured 2 Medical (General) History Medical History History ICD Code DRUG ABUSE DISORDER ALCOHOL ABUSE DISORDER SEVERE DEPRESSION Surgical History Surgery Date(Month/Year) Tonsillectomy 2011 Hospitalization History Reason Date(Month/Year) Severe depression- admitted to [facility] o n Friday01/16/2022 Shira @ age 17
== END 2024-12-18 09:21 | disposition home or self-care (01) ==
PROVIDERS: Emergency Medicine; Emergency Provider Emergency Medicine; PCP Nurse Practitioner Family
DX: S51.812A Laceration without foreign body of left forearm, initial encounter (principal); F10.129 Alcohol abuse with intoxication, unspecified; Y90.8 Blood alcohol level of 240 mg/100 ml or more; R74.01 Elevation of levels of liver transaminase levels; Z11.52 Encounter for screening for COVID-19; I10 Essential (primary) hypertension; E78.5 Hyperlipidemia, unspecified; E53.8 Deficiency of other specified B group vitamins; K21.9 Gastro-esophageal reflux disease without esophagitis; F41.9 Anxiety disorder, unspecified; F17.210 Nicotine dependence, cigarettes, uncomplicated; R00.0 Tachycardia, unspecified; R94.31 Abnormal electrocardiogram [ECG] [EKG]; Z79.899 Other long term (current) drug therapy; X78.9XXA Intentional self-harm by unspecified sharp object, initial encounter
CPT/HCPCS: 12004; 36415; 80053; 80143; 80179; 80307; 81003; 82077; 83735; 85025; 87637; 93005; 96360; 96361; 99284; J7030

== ENCOUNTER 2025-04-27 23:42 | Inpatient (IN) | payer MEDICAID, SELFPAY ==
--- NOTE | ~2025-04-27 | XR_ITS ---
EXAMINATION: XR chest 1V portable DATE: 05/03/2025 05:43 INDICATION: Pneumonia TECHNIQUE: frontal view of the chest was obtained. COMPARISON: Chest radiograph dated 05/02/25 FINDINGS: Endotracheal tube tip 3.3 cm above the josé luis. Nasogastric tube extends below the left hemidiaphragm with distal tip collimated off the study. Right upper extremity peripherally inserted central venous catheter (PICC) tip at the right atrium. Opacities in the bilateral lower lung zones which could include small bilateral pleural effusions. This has increased in the retrocardiac left lower lung zone where there is obscuration of the medial aspect of the left hemidiaphragm. No pneumothorax. The cardiomediastinal silhouette is within normal limits for AP technique. IMPRESSION: 1. Persistent mild opacities at the bilateral lower lung zones with some progression on the left which could represent atelectasis, pneumonia, small bilateral pleural effusions or some combination thereof. Reviewed, dictated and finalized at location A. IMPRESSION: 1. Persistent mild opacities at the bilateral lower lung zones with some progre ssion on the left which could represent atelectasis, pneumonia, small bilateral pleural effusions or some combination thereof.
--- NOTE | ~2025-04-27 | XR_ITS ---
EXAMINATION: XR chest 1V portable DATE: 04/29/2025 05:25 INDICATION: Intubation TECHNIQUE: frontal view of the chest was obtained. COMPARISON: Chest radiograph dated 04/28/25 FINDINGS: Endotracheal tube tip 4.1 cm above the josé luis. Nasogastric tube extends below the left hemidiaphragm with distal tip collimated off the study. Right upper extremity peripherally inserted central venous catheter (PICC) tip at the caudal superior vena cava. Pulmonary vascular congestion. Mild opacities in the left mid and lower lung zone which could represent pneumonia, asymmetric mild pulmonary edema or atelectasis. No pleural effusion or pneumothorax. The cardiomediastinal silhouette is within normal limits for AP technique. IMPRESSION: 1. Pulmonary vascular congestion with increased opacities in the left mid and lower lung zones which represent pneumonia, asymmetric mild pulmonary edema or atelectasis. Reviewed, dictated and finalized at location A. IMPRESSION: 1. Pulmonary vascular congestion with increased opacities in the left mid and l ower lung zones which represent pneumonia, asymmetric mild pulmonary edema or a telectasis.
--- NOTE | ~2025-04-27 | XR_ITS ---
EXAMINATION: XR abdomen obstructive series, 05/02/2025 12:45 CDT HISTORY: Vomiting, constipation, rule out ileus COMPARISON: No comparisons available. Technique: 3 view. Findings: There is diminished air throughout the bowel with fluid-filled loops of small bowel suspected. No free air. No abnormal calcifications No acute osseous abnormality. Nasogastric tube terminates in the distal stomach. Impression: 1. Probable small bowel obstruction. Correlation with CT recommended Reviewed, dictated and finalized at location A. Impression: 1. Probable small bowel obstruction. Correlation with CT recommended
--- NOTE | ~2025-04-27 | XR_ITS ---
EXAMINATION: XR chest 1V portable DATE: 05/02/2025 06:08 INDICATION: Mechanical ventilation. Pneumonia. TECHNIQUE: frontal view of the chest was obtained. COMPARISON: Chest radiograph dated 05/01/25 FINDINGS: Endotracheal tube tip 1.3 cm above the josé luis. Nasogastric tube extends into the stomach with distal tip collimated beyond the inferior margin of the field of imaging. Decreased lung volumes. Gradient of hazy basilar predominant airspace opacities throughout the right lung and in the left mid to lower lung zone which could be due to body habitus, atelectasis, small bilateral pleural effusions or some combination thereof. Persistent small region of more dense retrocardiac consolidation at the medial left lower lung zone which could represent atelectasis or pneumonia. Heart size is within normal limits for AP technique. IMPRESSION: 1. Decreased bilateral lung volumes with bilateral hazy opacities with basilar predominance which could represent atelectasis, small bilateral pleural effusions, artifact and body habitus or some combination thereof. 2. More dense retrocardiac consolidation in the left lower lung zone which could represent atelectasis or pneumonia. Reviewed, dictated and finalized at location A. IMPRESSION: 1. Decreased bilateral lung volumes with bilateral hazy opacities with basilar predominance which could represent atelectasis, small bilateral pleural effusio ns, artifact and body habitus or some combination thereof. 2. More dense retrocardiac consolidation in the left lower lung zone which coul d represent atelectasis or pneumonia.
--- NOTE | ~2025-04-27 | CT_ITS ---
EXAMINATION: CT chest abdomen pelvis wo con DATE: 05/03/2025 11:01 INDICATION: Pneumonia. Acute kidney injury. Small bowel obstruction. TECHNIQUE: Computed tomography (CT) of the chest, abdomen, and pelvis was performed without intravenous contrast. Automated exposure control and iterative reconstruction technique were employed. The dose-length product was 1895.55 mGy-cm. COMPARISON: CT abdomen pelvis 11/02/2024 FINDINGS: CHEST CT: There are airspace opacities with air bronchograms and volume loss involving the lower lobes and lingula. There are dependent airspace opacities and centrilobular nodules in posterior segment right upper lobe. There are trace pleural effusions. The heart size is normal. No pericardial effusion. A right upper extremity peripherally inserted central venous catheter (PICC) is seen with tip in the right atrium. The nasogastric tube tip is in the distal stomach. The endotracheal tube tip is in expected position. There is mild thoracic spondylosis. There is mild chronic anterior wedging of multiple vertebral bodies. ABDOMEN/PELVIS CT: The liver, gallbladder, spleen, pancreas, adrenal glands, and kidneys are normal. There is no urolithiasis. The bladder is decompressed by a Marion catheter. The prostate is mildly enlarged. There are bilateral inguinal hernias containing fat. The appendix is normal. There are no dilated loops of bowel. There are no pathologically enlarged lymph nodes. There is no free intraperitoneal fluid. There is moderate lower lumbar spondylosis. IMPRESSION: 1. Extensive airspace opacities in the lower lobes with volume loss, consistent with atelectasis versus pneumonia. Mild atelectasis and pneumonia in right upper lobe. Reviewed, dictated and finalized at location E. IMPRESSION: 1. Extensive airspace opacities in the lower lobes with volume loss, consistent with atelectasis versus pneumonia. Mild atelectasis and pneumonia in right upp er lobe.
--- NOTE | ~2025-04-27 | XR_ITS ---
EXAMINATION: XR abdomen gastric tube insert, 04/28/2025 3:21 CDT HISTORY: ng placement COMPARISON: No comparisons available. Technique: 1 view. Findings: Bowel gas pattern unremarkable. No obstruction. No free air. No abnormal calcifications No acute osseous abnormality. Nasogastric tube terminates in the stomach. Impression: 1. No acute abnormality. Reviewed, dictated and finalized at location A. Impression: 1. No acute abnormality.
--- NOTE | ~2025-04-27 | XR_ITS ---
Examination: XR chest 1V portable Clinical History: INTUBATED Comparison: 1 day prior Technique: Portable AP Findings: ET tube, NG tube, right PICC. Heart size unchanged. Persistent bibasilar opacities.. Trace pleural effusions not excluded. No pneumothorax. No acute bony abnormality. IMPRESSION: 1. Little change, with persistent bibasilar atelectasis and/or airspace disease. 2. Small effusions not excluded. Reviewed, dictated and finalized at location R. IMPRESSION: 1. Little change, with persistent bibasilar atelectasis and/or airspace diseas e. 2. Small effusions not excluded.
--- NOTE | ~2025-04-27 | XR_ITS ---
EXAMINATION: XR chest ET placement, 04/28/2025 3:21 CDT HISTORY: ett and ng placement COMPARISON: No comparisons available. Technique: Single view. Findings: Mild pulmonary venous congestion. Small left lower lobe infiltrate. No pneumothorax. Mild cardiomegaly. Mediastinal and hilar contours are within normal limits. Bony thorax no acute abnormality. ET tube 2 cm above the josé luis, nasogastric tube in the stomach. Impression: Support apparatus as above Reviewed, dictated and finalized at location A. Impression: Support apparatus as above
--- NOTE | ~2025-04-27 | CT_ITS ---
EXAMINATION: CT brain wo con COMPARISON: None HISTORY: AMS TECHNIQUE: Axial images were obtained through the brain without IV contrast. CT scan performed using dose optimization techniques including the following automated exposure control; adjustment of mA and/or kV; use of iterative reconstruction technique. Automatic exposure control was used to reduce radiation dose. Permanent radiation dose record is archived to PACS. FINDINGS: No acute infarct or parenchymal hemorrhage. No abnormal mass or mass effect. No midline shift. No extra-axial fluid collections. No hydrocephalus. . Nonspecific small left mastoid effusion Sinuses and orbits unremarkable. No acute fracture. No significant facial or scalp soft tissue swelling evident. No radiopaque foreign body is seen. Impression: 1.No acute intracranial abnormality. Reviewed, dictated and finalized at location A. Impression: 1.No acute intracranial abnormality.
--- NOTE | ~2025-04-27 | XR_ITS ---
Examination: XR chest 1V portable Clinical History: intubated Comparison: 1 day prior Technique: Portable AP Findings: ET tube, NG tube, right PICC. Cardiomegaly. Worsening airspace markings right lung. Persistent left basilar opacity. Trace pleural effusions not excluded. No pneumothorax. No acute bony abnormality. IMPRESSION: 1. Worsening airspace opacities right lung versus merely overlying soft tissue artifact or 2. Persistent bibasilar atelectasis and/or airspace disease. 3. Small effusions not excluded. Reviewed, dictated and finalized at location R.
--- NOTE | ~2025-04-27 | XR_ITS ---
EXAMINATION: XR chest 1V portable COMPARISON: No comparisons available. HISTORY: pneumonia FINDINGS: Small basilar infiltrates. No pneumothorax. Mild cardiomegaly. Mediastinal and hilar contours are within normal limits. Bony thorax no acute abnormality. Miscellaneous: ET tube 2 cm above the josé luis, nasogastric tube in the stomach. Right PICC line terminates in the SVC. Impression: Early basilar pneumonia. Findings a. Relatively unchanged compared to the previous study. Reviewed, dictated and finalized at location A. Impression: Early basilar pneumonia. Findings a. Relatively unchanged [facility].
--- NOTE | ~2025-04-27 | XR_ITS ---
EXAMINATION: XR chest 1V portable DATE: 04/30/2025 05:46 INDICATION: Pneumonia. Mechanical ventilation. TECHNIQUE: frontal view of the chest was obtained. COMPARISON: Chest radiograph dated 04/29/25 FINDINGS: Endotracheal tube tip 3.2 cm above the josé luis. Right upper extremity peripherally inserted central venous catheter (PICC) tip at the superior cavoatrial junction. Nasogastric tube extends below the left hemidiaphragm with distal tip collimated off the study. Mild hazy opacities at the bilateral lower lung zones which could represent small bilateral posterior layering pleural effusions, atelectasis or pneumonia. No pneumothorax. The cardiomediastinal silhouette is normal. IMPRESSION: 1. Hazy opacities in the bilateral lower lung zones which could represent small bilateral posterior layering pleural effusions, atelectasis or pneumonia. Reviewed, dictated and finalized at location A.
--- NOTE | ~2025-04-27 | XR_ITS ---
EXAMINATION: XR abdomen/kub 1V DATE: 05/06/2025 08:08 INDICATION: Nausea TECHNIQUE: A supine view of the abdomen on 2 radiographs was obtained. COMPARISON: Obstructive series dated 05/02/[address] dated 05/03/2025 FINDINGS: Nasogastric tube tip and proximal side port in the body the stomach. No dilated loops of gas-filled bowel to suggest obstruction. Lung bases are clear. Heart size is normal. IMPRESSION: 1. No dilated loops of gas-filled bowel to suggest obstruction. Reviewed, dictated and finalized at location A.
--- NOTE | ~2025-04-27 | XR_ITS ---
EXAMINATION: XR abdomen obstructive series, 05/01/2025 6:29 CDT HISTORY: vomiting COMPARISON: No comparisons available. Technique: 3 view. Findings: Bowel gas pattern unremarkable. No obstruction. No free air. No abnormal calcifications No acute osseous abnormality. Nasogastric tube terminates in the mid to distal stomach Impression: 1. No acute abnormality. Reviewed, dictated and finalized at location A. Impression: 1. No acute abnormality.
[2025-04-27 23:49] VITALS: BP 108/55; PULSE 101; RESP 19; TEMP 36.6; O2SAT 93
[2025-04-27 23:54] VITALS: PULSE 102; RESP 12; O2SAT 97
[2025-04-28] VITALS (78 sets, daily range): BP systolic 79–167; BP diastolic 61–110; PULSE 58–117; RESP 15–22; TEMP 36.6–37.2; O2SAT 86–99; BMI 35.3
--- NOTE | 2025-04-28 | ECG_ITS ---
Test Date: 2025-04-28 00:04:04 Measurements Intervals Miller Rate: 96 P: 25 DC: 141 QRS: -19 QRSD: 110 T: 7 QT: 433 QTc: 548 Interpretive Statements SINUS RHYTHM MINIMAL VOLTAGE CRITERIA FOR LVH, CONSIDER NORMAL VARIANT [MEETS CRITERIA IN ONE OF: R(aVL), S(V1), R(V5), R(V5/V6)+S(V1)] NONSPECIFIC T-WAVE ABNORMALITY; REPOL VS ISCHEMIA PROLONGED QT INTERVAL Compared to ECG 12/17/2024 20:29:58 Prolonged QT interval now present Sinus tachycardia no longer present Electronically Signed On 04-28-2025 11:07:02 CDT by Lex Becerra M.D.
[2025-04-28 00:17] LABS: Acetaminophen < 10 ug/mL (10-30); Hematocrit 40.8 % (42.0-52.0); Hemoglobin 13.6 g/dL (14.0-18.0); Immature Granulocyte Percent A 0.3 % (0-0.5); Lymphocytes Absolute Auto 3.67 K/mm3 (0.9-3.2); Mean Corpuscular HGB Conc 33.3 g/dl (32-36); Mean Corpuscular Hemoglobin 29.5 pg (26-34); Mean Corpuscular Volume 88.5 fl (80-100); Nucleated Red Blood Cells Absolute Auto 0.000 K/mm3 (0.0-0.012); Nucleated Red Blood Cells Perc 0.0 % (0.0-0.2); Platelet Count Result 255 k/mm3 (150-375); Red Blood Count 4.61 M/mm3 (4.6-6.20); Salicylate < 1.0 mg/dL (2-20); White Blood Count 9.4 K/mm3 (4.5-10.0)
[2025-04-28 00:18] LABS: Alanine Aminotransferase 51 U/L (6-50); Albumin Level 4.1 g/dL (3.5-5.1); Alkaline Phosphatase 78 U/L (38-126); Anion Gap 14 mmol/L (4-12); Aspartate Amino Transferase 41 U/L (17-59); Bilirubin,Total 0.8 mg/dL (0.2-1.3); Blood Urea Nitrogen 7 mg/dL (9-20); Calcium 8.0 mg/dL (8.4-10.2); Carbon Dioxide 22 mmol/L (22-30); Chloride 103 mmol/L (98-107); Estimated CRCL calculation 146 ml/min; Estimated Glomerular Filt Rate > 60; Glucose 215 mg/dL (65-110); Potassium 2.8 mmol/L (3.4-5.0); Sodium 139 mmol/L (137-145); Total Protein 7.1 g/dL (6.3-8.2)
[2025-04-28] MEDS: POTASSIUM CHLORIDE INJ 40 MEQ in SODIUM CHLORIDE 0.9% IV 500 ML 130 MEQ IVPB (00:40)
[2025-04-28] MEDS: LACTATED RINGERS 3,000 ML 999 ML IV CONT (00:40)
[2025-04-28 00:50] LABS: SARS-CoV-2 RNA PCR Negative (Negative)
[2025-04-28 00:52] LABS: Thyroid Stimulating Hormone 3.520 uIU/mL (0.465-4.680)
[2025-04-28 01:11] LABS: Magnesium 2.0 mg/dL (1.6-2.3)
--- NOTE | 2025-04-28 01:32 | ED.GENADULT ---
HPI - General Adult General Chief complaint: Overdose Stated complaint: UNKNOWN PILL OD Time Seen by Provider: 04/27/25 23:51 History of Present Illness HPI narrative: This is a 44-year-old male presenting ED for suicide attempt. Patient said he attempted to commit suicide because he was homeless and he feels like he is stuck. He drink a large amount of alcohol and took hydroxyzine baclofen and trazodone. Right now the patient feels very disoriented but has no other physical complaints. The patient's medications were counted and he is missing the following dosages assuming he was taking them as directed since they were rx'd. 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 The patient continues to smoke 1 pack a cigarettes a day. The patient stated that he usually drinks about 10 alcoholic beverages a week. He states every other week any does not drink when he has his child. The patient denies any marijuana or any other illicit drugs. The patient a durable power state attorney for healthcare. Code status full code Smoking packs per day: 1 Smoking cigarettes per day: 20.0 Years smoked: 20 Smoking pack-years: 20.00 Smoking status: Current every day smoker Second hand tobacco smoke exposure: No Alcohol intake: current Drinks per week: 10 Substance use: never Substance use type: former substance user Do You Feel Safe in your Home?: Yes Lack of Transportation: No Lack of Food: Never True Current Housing: I Have Housing Concerned About Future Housing: No Difficulty Paying Gas/Electric Bills: No Difficulty Paying for Meds: No Currently Unemployed: No Education: High School Diploma/GED Difficulty w/ Childcare or Family Care: No Gender identity (if verbalized by the patient): Male Spiritual care concerns: No Exam Narrative: APPEARANCE: Patient is somnolent Head: atraumatic. EYES: EOMI, NOSE: Atraumatic NECK: Trachea midline RESPIRATORY: No increased rate of breathing clear to auscultation CARDIOVASCULAR: RRR, no peripheral edema ABDOMINAL: Non-distended soft nontender MUSCULOSKELETAl: No obvious deformities NEURO: Alert. Moving 4/4 extremities SKIN:: Warm, dry. Normal color PSYCHIATRIC: Abdominal Course Vital Signs Vital signs: Vital Signs Temperature 97.8 F 04/27/25 23:49 Pulse Rate 101 H 04/27/25 23:49 Respiratory Rate 04/27/25 23:49 Blood Pressure 108/55 L 04/27/25 23:49 Pulse Oximetry 93 04/27/25 23:49 Oxygen Delivery Room Air 04/27/25 23:49 Temperature 97.8 F 04/27/25 23:49 Pulse Rate 101 H 04/27/25 23:49 Respiratory Rate 04/27/25 23:49 Blood Pressure 108/55 L 04/27/25 23:49 Pulse Oximetry 93 04/27/25 23:49 Oxygen Delivery Room Air 04/27/25 23:49 Procedures Intubation Intubation #1: Intubation Date: 04/28/25 Time out performed: Yes sedative: Etomidate Mg Given: 20 paralytic: Rocuronium Mg Given: 100 Laryngoscope: fiber optic video scope Tube Size (cm): 7.5 Method of Intubation: orotracheal Number of Attempts: 3 Tube Secured Depth (cm): 24 Tube Secured Location: lips Tube Placement Confirmation: visualized tube passing through cords, equal breath sounds bilaterally, no breath sounds over epigastrium and confirmation by capnometry Patient Tolerated Procedure: well Intubation Complications: difficult intubation (Patient has a large tongue and anterior airway. Was unable to intubate him using a MAC 3 and a Mac 4 direct. I had to switch to a video laryngoscopy and was able to intubate the patient without difficulty. Patient was easy to bag and his oxygen saturations and not dip below 92 throughout the proc) Medical Decision Making MDM Narrative Medical decision making narrative: -Course: This is a 44-year-old male presenting after an intentional suicide attempt. On Exam patient is somnolent and slightly tachycardic but otherwise no acute findings. Patient given 3 L of LR. Poison control was contacted and are aware of the case. Patient's workup significant for alcohol level of 280. Potassium is 2.8 which is been repleted via the IV. EKG showed sinus rhythm with QT of 433 and a QTC of 486. Patient was being monitored as these medications with peak in 1-3 hours after ingestion. While being monitored the patient became more more lethargic. He stopped responding to painful stimuli. We eventually got him awake but he then he was very disoriented/agitated/combatitive and multiple staff members were called to the room to restrain him. Patient had to be intubated for airway protection. Patient will be admitted to the ICU for further management. Vital Signs Vital Signs: Vital Signs Temperature 97.8 F 04/27/25 23:49 Pulse Rate 101 H 04/27/25 23:49 Respiratory Rate 19 04/27/25 23:49 Blood Pressure 108/55 L 04/27/25 23:49 Pulse Oximetry 93 04/27/25 23:49 Oxygen Delivery Room Air 04/27/25 23:49 Temperature 97.8 F 04/27/25 23:49 Pulse Rate 101 H 04/27/25 23:49 Respiratory Rate 19 04/27/25 23:49 Blood Pressure 108/55 L 04/27/25 23:49 Pulse Oximetry 93 04/27/25 23:49 Oxygen Delivery Room Air 04/27/25 23:49 Lab Data 04/27/25 23:56 04/27/25 23:56 Labs: Lab Results 04/27/25 Range/Units 23:56 WBC 9.4 (4.5-10.0) K/mm3 RBC 4.61 (4.6-6.20) M/mm3 Hgb 13.6 L (14.0-18.0) g/dL Hct 40.8 L (42.0-52.0) % MCV 88.5 (80-100) fl MCH 29.5 (26-34) pg MCHC 33.3 (32-36) g/dl RDW 14.2 (11.5-14.5) % Plt Count 255 (150-375) k/mm3 MPV 10.0 (7.4-10.4) fl Immature Gran % (Auto) 0.3 (0-0.5) % Neut % (Auto) 47.8 (45.5-73.1) % Lymph % (Auto) 39.3 (18.3-44.2) % [place] % (Auto) 10.2 H (2.6-8.5) % Eos % (Auto) 1.7 (0-4.4) % Baso % (Auto) 0.7 (0.2-1.2) % Lymph # (Auto) 3.67 H (0.9-3.2) K/mm3 [place] # (Auto) 1.0 H (0.1-0.6) K/mm3 Eos # (Auto) 0.2 (0-0.3) K/mm3 Baso # (Auto) 0.1 (0.0-0.1) K/mm3 Abs Immat Gran (auto) 0.03 (0.00-0.031) K/mm3 Absolute Neuts (auto) 4.5 (1.3-6.7) K/mm3 Absolute Nucleated RBC 0.000 (0.0-0.012) K/mm3 Nucleated RBC % 0.0 (0.0-0.2) % Sodium 139 (137-145) mmol/L Potassium 2.8 L* (3.4-5.0) mmol/L Chloride 103 (98-107) mmol/L Carbon Dioxide 22 (22-30) mmol/L Anion Gap 14 H (4-12) mmol/L BUN 7 L (9-20) mg/dL Creatinine 0.73 (0.7-1.3) mg/dL Estim Creat Clear Calc 146 ml/min Estimated GFR > 60 (59 - ) Glucose 215 H (65-110) mg/dL Calcium 8.0 L (8.4-10.2) mg/dL Magnesium 2.0 (1.6-2.3) mg/dL Total Bilirubin 0.8 (0.2-1.3) mg/dL AST 41 (17-59) U/L ALT 51 H (6-50) U/L Alkaline Phosphatase 78 (38-126) U/L Total Protein 7.1 (6.3-8.2) g/dL Albumin 4.1 (3.5-5.1) g/dL TSH 3.520 (0.465-4.680) uIU/mL Salicylates < 1.0 L (2-20) mg/dL Acetaminophen < 10 L (10-30) ug/mL Ethyl Alcohol 280 (<10) mg/dL SARS-CoV-2 RNA (RT-PCR) Negative (Negative) Critical Care Time Critical Care Time Critical Care Time: Yes Total Critical Care Time: 35 Discharge Plan Discharge Clinical Impression: Acute drug overdose Patient Disposition: Still a Patient Condition: Stable Patient Language: Chinese Prescriptions: No Action methocarbamol 750 mg tablet 750 mg PO Q8H PRN (Reason: muscle pain/spasm) Qty: 30 0RF fluticasone propionate [Flonase Allergy Relief] 50 mcg/actuation spray,suspension 1 spray intranasal Q12H Qty: 16 2RF Rx Instructions: administer into each nostril buspirone 7.5 mg tablet 7.5 mg PO BID Qty: 60 5RF amlodipine 5 mg tablet 5 mg PO DAILY Qty: 30 5RF Follow-up/Referrals: Kell Lopez NP [Primary Care Provider, [facility]]
[2025-04-28] MEDS: ETOMIDATE 20 MG/10 ML AMPUL IV PUSH (03:00)
[2025-04-28] MEDS: ROCURONIUM BROMIDE 50 MG/5 ML VIAL 100 MG IV PUSH (03:01)
[2025-04-28] MEDS: HYDROmorphone HCL INJ (*CRX) 1 MG/ML SYR (03:08)
[2025-04-28] MEDS: MIDAZOLAM HCL (*CRX) 2 MG/2 ML VIAL 6 MG (03:08)
[2025-04-28] MEDS: FENTANYL 2,500MCG/NS250ML(*CRX 2,500 MCG/250 ML BAG 12.5 MCG IV CONT (03:15)
[2025-04-28 03:25] LABS: Add Urine Microscopic? NO; Appearance Urine Clear (Clear); Glucose Urine UA Negative (Negative); Leukocyte Esterase Ur Negative LEU/UL (Negative); Nitrate Urine Negative (Negative); Specific Grav Ur 1.007 (1.001-1.035)
[2025-04-28 03:25] LABS: Alveolar/Arterial O2 Gradient 371.7 mmHg; Carboxyhemoglobin 3.1 % THb (0-2.0); Fractional Inspired Oxygen 100 %; HCO3 ABG 24.8 mEq/l (22.0-26.0); Methemoglobin ABG 0.4 %THb (0-1.5); Oxygen Content ABG 19.2 %vol (16.0-22.0); Oxygen Saturation ABG 99.6 % (95.0-100.0); PCO2 ABG 51.0 mmHg (35.0-45.0); PO2 ABG 290.3 mmHg (80.0-100.0); PO2 FiO2 Ratio Arterial Blood 2.90 %; Reduced Hemoglobin 0.3 %THb (0-5.0)
[2025-04-28 03:27] LABS: Arterial Blood Gas Ventilator rate 16 /MIN; Modified Allen's Test Pass; Site Drawn LEFT RADIAL
[2025-04-28 03:30] LABS: Arterial Blood Gas Tidal Volume 500 ml
[2025-04-28] MEDS: MIDAZOLAM 100MG/NS 100ML(*CRX) 100 MG/100 ML BAG IV CONT (03:33)
[2025-04-28 03:43] LABS: Cannabinoid Screen Urine Negative (Negative)
[2025-04-28] MEDS: LACTATED RINGERS 1,000 ML 125 ML IV CONT (03:50)
[2025-04-28] MEDS: LACTATED RINGERS 1,000 ML 999 ML IV CONT ×2 (04:06→07:50)
--- NOTE | 2025-04-28 04:21 | PC.NURSE ---
Pt has been suspected to have taken 31 - Baclofen 20mg, 5 - trazodone 100mg, and possibly up to 60 hydroxyzine 25mg tablets in order to commit suicide. Pt wrote suicide note and it was found at the scene. Pt reports that he recently got out of rehab and is now homeless, living in a motel. This RN contacted poison control around 0045, she states that peak time for all of these medications is approx 1-3 hours but could be prolonged due to the combination and sheer volume. Pt reports that he took the medications around [id number]. Poison control reports to monitor QTC and pt condition, airway protection may be needed for over sedation. 0245 - this RN and MD attempted to wake patient via painful stimuli, pt unarousable to painful stimuli and appears to be becoming more sedated as we monitor pt. Decision to intubate for airway protection has been made at this time. 0300 - Intubation set up. 0308 - Pt successfully intubated with 7.5 ett at 23cm @ lip. 0407 - repeat EKG completed, showed worsening QTc prolongation. 0415 - Poison control again contacted. No further instructions other than continue to monitor with serial EKGs and telemetry, Versed drip may help protect QTc per poison control, continue this as long as pt will tolerate. 0430 - This RN spoke to pt's daughter, Makayla, with an update on pt's deterioration.
--- NOTE | 2025-04-28 04:47 | PM.IMHP ---
H&P: HPI History of Present Illness Date/Time: 04/28/25 04:47 Chief Complaint: Suicide attempt, intentional polysubstance overdose Narrative: This is a 44 year old male patient who is intubated, sedated and mechanically ventilated being admitted to the ICU after he reported intentional drug overdose. Patient was reported to have been drinking alcohol and then overdosed on approximately 60 tablets of hydroxyzine 25 mg, 31 tablets of baclofen 20 mg, and 5 tablets of trazodone 100 mg. A suicide note was found with patient in his hotel room. Unknown if he or a bystander called 911. Initially patient was drowsy in the ER but arousable. However, after decision was made to admit rather than sober in the emergency department he was less arousable requiring oxygen. ER provider stated that he needed to intubate the patient for airway protection. Intubation was complicated by very anterior airway and large tongue making use of regular equipment challenging and requiring use of video necessary. ABG showed acute respiratory acidosis with mildly elevated pCO2 and normal HCO3. EKG showed prolonged QTC of 548. He received 3 liters of LR and 40 mEq KCL IV in ER. Potassium 2.8. Labs otherwise unremarkable except for mildly elevated glucose at 200. 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 The patient continues to smoke 1 pack a cigarettes a day. The patient stated that he usually drinks about 10 alcoholic beverages a week. He states every other week any does not drink when he has his child. The patient denies any marijuana or any other illicit drugs. 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 Code status full code Smoking packs per day: 1 Smoking cigarettes per day: 20.0 Years smoked: 20 Smoking pack-years: 20.00 Smoking status: Current every day smoker Second hand tobacco smoke exposure: No Alcohol intake: unknown Drinks per week: 10 Substance use: unknown Substance use type: former substance user Do You Feel Safe in your Home?: Yes Lack of Transportation: No Lack of Food: Never True Current Housing: I Have Housing Concerned About Future Housing: No Difficulty Paying Gas/Electric Bills: No Difficulty Paying for Meds: No Currently Unemployed: No Education: High School Diploma/GED Difficulty w/ Childcare or Family Care: No Gender identity (if verbalized by the patient): Male Spiritual care concerns: No Meds Home Medications and Allergies Home Medications ?Medication ?Instructions ?Recorded ?Confirmed ?Type baclofen 20 mg tablet 20 mg PO BID 04/28/25 04/28/25 History docusate sodium 100 mg capsule 100 mg PO DAILY PRN constipation 04/28/25 04/28/25 History folic acid 1 mg tablet 1 mg PO DAILY 04/28/25 04/28/25 History hydroxyzine pamoate 25 mg capsule 25 mg PO Q4H PRN anxiety 04/28/25 04/28/25 History (Vistaril) naltrexone 50 mg tablet 50 mg PO DAILY 04/28/25 04/28/25 History trazodone 100 mg tablet 100 mg PO HS PRN insomnia 04/28/25 04/28/25 History venlafaxine 75 mg capsule,extended 75 mg PO HS 04/28/25 04/28/25 History release 24 hr Allergies Allergy/AdvReac Type Severity Reaction Status Date / Time azithromycin AdvReac Unknown Other Verified 04/28/25 05:37 Vital Signs Vital Signs - 24 hr 04/27/25 23:49 04/27/25 23:54 04/28/25 00:01 Temperature 36.6 C Pulse Rate 101 H 102 H Respiratory Rate 19 12 Blood Pressure 108/55 L Pulse Oximetry 93 97 86 L Oxygen Delivery Room Air Nasal Cannula Oxygen Flow Rate 2 Fraction of Inspired Oxygen 04/28/25 01:01 04/28/25 01:03 04/28/25 01:08 Temperature Pulse Rate 97 93 Respiratory Rate 22 H 16 Blood Pressure 93/68 L 119/78 Pulse Oximetry 98 Oxygen Delivery Oxygen Flow Rate Fraction of Inspired Oxygen 04/28/25 01:15 04/28/25 01:16 04/28/25 01:30 Temperature Pulse Rate 92 93 91 Respiratory Rate 18 18 17 Blood Pressure 109/72 Pulse Oximetry 92 92 Oxygen Delivery Oxygen Flow Rate Fraction of Inspired Oxygen 04/28/25 01:31 04/28/25 01:32 04/28/25 01:45 Temperature Pulse Rate 91 92 97 Respiratory Rate 17 18 22 H Blood Pressure 116/83 Pulse Oximetry 91 90 96 Oxygen Delivery Oxygen Flow Rate Fraction of Inspired Oxygen 04/28/25 01:46 04/28/25 02:00 04/28/25 02:01 Temperature Pulse Rate 95 87 86 Respiratory Rate 20 18 16 Blood Pressure 115/73 116/82 Pulse Oximetry 97 94 96 Oxygen Delivery Oxygen Flow Rate Fraction of Inspired Oxygen 04/28/25 02:15 04/28/25 02:16 04/28/25 02:30 Temperature Pulse Rate 82 81 79 Respiratory Rate 16 15 15 Blood Pressure 108/64 Pulse Oximetry 92 96 92 Oxygen Delivery Oxygen Flow Rate Fraction of Inspired Oxygen 04/28/25 02:31 04/28/25 02:45 04/28/25 02:46 Temperature Pulse Rate 80 81 82 Respiratory Rate 15 16 15 Blood Pressure 108/72 111/66 Pulse Oximetry 95 91 92 Oxygen Delivery Oxygen Flow Rate Fraction of Inspired Oxygen 04/28/25 03:00 04/28/25 03:04 04/28/25 03:05 Temperature Pulse Rate 116 H 106 H 89 Respiratory Rate 19 15 Blood Pressure 143/103 H Pulse Oximetry 97 92 99 Oxygen Delivery Mechanical Ventilation Oxygen Flow Rate Fraction of Inspired Oxygen 100 04/28/25 03:06 04/28/25 03:11 04/28/25 03:15 Temperature Pulse Rate 117 H 108 H 79 Respiratory Rate 22 H 19 20 Blood Pressure 167/110 H 164/101 H Pulse Oximetry 98 98 Oxygen Delivery Oxygen Flow Rate Fraction of Inspired Oxygen 04/28/25 03:16 04/28/25 03:17 04/28/25 03:21 Temperature Pulse Rate 96 96 86 Respiratory Rate 16 16 16 Blood Pressure 128/81 95/62 L Pulse Oximetry 98 99 99 Oxygen Delivery Oxygen Flow Rate Fraction of Inspired Oxygen 04/28/25 03:26 04/28/25 03:30 04/28/25 03:31 Temperature Pulse Rate 92 82 81 Respiratory Rate 16 20 20 Blood Pressure 95/71 L 100/70 Pulse Oximetry 99 96 96 Oxygen Delivery Oxygen Flow Rate Fraction of Inspired Oxygen 04/28/25 03:33 04/28/25 03:36 Temperature Pulse Rate 78 77 Respiratory Rate 20 20 Blood Pressure 88/61 L Pulse Oximetry 96 Oxygen Delivery Oxygen Flow Rate Fraction of Inspired Oxygen Exam Narrative: APPEARANCE: Intubated and sedated Head: atraumatic. EYES: EOMI, NOSE: Atraumatic NECK: Trachea midline RESPIRATORY: Ventilate via ETT, clear lungs throughout CARDIOVASCULAR: RRR, no peripheral edema ABDOMINAL: Non-distended soft nontender MUSCULOSKELETAL: No obvious deformities NEURO: Intubated and sedated SKIN:: Warm, dry. Normal color H&P: Results Labs Labs: Short CBC 04/27/25 Range/Units 23:56 WBC 9.4 (4.5-10.0) K/mm3 Hgb 13.6 L (14.0-18.0) g/dL Hct 40.8 L (42.0-52.0) % Plt Count 255 (150-375) k/mm3 BMP 04/27/25 23:56 Sodium 139 Potassium 2.8 L* Chloride 103 Carbon Dioxide 22 BUN 7 L Creatinine 0.73 Glucose 215 H Calcium 8.0 L Liver Function 04/27/25 Range/Units 23:56 Total Bilirubin 0.8 (0.2-1.3) mg/dL AST 41 (17-59) U/L ALT 51 H (6-50) U/L Alkaline Phosphatase 78 (38-126) U/L Albumin 4.1 (3.5-5.1) g/dL Urine 04/28/25 Range/Units 03:20 Urine Color Yellow (Yellow) Urine Appearance Clear (Clear) Urine pH 6.0 (5.0-9.0) Ur Specific [place] 1.007 (1.001-1.035) Urine Protein Negative (Negative) mg/dL Urine Glucose (UA) Negative (Negative) mg/dL ABG ABG results: PH 7.304, pCO2 51.0, PO2 290.3, HC03 24.8 Attestation: I personally reviewed and interpreted this ABG as follows: Interpretation: Acute Respiratory acidosis without compensation yet Pulse Oximetry SpO2 results: 97-98% on vent at FiO2 50% Attestation: I personally reviewed and interpreted this pulse oximetry as follows: Interpretation: Patient continues to require supplemental oxygen ECG Attestation: I personally reviewed and interpreted this ECG as follows: ECG completion date: 04/28/25 ECG completion time: 00:04 Prior ECG tracings: available for review Interpretation: Sinus rhythm rate of 96 W[place] interval 141 QRS duration 110 QTC 548 prolonged QT interval QRS axis -19? nonspecific T-wave abnormality no STEMI. Assessment and Plan Assessment and plan (1) Acute drug overdose: Qualifiers: Encounter type: initial encounter Injury intent: intentional self-harm Qualified Code(s): T50.902A - Poisoning by unspecified drugs, medicaments and biological substances, intentional self-harm, initial encounter Code(s): T50.901A - Poisoning by unspecified drugs, medicaments and biological substances, accidental (unintentional), initial encounter Status: Acute Assessment and Plan: -Intentional polysubstance overdose including ETOH, hydroxyzine, baclofen and trazodone -Happened in a hotel and suicide note reportedly found (2) Acute respiratory failure with hypoxia and hypercapnia: Code(s): J96.01 - Acute respiratory failure with hypoxia; J96.02 - Acute respiratory failure with hypercapnia Status: Acute Assessment and Plan: -Initially on room air then nasal cannula then intubated after more drowsy/obtunded in ER -Difficult airway per ER provider report -Fentanyl/Versed drips started for sedation (3) Alcohol abuse: Code(s): F10.10 - Alcohol abuse, uncomplicated Status: Acute Assessment and Plan: -ETOH level 280 in ER, chart history of ETOH abuse (4) Hypokalemia: Code(s): E87.6 - Hypokalemia Status: Acute Assessment and Plan: -Potassium 2.8 on ER arrival -40 mEq IV replacement given in ER -NG/OG placed, will give gastric replacement as well (5) QT prolongation: Code(s): R94.31 - Abnormal electrocardiogram [ECG] [EKG] Status: Acute Assessment and Plan: -Overdose on medications including hydroxyzine, baclofen and trazodone -Repeat EKG in 4-6 hours for trending -Avoid unnecessary QT prolonging medication Quality VTE Prophylaxis VTE prophylaxis: pharmacologic ordered (Lovenox) Due to intentional overdose, patient Full Code status by default. Due to a high probability of clinically significant, life threatening deterioration, the patient required my highest level of preparedness to intervene emergently and I personally spent this critical care time directly and personally managing the patient. This critical care time included obtaining a history; examining the patient; pulse oximetry; ordering and review of studies; arranging urgent treatment with development of a management plan; evaluation of patient's response to treatment; frequent reassessment; and discussions with other providers. It was exclusive of separately billable procedures and treating other patients and teaching time. Please see Assessment and Plan section and the rest of the note for further information on patient assessment and treatment. Critical Care time: 35 minutes Hospitalist MIPS Advance Care Plan I have confirmed that the patient's Advanced Care Plan is present, code status is documented, or surrogate decision maker is listed in patient medical record.: No The patient's Advanced Care plan is not present because:: Patient doesn't want to name surrogate or provider advance care plan (Patient intubated) Medication Reconciliation The patient is not eligible for med reconciliation; the patient is in a emergent medical situation where delaying treatment would jeopardize the patients health.: Yes
[2025-04-28 04:57] LABS: MRSA (PCR) NOT DETECTED (NOT DETECTE)
--- NOTE | 2025-04-28 05:34 | ADMGEN ---
This patient, [place] C[place], was admitted to Intensive Care Unit-5 at 0500. Patient/family oriented to hospital policies and general routines including ID bracelet, bed and alarms, visiting hours, pain management, procedures, bathroom and other care routines, personal items, smoking policy, room service/diet, and visiting hours. Information on how to activate the Rapid Response Team has been discussed. Patient/Family are encouraged to report perceived risks to care and to ask questions if they do not understand what they are told or what they should do.
[2025-04-28] MEDS: POTASSIUM CHLORIDE 20 MEQ PACKET (FOR LIQUID) 40 MEQ FEED TUBE (06:16)
--- NOTE | 2025-04-28 06:42 | PC.NURSE ---
Update given to daughter, BYRON Rodgers at 0640.
[2025-04-28 07:10] LABS: Hemoglobin A1C 6.3 % (<5.7)
[2025-04-28] MEDS: ENOXAPARIN 40 MG/0.4 ML SYRINGE SUB-Q (09:50)
[2025-04-28] MEDS: THIAMINE HCL 200 MG/2 ML VIAL 100 MG IV PUSH (09:50)
[2025-04-28] MEDS: FOLIC ACID 1 MG TABLET FEED TUBE (09:51)
[2025-04-28] MEDS: LIDOCAINE 1% PF INJ 5 ML VIAL INFILTRATE (10:45)
--- NOTE | 2025-04-28 11:00 | ECG_ITS ---
Test Date: 2025-04-28 04:07:40 Measurements Intervals [place] Rate: 72 P: 2 ID: 147 QRS: -21 QRSD: 107 T: -8 QT: 506 QTc: 556 Interpretive Statements SINUS RHYTHM LEFT VENTRICULAR HYPERTROPHY WITH ST- T WAVE CHANGES PROLONGED QT INTERVAL CRITICAL TEST RESULT Compared to ECG 04/28/2025 00:04:04 NO SIGNIFICANT CHANGES Electronically Signed On 04-28-2025 11:11:32 CDT by Lex Becerra M.D.
[2025-04-28] MEDS: NOREPINEPHRINE 8 MG/D5W 250 ML 8 MG/250 ML BAG 9.38 MG IV CONT (11:03)
[2025-04-28 11:49] LABS: Alanine Aminotransferase 37 U/L (6-50); Albumin Level 2.9 g/dL (3.5-5.1); Alkaline Phosphatase 60 U/L (38-126); Anion Gap 8 mmol/L (4-12); Aspartate Amino Transferase 31 U/L (17-59); Bilirubin,Total 1.3 mg/dL (0.2-1.3); Blood Urea Nitrogen 7 mg/dL (9-20); Calcium 7.8 mg/dL (8.4-10.2); Carbon Dioxide 24 mmol/L (22-30); Chloride 107 mmol/L (98-107); Estimated CRCL calculation 174 ml/min; Estimated Glomerular Filt Rate > 60; Glucose 114 mg/dL (65-110); Magnesium 1.6 mg/dL (1.6-2.3); Potassium 3.3 mmol/L (3.4-5.0); Sodium 139 mmol/L (137-145); Total Protein 5.4 g/dL (6.3-8.2)
--- NOTE | 2025-04-28 12:48 | P.CONIN_ITS ---
Assessment and Plan Assessment and plan (1) Acute drug overdose: Qualifiers: Encounter type: initial encounter Injury intent: intentional self-harm Qualified Code(s): T50.902A - Poisoning by unspecified drugs, medicaments and biological substances, intentional self-harm, initial encounter Code(s): T50.901A - Poisoning by unspecified drugs, medicaments and biological substances, accidental (unintentional), initial encounter Status: Acute Assessment and Plan: Patient intentionally overdosed on hydroxyzine 25 mg x60 pills, baclofen 20 mg x31 pills, trazodone 100 mg x 5 pills -poison control was notified and is following, supportive care for now -hydroxyzine and baclofen can cause hypotension, altered mental status, QT prolongation -trazodone can also cause altered mental status -continue IV fluids -monitor urine output (2) Acute respiratory failure with hypoxia and hypercapnia: Code(s): J96.01 - Acute respiratory failure with hypoxia; J96.02 - Acute respiratory failure with hypercapnia Status: Acute Assessment and Plan: Patient was intubated and placed on mechanical ventilation due to altered mental status, agitation and combativeness and for airway protection. -chest x-ray and ABGs reviewed, ventilator adjusted -continue CMV mode of ventilation, peep of 5, 40% FiO2 for now -sedated with fentanyl and Versed infusion, maintain RASS of 0 to -2 -daily SBT and SAT, place patient on SBT in a.m. (3) Alcohol abuse: Code(s): F10.10 - Alcohol abuse, uncomplicated Status: Acute Assessment and Plan: Patient has a history of alcohol abuse, elevated alcohol levels on admission -will middle school counselor on cessation of alcohol abuse once he is extubated and will also ask care coordination to provide alcohol rehab resources -start thiamine and folic acid -currently sedated and intubated (4) QT prolongation: Code(s): R94.31 - Abnormal electrocardiogram [ECG] [EKG] Status: Acute Assessment and Plan: QT prolongation likely related to baclofen and hydroxyzine -will replete potassium and magnesium -continue to monitor EKGs and maintain potassium > 4 and magnesium> 2.5 (5) Altered mental status: Code(s): R41.82 - Altered mental status, unspecified Status: Acute Assessment and Plan: Altered mental status likely related to multiple drug overdose -will continue to wean sedation to monitor neurological status (6) Hypotension: Code(s): I95.9 - Hypotension, unspecified Status: Acute Assessment and Plan: Likely related to baclofen and hydroxyzine -adequately fluid-resuscitated -PICC line inserted on 04/28 -started patient on Levophed to maintain SBP > 100 mmHg and MAP > 65 mmHg for adequate end organ perfusion No signs of infection at this time (7) Suicidal behavior: Code(s): R45.89 - Other symptoms and signs involving emotional state Status: Acute Assessment and Plan: Once patient is extubated, will have crisis management evaluate the patient for placement to a psychiatric unit Plan DVT prophylaxis: Lovenox Stress ulcer prophylaxis: Protonix Nutrition: Will start trickle tube feeds Code Status: Full code Critical Care Time Spent: 53 minutes Discussed with daughter and ex- in rounds and updated them with patient's condition and plan of care. I explained to them the process and answered all the questions Due to a high probability of clinically significant, life threatening deterioration, the patient required my highest level of preparedness to intervene emergently and I personally spent this critical care time directly and personally managing the patient. This critical care time included obtaining a history; examining the patient; pulse oximetry; ordering and review of studies; arranging urgent treatment with development of a management plan; evaluation of patient's response to treatment; frequent reassessment; and discussions with other providers. It was exclusive of separately billable procedures and treating other patients and teaching time. Please see Assessment and Plan section and the rest of the note for further information on patient assessment and treatment This dictation may have been done utilizing a voice recognition system. Attempts have been made to correct errors. However, there may be uncorrected grammatical, spelling, and recognitions errors present. Central Office Trouble Shooter Consult Note Consult date: 04/28/25 Reason for consult: Intentional polysubstance abuse, suicidal behavior, patient took hydroxyzine 25 mg x60 pills, baclofen 20 mg x31 pills, trazodone 100 mg x 5 pills HPI: Sagar Cota is a 44 year old male with significant past medical history of hyperlipidemia, essential hypertension, nausea, GERD, alcohol abuse, elevated liver enzymes, anxiety, depression, alcoholic hepatitis presented the ED in the early hours of 04/28/2025. Patient was at a hotel, called his daughter that he overdosed on some medications, she called EMS who found a suicide note with the patient in his hotel room. Initially the patient was drowsy but arousable in the ED. while in the ED ED the patient became more somnolent, agitated, combative so was intubated for airway protection. His QTC was prolonged. Patient received 3 L IV fluids. Initial labs showed a WBC count of 9.4, hemoglobin of 13.6, platelets of 255. Potassium of 2.8, sodium 139, chloride 103, CO2 22, BUN 7, creatinine 0.73, blood glucose was 215, hemoglobin A1c was 6.3, mildly elevated ALT. TSH was 3.52. UA was unremarkable. Urine tox screen was negative, alcohol level was elevated at 280, acetaminophen and salicylate levels were within normal limits. Patient was negative for SARS-CoV-2 PCR -CT brain with no acute intracranial abnormality -chest x-ray with mild venous pulmonary congestion, ETT in place, no pneumothorax Patient was transferred to the ICU for further management, patient was intubated, mechanical ventilation, sedated with fentanyl and Versed infusion Patient seen and examined upon arrival this morning to the ICU, was hypotensive with systolics in the 70s and 80s. Patient was given additional IV fluid bolus with no improvement in his blood pressures. A PICC line was inserted and patient was started on Levophed. Urine output has been low, potassium remains low, magnesium is low, creatinine is within normal limits, LFTs have normalized. Patient is sedated with fentanyl and Versed infusion, does not open his eyes or follow simple commands, minimally withdraws to pain Review of Systems 2 Review of Systems: ROS unobtainable: Yes unobtainable due to endotracheal tube, unobtainable due to medical condition and unobtainable due to mental status PMFSH Past Medical History Medical History B12 deficiency Left shoulder pain Bilateral shoulder pain Hyperlipidemia Hypertension Tachycardia Fatigue Loose stools Nausea & vomiting Acute otitis media Encounter to establish care Elevated glucose Headache GERD (gastroesophageal reflux disease) Elevated liver enzymes Alcohol abuse Coffee ground emesis 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 The patient continues to smoke 1 pack a cigarettes a day. The patient stated that he usually drinks about 10 alcoholic beverages a week. He states every other week any does not drink when he has his child. The patient denies any marijuana or any other illicit drugs. The patient a durable power traffic law attorney for healthcare. Code status full code Smoking packs per day: 1 Smoking cigarettes per day: 20.0 Years smoked: 20 Smoking pack-years: 20.00 Smoking status: Unknown if ever smoked Second hand tobacco smoke exposure: No Additional smoking assessment comments: patient sedated Alcohol intake: unknown Drinks per week: 10 Substance use: unknown Substance use type: former substance user Do You Feel Safe in your Home?: Yes Lack of Transportation: No Lack of Food: Never True Current Housing: I Have Housing Concerned About Future Housing: No Difficulty Paying Gas/Electric Bills: No Difficulty Paying for Meds: No Currently Unemployed: No Education: High School Diploma/GED Difficulty w/ Childcare or Family Care: No Gender identity (if verbalized by the patient): Male Spiritual care concerns: No Meds Home Medications and Allergies Home Medications ?Medication ?Instructions ?Recorded ?Confirmed ?Type baclofen 20 mg tablet 20 mg PO BID 04/28/25 History docusate sodium 100 mg capsule 100 mg PO DAILY PRN con stipation 04/28/25 04/28/25 History folic acid 1 mg tablet 1 mg PO DAILY 04/28/2504/28 History hydroxyzine pamoate 25 mg capsule 25 mg PO Q4H PRN anx iety 04/28/25 04/28/25 History (Vistaril) naltrexone 50 mg tablet 50 mg PO DAILY 04/28/2504/18 History trazodone 100 mg tablet 100 mg PO HS PRN insomnia 04/28/25 History venlafaxine 75 mg capsule,extended 75 mg PO HS 5 04/28/25 History release 24 hr Allergies Allergy/AdvReac Type Severity Reaction Status Date / Time azithromycin AdvReac Unknown Other Verified 04/28/25 05:37 Vital Signs Vital Signs - 24 hr 04/27/25 23:49 04/27/25 23:54 04/28/25 00:01 Temperature 97.8 F Pulse Rate 101 H 102 H Respiratory Rate 19 12 Blood Pressure 108/55 L Pulse Oximetry 93 97 86 L Oxygen Delivery Room Air Nasal Cannula Oxygen Flow Rate 2 Fraction of Inspired Oxygen 04/28/25 01:01 04/28/25 01:03 04/28/25 01:08 Temperature Pulse Rate 97 93 Respiratory Rate 22 H 16 Blood Pressure 93/68 L 119/78 Pulse Oximetry 98 Oxygen Delivery Oxygen Flow Rate Fraction of Inspired Oxygen 04/28/25 01:15 04/28/25 01:16 04/28/25 01:30 Temperature Pulse Rate 92 93 91 Respiratory Rate 18 18 17 Blood Pressure 109/72 Pulse Oximetry 92 92 Oxygen Delivery Oxygen Flow Rate Fraction of Inspired Oxygen 04/28/25 01:31 04/28/25 01:32 04/28/25 01:45 Temperature Pulse Rate 91 92 97 Respiratory Rate 17 18 22 H Blood Pressure 116/83 Pulse Oximetry 91 90 96 Oxygen Delivery Oxygen Flow Rate Fraction of Inspired Oxygen 04/28/25 01:46 04/28/25 02:00 04/28/25 02:01 Temperature Pulse Rate 95 87 86 Respiratory Rate 20 18 16 Blood Pressure 115/73 116/82 Pulse Oximetry 97 94 96 Oxygen Delivery Oxygen Flow Rate Fraction of Inspired Oxygen 04/28/25 02:15 04/28/25 02:16 04/28/25 02:30 Temperature Pulse Rate 82 81 79 Respiratory Rate 16 15 15 Blood Pressure 108/64 Pulse Oximetry 92 96 92 Oxygen Delivery Oxygen Flow Rate Fraction of Inspired Oxygen 04/28/25 02:31 04/28/25 02:45 04/28/25 02:46 Temperature Pulse Rate 80 81 82 Respiratory Rate 15 16 15 Blood Pressure 108/72 111/66 Pulse Oximetry 95 91 92 Oxygen Delivery Oxygen Flow Rate Fraction of Inspired Oxygen 04/28/25 03:00 04/28/25 03:04 04/28/25 03:05 Temperature Pulse Rate 116 H 106 H 89 Respiratory Rate 19 15 Blood Pressure 143/103 H Pulse Oximetry 97 92 99 Oxygen Delivery Mechanical Ventilation Oxygen Flow Rate Fraction of Inspired Oxygen 100 04/28/25 03:06 04/28/25 03:11 04/28/25 03:15 Temperature Pulse Rate 117 H 108 H 79 Respiratory Rate 22 H 19 20 Blood Pressure 167/110 H 164/101 H Pulse Oximetry 98 98 Oxygen Delivery Oxygen Flow Rate Fraction of Inspired Oxygen 04/28/25 03:16 04/28/25 03:17 04/28/25 03:21 Temperature Pulse Rate 96 96 86 Respiratory Rate 16 16 16 Blood Pressure 128/81 95/62 L Pulse Oximetry 98 99 99 Oxygen Delivery Oxygen Flow Rate Fraction of Inspired Oxygen 04/28/25 03:26 04/28/25 03:30 04/28/25 03:31 Temperature Pulse Rate 92 82 81 Respiratory Rate 16 20 20 Blood Pressure 95/71 L 100/70 Pulse Oximetry 99 96 96 Oxygen Delivery Oxygen Flow Rate Fraction of Inspired Oxygen 04/28/25 03:33 04/28/25 03:36 04/28/25 03:37 Temperature Pulse Rate 78 77 77 Respiratory Rate 20 20 19 Blood Pressure 88/61 L Pulse Oximetry 96 96 Oxygen Delivery Oxygen Flow Rate Fraction of Inspired Oxygen 04/28/25 03:41 04/28/25 03:45 04/28/25 03:46 Temperature Pulse Rate 77 75 74 Respiratory Rate 20 21 H 20 Blood Pressure 95/69 L 93/65 L Pulse Oximetry 97 96 97 Oxygen Delivery Oxygen Flow Rate Fraction of Inspired Oxygen 04/28/25 03:51 04/28/25 03:56 04/28/25 04:00 Temperature Pulse Rate 73 73 74 Respiratory Rate 20 20 20 Blood Pressure 86/64 L 89/65 L Pulse Oximetry 97 97 97 Oxygen Delivery Oxygen Flow Rate Fraction of Inspired Oxygen 04/28/25 04:01 04/28/25 04:06 04/28/25 04:11 Temperature Pulse Rate 74 73 72 Respiratory Rate 20 20 20 Blood Pressure 91/67 L 90/68 L 89/67 L Pulse Oximetry 97 97 97 Oxygen Delivery Oxygen Flow Rate Fraction of Inspired Oxygen 04/28/25 04:15 04/28/25 04:16 04/28/25 04:21 Temperature Pulse Rate 73 73 73 Respiratory Rate 20 20 20 Blood Pressure 90/69 L 89/71 L Pulse Oximetry 97 97 97 Oxygen Delivery Oxygen Flow Rate Fraction of Inspired Oxygen 04/28/25 04:26 04/28/25 04:30 04/28/25 04:31 Temperature Pulse Rate 72 72 72 Respiratory Rate 20 20 20 Blood Pressure 94/71 L 92/71 L Pulse Oximetry 97 96 97 Oxygen Delivery Oxygen Flow Rate Fraction of Inspired Oxygen 04/28/25 04:36 04/28/25 04:41 04/28/25 04:45 Temperature Pulse Rate 71 70 68 Respiratory Rate 20 20 20 Blood Pressure 91/70 L 93/69 L Pulse Oximetry 97 97 96 Oxygen Delivery Oxygen Flow Rate Fraction of Inspired Oxygen 04/28/25 04:46 04/28/25 04:51 04/28/25 05:10 Temperature Pulse Rate 68 65 68 Respiratory Rate 20 20 Blood Pressure 93/70 L 92/70 L Pulse Oximetry 98 98 98 Oxygen Delivery Mechanical Ventilation Oxygen Flow Rate Fraction of Inspired Oxygen 50 04/28/25 05:33 04/28/25 05:51 04/28/25 06:00 Temperature Pulse Rate 63 62 62 Respiratory Rate 20 20 20 Blood Pressure Pulse Oximetry 97 Oxygen Delivery Mechanical Ventilation Oxygen Flow Rate Fraction of Inspired Oxygen 50 04/28/25 06:00 04/28/25 06:00 04/28/25 06:00 Temperature 97.8 F Pulse Rate 62 62 62 Respiratory Rate 20 20 Blood Pressure 82/61 L Pulse Oximetry 97 Oxygen Delivery Oxygen Flow Rate Fraction of Inspired Oxygen 04/28/25 06:15 04/28/25 06:48 04/28/25 08:00 Temperature Pulse Rate 62 62 Respiratory Rate 20 20 Blood Pressure Pulse Oximetry 97 Oxygen Delivery Mechanical Ventilation Oxygen Flow Rate Fraction of Inspired Oxygen 50 50 04/28/25 08:00 04/28/25 08:00 04/28/25 08:00 Temperature 98.8 F Pulse Rate 61 60 Respiratory Rate 20 Blood Pressure 85/66 L Pulse Oximetry 98 Oxygen Delivery Oxygen Flow Rate Fraction of Inspired Oxygen 40 04/28/25 08:12 04/28/25 08:13 04/28/25 08:23 Temperature Pulse Rate 65 60 61 Respiratory Rate 19 19 Blood Pressure Pulse Oximetry 97 Oxygen Delivery Mechanical Ventilation Oxygen Flow Rate Fraction of Inspired Oxygen 40 04/28/25 10:00 04/28/25 10:00 04/28/25 10:00 Temperature Pulse Rate 60 58 L 58 L Respiratory Rate 18 18 Blood Pressure 85/63 L Pulse Oximetry 99 Oxygen Delivery Oxygen Flow Rate Fraction of Inspired Oxygen 04/28/25 10:00 04/28/25 11:03 04/28/25 12:08 Temperature Pulse Rate 58 L 62 77 Respiratory Rate 18 18 Blood Pressure 79/61 L Pulse Oximetry Oxygen Delivery Oxygen Flow Rate Fraction of Inspired Oxygen 04/28/25 12:08 04/28/25 12:09 04/28/25 12:19 Temperature Pulse Rate 77 73 61 Respiratory Rate 18 Blood Pressure 103/71 Pulse Oximetry 97 Oxygen Delivery Mechanical Ventilation Oxygen Flow Rate Fraction of Inspired Oxygen 40 Exam 2 Narrative: General: Intubated and sedated, in no acute distress HEENT:? Pupils equal and reactive, sclera is clear, ETT in place Neck:? Supple Respiratory:? Coarse breath sounds bilaterally, decreased at bases, no wheezing, adequate air entry Cardiac:? S1-S2 is normal, regular rate and rhythm, Abdomen:? Soft, nontender, nondistended, hypoactive bowel sounds Extremities:? No edema, palpable pedal pulses Neuro:? Patient intubated, sedated, does not open his eyes or follow simple commands, minimally withdraws to pain Skin:? No skin lesions noted Psych:? Unable to assess at this time Results Labs 04/27/25 23:56 04/28/25 11:04 Labs: Short CBC 04/27/25 Range/Units 23:56 WBC 9.4 (4.5-10.0) K/mm3 Hgb 13.6 L (14.0-18.0) g/dL Hct 40.8 L (42.0-52.0) % Plt Count 255 (150-375) k/mm3 [facility] 04/27/25 04/28/25 23:56 11:04 Sodium 139 139 Potassium 2.8 L* 3.3 L Chloride 103 107 Carbon Dioxide 22 24 BUN 7 L 7 L Creatinine 0.73 0.63 L Glucose 215 H 114 H Calcium 8.0 L 7.8 L Liver Function 04/27/25 04/28/25 Range/Units 23:56 11:04 Total Bilirubin 0.8 1.3 (0.2-1.3) mg/dL AST 41 31 (17-59) U/L ALT 51 H 37 (6-50) U/L Alkaline Phosphatase 78 60 (38-126) U/L Albumin 4.1 2.9 L (3.5-5.1) g/dL Urine 04/28/25 Range/Units 03:20 Urine Color Yellow (Yellow) Urine Appearance Clear (Clear) Urine pH 6.0 (5.0-9.0) Ur Specific [place] 1.007 (1.001-1.035) Urine Protein Negative (Negative) mg/dL Urine Glucose (UA) Negative (Negative) mg/dL Quality VTE Prophylaxis VTE prophylaxis: pharmacologic ordered Hospitalist MIPS Advance Care Plan I have confirmed that the patient's Advanced Care Plan is present, code status is documented, or surrogate decision maker is listed in patient medical record.: Yes Medication Reconciliation I have utilized all available resources to obtain, update and review the patients current medications (includes all prescriptions, OTC, herbals, cannabis, and nutritional supplements).: Yes
[2025-04-28] MEDS: KCL 40 MEQ/WATER 100 ML 100 ML 25 ML IVPB (15:18)
[2025-04-28] MEDS: THIAMINE HCL 200 MG/2 ML VIAL IV PUSH (15:19)
[2025-04-28] MEDS: PANTOPRAZOLE SODIUM IV 40 MG VIAL IV PUSH (15:19)
[2025-04-28] MEDS: MAGNESIUM SULFATE 3GM/D5W100ML 3 GM/100 ML BAG IVPB (15:19)
[2025-04-28] MEDS: FOLIC ACID 1 MG/0.2 ML INJ IV PUSH (15:19)
[2025-04-28] MEDS: CENTRAL LINE FLUSH 10 ML IV PUSH ×2 (15:20→21:20)
[2025-04-28] MEDS: LACTATED RINGERS 1,000 ML 100 ML IV CONT (15:20)
[2025-04-29] VITALS (41 sets, daily range): BP systolic 104–132; BP diastolic 64–86; PULSE 87–131; RESP 17–30; TEMP 37.3–38.8; O2SAT 90–98
--- NOTE | 2025-04-29 | ECHO_ITS ---
Patient Info Name: Sagar Cota Age: 44 years : 1980 Gender: Male Ht: 73 in Wt: 271 lbs BSA: 2.56 m2 BP: 127 / 74 mmHg Technical Quality: Good Exam Date: 04/29/2025 1:00 PM Patient Status: I Admit Date: 04/28/2025 Exam Type: CA echo dop color flow w con Complete two-dimensional, color flow and Doppler transthoracic echocardiogram is performed with contrast to opacify the left ventricle and to improve the deliniation of the left ventricle endocardial borders. Staff Referring Physician: Kay Robb MD Technical Support Technician: Robert Lopez III Attending Provider: Beba Romero Contrast/Agitated Saline Contrast/Ag. Saline: Definity Amount: 2.00 ml Administered By: Robert Lopez III Existing IV Access: Yes IV Access Condition: patent with no signs of infiltration Summary 1. Definity contrast administered improved wall motion interpretation. 2. Left ventricular chamber dimension is normal. 3. Left ventricular systolic function is normal, estimated at 65-70. 4. The left ventricular diastolic function is grade I diastolic dysfunction. 5. E/e' 5 is not elevated. 6. Left atrial chamber dimension is mildly enlarged. Left Ventricle E/e' 5 is not elevated. Left ventricular chamber dimension is normal. Left ventricular systolic function is normal, estimated at 65-70. The left ventricular diastolic function is grade I diastolic dysfunction. Definity contrast administered improved wall motion interpretation. Right Ventricle Right ventricular chamber dimension is normal. Right ventricular systolic function is normal and with normal TAPSE 2.5 cm. Left Atria Left atrial chamber dimension is mildly enlarged. Right Atria Right atrial chamber dimension is normal. Aortic Valve The aortic valve is trileaflet. There is no aortic valve stenosis. There is no aortic valve regurgitation. Pulmonic Valve There is no pulmonic regurgitation. Mitral Valve There is no mitral valve stenosis. There is no mitral valve regurgitation. Tricuspid Valve There is no tricuspid valve regurgitation. Pericardium/Pleural There is no pericardial effusion. Inferior Vena Cava Normal inferior vena cava with >50% collapse upon inspiration consistent with normal right atrial pressure, 5 mmHg. Aorta The aortic root size at the sinus of Valsalva is normal. Left Ventricular Outflow Tract Name Value Normal LVOT 2D LVOT Diameter 2.3 cm LVOT Doppler LVOT Peak Velocity 118 cm/s LVOT Peak Gradient 6 mmHg LVOT Mean Gradient 3 mmHg LVOT VTI 21 cm LVOT VTI/AV VTI Ratio 1.1 LVOT Stroke Volume 87 ml LVOT CO 18.4 l/min LVOT CI 7.2 l/min/m2 Pulmonic Valve Name Value Normal PV Doppler PV Peak Velocity 114 cm/s PV Peak Gradient 5 mmHg PV Mean Gradient 4 mmHg Mitral Valve Name Value Normal MV Doppler MV Peak Gradient 4 mmHg MV Mean Gradient 3 mmHg MV Area (Cont Eq VTI) 5.1 cm2 MV Diastolic Function MV E Peak Velocity 76 cm/s MV A Peak Velocity 78 cm/s MV E/A 1.0 MV Decel Time (PW) 276 ms MV Annular TDI MV E/e' (Septal) 7.0 MV E/e' (Lateral) 4.5 MV E/e' (Average) 5.8 Tricuspid Valve Name Value Normal Estimated PAP/RSVP RA Pressure 5 mmHg <=5 TV Annular TDI TV Lateral Juanita s' Velocity 22.9 cm/s >=9.5 Aortic Valve Name Value Normal AV Doppler AV Peak Velocity 137 cm/s AV Peak Gradient 8 mmHg AV Mean Gradient 4 mmHg AV VTI 19 cm AV Area (Cont Eq VTI) 4.5 cm2 >=3.0 AV Area (Cont Eq Isidro) 3.5 cm2 AV DI (Isidro) 0.86 AV Regurgitation 2D LVOT Area 4.1 cm2 Ventricles Name Value Normal LV Dimensions 2D/MM IVS Diastolic Thickness (2D) 1.0 cm 0.6-1.0 LVID Diastole (2D) 5.5 cm 4.2-5.8 LVIW Diastolic Thickness (2D) 0.9 cm 0.6-1.0 LVID Systole (2D) 4.1 cm 2.5-4.0 LVOT Diameter 2.3 cm LV Mass (2D Cubed) 207.47 g 88.00-224.00 LV Mass Index (2D Cubed) 81 g/m2 49-115 Relative Wall Thickness (2D) 0.33 <=0.42 LV Fractional Shortening/Ejection Fraction 2D/MM LV Fractional Shortening (2D) 26 % 25-43 LV EF (2D Teichholz) 50 % Atria Name Value Normal LA Dimensions LA Volume (4C A-L) 57 ml RA Dimensions RA Systolic Major [place] Length (4C) 5.2 cm 2.1-2.7 RA Area (4C) 15.8 cm2 <=18.0 Report Signatures
[2025-04-29] MEDS: MIDAZOLAM 100MG/NS 100ML(*CRX) 100 MG/100 ML BAG IV CONT (03:34)
[2025-04-29] MEDS: LACTATED RINGERS 1,000 ML 100 ML IV CONT (03:52)
[2025-04-29 03:55] LABS: Hematocrit 36.3 % (42.0-52.0); Hemoglobin 11.6 g/dL (14.0-18.0); Immature Granulocyte Percent A 0.4 % (0-0.5); Lymphocytes Absolute Auto 1.94 K/mm3 (0.9-3.2); Mean Corpuscular HGB Conc 32.0 g/dl (32-36); Mean Corpuscular Hemoglobin 29.3 pg (26-34); Mean Corpuscular Volume 91.7 fl (80-100); Nucleated Red Blood Cells Absolute Auto 0.000 K/mm3 (0.0-0.012); Nucleated Red Blood Cells Perc 0.0 % (0.0-0.2); Platelet Count Result 188 k/mm3 (150-375); Red Blood Count 3.96 M/mm3 (4.6-6.20); White Blood Count 11.2 K/mm3 (4.5-10.0)
[2025-04-29 04:16] LABS: Alanine Aminotransferase 42 U/L (6-50); Albumin Level 3.1 g/dL (3.5-5.1); Alkaline Phosphatase 68 U/L (38-126); Anion Gap 4 mmol/L (4-12); Aspartate Amino Transferase 36 U/L (17-59); Bilirubin,Total 1.0 mg/dL (0.2-1.3); Blood Urea Nitrogen 9 mg/dL (9-20); Calcium 8.0 mg/dL (8.4-10.2); Carbon Dioxide 29 mmol/L (22-30); Chloride 106 mmol/L (98-107); Estimated CRCL calculation 154 ml/min; Estimated Glomerular Filt Rate > 60; Glucose 131 mg/dL (65-110); Magnesium 1.9 mg/dL (1.6-2.3); Sodium 139 mmol/L (137-145); Total Protein 5.8 g/dL (6.3-8.2)
[2025-04-29 04:23] LABS: Potassium 4.0 mmol/L (3.4-5.0)
[2025-04-29 04:39] LABS: Alveolar/Arterial O2 Gradient 163.5 mmHg; Fractional Inspired Oxygen 40 %; HCO3 ABG 26.3 mEq/l (22.0-26.0); Oxygen Content ABG 16.7 %vol (16.0-22.0); Oxygen Saturation ABG 95.1 % (95.0-100.0); PCO2 ABG 41.6 mmHg (35.0-45.0); PO2 ABG 73.9 mmHg (80.0-100.0); PO2 FiO2 Ratio Arterial Blood 1.85 %
[2025-04-29] MEDS: CENTRAL LINE FLUSH 10 ML IV PUSH ×3 (04:40→21:47)
[2025-04-29 04:43] LABS: Modified Allen's Test Pass; Site Drawn RIGHT RADIAL
[2025-04-29 04:44] LABS: Arterial Blood Gas Tidal Volume 500 ml; Arterial Blood Gas Ventilator rate 18 /MIN
[2025-04-29] MEDS: FENTANYL 2,500MCG/NS250ML(*CRX 2,500 MCG/250 ML BAG 10 MCG IV CONT (06:00)
--- NOTE | 2025-04-29 07:48 | ECG_ITS ---
Test Date: 2025-04-29 07:59:34 Measurements Intervals [place] Rate: 93 P: 10 IN: 134 QRS: -19 QRSD: 97 T: -6 QT: 375 QTc: 468 Interpretive Statements SINUS RHYTHM MODERATE T-WAVE ABNORMALITY, CONSIDER ANTEROLATERAL ISCHEMIA [-0.1+ mV T WAVE IN V3-V6] Compared to ECG 04/28/2025 04:07:40 Possible ischemia now present Prolonged QT interval no longer present Electronically Signed On 04-29-2025 15:37:05 CDT by Lex Becerra M.D.
[2025-04-29] MEDS: AMPICILLIN SODIUM/SULBACTAM 3 GM in SODIUM CHLORIDE 0.9% IV 100 ML 200 ML IVPB (08:22)
[2025-04-29] MEDS: PANTOPRAZOLE SODIUM IV 40 MG VIAL IV PUSH (08:22)
[2025-04-29] MEDS: ENOXAPARIN 40 MG/0.4 ML SYRINGE SUB-Q (08:22)
[2025-04-29] MEDS: THIAMINE HCL 200 MG/2 ML VIAL IV PUSH (08:22)
[2025-04-29] MEDS: FOLIC ACID 1 MG/0.2 ML INJ IV PUSH (08:24)
--- NOTE | 2025-04-29 09:32 | WPDINTPN ---
Progress Note: A&P Assessment and Plan (1) Acute drug overdose: Qualifiers: Encounter type: initial encounter Injury intent: intentional self-harm Qualified Code(s): T50.902A - Poisoning by unspecified drugs, medicaments and biological substances, intentional self-harm, initial encounter Code(s): T50.901A - Poisoning by unspecified drugs, medicaments and biological substances, accidental (unintentional), initial encounter Status: Acute Assessment and Plan: Patient intentionally overdosed on hydroxyzine 25 mg x60 pills, baclofen 20 mg x31 pills, trazodone 100 mg x 5 pills -poison control was notified and is following, supportive care for now -hydroxyzine and baclofen can cause hypotension, altered mental status, QT prolongation -trazodone can also cause altered mental status -off IV fluid, good urine output -EKG this morning shows normal QT interval, ischemic changes -will obtain echocardiogram, troponin and repeat EKG (2) Acute respiratory failure with hypoxia and hypercapnia: Code(s): J96.01 - Acute respiratory failure with hypoxia; J96.02 - Acute respiratory failure with hypercapnia Status: Acute Assessment and Plan: Patient was intubated and placed on mechanical ventilation due to altered mental status, agitation and combativeness and for airway protection. -chest x-ray and ABGs reviewed, ventilator adjusted -continue CMV mode of ventilation, peep of 5, 40% FiO2 for now -sedated with fentanyl and Versed infusion, maintain RASS of 0 to -2 -daily SBT and SAT, place patient on SBT in a.m. (3) Alcohol abuse: Code(s): F10.10 - Alcohol abuse, uncomplicated Status: Acute Assessment and Plan: Patient has a history of alcohol abuse, elevated alcohol levels on admission -will nutrition counselor on cessation of alcohol abuse once he is extubated and will also ask care coordination to provide alcohol rehab resources -start thiamine and folic acid -currently sedated and intubated (4) QT prolongation: Code(s): R94.31 - Abnormal electrocardiogram [ECG] [EKG] Status: Acute Assessment and Plan: QT prolongation likely related to baclofen and hydroxyzine -replace magnesium -continue to monitor EKGs and maintain potassium > 4 and magnesium> 2.0 (5) Altered mental status: Code(s): R41.82 - Altered mental status, unspecified Status: Acute Assessment and Plan: Altered mental status likely related to multiple drug overdose -will continue to wean sedation to monitor neurological status (6) Hypotension: Code(s): I95.9 - Hypotension, unspecified Status: Acute Assessment and Plan: Likely related to baclofen and hydroxyzine -adequately fluid-resuscitated -PICC line inserted on 04/28 -started patient on Levophed to maintain SBP > 100 mmHg and MAP > 65 mmHg for adequate end organ perfusion No signs of infection at this time (7) Suicidal behavior: Code(s): R45.89 - Other symptoms and signs involving emotional state Status: Acute Assessment and Plan: Once patient is extubated, will have crisis management evaluate the patient for placement to a psychiatric unit Plan DVT prophylaxis: Lovenox Stress ulcer prophylaxis: Protonix Nutrition: Increase tube feeds to goal Code Status: Full code Critical Care Time Spent: 33 minutes Discussed with daughter and ex- in rounds and updated them with patient's condition and plan of care. I explained to them the process and answered all the questions Due to a high probability of clinically significant, life threatening deterioration, the patient required my highest level of preparedness to intervene emergently and I personally spent this critical care time directly and personally managing the patient. This critical care time included obtaining a history; examining the patient; pulse oximetry; ordering and review of studies; arranging urgent treatment with development of a management plan; evaluation of patient's response to treatment; frequent reassessment; and discussions with other providers. It was exclusive of separately billable procedures and treating other patients and teaching time. Please see Assessment and Plan section and the rest of the note for further information on patient assessment and treatment This dictation may have been done utilizing a voice recognition system. Attempts have been made to correct errors. However, there may be uncorrected grammatical, spelling, and recognitions errors present. Subjective Date/time seen: 04/29/25 09:32 Interval history: Reason for consult: Intentional polysubstance abuse, suicidal behavior, patient took hydroxyzine 25 mg x60 pills, baclofen 20 mg x31 pills, trazodone 100 mg x 5 pills 04/29/2025: Patient seen and examined the ICU, is intubated on CMV mode of ventilation, peep of 5, 40% FiO2. Sedated with fentanyl and Versed infusion, opens his eyes, follows simple commands. Urine output has been adequate, EKG this morning showed QTC has normalized. Remains on Levophed at 2 mcg/min. Review of Systems Review of Systems: ROS unobtainable: Yes unobtainable due to endotracheal tube, unobtainable due to medical condition and unobtainable due to mental status Exam Narrative: General: Intubated and sedated, in no acute distress HEENT:? Pupils equal and reactive, sclera is clear, ETT in place Neck:? Supple Respiratory:? Coarse breath sounds bilaterally, decreased at bases, no wheezing, adequate air entry Cardiac:? S1-S2 is normal, regular rate and rhythm, Abdomen:? Soft, nontender, nondistended, hypoactive bowel sounds Extremities:? No edema, palpable pedal pulses Neuro:? Patient intubated, sedated, open his eyes, follows simple commands Skin:? No skin lesions noted Psych:? Unable to assess at this time Objective Data Vital Signs Vital Signs: Vital Signs - 24 hr 04/28/25 10:00 04/28/25 10:00 04/28/25 10:00 Temperature Pulse Rate 60 58 L 58 L Respiratory Rate 18 18 Blood Pressure 85/63 L Pulse Oximetry 99 Oxygen Delivery Fraction of Inspired Oxygen 04/28/25 10:00 04/28/25 11:03 04/28/25 12:00 Temperature Pulse Rate 58 L 62 75 Respiratory Rate 18 Blood Pressure 79/61 L Pulse Oximetry Oxygen Delivery Fraction of Inspired Oxygen 04/28/25 12:00 04/28/25 12:00 04/28/25 12:00 Temperature 97.8 F Pulse Rate 75 62 Respiratory Rate 18 20 Blood Pressure 103/71 Pulse Oximetry 98 97 Oxygen Delivery Mechanical Ventilation Fraction of Inspired Oxygen 50 40 04/28/25 12:08 04/28/25 12:08 04/28/25 12:09 Temperature Pulse Rate 77 77 73 Respiratory Rate 18 18 Blood Pressure 103/71 Pulse Oximetry Oxygen Delivery Fraction of Inspired Oxygen 04/28/25 12:19 04/28/25 14:00 04/28/25 14:00 Temperature Pulse Rate 61 85 71 Respiratory Rate 18 Blood Pressure Pulse Oximetry 97 Oxygen Delivery Mechanical Ventilation Fraction of Inspired Oxygen 40 04/28/25 14:00 04/28/25 14:00 04/28/25 15:06 Temperature Pulse Rate 73 74 85 Respiratory Rate 18 Blood Pressure 112/76 Pulse Oximetry 97 Oxygen Delivery Mechanical Ventilation Fraction of Inspired Oxygen 30 04/28/25 16:00 04/28/25 16:00 04/28/25 16:00 Temperature Pulse Rate 71 62 Respiratory Rate 20 Blood Pressure Pulse Oximetry 97 Oxygen Delivery Mechanical Ventilation Fraction of Inspired Oxygen 50 40 04/28/25 16:00 04/28/25 16:00 04/28/25 16:00 Temperature Pulse Rate 71 71 71 Respiratory Rate 18 20 Blood Pressure 110/73 Pulse Oximetry Oxygen Delivery Fraction of Inspired Oxygen 04/28/25 18:00 04/28/25 18:00 04/28/25 18:00 Temperature Pulse Rate 73 74 74 Respiratory Rate 20 20 Blood Pressure 108/73 Pulse Oximetry 96 Oxygen Delivery Fraction of Inspired Oxygen 04/28/25 18:00 04/28/25 18:00 04/28/25 19:55 Temperature Pulse Rate 73 73 84 Respiratory Rate 18 Blood Pressure 108/73 Pulse Oximetry 95 Oxygen Delivery Mechanical Ventilation Fraction of Inspired Oxygen 40 04/28/25 20:00 04/28/25 20:00 04/28/25 20:00 Temperature 99 F Pulse Rate 86 84 85 Respiratory Rate 18 18 Blood Pressure 140/91 H 136/82 Pulse Oximetry 93 Oxygen Delivery Fraction of Inspired Oxygen 04/28/25 20:00 04/28/25 20:00 04/28/25 20:00 Temperature Pulse Rate 83 83 82 Respiratory Rate 18 18 Blood Pressure Pulse Oximetry Oxygen Delivery Fraction of Inspired Oxygen 04/28/25 20:00 04/28/25 20:00 04/28/25 22:00 Temperature Pulse Rate 83 Respiratory Rate Blood Pressure 136/82 Pulse Oximetry 96 Oxygen Delivery Mechanical Ventilation Fraction of Inspired Oxygen 40 40 04/28/25 22:00 04/28/25 22:00 04/28/25 22:00 Temperature Pulse Rate 83 84 83 Respiratory Rate 18 22 H Blood Pressure 124/77 Pulse Oximetry 96 Oxygen Delivery Fraction of Inspired Oxygen 04/28/25 23:06 04/29/25 00:00 04/29/25 00:00 Temperature 99.2 F Pulse Rate 86 88 Respiratory Rate 21 H Blood Pressure 124/83 Pulse Oximetry 96 96 Oxygen Delivery Mechanical Ventilation Fraction of Inspired Oxygen 40 40 04/29/25 00:00 04/29/25 00:00 04/29/25 00:00 Temperature Pulse Rate 90 90 Respiratory Rate Blood Pressure 129/78 Pulse Oximetry 96 Oxygen Delivery Mechanical Ventilation Fraction of Inspired Oxygen 40 04/29/25 00:00 04/29/25 00:00 04/29/25 01:05 Temperature Pulse Rate 90 90 87 Respiratory Rate 18 18 Blood Pressure Pulse Oximetry 96 Oxygen Delivery Mechanical Ventilation Fraction of Inspired Oxygen 40 04/29/25 02:00 04/29/25 02:00 04/29/25 02:00 Temperature Pulse Rate 89 90 88 Respiratory Rate 17 Blood Pressure 125/80 116/78 Pulse Oximetry 96 Oxygen Delivery Fraction of Inspired Oxygen 04/29/25 02:00 04/29/25 02:00 04/29/25 03:34 Temperature Pulse Rate 88 88 90 Respiratory Rate 18 18 19 Blood Pressure Pulse Oximetry Oxygen Delivery Fraction of Inspired Oxygen 04/29/25 03:34 04/29/25 03:35 04/29/25 03:47 Temperature Pulse Rate 90 90 90 Respiratory Rate 19 Blood Pressure 121/77 114/72 Pulse Oximetry Oxygen Delivery Fraction of Inspired Oxygen 04/29/25 04:00 04/29/25 04:00 04/29/25 04:00 Temperature Pulse Rate 96 Respiratory Rate 18 Blood Pressure Pulse Oximetry 96 Oxygen Delivery Mechanical Ventilation Fraction of Inspired Oxygen 40 40 04/29/25 04:00 04/29/25 04:00 04/29/25 04:06 Temperature Pulse Rate 98 94 97 Respiratory Rate 18 Blood Pressure 121/73 122/76 Pulse Oximetry 90 Oxygen Delivery Fraction of Inspired Oxygen 04/29/25 04:07 04/29/25 04:18 04/29/25 06:00 Temperature 100.6 F H Pulse Rate 95 87 96 Respiratory Rate 19 18 Blood Pressure 105/64 Pulse Oximetry 96 95 Oxygen Delivery Mechanical Ventilation Fraction of Inspired Oxygen 40 04/29/25 06:00 04/29/25 06:00 04/29/25 06:00 Temperature Pulse Rate 92 92 90 Respiratory Rate 20 20 Blood Pressure 104/65 Pulse Oximetry Oxygen Delivery Fraction of Inspired Oxygen 04/29/25 06:00 04/29/25 06:00 04/29/25 07:51 Temperature Pulse Rate 90 93 Respiratory Rate 19 Blood Pressure Pulse Oximetry Oxygen Delivery Fraction of Inspired Oxygen 40 04/29/25 08:00 04/29/25 08:00 04/29/25 08:00 Temperature Pulse Rate 98 98 Respiratory Rate Blood Pressure 105/66 Pulse Oximetry 96 Oxygen Delivery Mechanical Ventilation Fraction of Inspired Oxygen 40 04/29/25 08:00 04/29/25 08:12 04/29/25 08:30 Temperature 99.8 F H Pulse Rate 94 93 95 Respiratory Rate 19 19 Blood Pressure 104/66 Pulse Oximetry 96 96 Oxygen Delivery Mechanical Ventilation Fraction of Inspired Oxygen 40 04/29/25 08:30 Temperature Pulse Rate 98 Respiratory Rate 19 Blood Pressure Pulse Oximetry Oxygen Delivery Fraction of Inspired Oxygen Intake/Output Intake/Output: Intake & Output 04/26/25 04/27/25 04/28/25 04/29/25 23:59 23:59 23:59 23:59 Intake Total 4927.2 1695.7 Output Total 2800 700 Balance 2127.2 995.7 Meds/Results Medications: Active Medications Generic Name Dose Route Start Last Admin Trade Name Freq PRN Reason Stop Dose Admin Enoxaparin Sodium 40 mg 04/28/25 09:00 04/29/25 08:22 Enoxaparin 40 Mg/0.4 Ml Syringe SUB-Q 40 mg DAILY RBAULIO Administration Folic Acid 1 mg 04/29/25 09:00 Folic Acid 1 Mg/0.2 Ml Inj IV PUSH QAM BRAULIO Norepinephrine Bitartrate 8 mg in 250 mls @ 3.75 mls/hr 04/28/25 10:40 04/29/25 08:00 Levophed 8 Mg/D5w 250 Ml IV CONT 2 mcg/min .Q24H BRAULIO 3.75 mls/hr Protocol Titration 2 MCG/MIN Midazolam HCl 100 mg in 100 mls @ 0 mls/hr 04/29/25 03:30 04/29/25 08:30 Versed 100 Mg/Ns 100 Ml IV CONT 0 mg/hr .Q0M BRAULIO 0 mls/hr Protocol Titration 0 MG/HR Fentanyl Citrate 2,500 mcg in 250 mls @ 0 mls/hr 04/29/25 06:00 04/29/25 08:30 Fentanyl 2,500 Mcg/Ns 250 Ml IV CONT 0 mcg/hr .Q0M BRAULIO 0 mls/hr Protocol Titration 0 MCG/HR Ampicillin Sodium/Sulbactam 100 mls @ 200 mls/hr 04/29/25 08:05 04/29/25 08:22 Sodium 3 gm/ Sodium Chloride IVPB 200 mls/hr Q6HR BRAULIO Administration Pantoprazole Sodium 40 mg 04/29/25 09:00 04/29/25 08:22 Pantoprazole Sodium Iv 40 Mg Vial IV PUSH 40 mg QAM BRAULIO Administration Sodium Chloride 10 ml 04/28/25 14:00 04/29/25 04:40 Central Line Flush IV PUSH 10 ml Q8HR BRAULIO Administration Sodium Chloride 10 ml 04/28/25 11:06 Central Line Flush IV PUSH PRN PRN with TPN bag changes Sodium Chloride 20 ml 04/28/25 11:06 Central Line Flush IV PUSH PRN PRN after blood draws Thiamine HCl 200 mg 04/29/25 09:00 04/29/25 08:22 Thiamine Hcl 200 Mg/2 Ml Vial IV PUSH 200 mg QAM BRAULIO Administration Radiology Results: ITS Impressions Abdomen X-Ray 04/28/25 08:20 Impression: 1. No acute abnormality. Head CT 04/28/25 08:29 Impression: 1.No acute intracranial abnormality. Chest X-Ray 04/29/25 07:37 IMPRESSION: 1. Pulmonary vascular congestion with increased opacities in the left mid and lower lung zones which represent pneumonia, asymmetric mild pulmonary edema or atelectasis. Labs Labs: Laboratory Results - last 24 hr 04/28/25 04/28/25 04/29/25 11:04 19:56 00:05 WBC RBC Hgb Hct MCV MCH MCHC RDW Plt Count MPV Immature Gran % (Auto) Neut % (Auto) Lymph % (Auto) [place] % (Auto) Eos % (Auto) Baso % (Auto) Lymph # (Auto) [place] # (Auto) Eos # (Auto) Baso # (Auto) Abs Immat Gran (auto) Absolute Neuts (auto) Absolute Nucleated RBC Nucleated RBC % Puncture Site ABG pH ABG pCO2 ABG pO2 ABG PO2/FiO2 Ratio ABG HCO3 ABG O2 Saturation ABG O2 Content ABG Base Excess A-a Gradient Oxyhemoglobin Total Hemoglobin O2 Delivery Device O2 Liters/Min Minute Volume Vent Rate Vent Mode FiO2 Tidal Volume PEEP Peak Inspir Pressure Pressure Support Sodium 139 Potassium 3.3 L Chloride 107 Carbon Dioxide 24 Anion Gap 8 BUN 7 L Creatinine 0.63 L Estim Creat Clear Calc 174 Estimated GFR > 60 Glucose 114 H POC Capillary Glucose 138 H 133 H Calcium 7.8 L Phosphorus Magnesium 1.6 Total Bilirubin 1.3 AST 31 ALT 37 Alkaline Phosphatase 60 Total Protein 5.4 L Albumin 2.9 L 04/29/25 04/29/25 03:46 04:28 WBC 11.2 H RBC 3.96 L Hgb 11.6 L Hct 36.3 L MCV 91.7 MCH 29.3 MCHC 32.0 RDW 14.3 Plt Count 188 MPV 9.7 Immature Gran % (Auto) 0.4 Neut % (Auto) 72.4 Lymph % (Auto) 17.3 L [place] % (Auto) 7.7 Eos % (Auto) 1.8 Baso % (Auto) 0.4 Lymph # (Auto) 1.94 [place] # (Auto) 0.9 H Eos # (Auto) 0.2 Baso # (Auto) 0.1 Abs Immat Gran (auto) 0.04 H Absolute Neuts (auto) 8.1 H Absolute Nucleated RBC 0.000 Nucleated RBC % 0.0 Puncture Site Right radial ABG pH 7.418 ABG pCO2 41.6 ABG pO2 73.9 L ABG PO2/FiO2 Ratio 1.85 ABG HCO3 26.3 H ABG O2 Saturation 95.1 ABG O2 Content 16.7 ABG Base Excess 1.6 A-a Gradient 163.5 Oxyhemoglobin 94.1 Total Hemoglobin 12.6 O2 Delivery Device Ventilator O2 Liters/Min Not Reportable Minute Volume Not Reportable Vent Rate 18 Vent Mode Cmv FiO2 40 Tidal Volume 500 PEEP 5 Peak Inspir Pressure Not Reportable Pressure Support Not Reportable Sodium 139 Potassium 4.0 Chloride 106 Carbon Dioxide 29 Anion Gap 4 BUN 9 Creatinine 0.72 Estim Creat Clear Calc 154 Estimated GFR > 60 Glucose 131 H POC Capillary Glucose Calcium 8.0 L Phosphorus 3.7 Magnesium 1.9 Total Bilirubin 1.0 AST 36 ALT 42 Alkaline Phosphatase 68 Total Protein 5.8 L Albumin 3.1 L Quality VTE Prophylaxis VTE prophylaxis: pharmacologic ordered
[2025-04-29] MEDS: MAGNESIUM SULF 2 GM/WATER 50ML 2 GM/50 ML BAG IVPB (09:57)
[2025-04-29 10:43] LABS: Troponin I < 0.012 ng/mL (0.000-0.034)
--- NOTE | 2025-04-29 11:01 | PCNFU ---
Nutrition Follow-Up Complete: Suboptimal Energy Intake as related to mechanical vent as evidenced by NPO. Goal: Meet estimated nutritional needs Patient is progressing towards goal. We will continue current goal. Pt current nutrition is Vital AF 1.2 at 50 ml/hr. Last recorded weight is 123.2 kg, up from 121.5 kg on admit. Bowel Motility: No BM reported. Labs Reviewed:Glu 131, Alb 3.1 Meds Noted: Folic Acid, Thiamine, Protonix, Lovenox Skin: WNL Additional Notes: Patient remains on mechanical vent. Tube feedings are currently on hold at this time for breathing trail and possible extubation today. If patient remains on tube feedings recommend goal rate at 65ml/hr with Prosource BID. Flush 30 ml q 4 hours. Will monitor weight, labs, skin, diet orders, meds every Friday and Friday.
[2025-04-29] MEDS: ACETAMINOPHEN ELIXIR 325 MG/10.15 ML UDC 650 MG PO (11:44)
[2025-04-29] MEDS: PIPERACILLIN/TAZOBACTAM SOD 4.5 GM in SODIUM CHLORIDE 0.9% IV 100 ML 200 ML IVPB ×2 (12:44→18:24)
[2025-04-29] MEDS: dexmedeTOMIDine 400 MCG/100 ML 400 MCG/100 ML BAG 6.16 MCG IV CONT (12:45)
--- NOTE | 2025-04-29 13:00 | ECG_ITS ---
Test Date: 2025-04-29 13:50:19 Measurements Intervals [place] Rate: 111 P: 20 ND: 141 QRS: -19 QRSD: 98 T: -8 QT: 345 QTc: 469 Interpretive Statements SINUS TACHYCARDIA T-WAVE ABNORMALITIES; CONSIDER ISCHEMIA ABNORMAL RHYTHM ECG Compared to ECG 04/29/2025 07:59:34 Electronically Signed On 04-29-2025 15:46:35 CDT by Lex Becerra M.D.
[2025-04-29 13:26] LABS: Troponin I < 0.012 ng/mL (0.000-0.034)
[2025-04-29] MEDS: PERFLUTREN LIPID MICROSPHERES 1.5 ML VIAL DILUTED TO 10 ML TOTAL VOLUME IV PUSH (13:38)
--- NOTE | 2025-04-29 13:38 | IVDEFINITY ---
Prior to administration of IV Definity the patient was educated on the risks and benefits of the imaging enhancing agent including potential adverse side effects. The patient verbalized understanding. Allergies were verified. No exclusion criteria were identified and at least one of the following inclusion criteria were met: 1) physician request, 2) patient technically difficult to image (per the [place] [employer] guidelines of two or more segments not discernable within the apical view), or 3) questionable left ventricular function. ?
[2025-04-29] MEDS: IPRATROPIUM 0.5 MG/ALBUTEROL SULFATE 2.5 MG AMPUL.NEB 3 ML INHALATION ×2 (14:27→20:38)
[2025-04-29] MEDS: ACETYLCYSTEINE 20% INHAL SOLN 800 MG/4 ML VIAL 200 MG INHALATION ×2 (14:27→20:38)
[2025-04-29] MEDS: dexmedeTOMIDine 400 MCG/100 ML 400 MCG/100 ML BAG 12.32 MCG IV CONT (20:45)
[2025-04-30] VITALS (102 sets, daily range): BP systolic 119–143; BP diastolic 81–99; PULSE 78–121; RESP 18–95; TEMP 36.9–38.6; O2SAT 26–98
[2025-04-30] MEDS: PIPERACILLIN/TAZOBACTAM SOD 4.5 GM in SODIUM CHLORIDE 0.9% IV 100 ML 200 ML IVPB ×5 (00:01→23:50)
[2025-04-30] MEDS: ACETAMINOPHEN ELIXIR 325 MG/10.15 ML UDC 650 MG PO (00:04)
--- NOTE | 2025-04-30 00:17 | PC.NURSE ---
Patient attempting to kick staff. Dr. Robb notified, Versed IVP given, Propofol gtt to be initiated.
[2025-04-30] MEDS: MIDAZOLAM HCL (*CRX) 2 MG/2 ML VIAL IV PUSH (00:18)
[2025-04-30] MEDS: PROPOFOL IV EMULSION 100 ML 3.7 MG IV CONT (00:25)
[2025-04-30] MEDS: dexmedeTOMIDine 400 MCG/100 ML 400 MCG/100 ML BAG 30.8 MCG IV CONT ×7 (01:14→21:14)
[2025-04-30] MEDS: ACETYLCYSTEINE 20% INHAL SOLN 800 MG/4 ML VIAL 200 MG INHALATION ×4 (02:17→20:17)
[2025-04-30] MEDS: IPRATROPIUM 0.5 MG/ALBUTEROL SULFATE 2.5 MG AMPUL.NEB 3 ML INHALATION ×4 (02:17→20:17)
[2025-04-30 04:19] LABS: Hematocrit 36.7 % (42.0-52.0); Hemoglobin 11.7 g/dL (14.0-18.0); Immature Granulocyte Percent A 0.6 % (0-0.5); Lymphocytes Absolute Auto 2.02 K/mm3 (0.9-3.2); Mean Corpuscular HGB Conc 31.9 g/dl (32-36); Mean Corpuscular Hemoglobin 29.0 pg (26-34); Mean Corpuscular Volume 91.1 fl (80-100); Nucleated Red Blood Cells Absolute Auto 0.000 K/mm3 (0.0-0.012); Nucleated Red Blood Cells Perc 0.0 % (0.0-0.2); Platelet Count Result 159 k/mm3 (150-375); Red Blood Count 4.03 M/mm3 (4.6-6.20); White Blood Count 16.3 K/mm3 (4.5-10.0)
[2025-04-30 04:35] LABS: Alanine Aminotransferase 34 U/L (6-50); Albumin Level 3.3 g/dL (3.5-5.1); Alkaline Phosphatase 84 U/L (38-126); Anion Gap 4 mmol/L (4-12); Aspartate Amino Transferase 36 U/L (17-59); Bilirubin,Total 0.9 mg/dL (0.2-1.3); Blood Urea Nitrogen 9 mg/dL (9-20); Calcium 7.9 mg/dL (8.4-10.2); Carbon Dioxide 26 mmol/L (22-30); Chloride 105 mmol/L (98-107); Estimated CRCL calculation 164 ml/min; Estimated Glomerular Filt Rate > 60; Glucose 165 mg/dL (65-110); Magnesium 2.2 mg/dL (1.6-2.3); Potassium 3.8 mmol/L (3.4-5.0); Sodium 135 mmol/L (137-145); Total Protein 6.4 g/dL (6.3-8.2); Triglycerides 166 mg/dL (<150)
[2025-04-30 05:23] LABS: Alveolar/Arterial O2 Gradient 387.6 mmHg; Carboxyhemoglobin 0.6 % THb (0-2.0); Fractional Inspired Oxygen 70 %; HCO3 ABG 22.9 mEq/l (22.0-26.0); Methemoglobin ABG 0.1 %THb (0-1.5); Modified Allen's Test Unable to perform; Oxygen Content ABG 16.9 %vol (16.0-22.0); Oxygen Saturation ABG 96.0 % (95.0-100.0); PCO2 ABG 33.1 mmHg (35.0-45.0); PO2 ABG 75.9 mmHg (80.0-100.0); PO2 FiO2 Ratio Arterial Blood 1.08 %; Reduced Hemoglobin 4.7 %THb (0-5.0); Site Drawn RIGHT RADIAL
[2025-04-30 05:24] LABS: Arterial Blood Gas Tidal Volume 450 ml; Arterial Blood Gas Ventilator rate 18 /MIN
[2025-04-30] MEDS: PROPOFOL IV EMULSION 100 ML 14.78 MG IV CONT ×2 (05:57→12:04)
[2025-04-30] MEDS: CENTRAL LINE FLUSH 10 ML IV PUSH ×3 (05:59→21:17)
[2025-04-30] MEDS: ENOXAPARIN 40 MG/0.4 ML SYRINGE SUB-Q (08:35)
[2025-04-30] MEDS: THIAMINE HCL 200 MG/2 ML VIAL IV PUSH (08:35)
[2025-04-30] MEDS: PANTOPRAZOLE SODIUM IV 40 MG VIAL IV PUSH (08:36)
[2025-04-30] MEDS: MINERAL OIL/WHITE PETROLATUM OINTMENT 1 APPLIC EACH EYE ×2 (08:36→20:42)
[2025-04-30] MEDS: FOLIC ACID 1 MG/0.2 ML INJ IV PUSH (08:36)
[2025-04-30] MEDS: VANCOMYCIN 1,250 MG/NS 250 ML 1,250 MG/250 ML BAG 166.67 MG IVPB ×2 (08:38→10:10)
--- NOTE | 2025-04-30 11:54 | WPDINTPN ---
Progress Note: A&P Assessment and Plan (1) Acute drug overdose: Qualifiers: Encounter type: initial encounter Injury intent: intentional self-harm Qualified Code(s): T50.902A - Poisoning by unspecified drugs, medicaments and biological substances, intentional self-harm, initial encounter Code(s): T50.901A - Poisoning by unspecified drugs, medicaments and biological substances, accidental (unintentional), initial encounter Status: Acute Assessment and Plan: Patient intentionally overdosed on hydroxyzine 25 mg x60 pills, baclofen 20 mg x31 pills, trazodone 100 mg x 5 pills -poison control was notified and is following, supportive care for now -hydroxyzine and baclofen can cause hypotension, altered mental status, QT prolongation -trazodone can also cause altered mental status -off IV fluid, good urine output -EKG this morning shows normal QT interval, ischemic changes -04/28: EKG shows some ST changes, I discussed with transportation department head, obtain echocardiogram and troponins x2 were negative -04/29: EKG showed improved QTC (2) Acute respiratory failure with hypoxia and hypercapnia: Code(s): J96.01 - Acute respiratory failure with hypoxia; J96.02 - Acute respiratory failure with hypercapnia Status: Acute Assessment and Plan: Patient was intubated and placed on mechanical ventilation due to altered mental status, agitation and combativeness and for airway protection. -chest x-ray and ABGs reviewed, ventilator adjusted -continue CMV mode of ventilation, peep of 5, 70% FiO2 -wean FiO2 to maintain O2 sats > 92% -continue bronchodilators -started patient on Mucomyst nebs for thick secretions -sedated with fentanyl and Versed infusion, maintain RASS of 0 to -2 -daily SBT and SAT, (3) Alcohol abuse: Code(s): F10.10 - Alcohol abuse, uncomplicated Status: Acute Assessment and Plan: Patient has a history of alcohol abuse, elevated alcohol levels on admission -will guidance counselor on cessation of alcohol abuse once he is extubated and will also ask care coordination to provide alcohol rehab resources -start thiamine and folic acid -currently sedated and intubated (4) QT prolongation: Code(s): R94.31 - Abnormal electrocardiogram [ECG] [EKG] Status: Acute Assessment and Plan: QT prolongation likely related to baclofen and hydroxyzine -replace magnesium -continue to monitor EKGs and maintain potassium > 4 and magnesium> 2.0 04/29/2025: Echocardiogram Summary 1. Definity contrast administered improved wall motion interpretation. 2. Left ventricular chamber dimension is normal. 3. Left ventricular systolic function is normal, estimated at 65-70. 4. The left ventricular diastolic function is grade I diastolic dysfunction. 5. E/e' 5 is not elevated. 6. Left atrial chamber dimension is mildly enlarged. (5) Altered mental status: Code(s): R41.82 - Altered mental status, unspecified Status: Acute Assessment and Plan: Altered mental status likely related to multiple drug overdose -patient does wake up with sedation vacation, follows simple commands in all extremities and nods to question (6) Hypotension: Code(s): I95.9 - Hypotension, unspecified Status: Acute Assessment and Plan: Likely related to baclofen and hydroxyzine -adequately fluid-resuscitated -PICC line inserted on 04/28 -off Levophed No signs of infection at this time (7) Suicidal behavior: Code(s): R45.89 - Other symptoms and signs involving emotional state Status: Acute Assessment and Plan: Once patient is extubated, will have crisis management evaluate the patient for placement to a psychiatric unit Plan DVT prophylaxis: Lovenox Stress ulcer prophylaxis: Protonix Nutrition: Tolerating tube feeds at goal Code Status: Full code Critical Care Time Spent: 32 minutes Will update family Due to a high probability of clinically significant, life threatening deterioration, the patient required my highest level of preparedness to intervene emergently and I personally spent this critical care time directly and personally managing the patient. This critical care time included obtaining a history; examining the patient; pulse oximetry; ordering and review of studies; arranging urgent treatment with development of a management plan; evaluation of patient's response to treatment; frequent reassessment; and discussions with other providers. It was exclusive of separately billable procedures and treating other patients and teaching time. Please see Assessment and Plan section and the rest of the note for further information on patient assessment and treatment This dictation may have been done utilizing a voice recognition system. Attempts have been made to correct errors. However, there may be uncorrected grammatical, spelling, and recognitions errors present. Subjective Date/time seen: 04/30/25 11:54 Interval history: Reason for consult: Intentional polysubstance abuse, suicidal behavior, patient took hydroxyzine 25 mg x60 pills, baclofen 20 mg x31 pills, trazodone 100 mg x 5 pills 04/30/2025: Patient seen and examined the ICU, remains intubated on CMV mode of ventilation, peep of 5, 70% FiO2. O2 requirements increased overnight, patient is also getting agitated on Precedex to propofol was added. Currently seems to be comfortable, opens his eyes to name and follows simple commands and then goes back to sleep. OFF Levophed at this time. Urine output has been adequate, T-max of 101.4 and hemodynamically state Review of Systems Review of Systems: ROS unobtainable: Yes unobtainable due to endotracheal tube, unobtainable due to medical condition and unobtainable due to mental status Exam Narrative: General: Intubated and sedated, in no acute distress HEENT:? Pupils equal and reactive, sclera is clear, ETT in place Neck:? Supple Respiratory:? Coarse breath sounds bilaterally, rales noted on the right > left. Decreased at bases, no wheezing, adequate air entry Cardiac:? S1-S2 is normal, regular rate and rhythm, Abdomen:? Soft, nontender, nondistended, hypoactive bowel sounds Extremities:? No edema, palpable pedal pulses Neuro:? Patient intubated, sedated, open his eyes, follows simple commands Skin:? No skin lesions noted Psych:? Unable to assess at this time Objective Data Vital Signs Vital Signs: Vital Signs - 24 hr 04/29/25 12:00 04/29/25 12:04/29/25 12:00 Temperature 101.8 F H Pulse Rate 112 H Respiratory Rate 18 Blood Pressure 131/86 Pulse Oximetry 96 95 Oxygen Delivery Mechanical Ventilation Fraction of Inspired Oxygen 40 40 04/29/25 12:00 04/29/25 12:00 04/29/25 12:45 Temperature Pulse Rate 112 H 125 H 114 H Respiratory Rate 22 H Blood Pressure 131/86 Pulse Oximetry Oxygen Delivery Fraction of Inspired Oxygen 04/29/25 14:00 04/29/25 14:00 04/29/25 14:00 Temperature 99.6 F Pulse Rate 124 H 106 H 112 H Respiratory Rate 18 Blood Pressure 132/85 Pulse Oximetry 94 98 Oxygen Delivery Mechanical Ventilation Fraction of Inspired Oxygen 40 04/29/25 14:00 04/29/25 14:12 04/29/25 14:28 Temperature Pulse Rate 123 H 110 H 100 Respiratory Rate 21 H 21 H Blood Pressure 132/85 Pulse Oximetry Oxygen Delivery Fraction of Inspired Oxygen 04/29/25 14:36 04/29/25 16:00 04/29/25 16:00 Temperature Pulse Rate 101 H Respiratory Rate 20 Blood Pressure Pulse Oximetry 96 Oxygen Delivery Mechanical Ventilation Fraction of Inspired Oxygen 40 40 04/29/25 16:00 04/29/25 16:00 04/29/25 16:00 Temperature 99.6 F Pulse Rate 98 98 98 Respiratory Rate 18 Blood Pressure 104/71 104/71 Pulse Oximetry 96 Oxygen Delivery Fraction of Inspired Oxygen 04/29/25 16:20 04/29/25 17:00 04/29/25 18:00 Temperature Pulse Rate 104 H 92 95 Respiratory Rate 20 18 Blood Pressure 108/81 Pulse Oximetry 94 94 Oxygen Delivery Mechanical Ventilation Fraction of Inspired Oxygen 40 04/29/25 18:00 04/29/25 18:00 04/29/25 18:26 Temperature Pulse Rate 95 95 109 H Respiratory Rate 20 Blood Pressure 108/81 Pulse Oximetry Oxygen Delivery Fraction of Inspired Oxygen 04/29/25 20:00 04/29/25 20:00 04/29/25 20:00 Temperature 100 F H Pulse Rate 104 H 104 H Respiratory Rate 22 H 22 H Blood Pressure 117/84 Pulse Oximetry 93 Oxygen Delivery Fraction of Inspired Oxygen 40 04/29/25 20:00 04/29/25 20:00 04/29/25 20:39 Temperature Pulse Rate 93 94 Respiratory Rate 22 H Blood Pressure Pulse Oximetry 96 Oxygen Delivery Mechanical Ventilation Fraction of Inspired Oxygen 40 04/29/25 20:44 04/29/25 20:45 04/29/25 20:45 Temperature Pulse Rate 96 93 93 Respiratory Rate 23 H 23 H Blood Pressure Pulse Oximetry 92 Oxygen Delivery Mechanical Ventilation Fraction of Inspired Oxygen 40 04/29/25 20:50 04/29/25 22:00 04/29/25 22:00 Temperature Pulse Rate 99 98 98 Respiratory Rate 22 H 23 H Blood Pressure Pulse Oximetry Oxygen Delivery Fraction of Inspired Oxygen 04/29/25 22:00 04/29/25 22:30 04/29/25 23:01 Temperature Pulse Rate 98 125 H 120 H Respiratory Rate 23 H 24 H Blood Pressure 118/73 Pulse Oximetry 93 93 Oxygen Delivery Mechanical Ventilation Fraction of Inspired Oxygen 40 04/29/25 23:05 04/29/25 23:30 04/29/25 23:51 Temperature Pulse Rate 131 H 98 100 Respiratory Rate 21 H 20 30 H Blood Pressure Pulse Oximetry Oxygen Delivery Fraction of Inspired Oxygen 04/30/25 00:00 04/30/25 00:00 04/30/25 00:00 Temperature 101.4 F H Pulse Rate 121 H 98 Respiratory Rate 26 H Blood Pressure 135/94 H Pulse Oximetry 92 Oxygen Delivery Fraction of Inspired Oxygen 40 04/30/25 00:00 04/30/25 00:04 04/30/25 00:25 Temperature 101.4 F H Pulse Rate 102 H Respiratory Rate 32 H Blood Pressure Pulse Oximetry 96 Oxygen Delivery Mechanical Ventilation Fraction of Inspired Oxygen 40 04/30/25 00:30 04/30/25 00:35 04/30/25 00:44 Temperature Pulse Rate 102 H 96 Respiratory Rate 32 H 31 H Blood Pressure Pulse Oximetry Oxygen Delivery Fraction of Inspired Oxygen 80 04/30/25 01:00 04/30/25 01:04 04/30/25 01:14 Temperature 100.6 F H Pulse Rate 90 89 Respiratory Rate 27 H 28 H Blood Pressure Pulse Oximetry Oxygen Delivery Fraction of Inspired Oxygen 04/30/25 01:14 04/30/25 02:00 04/30/25 02:00 Temperature 100.4 F H Pulse Rate 89 91 91 Respiratory Rate 28 H 30 H 30 H Blood Pressure 141/89 H Pulse Oximetry 95 Oxygen Delivery Fraction of Inspired Oxygen 04/30/25 02:00 04/30/25 02:17 04/30/25 02:18 Temperature Pulse Rate 91 94 101 H Respiratory Rate 30 H 28 H Blood Pressure Pulse Oximetry 95 Oxygen Delivery Mechanical Ventilation Fraction of Inspired Oxygen 80 04/30/25 02:27 04/30/25 03:00 04/30/25 04:00 Temperature Pulse Rate 102 H 102 H 94 Respiratory Rate 29 H 28 H 28 H Blood Pressure 141/88 H Pulse Oximetry 94 Oxygen Delivery Fraction of Inspired Oxygen 04/30/25 04:00 04/30/25 04:00 04/30/25 04:00 Temperature 99.7 F H Pulse Rate 94 Respiratory Rate 28 H Blood Pressure 137/94 H Pulse Oximetry 96 96 Oxygen Delivery Mechanical Ventilation Fraction of Inspired Oxygen 70 70 04/30/25 04:00 04/30/25 04:40 04/30/25 04:40 Temperature Pulse Rate 97 95 95 Respiratory Rate 29 H 29 H Blood Pressure Pulse Oximetry Oxygen Delivery Fraction of Inspired Oxygen 04/30/25 04:42 04/30/25 05:00 04/30/25 05:05 Temperature Pulse Rate 94 89 91 Respiratory Rate 28 H 26 H Blood Pressure 140/95 H Pulse Oximetry 97 96 Oxygen Delivery Mechanical Ventilation Fraction of Inspired Oxygen 70 04/30/25 05:57 04/30/25 05:57 04/30/25 06:00 Temperature Pulse Rate 88 88 89 Respiratory Rate 27 H 27 H 28 H Blood Pressure Pulse Oximetry Oxygen Delivery Fraction of Inspired Oxygen 04/30/25 06:00 04/30/25 06:00 04/30/25 06:00 Temperature Pulse Rate 89 89 89 Respiratory Rate 26 H 26 H Blood Pressure 137/89 Pulse Oximetry 98 Oxygen Delivery Fraction of Inspired Oxygen 04/30/25 07:08 04/30/25 07:10 04/30/25 07:14 Temperature Pulse Rate 90 94 94 Respiratory Rate 24 H 22 H Blood Pressure Pulse Oximetry 96 Oxygen Delivery Mechanical Ventilation Fraction of Inspired Oxygen 70 04/30/25 07:51 04/30/25 07:51 04/30/25 08:00 Temperature Pulse Rate 101 H 101 H 99 Respiratory Rate 26 H 26 H 26 H Blood Pressure Pulse Oximetry Oxygen Delivery Fraction of Inspired Oxygen 04/30/25 08:00 04/30/25 08:00 04/30/25 08:00 Temperature 99.2 F Pulse Rate 99 99 Respiratory Rate 26 H 25 H Blood Pressure 134/81 Pulse Oximetry 96 96 Oxygen Delivery Mechanical Ventilation Fraction of Inspired Oxygen 60 04/30/25 08:00 04/30/25 08:00 04/30/25 08:30 Temperature Pulse Rate 100 Respiratory Rate Blood Pressure Pulse Oximetry 94 Oxygen Delivery Mechanical Ventilation Fraction of Inspired Oxygen 60 60 04/30/25 08:30 04/30/25 09:00 04/30/25 10:00 Temperature 98.6 F Pulse Rate 99 99 Respiratory Rate 26 H Blood Pressure 122/81 Pulse Oximetry 96 Oxygen Delivery Fraction of Inspired Oxygen 60 04/30/25 10:00 04/30/25 10:00 04/30/25 10:00 Temperature 99.0 F Pulse Rate 99 99 99 Respiratory Rate 24 H 24 H 23 H Blood Pressure 119/84 Pulse Oximetry 96 Oxygen Delivery Fraction of Inspired Oxygen 04/30/25 10:55 04/30/25 11:17 04/30/25 11:17 Temperature Pulse Rate 98 99 99 Respiratory Rate 26 H 26 H Blood Pressure Pulse Oximetry 95 Oxygen Delivery Mechanical Ventilation Fraction of Inspired Oxygen 50 Intake/Output Intake/Output: Intake & Output 04/27/25 04/28/25 04/29/25 04/30/25 23:59 23:59 23:59 23:59 Intake Total 5027.2 2044.5 1469.2 Output Total 2800 1500 900 Balance 2227.2 544.5 569.2 Meds/Results Medications: Active Medications Generic Name Dose Route Start Last Admin Trade Name Freq PRN Reason Stop Dose Admin Acetaminophen 650 mg 04/29/25 11:11 04/30/25 00:04 Acetaminophen Elixir 325 Mg/10.15 Ml Udc PO 650 mg Q6H PRN Administration Mild Pain (1-3) or Fever Acetylcysteine 200 mg 04/29/25 14:20 04/30/25 07:07 Acetylcysteine 20% Inhal Soln 800 Mg/4 Ml Vial INHALATION 200 mg Q6HRT BRAULIO Administration Albuterol/Ipratropium 3 ml 04/29/25 14:20 04/30/25 07:07 Ipratropium 0.5 Mg/Albuterol Sulfate 2.5 Mg Ampul.Neb 3 Ml INHALATION 3 ml Q6HRT BRAULIO Administration Enoxaparin Sodium 40 mg 04/28/25 09:00 04/30/25 08:35 Enoxaparin 40 Mg/0.4 Ml Syringe SUB-Q 40 mg DAILY BRAULIO Administration Folic Acid 1 mg 04/29/25 09:00 04/30/25 08:36 Folic Acid 1 Mg/0.2 Ml Inj IV PUSH 1 mg QAM BRAULIO Administration Piperacillin Sod/Tazobactam 100 mls @ 200 mls/hr 04/29/25 12:30 04/30/25 11:24 Sod 4.5 gm/ Sodium Chloride IVPB 200 mls/hr Q6HR BRAULIO Administration Dexmedetomidine HCl 400 mcg in 100 mls @ 30.8 mls/hr 04/29/25 12:15 04/30/25 11:17 Precedex 400 Mcg/100 Ml IV CONT 1 mcg/kg/hr .Q3H15M BRAULIO 30.8 mls/hr Protocol Administration 1 MCG/KG/HR Propofol 100 mls @ 11.088 mls/hr 04/30/25 00:15 04/30/25 10:00 Diprivan IV CONT 20 mcg/kg/min .Q9H2M BRAULIO 14.78 mls/hr Protocol Titration 15 MCG/KG/MIN Vancomycin HCl 1,500 mg in 500 mls @ 250 mls/hr 04/30/25 21:00 Vancomycin 1,500 Mg/Ns 500 Ml IVPB Q12H BRAULIO Multi-Ingred Cream/Lotion/Oil/Oint 1 applic 04/30/25 09:00 04/30/25 08:36 Mineral Oil/White Petrolatum Ointment EACH EYE 1 applic Q12HR BRAULIO Administration Pantoprazole Sodium 40 mg 04/29/25 09:00 04/30/25 08:36 Pantoprazole Sodium Iv 40 Mg Vial IV PUSH 40 mg QAM BRAULIO Administration Sodium Chloride 10 ml 04/28/25 14:00 04/30/25 05:59 Central Line Flush IV PUSH 10 ml Q8HR BRAULIO Administration Sodium Chloride 10 ml 04/28/25 11:06 Central Line Flush IV PUSH PRN PRN with TPN bag changes Sodium Chloride 20 ml 04/28/25 11:06 Central Line Flush IV PUSH PRN PRN after blood draws Thiamine HCl 200 mg 04/29/25 09:00 04/30/25 08:35 Thiamine Hcl 200 Mg/2 Ml Vial IV PUSH 200 mg QAM BRAULIO Administration Radiology Results: ITS Impressions Abdomen X-Ray 04/28/25 08:20 Impression: 1. No acute abnormality. Head CT 04/28/25 08:29 Impression: 1.No acute intracranial abnormality. Labs Labs: Laboratory Results - last 24 hr 04/29/25 04/29/25 04/30/25 12:49 18:48 04:04 WBC 16.3 H RBC 4.03 L Hgb 11.7 L Hct 36.7 L MCV 91.1 MCH 29.0 MCHC 31.9 L RDW 13.8 Plt Count 159 MPV 10.1 Immature Gran % (Auto) 0.6 H Neut % (Auto) 81.7 H Lymph % (Auto) 12.4 L [place] % (Auto) 5.0 Eos % (Auto) 0.1 Baso % (Auto) 0.2 Lymph # (Auto) 2.02 [place] # (Auto) 0.8 H Eos # (Auto) 0.0 Baso # (Auto) 0.0 Abs Immat Gran (auto) 0.09 H Absolute Neuts (auto) 13.3 H Absolute Nucleated RBC 0.000 Nucleated RBC % 0.0 Puncture Site ABG pH ABG pCO2 ABG pO2 ABG PO2/FiO2 Ratio ABG HCO3 ABG O2 Saturation ABG O2 Content ABG Base Excess A-a Gradient Oxyhemoglobin Carboxyhemoglobin Methemoglobin Reduced Hemoglobin Total Hemoglobin O2 Delivery Device O2 Liters/Min Minute Volume Vent Rate Vent Mode FiO2 Tidal Volume PEEP Peak Inspir Pressure Pressure Support Sodium 135 L Potassium 3.8 Chloride 105 Carbon Dioxide 26 Anion Gap 4 BUN 9 Creatinine 0.68 L Estim Creat Clear Calc 164 Estimated GFR > 60 Glucose 165 H POC Capillary Glucose 176 H Calcium 7.9 L Phosphorus 2.9 Magnesium 2.2 Total Bilirubin 0.9 AST 36 ALT 34 Alkaline Phosphatase 84 Troponin I < 0.012 Total Protein 6.4 Albumin 3.3 L Triglycerides 166 H 04/30/25 04/30/25 04:04 05:13 WBC RBC Hgb Hct MCV MCH MCHC RDW Plt Count MPV Immature Gran % (Auto) Neut % (Auto) Lymph % (Auto) [place] % (Auto) Eos % (Auto) Baso % (Auto) Lymph # (Auto) [place] # (Auto) Eos # (Auto) Baso # (Auto) Abs Immat Gran (auto) Absolute Neuts (auto) Absolute Nucleated RBC Nucleated RBC % Puncture Site Right radial ABG pH 7.457 H ABG pCO2 33.1 L ABG pO2 75.9 L ABG PO2/FiO2 Ratio 1.08 ABG HCO3 22.9 ABG O2 Saturation 96.0 ABG O2 Content 16.9 ABG Base Excess -0.4 A-a Gradient 387.6 Oxyhemoglobin 94.6 Carboxyhemoglobin 0.6 Methemoglobin 0.1 Reduced Hemoglobin 4.7 Total Hemoglobin 12.7 O2 Delivery Device Ventilator O2 Liters/Min Not Reportable Minute Volume Not Reportable Vent Rate 18 Vent Mode Cmv FiO2 70 Tidal Volume 450 PEEP 5 Peak Inspir Pressure Not Reportable Pressure Support Not Reportable Sodium Potassium Chloride Carbon Dioxide Anion Gap BUN Creatinine Estim Creat Clear Calc Estimated GFR Glucose POC Capillary Glucose Calcium Phosphorus Magnesium Total Bilirubin AST ALT Alkaline Phosphatase Troponin I Total Protein Albumin Triglycerides Cancelled Quality VTE Prophylaxis VTE prophylaxis: pharmacologic ordered
--- NOTE | 2025-04-30 15:20 | PC.NURSE ---
patient's mom (Chichi) took clothes home
[2025-04-30] MEDS: PROPOFOL IV EMULSION 100 ML 22.18 MG IV CONT ×2 (17:01→21:16)
[2025-04-30] MEDS: VANCOMYCIN 1,500 MG/NS 500 ML 1,500 MG/500 ML BAG 250 MG IVPB (20:43)
--- NOTE | 2025-04-30 23:28 | PC.NURSE ---
2305 Patient wide awake, flopping legs, coughing with thick secretions-needing multiple passes of suction. Propofol increased to 40.
[2025-05-01] VITALS (102 sets, daily range): BP systolic 110–148; BP diastolic 73–97; PULSE 76–107; RESP 18–50; TEMP 37–37.2; O2SAT 91–100
[2025-05-01] MEDS: PROPOFOL IV EMULSION 100 ML 29.57 MG IV CONT (00:19)
[2025-05-01] MEDS: dexmedeTOMIDine 400 MCG/100 ML 400 MCG/100 ML BAG 30.8 MCG IV CONT (00:26)
[2025-05-01] MEDS: IPRATROPIUM 0.5 MG/ALBUTEROL SULFATE 2.5 MG AMPUL.NEB 3 ML INHALATION ×4 (02:18→19:59)
[2025-05-01] MEDS: ACETYLCYSTEINE 20% INHAL SOLN 800 MG/4 ML VIAL 200 MG INHALATION ×4 (02:19→19:59)
--- NOTE | 2025-05-01 03:05 | PC.NURSE ---
0225 Pt vomited less than approximately 50ml while being suctioned; coughing extremely forceful. Suctioned immediately. Tube feeds placed on hold. Patient continued to cough continuously and getting agitated. Propofol increased to 50mcg and Precedex increased to 1.2mcg. Residual after vomiting 180ml. Lungs coarse.
[2025-05-01] MEDS: PROPOFOL IV EMULSION 100 ML 36.96 MG IV CONT ×4 (03:27→21:47)
[2025-05-01] MEDS: dexmedeTOMIDine 400 MCG/100 ML 400 MCG/100 ML BAG 43.12 MCG IV CONT (03:38)
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
[2025-05-01] MEDS: CENTRAL LINE FLUSH 10 ML IV PUSH ×3 (04:58→21:13)
[2025-05-01] MEDS: CENTRAL LINE FLUSH 20 ML IV PUSH (04:59)
[2025-05-01] MEDS: PIPERACILLIN/TAZOBACTAM SOD 4.5 GM in SODIUM CHLORIDE 0.9% IV 100 ML 200 ML IVPB ×4 (05:01→23:49)
[2025-05-01 05:07] LABS: Hematocrit 34.3 % (42.0-52.0); Hemoglobin 11.4 g/dL (14.0-18.0); Immature Granulocyte Percent A 1.0 % (0-0.5); Immature Platelet Fraction Pct 5.4 % (0.9-11.2); Lymphocytes Absolute Auto 1.65 K/mm3 (0.9-3.2); Mean Corpuscular HGB Conc 33.2 g/dl (32-36); Mean Corpuscular Hemoglobin 29.4 pg (26-34); Mean Corpuscular Volume 88.4 fl (80-100); Nucleated Red Blood Cells Absolute Auto 0.000 K/mm3 (0.0-0.012); Nucleated Red Blood Cells Perc 0.0 % (0.0-0.2); Platelet Count Result 143 k/mm3 (150-375); Red Blood Count 3.88 M/mm3 (4.6-6.20); White Blood Count 13.0 K/mm3 (4.5-10.0)
[2025-05-01 05:21] LABS: Alanine Aminotransferase 24 U/L (6-50); Albumin Level 3.2 g/dL (3.5-5.1); Alkaline Phosphatase 100 U/L (38-126); Anion Gap 4 mmol/L (4-12); Aspartate Amino Transferase 37 U/L (17-59); Bilirubin,Total 0.9 mg/dL (0.2-1.3); Blood Urea Nitrogen 8 mg/dL (9-20); Calcium 8.0 mg/dL (8.4-10.2); Carbon Dioxide 25 mmol/L (22-30); Chloride 105 mmol/L (98-107); Estimated CRCL calculation 189 ml/min; Estimated Glomerular Filt Rate > 60; Glucose 140 mg/dL (65-110); Magnesium 2.0 mg/dL (1.6-2.3); Potassium 3.9 mmol/L (3.4-5.0); Sodium 134 mmol/L (137-145); Total Protein 6.5 g/dL (6.3-8.2)
[2025-05-01 05:30] LABS: Alveolar/Arterial O2 Gradient 176.0 mmHg; Carboxyhemoglobin 0.8 % THb (0-2.0); Fractional Inspired Oxygen 40 %; HCO3 ABG 23.7 mEq/l (22.0-26.0); Methemoglobin ABG 0.0 %THb (0-1.5); Oxygen Content ABG 16.4 %vol (16.0-22.0); Oxygen Saturation ABG 95.1 % (95.0-100.0); PCO2 ABG 33.8 mmHg (35.0-45.0); PO2 ABG 70.3 mmHg (80.0-100.0); PO2 FiO2 Ratio Arterial Blood 1.76 %; Reduced Hemoglobin 5.3 %THb (0-5.0)
[2025-05-01 05:31] LABS: Modified Allen's Test Pass; Site Drawn LEFT RADIAL
[2025-05-01 05:32] LABS: Arterial Blood Gas Tidal Volume 450 ml; Arterial Blood Gas Ventilator rate 18 /MIN
[2025-05-01] MEDS: dexmedeTOMIDine 400 MCG/100 ML 400 MCG/100 ML BAG 36.96 MCG IV CONT (06:08)
[2025-05-01] MEDS: PROPOFOL IV EMULSION 100 ML 33.26 MG IV CONT ×4 (06:38→14:45)
[2025-05-01] MEDS: ENOXAPARIN 40 MG/0.4 ML SYRINGE SUB-Q (08:28)
[2025-05-01] MEDS: FOLIC ACID 1 MG/0.2 ML INJ IV PUSH (08:28)
[2025-05-01] MEDS: THIAMINE HCL 200 MG/2 ML VIAL IV PUSH (08:28)
[2025-05-01] MEDS: VANCOMYCIN 1,500 MG/NS 500 ML 1,500 MG/500 ML BAG 250 MG IVPB (08:28)
[2025-05-01] MEDS: PANTOPRAZOLE SODIUM IV 40 MG VIAL IV PUSH (08:28)
[2025-05-01] MEDS: MINERAL OIL/WHITE PETROLATUM OINTMENT 1 APPLIC EACH EYE ×2 (08:28→19:42)
[2025-05-01] MEDS: MIDAZOLAM HCL (*CRX) 2 MG/2 ML VIAL IV PUSH ×5 (08:33→21:10)
[2025-05-01] MEDS: dexmedeTOMIDine 400 MCG/100 ML 400 MCG/100 ML BAG 33.88 MCG IV CONT ×4 (08:57→17:13)
--- NOTE | 2025-05-01 09:17 | P.PNINT_ITS ---
Progress Note: A&P Assessment and Plan (1) Acute drug overdose: Qualifiers: Encounter type: initial encounter Injury intent: intentional self-harm Qualified Code(s): T50.902A - Poisoning by unspecified drugs, medicaments and biological substances, intentional self-harm, initial encounter Code(s): T50.901A - Poisoning by unspecified drugs, medicaments and biological substances, accidental (unintentional), initial encounter Status: Acute Assessment and Plan: Patient intentionally overdosed on hydroxyzine 25 mg x60 pills, baclofen 20 mg x31 pills, trazodone 100 mg x 5 pills -poison control was notified and is following, supportive care for now -hydroxyzine and baclofen can cause hypotension, altered mental status, QT prolongation -trazodone can also cause altered mental status -off IV fluid, good urine output -EKG this morning shows normal QT interval, ischemic changes -04/28: EKG shows some ST changes, I discussed with book trimmer, obtain echocardiogram and troponins x2 were negative -04/29: EKG showed improved QTC (2) Acute respiratory failure with hypoxia and hypercapnia: Code(s): J96.01 - Acute respiratory failure with hypoxia; J96.02 - Acute respiratory failure with hypercapnia Status: Acute Assessment and Plan: Patient was intubated and placed on mechanical ventilation due to altered mental status, agitation and combativeness and for airway protection. -chest x-ray and ABGs reviewed, ventilator adjusted -continue CMV mode of ventilation, peep of 5, 70% FiO2 -wean FiO2 to maintain O2 sats > 92% -continue bronchodilators -sedated with fentanyl and Versed infusion, maintain RASS of 0 to -2 -continues to have thick secretions, continue Mucomyst and Pulmozyme nebs -continue Zosyn and vancomycin (04/29) -daily SBT and SAT, (3) Alcohol abuse: Code(s): F10.10 - Alcohol abuse, uncomplicated Status: Acute Assessment and Plan: Patient has a history of alcohol abuse, elevated alcohol levels on admission -will certified personal finance counselor on cessation of alcohol abuse once he is extubated and will also ask care coordination to provide alcohol rehab resources -continue thiamine and folic acid -currently sedated with Precedex and propofol (4) QT prolongation: Code(s): R94.31 - Abnormal electrocardiogram [ECG] [EKG] Status: Acute Assessment and Plan: QT prolongation likely related to baclofen and hydroxyzine -replace magnesium -continue to monitor EKGs and maintain potassium > 4 and magnesium> 2.0 04/29/2025: Echocardiogram Summary 1. Definity contrast administered improved wall motion interpretation. 2. Left ventricular chamber dimension is normal. 3. Left ventricular systolic function is normal, estimated at 65-70. 4. The left ventricular diastolic function is grade I diastolic dysfunction. 5. E/e' 5 is not elevated. 6. Left atrial chamber dimension is mildly enlarged. (5) Altered mental status: Code(s): R41.82 - Altered mental status, unspecified Status: Acute Assessment and Plan: Altered mental status likely related to multiple drug overdose -patient does wake up with sedation vacation, follows simple commands in all extremities and nods to question (6) Hypotension: Code(s): I95.9 - Hypotension, unspecified Status: Acute Assessment and Plan: Likely related to baclofen and hydroxyzine -adequately fluid-resuscitated -PICC line inserted on 04/28 -off Levophed (7) Suicidal behavior: Code(s): R45.89 - Other symptoms and signs involving emotional state Status: Acute Assessment and Plan: Once patient is extubated, will have crisis management evaluate the patient for placement to a psychiatric unit Plan DVT prophylaxis: Lovenox Stress ulcer prophylaxis: Protonix Nutrition: Tube feeds on hold, will restart Code Status: Full code Critical Care Time Spent: 32 minutes Will update family Due to a high probability of clinically significant, life threatening deterioration, the patient required my highest level of preparedness to intervene emergently and I personally spent this critical care time directly and personally managing the patient. This critical care time included obtaining a history; examining the patient; pulse oximetry; ordering and review of studies; arranging urgent treatment with development of a management plan; evaluation of patient's response to treatment; frequent reassessment; and discussions with other providers. It was exclusive of separately billable procedures and treating other patients and teaching time. Please see Assessment and Plan section and the rest of the note for further information on patient assessment and treatment This dictation may have been done utilizing a voice recognition system. Attempts have been made to correct errors. However, there may be uncorrected grammatical, spelling, and recognitions errors present. Subjective Date/time seen: 05/01/25 09:17 Interval history: Reason for consult: Intentional polysubstance abuse, suicidal behavior, patient took hydroxyzine 25 mg x60 pills, baclofen 20 mg x31 pills, trazodone 100 mg x 5 pills 05/01/2025: Patient seen and examined the ICU, remains intubated on CMV mode of ventilation, peep of 5, 40% FiO2. Sedated with Precedex and propofol infusion. Overnight patient became more agitated, had episodes of emesis, tube feeds were on hold. Thick, silva colored secretions being suctioned from ET tube. Afebrile, good urine output and hemodynamically stable. Review of Systems Review of Systems: ROS unobtainable: Yes unobtainable due to endotracheal tube, unobtainable due to medical condition and unobtainable due to mental status Exam Narrative: General: Intubated and sedated, in no acute distress HEENT:? Pupils equal and reactive, sclera is clear, ETT in place Neck:? Supple Respiratory:? Coarse breath sounds bilaterally, rales noted on the right > left. Decreased at bases, no wheezing, adequate air entry Cardiac:? S1-S2 is normal, regular rate and rhythm, Abdomen:? Soft, nontender, nondistended, hypoactive bowel sounds Extremities:? No edema, palpable pedal pulses Neuro:? Patient intubated, sedated, open his eyes, DOES NOT FOLLOW SIMPLE COMMANDS Skin:? No skin lesions noted Psych:? Unable to assess at this time Objective Data Vital Signs Vital Signs: Vital Signs - 24 hr 04/30/25 10:00 04/30/25 10:00 04/30/25 10:00 Temperature Pulse Rate 99 99 99 Respiratory Rate 24 H 24 H Blood Pressure Pulse Oximetry Oxygen Delivery Fraction of Inspired Oxygen 04/30/25 10:00 04/30/25 10:55 04/30/25 11:00 Temperature 99.0 F Pulse Rate 99 98 100 Respiratory Rate 23 H 24 H Blood Pressure 119/84 122/85 Pulse Oximetry 96 95 96 Oxygen Delivery Mechanical Ventilation Fraction of Inspired Oxygen 50 04/30/25 11:17 04/30/25 11:17 04/30/25 12:00 Temperature Pulse Rate 99 99 Respiratory Rate 26 H 26 H Blood Pressure Pulse Oximetry 97 Oxygen Delivery Mechanical Ventilation Fraction of Inspired Oxygen 50 04/30/25 12:00 04/30/25 12:00 04/30/25 12:00 Temperature 99.2 F Pulse Rate 98 98 Respiratory Rate 24 H 24 H Blood Pressure 137/90 Pulse Oximetry 97 Oxygen Delivery Fraction of Inspired Oxygen 50 04/30/25 12:00 04/30/25 12:04 04/30/25 12:04 Temperature Pulse Rate 95 96 96 Respiratory Rate 24 H 24 H Blood Pressure Pulse Oximetry Oxygen Delivery Fraction of Inspired Oxygen 04/30/25 13:00 04/30/25 13:01 04/30/25 13:03 Temperature 99.0 F Pulse Rate 96 92 90 Respiratory Rate 30 H 26 H 25 H Blood Pressure 134/94 H 143/99 H 134/94 H Pulse Oximetry 97 97 96 Oxygen Delivery Fraction of Inspired Oxygen 04/30/25 13:14 04/30/25 13:15 04/30/25 13:15 Temperature Pulse Rate 90 92 93 Respiratory Rate 24 H 23 H Blood Pressure Pulse Oximetry 96 96 Oxygen Delivery Mechanical Ventilation Fraction of Inspired Oxygen 40 04/30/25 13:23 04/30/25 13:30 04/30/25 13:45 Temperature Pulse Rate 98 105 H 108 H Respiratory Rate 22 H 23 H 23 H Blood Pressure Pulse Oximetry 96 95 Oxygen Delivery Fraction of Inspired Oxygen 04/30/25 14:00 04/30/25 14:00 04/30/25 14:00 Temperature Pulse Rate 103 H 103 H 103 H Respiratory Rate 24 H 24 H Blood Pressure Pulse Oximetry Oxygen Delivery Fraction of Inspired Oxygen 04/30/25 14:00 04/30/25 14:00 04/30/25 14:01 Temperature 99.3 F Pulse Rate 99 104 H 103 H Respiratory Rate 25 H 23 H 24 H Blood Pressure 143/92 H 143/92 H Pulse Oximetry 96 95 95 Oxygen Delivery Fraction of Inspired Oxygen 04/30/25 14:15 04/30/25 14:24 04/30/25 14:30 Temperature Pulse Rate 100 105 H 96 Respiratory Rate 25 H 28 H 26 H Blood Pressure Pulse Oximetry 96 96 Oxygen Delivery Fraction of Inspired Oxygen 04/30/25 14:32 04/30/25 14:34 04/30/25 14:45 Temperature Pulse Rate 97 97 99 Respiratory Rate 30 H 30 H 24 H Blood Pressure Pulse Oximetry 95 Oxygen Delivery Fraction of Inspired Oxygen 04/30/25 15:00 04/30/25 15:00 04/30/25 15:01 Temperature 99.0 F Pulse Rate 89 93 93 Respiratory Rate 95 H 27 H 26 H Blood Pressure 133/91 H 133/91 H Pulse Oximetry 26 L 95 95 Oxygen Delivery Fraction of Inspired Oxygen 04/30/25 15:15 04/30/25 15:30 04/30/25 15:45 Temperature Pulse Rate 87 84 87 Respiratory Rate 26 H 26 H 25 H Blood Pressure Pulse Oximetry 95 96 96 Oxygen Delivery Fraction of Inspired Oxygen 04/30/25 16:00 04/30/25 16:00 04/30/25 16:00 Temperature Pulse Rate 85 85 Respiratory Rate 24 H 24 H Blood Pressure Pulse Oximetry 97 Oxygen Delivery Mechanical Ventilation Fraction of Inspired Oxygen 40 04/30/25 16:00 04/30/25 16:00 04/30/25 16:00 Temperature 98.8 F Pulse Rate 90 87 Respiratory Rate 23 H Blood Pressure 124/84 Pulse Oximetry 97 Oxygen Delivery Fraction of Inspired Oxygen 40 04/30/25 16:00 04/30/25 16:01 04/30/25 16:15 Temperature Pulse Rate 85 87 Respiratory Rate 27 H 26 H Blood Pressure 124/84 Pulse Oximetry 96 96 95 Oxygen Delivery Mechanical Ventilation Fraction of Inspired Oxygen 40 04/30/25 16:15 04/30/25 16:30 04/30/25 16:45 Temperature Pulse Rate 85 88 87 Respiratory Rate 25 H 26 H 28 H Blood Pressure Pulse Oximetry 97 97 97 Oxygen Delivery Fraction of Inspired Oxygen 04/30/25 17:00 04/30/25 17:00 04/30/25 17:01 Temperature 98.8 F Pulse Rate 87 87 92 Respiratory Rate 27 H 27 H 30 H Blood Pressure 130/91 H Pulse Oximetry 97 97 Oxygen Delivery Fraction of Inspired Oxygen 04/30/25 17:01 04/30/25 17:01 04/30/25 17:15 Temperature Pulse Rate 92 91 88 Respiratory Rate 30 H 31 H 26 H Blood Pressure 130/91 H Pulse Oximetry 97 97 Oxygen Delivery Fraction of Inspired Oxygen 04/30/25 17:30 04/30/25 17:45 04/30/25 17:48 Temperature Pulse Rate 87 85 85 Respiratory Rate 29 H 26 H 26 H Blood Pressure Pulse Oximetry 97 97 Oxygen Delivery Fraction of Inspired Oxygen 04/30/25 17:48 04/30/25 18:00 04/30/25 18:00 Temperature 98.8 F Pulse Rate 85 82 82 Respiratory Rate 26 H 26 H Blood Pressure 122/84 Pulse Oximetry 96 Oxygen Delivery Fraction of Inspired Oxygen 04/30/25 18:00 04/30/25 18:00 04/30/25 18:01 Temperature Pulse Rate 82 85 83 Respiratory Rate 26 H 26 H 27 H Blood Pressure 122/84 Pulse Oximetry 96 96 Oxygen Delivery Fraction of Inspired Oxygen 04/30/25 18:15 04/30/25 18:30 04/30/25 18:37 Temperature Pulse Rate 82 81 82 Respiratory Rate 24 H 24 H 26 H Blood Pressure Pulse Oximetry 96 96 Oxygen Delivery Fraction of Inspired Oxygen 04/30/25 18:45 04/30/25 19:00 04/30/25 19:00 Temperature 98.5 F Pulse Rate 82 80 80 Respiratory Rate 24 H 25 H 27 H Blood Pressure 124/89 Pulse Oximetry 97 98 98 Oxygen Delivery Fraction of Inspired Oxygen 04/30/25 19:01 04/30/25 19:15 04/30/25 19:30 Temperature Pulse Rate 82 80 79 Respiratory Rate 26 H 26 H 25 H Blood Pressure 124/89 Pulse Oximetry 98 98 98 Oxygen Delivery Fraction of Inspired Oxygen 04/30/25 19:45 04/30/25 20:00 04/30/25 20:00 Temperature Pulse Rate 81 78 78 Respiratory Rate 27 H 18 18 Blood Pressure Pulse Oximetry 97 Oxygen Delivery Fraction of Inspired Oxygen 04/30/25 20:00 04/30/25 20:00 04/30/25 20:00 Temperature 99.1 F Pulse Rate 78 78 Respiratory Rate 18 Blood Pressure 123/88 Pulse Oximetry 98 Oxygen Delivery Fraction of Inspired Oxygen 35 04/30/25 20:00 04/30/25 20:00 04/30/25 20:01 Temperature Pulse Rate 78 79 Respiratory Rate 27 H 27 H Blood Pressure 123/88 Pulse Oximetry 98 98 98 Oxygen Delivery Mechanical Ventilation Fraction of Inspired Oxygen 35 04/30/25 20:15 04/30/25 20:18 04/30/25 20:30 Temperature Pulse Rate 80 80 80 Respiratory Rate 24 H 26 H Blood Pressure Pulse Oximetry 98 98 Oxygen Delivery Mechanical Ventilation Fraction of Inspired Oxygen 35 04/30/25 20:30 04/30/25 20:45 04/30/25 21:00 Temperature Pulse Rate 91 100 91 Respiratory Rate 23 H 25 H 24 H Blood Pressure Pulse Oximetry 96 94 93 Oxygen Delivery Fraction of Inspired Oxygen 04/30/25 21:01 04/30/25 21:03 04/30/25 21:14 Temperature Pulse Rate 93 92 92 Respiratory Rate 24 H 21 H 21 H Blood Pressure 120/81 Pulse Oximetry 93 Oxygen Delivery Fraction of Inspired Oxygen 04/30/25 21:15 04/30/25 21:16 04/30/25 21:16 Temperature Pulse Rate 91 91 91 Respiratory Rate 21 H 22 H 22 H Blood Pressure Pulse Oximetry 95 Oxygen Delivery Fraction of Inspired Oxygen 04/30/25 21:30 04/30/25 21:45 04/30/25 22:00 Temperature Pulse Rate 90 86 85 Respiratory Rate 24 H 25 H Blood Pressure Pulse Oximetry 94 95 Oxygen Delivery Fraction of Inspired Oxygen 04/30/25 22:00 04/30/25 22:00 04/30/25 22:00 Temperature Pulse Rate 85 85 86 Respiratory Rate 23 H 23 H 24 H Blood Pressure Pulse Oximetry 95 Oxygen Delivery Fraction of Inspired Oxygen 04/30/25 22:01 04/30/25 22:15 04/30/25 22:30 Temperature Pulse Rate 88 82 78 Respiratory Rate 25 H 27 H 26 H Blood Pressure 130/87 Pulse Oximetry 95 95 96 Oxygen Delivery Fraction of Inspired Oxygen 04/30/25 22:45 04/30/25 23:00 04/30/25 23:01 Temperature Pulse Rate 87 91 87 Respiratory Rate 21 H 21 H 18 Blood Pressure 135/91 H Pulse Oximetry 97 96 96 Oxygen Delivery Fraction of Inspired Oxygen 04/30/25 23:05 04/30/25 23:10 04/30/25 23:15 Temperature Pulse Rate 92 90 89 Respiratory Rate 26 H 25 H Blood Pressure Pulse Oximetry 97 95 Oxygen Delivery Mechanical Ventilation Fraction of Inspired Oxygen 35 04/30/25 23:30 04/30/25 23:45 05/01/25 00:00 Temperature Pulse Rate 88 88 99 Respiratory Rate 27 H 20 22 H Blood Pressure Pulse Oximetry 96 97 Oxygen Delivery Fraction of Inspired Oxygen 05/01/25 00:00 05/01/25 00:00 05/01/25 00:00 Temperature Pulse Rate 99 Respiratory Rate 22 H Blood Pressure Pulse Oximetry 98 Oxygen Delivery Mechanical Ventilation Fraction of Inspired Oxygen 35 35 05/01/25 00:00 05/01/25 00:00 05/01/25 00:01 Temperature Pulse Rate 85 84 85 Respiratory Rate 28 H 26 H Blood Pressure 133/83 Pulse Oximetry 97 97 Oxygen Delivery Fraction of Inspired Oxygen 05/01/25 00:02 05/01/25 00:15 05/01/25 00:19 Temperature Pulse Rate 86 87 87 Respiratory Rate 27 H 27 H 26 H Blood Pressure Pulse Oximetry 97 97 Oxygen Delivery Fraction of Inspired Oxygen 05/01/25 00:19 05/01/25 00:26 05/01/25 00:26 Temperature Pulse Rate 87 84 84 Respiratory Rate 26 H 29 H 29 H Blood Pressure Pulse Oximetry Oxygen Delivery Fraction of Inspired Oxygen 05/01/25 00:30 05/01/25 00:45 05/01/25 01:00 Temperature Pulse Rate 83 78 76 Respiratory Rate 28 H 28 H 24 H Blood Pressure Pulse Oximetry 96 97 97 Oxygen Delivery Fraction of Inspired Oxygen 05/01/25 01:01 05/01/25 01:02 05/01/25 01:15 Temperature Pulse Rate 77 77 77 Respiratory Rate 24 H 26 H 26 H Blood Pressure 121/81 Pulse Oximetry 97 97 97 Oxygen Delivery Fraction of Inspired Oxygen 05/01/25 01:30 05/01/25 01:45 05/01/25 02:00 Temperature Pulse Rate 78 83 90 Respiratory Rate 27 H 27 H 18 Blood Pressure Pulse Oximetry 97 98 Oxygen Delivery Fraction of Inspired Oxygen 05/01/25 02:00 05/01/25 02:00 05/01/25 02:00 Temperature Pulse Rate 90 90 90 Respiratory Rate 18 25 H Blood Pressure Pulse Oximetry 98 Oxygen Delivery Fraction of Inspired Oxygen 05/01/25 02:01 05/01/25 02:15 05/01/25 02:19 Temperature Pulse Rate 91 87 Respiratory Rate 20 30 H Blood Pressure 132/86 Pulse Oximetry 97 98 Oxygen Delivery Fraction of Inspired Oxygen 05/01/25 02:19 05/01/25 02:25 05/01/25 02:25 Temperature Pulse Rate 101 H 88 88 Respiratory Rate 24 H 24 H Blood Pressure Pulse Oximetry 100 Oxygen Delivery Mechanical Ventilation Fraction of Inspired Oxygen 40 05/01/25 02:30 05/01/25 02:40 05/01/25 02:45 Temperature Pulse Rate 103 H 107 H Respiratory Rate 25 H 30 H Blood Pressure Pulse Oximetry 96 92 91 Oxygen Delivery Fraction of Inspired Oxygen 05/01/25 03:00 05/01/25 03:01 05/01/25 03:02 Temperature Pulse Rate 98 97 99 Respiratory Rate 32 H 32 H 30 H Blood Pressure 117/85 Pulse Oximetry 92 93 93 Oxygen Delivery Fraction of Inspired Oxygen 05/01/25 03:15 05/01/25 03:15 05/01/25 03:27 Temperature Pulse Rate 91 95 Respiratory Rate 30 H 50 H Blood Pressure Pulse Oximetry 93 Oxygen Delivery Fraction of Inspired Oxygen 40 05/01/25 03:27 05/01/25 03:28 05/01/25 03:29 Temperature Pulse Rate 95 87 85 Respiratory Rate 50 H 27 H 31 H Blood Pressure Pulse Oximetry Oxygen Delivery Fraction of Inspired Oxygen 05/01/25 03:30 05/01/25 03:38 05/01/25 03:45 Temperature Pulse Rate 87 85 84 Respiratory Rate 27 H 31 H 27 H Blood Pressure Pulse Oximetry 95 93 Oxygen Delivery Fraction of Inspired Oxygen 05/01/25 04:00 05/01/25 04:00 05/01/25 04:00 Temperature Pulse Rate 80 78 Respiratory Rate 27 H Blood Pressure 128/89 Pulse Oximetry 94 Oxygen Delivery Fraction of Inspired Oxygen 40 05/01/25 04:00 05/01/25 04:01 05/01/25 04:15 Temperature Pulse Rate 79 80 77 Respiratory Rate 23 H 27 H 27 H Blood Pressure 128/89 Pulse Oximetry 94 93 94 Oxygen Delivery Fraction of Inspired Oxygen 05/01/25 04:30 05/01/25 04:45 05/01/25 04:45 Temperature Pulse Rate 76 79 Respiratory Rate 23 H 27 H Blood Pressure Pulse Oximetry 94 96 95 Oxygen Delivery Mechanical Ventilation Fraction of Inspired Oxygen 40 05/01/25 04:57 05/01/25 04:57 05/01/25 05:00 Temperature Pulse Rate 80 80 82 Respiratory Rate 26 H 26 H 25 H Blood Pressure 138/89 Pulse Oximetry 97 Oxygen Delivery Fraction of Inspired Oxygen 05/01/25 05:01 05/01/25 05:07 05/01/25 05:15 Temperature 98.6 F Pulse Rate 80 83 Respiratory Rate 27 H 27 H Blood Pressure Pulse Oximetry 97 96 Oxygen Delivery Fraction of Inspired Oxygen 05/01/25 05:30 05/01/25 05:33 05/01/25 05:45 Temperature Pulse Rate 83 82 Respiratory Rate 26 H Blood Pressure Pulse Oximetry 97 97 95 Oxygen Delivery Mechanical Ventilation Fraction of Inspired Oxygen 40 05/01/25 06:00 05/01/25 06:00 05/01/25 06:00 Temperature 98.6 F Pulse Rate 84 84 84 Respiratory Rate 28 H 29 H Blood Pressure 138/92 H 138/92 H Pulse Oximetry 95 95 Oxygen Delivery Fraction of Inspired Oxygen 05/01/25 06:01 05/01/25 06:08 05/01/25 06:08 Temperature Pulse Rate 85 84 84 Respiratory Rate 29 H 25 H 25 H Blood Pressure Pulse Oximetry 95 Oxygen Delivery Fraction of Inspired Oxygen 05/01/25 06:15 05/01/25 06:30 05/01/25 06:36 Temperature Pulse Rate 80 87 84 Respiratory Rate 24 H 29 H 25 H Blood Pressure Pulse Oximetry 96 Oxygen Delivery Fraction of Inspired Oxygen 05/01/25 06:38 05/01/25 06:45 05/01/25 07:00 Temperature Pulse Rate 80 80 78 Respiratory Rate 26 H 26 H 25 H Blood Pressure Pulse Oximetry 97 97 Oxygen Delivery Fraction of Inspired Oxygen 05/01/25 07:00 05/01/25 07:01 05/01/25 07:15 Temperature Pulse Rate 82 82 80 Respiratory Rate 24 H 27 H 26 H Blood Pressure 148/97 H Pulse Oximetry 97 97 Oxygen Delivery Fraction of Inspired Oxygen 05/01/25 08:57 05/01/25 08:57 05/01/25 09:05 Temperature Pulse Rate 87 87 90 Respiratory Rate 21 H 21 H Blood Pressure Pulse Oximetry 96 Oxygen Delivery Mechanical Ventilation Fraction of Inspired Oxygen 35 05/01/25 09:07 Temperature Pulse Rate 90 Respiratory Rate 21 H Blood Pressure Pulse Oximetry Oxygen Delivery Fraction of Inspired Oxygen Intake/Output Intake/Output: Intake & Output 04/28/25 04/29/25 04/30/25 05/01/25 23:59 23:59 23:59 23:59 Intake Total 5027.2 2044.5 4099.9 1417.5 Output Total 2800 1500 1800 1875 Balance 2227.2 544.5 2299.9 -457.5 Meds/Results Medications: Active Medications Generic Name Dose Route Start Last Admin Trade Name Freq PRN Reason Stop Dose Admin Acetaminophen 650 mg 04/29/25 11:11 04/30/25 00:04 Acetaminophen Elixir 325 Mg/10.15 Ml Udc PO 650 mg Q6H PRN Administration Mild Pain (1-3) or Fever Acetylcysteine 200 mg 04/29/25 14:20 05/01/25 09:04 Acetylcysteine 20% Inhal Soln 800 Mg/4 Ml Vial INHALATION 200 mg Q6HRT BRAULIO Administration Albuterol/Ipratropium 3 ml 04/29/25 14:20 05/01/25 09:05 Ipratropium 0.5 Mg/Albuterol Sulfate 2.5 Mg Ampul.Neb 3 Ml INHALATION 3 ml Q6HRT BRAULIO Administration Dornase Lloyd 2.5 mg 05/01/25 08:30 Dornase Lloyd Inh Soln 1 Mg/Ml 2.5 Ml Amp INHALATION 05/04/25 08:29 Q12HRT BRAULIO Enoxaparin Sodium 40 mg 04/28/25 09:00 05/01/25 08:28 Enoxaparin 40 Mg/0.4 Ml Syringe SUB-Q 40 mg DAILY BRAULIO Administration Folic Acid 1 mg 04/29/25 09:00 05/01/25 08:28 Folic Acid 1 Mg/0.2 Ml Inj IV PUSH 1 mg QAM BRAULIO Administration Piperacillin Sod/Tazobactam 100 mls @ 200 mls/hr 04/29/25 12:30 05/01/25 05:01 Sod 4.5 gm/ Sodium Chloride IVPB 200 mls/hr Q6HR BRAULIO Administration Dexmedetomidine HCl 400 mcg in 100 mls @ 33.88 mls/hr 04/29/25 12:15 05/01/25 08:57 Precedex 400 Mcg/100 Ml IV CONT 1.1 mcg/kg/hr .Q2H58M BRAULIO 33.88 mls/hr Protocol Administration 1.1 MCG/KG/HR Propofol 100 mls @ 33.264 mls/hr 04/30/25 00:15 05/01/25 06:38 Diprivan IV CONT 45 mcg/kg/min .Q3H1M BRAULIO 33.26 mls/hr Protocol Administration 45 MCG/KG/MIN Vancomycin HCl 1,500 mg in 500 mls @ 250 mls/hr 04/30/25 21:00 05/01/25 08:28 Vancomycin 1,500 Mg/Ns 500 Ml IVPB 250 mls/hr Q12H BRAULIO Administration Midazolam HCl 2 mg 05/01/25 03:33 05/01/25 08:33 Midazolam Hcl (*Crx) 2 Mg/2 Ml Vial IV PUSH 2 mg Q2H PRN Administration agitation/sedation Multi-Ingred Cream/Lotion/Oil/Oint 1 applic 04/30/25 09:00 05/01/25 08:28 Mineral Oil/White Petrolatum Ointment EACH EYE 1 applic Q12HR BRAULIO Administration Pantoprazole Sodium 40 mg 04/29/25 09:00 05/01/25 08:28 Pantoprazole Sodium Iv 40 Mg Vial IV PUSH 40 mg QAM BRAULIO Administration Sodium Chloride 10 ml 04/28/25 14:00 05/01/25 04:58 Central Line Flush IV PUSH 10 ml Q8HR BRAULIO Administration Sodium Chloride 10 ml 04/28/25 11:06 Central Line Flush IV PUSH PRN PRN with TPN bag changes Sodium Chloride 20 ml 04/28/25 11:06 05/01/25 04:59 Central Line Flush IV PUSH 20 ml PRN PRN Administration after blood draws Thiamine HCl 200 mg 04/29/25 09:00 05/01/25 08:28 Thiamine Hcl 200 Mg/2 Ml Vial IV PUSH 200 mg QAM BRAULIO Administration Radiology Results: ITS Impressions Head CT 04/28/25 08:29 Impression: 1.No acute intracranial abnormality. Labs Labs: Laboratory Results - last 24 hr 04/30/25 04/30/25 05/01/25 12:12 23:49 04:48 WBC 13.0 H RBC 3.88 L Hgb 11.4 L Hct 34.3 L MCV 88.4 MCH 29.4 MCHC 33.2 RDW 13.7 Plt Count 143 L MPV 10.4 Immature Gran % (Auto) 1.0 H Neut % (Auto) 75.9 H Lymph % (Auto) 12.7 L Gates % (Auto) 6.6 Eos % (Auto) 3.5 Baso % (Auto) 0.3 Lymph # (Auto) 1.65 Gates # (Auto) 0.9 H Eos # (Auto) 0.5 H Baso # (Auto) 0.0 Abs Immat Gran (auto) 0.13 H Absolute Neuts (auto) 9.8 H Absolute Nucleated RBC 0.000 Nucleated RBC % 0.0 % Immature Plt Fraction 5.4 Puncture Site ABG pH ABG pCO2 ABG pO2 ABG PO2/FiO2 Ratio ABG HCO3 ABG O2 Saturation ABG O2 Content ABG Base Excess A-a Gradient Oxyhemoglobin Carboxyhemoglobin Methemoglobin Reduced Hemoglobin Total Hemoglobin O2 Delivery Device O2 Liters/Min Minute Volume Vent Rate Vent Mode FiO2 Tidal Volume PEEP Peak Inspir Pressure Pressure Support Sodium 134 L Potassium 3.9 Chloride 105 Carbon Dioxide 25 Anion Gap 4 BUN 8 L Creatinine 0.58 L Estim Creat Clear Calc 189 Estimated GFR > 60 Glucose 140 H POC Capillary Glucose 155 H 164 H Calcium 8.0 L Phosphorus 3.9 Magnesium 2.0 Total Bilirubin 0.9 AST 37 ALT 24 Alkaline Phosphatase 100 Total Protein 6.5 Albumin 3.2 L 05/01/25 05:13 WBC RBC Hgb Hct MCV MCH MCHC RDW Plt Count MPV Immature Gran % (Auto) Neut % (Auto) Lymph % (Auto) Gates % (Auto) Eos % (Auto) Baso % (Auto) Lymph # (Auto) Gates # (Auto) Eos # (Auto) Baso # (Auto) Abs Immat Gran (auto) Absolute Neuts (auto) Absolute Nucleated RBC Nucleated RBC % % Immature Plt Fraction Puncture Site Left radial ABG pH 7.463 H ABG pCO2 33.8 L ABG pO2 70.3 L ABG PO2/FiO2 Ratio 1.76 ABG HCO3 23.7 ABG O2 Saturation 95.1 ABG O2 Content 16.4 ABG Base Excess 0.4 A-a Gradient 176.0 Oxyhemoglobin 93.9 Carboxyhemoglobin 0.8 Methemoglobin 0.0 Reduced Hemoglobin 5.3 H Total Hemoglobin 12.4 O2 Delivery Device Ventilator O2 Liters/Min Not Reportable Minute Volume Not Reportable Vent Rate 18 Vent Mode Cmv FiO2 40 Tidal Volume 450 PEEP 5 Peak Inspir Pressure Not Reportable Pressure Support Not Reportable Sodium Potassium Chloride Carbon Dioxide Anion Gap BUN Creatinine Estim Creat Clear Calc Estimated GFR Glucose POC Capillary Glucose Calcium Phosphorus Magnesium Total Bilirubin AST ALT Alkaline Phosphatase Total Protein Albumin Quality VTE Prophylaxis VTE prophylaxis: pharmacologic ordered
[2025-05-01] MEDS: DORNASE ALFA INH SOLN 1 MG/ML 2.5 ML AMP 2.5 MG INHALATION ×2 (10:25→20:00)
[2025-05-01] MEDS: MIDAZOLAM HCL (*CRX) 2 MG/2 ML VIAL 4 MG IV PUSH (15:10)
--- NOTE | 2025-05-01 15:18 | PC.NURSE ---
Pt. does not tolerate oral care or adjustments to ET tube. Frequently agitated and unable to calm pt during these times, requiring PRN IVP Versed. During 1500 rounds, pt began sitting up in bed and kicking legs up into the air attempting to reach ET tube while on max dose of propofol and high dose precedex. See orders for one time dose of 4 mg Versed IVP to calm patient. Repositioned in bed and no longer thrashing or kicking.
[2025-05-01] MEDS: dexmedeTOMIDine 400 MCG/100 ML 400 MCG/100 ML BAG 40.04 MCG IV CONT (20:47)
[2025-05-01] MEDS: MIDAZOLAM 100MG/NS 100ML(*CRX) 100 MG/100 ML BAG IV CONT (21:11)
[2025-05-01] MEDS: VANCOMYCIN 2,000 MG/NS 500 ML 2,000 MG/500 ML BAG 250 MG IVPB (21:42)
[2025-05-01] MEDS: dexmedeTOMIDine 400 MCG/100 ML 400 MCG/100 ML BAG 46.2 MCG IV CONT (22:51)
[2025-05-02] VITALS (76 sets, daily range): BP systolic 82–140; BP diastolic 62–91; PULSE 77–106; RESP 17–32; TEMP 37.1–39.2; O2SAT 89–98
[2025-05-02] MEDS: PROPOFOL IV EMULSION 100 ML 29.57 MG IV CONT ×3 (00:30→06:47)
[2025-05-02] MEDS: dexmedeTOMIDine 400 MCG/100 ML 400 MCG/100 ML BAG 46.2 MCG IV CONT ×4 (01:37→13:39)
[2025-05-02] MEDS: IPRATROPIUM 0.5 MG/ALBUTEROL SULFATE 2.5 MG AMPUL.NEB 3 ML INHALATION ×4 (01:44→19:50)
[2025-05-02] MEDS: ACETYLCYSTEINE 20% INHAL SOLN 800 MG/4 ML VIAL 200 MG INHALATION ×4 (01:44→19:51)
[2025-05-02] MEDS: MIDAZOLAM HCL (*CRX) 2 MG/2 ML VIAL IV PUSH ×3 (04:18→16:56)
[2025-05-02] MEDS: ONDANSETRON INJ 4 MG/2 ML VIAL IV PUSH (04:55)
[2025-05-02] MEDS: PIPERACILLIN/TAZOBACTAM SOD 4.5 GM in SODIUM CHLORIDE 0.9% IV 100 ML 200 ML IVPB ×4 (05:12→23:12)
[2025-05-02 05:26] LABS: Hematocrit 32.4 % (42.0-52.0); Hemoglobin 11.2 g/dL (14.0-18.0); Immature Granulocyte Percent A 0.9 % (0-0.5); Lymphocytes Absolute Auto 1.57 K/mm3 (0.9-3.2); Mean Corpuscular HGB Conc 34.6 g/dl (32-36); Mean Corpuscular Hemoglobin 30.8 pg (26-34); Mean Corpuscular Volume 89.0 fl (80-100); Nucleated Red Blood Cells Absolute Auto 0.000 K/mm3 (0.0-0.012); Nucleated Red Blood Cells Perc 0.0 % (0.0-0.2); Platelet Count Result 172 k/mm3 (150-375); Red Blood Count 3.64 M/mm3 (4.6-6.20); White Blood Count 8.0 K/mm3 (4.5-10.0)
[2025-05-02] MEDS: CENTRAL LINE FLUSH 10 ML IV PUSH ×3 (05:53→21:37)
[2025-05-02] MEDS: VANCOMYCIN 2,000 MG/NS 500 ML 2,000 MG/500 ML BAG 250 MG IVPB ×2 (05:53→14:27)
[2025-05-02 05:54] LABS: Alanine Aminotransferase 24 U/L (6-50); Albumin Level 2.9 g/dL (3.5-5.1); Alkaline Phosphatase 139 U/L (38-126); Anion Gap 8 mmol/L (4-12); Aspartate Amino Transferase 36 U/L (17-59); Bilirubin,Total 0.6 mg/dL (0.2-1.3); Blood Urea Nitrogen 8 mg/dL (9-20); Calcium 7.4 mg/dL (8.4-10.2); Carbon Dioxide 21 mmol/L (22-30); Chloride 103 mmol/L (98-107); Estimated CRCL calculation 206 ml/min; Estimated Glomerular Filt Rate > 60; Glucose 120 mg/dL (65-110); Magnesium 1.8 mg/dL (1.6-2.3); Potassium 3.6 mmol/L (3.4-5.0); Sodium 132 mmol/L (137-145); Total Protein 5.9 g/dL (6.3-8.2)
[2025-05-02 06:21] LABS: Triglycerides 1806 mg/dL (<150)
[2025-05-02] MEDS: DORNASE ALFA INH SOLN 1 MG/ML 2.5 ML AMP 2.5 MG INHALATION ×2 (07:32→19:44)
[2025-05-02] MEDS: dexmedeTOMIDine 400 MCG/100 ML 400 MCG/100 ML BAG 40.04 MCG IV CONT ×6 (08:29→23:32)
[2025-05-02 08:36] LABS: Lipase < 100 U/L (23-300)
[2025-05-02] MEDS: LACTATED RINGERS 1,000 ML 999 ML IV CONT (08:36)
[2025-05-02] MEDS: CALCIUM GLUC 2,000 MG/NS 100ML 2,000 MG/100 ML BAG 100 MG IVPB (08:38)
[2025-05-02] MEDS: KCL 40 MEQ/WATER 100 ML 100 ML 25 ML IVPB (08:39)
[2025-05-02] MEDS: MAGNESIUM SULF 2 GM/WATER 50ML 2 GM/50 ML BAG IVPB (08:39)
[2025-05-02] MEDS: PANTOPRAZOLE SODIUM IV 40 MG VIAL IV PUSH (08:52)
[2025-05-02] MEDS: FOLIC ACID 1 MG/0.2 ML INJ IV PUSH (08:52)
[2025-05-02] MEDS: THIAMINE HCL 200 MG/2 ML VIAL IV PUSH (08:52)
[2025-05-02] MEDS: ENOXAPARIN 40 MG/0.4 ML SYRINGE SUB-Q (08:56)
[2025-05-02] MEDS: MINERAL OIL/WHITE PETROLATUM OINTMENT 1 APPLIC EACH EYE ×2 (08:56→21:38)
[2025-05-02 09:07] LABS: Triglycerides 386 mg/dL (<150)
[2025-05-02] MEDS: FENTANYL 2,500MCG/NS250ML(*CRX 2,500 MCG/250 ML BAG IV CONT (09:08)
--- NOTE | 2025-05-02 09:45 | ECG_ITS ---
Test Date: 2025-05-02 10:07:18 Measurements Intervals Waterfall Rate: 85 P: 17 NM: 144 QRS: -16 QRSD: 101 T: -9 QT: 380 QTc: 454 Interpretive Statements SINUS RHYTHM T-WAVE ABNORMALITY, CONSIDER ANTERIOR ISCHEMIA ABNORMAL ECG Compared to ECG 04/29/2025 13:50:19 T-wave abnormality now present Sinus tachycardia no longer present Possible ischemia no longer present Electronically Signed On 05-02-2025 11:17:44 CDT by Damian Barboza M.D.
--- NOTE | 2025-05-02 09:45 | WPDINTPN ---
Progress Note: A&P Assessment and Plan (1) Acute drug overdose: Qualifiers: Encounter type: initial encounter Injury intent: intentional self-harm Qualified Code(s): T50.902A - Poisoning by unspecified drugs, medicaments and biological substances, intentional self-harm, initial encounter Code(s): T50.901A - Poisoning by unspecified drugs, medicaments and biological substances, accidental (unintentional), initial encounter Status: Acute Assessment and Plan: Patient intentionally overdosed on hydroxyzine 25 mg x60 pills, baclofen 20 mg x31 pills, trazodone 100 mg x 5 pills -poison control was notified and is following, supportive care for now -hydroxyzine and baclofen can cause hypotension, altered mental status, QT prolongation -trazodone can also cause altered mental status -off IV fluid, good urine output -EKG this morning shows normal QT interval, ischemic changes -04/28: EKG shows some ST changes, I discussed with equipment installer, obtain echocardiogram and troponins x2 were negative -04/29: EKG showed improved QTC -05/02: EKG showed improved QT interval and QTC (2) Acute respiratory failure with hypoxia and hypercapnia: Code(s): J96.01 - Acute respiratory failure with hypoxia; J96.02 - Acute respiratory failure with hypercapnia Status: Acute Assessment and Plan: Patient was intubated and placed on mechanical ventilation due to altered mental status, agitation and combativeness and for airway protection. -chest x-ray and ABGs reviewed, ventilator adjusted -continue CMV mode of ventilation, peep of 5, 70% FiO2 -wean FiO2 to maintain O2 sats > 92% -continue bronchodilators -continues to have thick secretions, continue Mucomyst and Pulmozyme nebs -continue Zosyn and vancomycin (04/29) -sedated with Versed, propofol and Precedex infusion, triglyceride levels were elevated this morning, propofol was discontinued started on fentanyl infusion. -currently on Versed, fentanyl and Precedex infusion -patient continues to have thick secretions, also had episodes zones of emesis overnight, will hold off SBT as if he has more emesis he is at risk off aspiration. (3) Alcohol abuse: Code(s): F10.10 - Alcohol abuse, uncomplicated Status: Acute Assessment and Plan: Patient has a history of alcohol abuse, elevated alcohol levels on admission -will counseling center director on cessation of alcohol abuse once he is extubated and will also ask care coordination to provide alcohol rehab resources -continue thiamine and folic acid -currently sedated Versed, fentanyl and Precedex infusion (4) QT prolongation: Code(s): R94.31 - Abnormal electrocardiogram [ECG] [EKG] Status: Acute Assessment and Plan: QT prolongation likely related to baclofen and hydroxyzine -replace magnesium -continue to monitor EKGs and maintain potassium > 4 and magnesium> 2.0 -QT pr interval and QTC of improved 04/29/2025: Echocardiogram Summary 1. Definity contrast administered improved wall motion interpretation. 2. Left ventricular chamber dimension is normal. 3. Left ventricular systolic function is normal, estimated at 65-70. 4. The left ventricular diastolic function is grade I diastolic dysfunction. 5. E/e' 5 is not elevated. 6. Left atrial chamber dimension is mildly enlarged. (5) Altered mental status: Code(s): R41.82 - Altered mental status, unspecified Status: Acute Assessment and Plan: Altered mental status likely related to multiple drug overdose -patient patient did wake up with sedation vacation and followed simple commands -now he is more agitated and requiring more sedation, this could be related to withdrawal symptoms too (6) Hypotension: Code(s): I95.9 - Hypotension, unspecified Status: Acute Assessment and Plan: Likely related to baclofen and hydroxyzine -adequately fluid-resuscitated -PICC line inserted on 04/28 -off Levophed (7) Suicidal behavior: Code(s): R45.89 - Other symptoms and signs involving emotional state Status: Acute Assessment and Plan: Once patient is extubated, will have crisis management evaluate the patient for placement to a psychiatric unit (8) Electrolyte imbalance: Code(s): E87.8 - Other disorders of electrolyte and fluid balance, not elsewhere classified Status: Acute Assessment and Plan: Replace potassium, magnesium and calcium Plan DVT prophylaxis: Lovenox Stress ulcer prophylaxis: Protonix Nutrition: Will hold tube feeds since patient has had multiple episodes of emesis/projectile vomiting. Will obtain abdominal obstructive series and then start Reglan Code Status: Full code Critical Care Time Spent: 32 minutes Discussed with patient's mother, updated with patient's condition plan of care. She is aware that patient having lots of emesis, not tolerating tube feeds, thick secretions, pneumonia on antibiotics. I answered all her questions Due to a high probability of clinically significant, life threatening deterioration, the patient required my highest level of preparedness to intervene emergently and I personally spent this critical care time directly and personally managing the patient. This critical care time included obtaining a history; examining the patient; pulse oximetry; ordering and review of studies; arranging urgent treatment with development of a management plan; evaluation of patient's response to treatment; frequent reassessment; and discussions with other providers. It was exclusive of separately billable procedures and treating other patients and teaching time. Please see Assessment and Plan section and the rest of the note for further information on patient assessment and treatment This dictation may have been done utilizing a voice recognition system. Attempts have been made to correct errors. However, there may be uncorrected grammatical, spelling, and recognitions errors present. Subjective Date/time seen: 05/02/25 09:45 Interval history: Reason for consult: Intentional polysubstance abuse, suicidal behavior, patient took hydroxyzine 25 mg x60 pills, baclofen 20 mg x31 pills, trazodone 100 mg x 5 pills 05/02/2025: Patient seen and examined the ICU, remains intubated on CMV mode of ventilation, peep of 5, 40% FiO2. Overnight was agitated, requiring IV pushes of Versed and started on Versed infusion. His triglycerides this morning were 1806, repeat was 386, discontinue propofol infusion -now he is on fentanyl, Versed and Precedex infusion Urine output has been adequate, secretions remain thick, afebrile, hemodynamically stable Review of Systems Review of Systems: ROS unobtainable: Yes unobtainable due to endotracheal tube, unobtainable due to medical condition and unobtainable due to mental status Exam Narrative: General: Intubated and sedated, in no acute distress HEENT:? Pupils equal and reactive, sclera is clear, ETT in place Neck:? Supple Respiratory:? Coarse breath sounds bilaterally, rales noted on the right > left. Decreased at bases, no wheezing, adequate air entry Cardiac:? S1-S2 is normal, regular rate and rhythm, Abdomen:? Soft, nontender, nondistended, hypoactive bowel sounds Extremities:? No edema, palpable pedal pulses Neuro:? Patient intubated, sedated, open his eyes, moves all extremities spontaneously but does not follow commands Skin:? No skin lesions noted Psych:? Unable to assess at this time Objective Data Vital Signs Vital Signs: Vital Signs - 24 hr 05/01/25 10:00 05/01/25 10:00 05/01/25 10:00 Temperature Pulse Rate 81 81 78 Respiratory Rate 27 H 25 H Blood Pressure 127/93 H Pulse Oximetry 95 Oxygen Delivery Fraction of Inspired Oxygen 05/01/25 10:00 05/01/25 10:20 05/01/25 10:30 Temperature Pulse Rate 78 90 89 Respiratory Rate 25 H 21 H 21 H Blood Pressure Pulse Oximetry Oxygen Delivery Fraction of Inspired Oxygen 05/01/25 10:36 05/01/25 11:00 05/01/25 11:55 Temperature Pulse Rate 90 79 77 Respiratory Rate 26 H 27 H Blood Pressure 124/86 Pulse Oximetry 96 95 Oxygen Delivery Mechanical Ventilation Fraction of Inspired Oxygen 35 05/01/25 11:55 05/01/25 11:56 05/01/25 11:56 Temperature Pulse Rate 77 77 77 Respiratory Rate 27 H 26 H 26 H Blood Pressure Pulse Oximetry Oxygen Delivery Fraction of Inspired Oxygen 05/01/25 12:00 05/01/25 12:00 05/01/25 12:00 Temperature Pulse Rate 78 85 Respiratory Rate 25 H Blood Pressure Pulse Oximetry 94 Oxygen Delivery Mechanical Ventilation Fraction of Inspired Oxygen 35 35 05/01/25 12:00 05/01/25 12:00 05/01/25 12:00 Temperature Pulse Rate 84 78 79 Respiratory Rate 26 H 23 H 23 H Blood Pressure 145/95 H Pulse Oximetry 94 Oxygen Delivery Fraction of Inspired Oxygen 05/01/25 13:00 05/01/25 14:00 05/01/25 14:00 Temperature Pulse Rate 78 79 79 Respiratory Rate 23 H 25 H 25 H Blood Pressure 119/82 Pulse Oximetry 96 Oxygen Delivery Fraction of Inspired Oxygen 05/01/25 14:00 05/01/25 14:00 05/01/25 14:45 Temperature Pulse Rate 89 79 81 Respiratory Rate 26 H 26 H Blood Pressure 125/88 Pulse Oximetry 97 Oxygen Delivery Fraction of Inspired Oxygen 05/01/25 14:45 05/01/25 14:45 05/01/25 14:48 Temperature Pulse Rate 81 89 80 Respiratory Rate 26 H 28 H 26 H Blood Pressure Pulse Oximetry Oxygen Delivery Fraction of Inspired Oxygen 05/01/25 14:48 05/01/25 14:51 05/01/25 14:53 Temperature Pulse Rate 80 85 86 Respiratory Rate 26 H 28 H Blood Pressure Pulse Oximetry 96 Oxygen Delivery Mechanical Ventilation Fraction of Inspired Oxygen 35 05/01/25 14:54 05/01/25 15:00 05/01/25 16:00 Temperature Pulse Rate 88 103 H 91 Respiratory Rate 22 H 24 H Blood Pressure 110/73 Pulse Oximetry 94 Oxygen Delivery Fraction of Inspired Oxygen 05/01/25 16:00 05/01/25 16:00 05/01/25 16:00 Temperature Pulse Rate 91 88 Respiratory Rate 25 H 28 H Blood Pressure 115/81 Pulse Oximetry 97 96 Oxygen Delivery Mechanical Ventilation Fraction of Inspired Oxygen 35 35 05/01/25 16:00 05/01/25 16:00 05/01/25 17:00 Temperature Pulse Rate 91 92 85 Respiratory Rate 25 H 24 H 25 H Blood Pressure 130/89 Pulse Oximetry 97 Oxygen Delivery Fraction of Inspired Oxygen 05/01/25 17:13 05/01/25 17:13 05/01/25 17:13 Temperature Pulse Rate 88 88 88 Respiratory Rate 29 H 29 H 28 H Blood Pressure Pulse Oximetry Oxygen Delivery Fraction of Inspired Oxygen 05/01/25 17:13 05/01/25 17:50 05/01/25 17:51 Temperature Pulse Rate 88 88 85 Respiratory Rate 28 H Blood Pressure Pulse Oximetry 96 Oxygen Delivery Mechanical Ventilation Fraction of Inspired Oxygen 35 05/01/25 18:00 05/01/25 18:00 05/01/25 18:00 Temperature 99 F Pulse Rate 79 78 78 Respiratory Rate 26 H 26 H 23 H Blood Pressure 132/88 Pulse Oximetry 97 Oxygen Delivery Fraction of Inspired Oxygen 05/01/25 19:39 05/01/25 19:39 05/01/25 19:59 Temperature Pulse Rate 82 82 82 Respiratory Rate 26 H 26 H 25 H Blood Pressure Pulse Oximetry Oxygen Delivery Fraction of Inspired Oxygen 05/01/25 19:59 05/01/25 20:00 05/01/25 20:00 Temperature 98.8 F Pulse Rate 82 82 82 Respiratory Rate 25 H 26 H Blood Pressure 132/90 Pulse Oximetry 97 97 Oxygen Delivery Mechanical Ventilation Fraction of Inspired Oxygen 35 05/01/25 20:00 05/01/25 20:00 05/01/25 20:00 Temperature Pulse Rate 82 82 Respiratory Rate 26 H Blood Pressure Pulse Oximetry Oxygen Delivery Fraction of Inspired Oxygen 35 05/01/25 20:00 05/01/25 20:20 05/01/25 20:30 Temperature Pulse Rate 98 89 95 Respiratory Rate 25 H 26 H Blood Pressure Pulse Oximetry 97 Oxygen Delivery Mechanical Ventilation Fraction of Inspired Oxygen 35 05/01/25 20:47 05/01/25 21:00 05/01/25 21:11 Temperature Pulse Rate 99 98 97 Respiratory Rate 22 H 26 H 31 H Blood Pressure 134/89 Pulse Oximetry 95 Oxygen Delivery Fraction of Inspired Oxygen 05/01/25 21:21 05/01/25 21:30 05/01/25 21:35 Temperature Pulse Rate 98 105 H 99 Respiratory Rate 26 H 32 H 26 H Blood Pressure Pulse Oximetry Oxygen Delivery Fraction of Inspired Oxygen 05/01/25 21:47 05/01/25 21:47 05/01/25 21:49 Temperature Pulse Rate 87 87 86 Respiratory Rate 23 H 23 H 23 H Blood Pressure Pulse Oximetry Oxygen Delivery Fraction of Inspired Oxygen 05/01/25 22:00 05/01/25 22:00 05/01/25 22:00 Temperature Pulse Rate 78 78 78 Respiratory Rate 19 19 19 Blood Pressure Pulse Oximetry Oxygen Delivery Fraction of Inspired Oxygen 05/01/25 22:00 05/01/25 22:00 05/01/25 22:51 Temperature Pulse Rate 79 79 81 Respiratory Rate 20 22 H Blood Pressure 134/86 Pulse Oximetry 97 Oxygen Delivery Fraction of Inspired Oxygen 05/01/25 22:51 05/01/25 22:57 05/01/25 23:00 Temperature Pulse Rate 81 89 88 Respiratory Rate 22 H 25 H 25 H Blood Pressure 140/91 H Pulse Oximetry 97 Oxygen Delivery Fraction of Inspired Oxygen 05/02/25 00:00 05/02/25 00:00 05/02/25 00:00 Temperature Pulse Rate 83 85 Respiratory Rate 25 H Blood Pressure Pulse Oximetry 97 Oxygen Delivery Mechanical Ventilation Fraction of Inspired Oxygen 35 35 05/02/25 00:00 05/02/25 00:00 05/02/25 00:00 Temperature Pulse Rate 85 85 87 Respiratory Rate 25 H 25 H Blood Pressure Pulse Oximetry Oxygen Delivery Fraction of Inspired Oxygen 05/02/25 00:00 05/02/25 00:15 05/02/25 00:30 Temperature 98.8 F Pulse Rate 87 89 85 Respiratory Rate 26 H 25 H Blood Pressure 119/82 Pulse Oximetry 97 97 Oxygen Delivery Mechanical Ventilation Fraction of Inspired Oxygen 35 05/02/25 00:30 05/02/25 01:00 05/02/25 01:37 Temperature Pulse Rate 85 79 78 Respiratory Rate 25 H 26 H 25 H Blood Pressure 139/90 Pulse Oximetry 98 Oxygen Delivery Fraction of Inspired Oxygen 05/02/25 01:37 05/02/25 01:53 05/02/25 01:57 Temperature Pulse Rate 78 88 78 Respiratory Rate 25 H 25 H Blood Pressure Pulse Oximetry 98 Oxygen Delivery Mechanical Ventilation Fraction of Inspired Oxygen 35 05/02/25 02:00 05/02/25 02:00 05/02/25 02:00 Temperature Pulse Rate 88 92 93 Respiratory Rate 25 H 24 H Blood Pressure 136/66 Pulse Oximetry 96 Oxygen Delivery Fraction of Inspired Oxygen 05/02/25 02:00 05/02/25 02:00 05/02/25 02:00 Temperature Pulse Rate 90 90 90 Respiratory Rate 26 H 26 H 26 H Blood Pressure Pulse Oximetry Oxygen Delivery Fraction of Inspired Oxygen 05/02/25 03:00 05/02/25 03:47 05/02/25 03:49 Temperature Pulse Rate 88 85 85 Respiratory Rate 26 H 18 18 Blood Pressure 140/90 Pulse Oximetry 96 Oxygen Delivery Fraction of Inspired Oxygen 05/02/25 03:52 05/02/25 03:52 05/02/25 04:00 Temperature Pulse Rate 85 85 95 Respiratory Rate 26 H 26 H 30 H Blood Pressure Pulse Oximetry Oxygen Delivery Fraction of Inspired Oxygen 05/02/25 04:00 05/02/25 04:00 05/02/25 04:00 Temperature Pulse Rate 90 90 95 Respiratory Rate 18 24 H 32 H Blood Pressure Pulse Oximetry 96 Oxygen Delivery Mechanical Ventilation Fraction of Inspired Oxygen 35 05/02/25 04:00 05/02/25 04:00 05/02/25 04:00 Temperature 98.8 F Pulse Rate 85 85 Respiratory Rate 20 Blood Pressure 119/86 Pulse Oximetry 98 Oxygen Delivery Fraction of Inspired Oxygen 35 05/02/25 04:30 05/02/25 05:00 05/02/25 05:00 Temperature Pulse Rate 82 95 83 Respiratory Rate 32 H 20 Blood Pressure 119/86 Pulse Oximetry 98 97 Oxygen Delivery Mechanical Ventilation Fraction of Inspired Oxygen 35 05/02/25 05:56 05/02/25 05:56 05/02/25 06:00 Temperature Pulse Rate 82 82 83 Respiratory Rate 24 H 25 H 23 H Blood Pressure Pulse Oximetry Oxygen Delivery Fraction of Inspired Oxygen 05/02/25 06:00 05/02/25 06:00 05/02/25 06:00 Temperature Pulse Rate 82 80 80 Respiratory Rate 24 H 24 H Blood Pressure 125/90 Pulse Oximetry 98 Oxygen Delivery Fraction of Inspired Oxygen 05/02/25 06:19 05/02/25 06:47 05/02/25 06:47 Temperature Pulse Rate 80 77 77 Respiratory Rate 22 H 20 20 Blood Pressure Pulse Oximetry Oxygen Delivery Fraction of Inspired Oxygen 05/02/25 07:00 05/02/25 07:20 05/02/25 07:36 Temperature Pulse Rate 84 82 83 Respiratory Rate 24 H 23 H Blood Pressure 125/91 H Pulse Oximetry 98 97 Oxygen Delivery Mechanical Ventilation Fraction of Inspired Oxygen 35 05/02/25 07:45 05/02/25 08:00 05/02/25 08:23 Temperature 98.7 F Pulse Rate 84 94 94 Respiratory Rate 24 H 24 H 24 H Blood Pressure 115/85 Pulse Oximetry 96 Oxygen Delivery Fraction of Inspired Oxygen 05/02/25 08:29 05/02/25 09:08 05/02/25 09:13 Temperature Pulse Rate 94 85 83 Respiratory Rate 24 H 23 H 22 H Blood Pressure Pulse Oximetry Oxygen Delivery Fraction of Inspired Oxygen 05/02/25 09:15 05/02/25 09:16 05/02/25 09:25 Temperature Pulse Rate 81 82 83 Respiratory Rate 24 H 21 H 18 Blood Pressure Pulse Oximetry Oxygen Delivery Fraction of Inspired Oxygen 05/02/25 09:30 05/02/25 09:35 05/02/25 09:40 Temperature Pulse Rate 83 81 82 Respiratory Rate 18 19 18 Blood Pressure Pulse Oximetry Oxygen Delivery Fraction of Inspired Oxygen Intake/Output Intake/Output: Intake & Output 04/29/25 04/30/25 05/01/25 05/02/25 23:59 23:59 23:59 23:59 Intake Total 2044.5 4099.9 3732.2 983.4 Output Total 1500 1800 6575 1900 Balance 544.5 2299.9 -2842.8 -916.6 Meds/Results Medications: Active Medications Generic Name Dose Route Start Last Admin Trade Name Freq PRN Reason Stop Dose Admin Acetaminophen 650 mg 04/29/25 11:11 04/30/25 00:04 Acetaminophen Elixir 325 Mg/10.15 Ml Udc PO 650 mg Q6H PRN Administration Mild Pain (1-3) or Fever Acetylcysteine 200 mg 04/29/25 14:20 05/02/25 07:32 Acetylcysteine 20% Inhal Soln 800 Mg/4 Ml Vial INHALATION 200 mg Q6HRT BRAULIO Administration Albuterol/Ipratropium 3 ml 04/29/25 14:20 05/02/25 07:32 Ipratropium 0.5 Mg/Albuterol Sulfate 2.5 Mg Ampul.Neb 3 Ml INHALATION 3 ml Q6HRT BRAULIO Administration Dornase Lloyd 2.5 mg 05/01/25 08:30 05/02/25 07:32 Dornase Lloyd Inh Soln 1 Mg/Ml 2.5 Ml Amp INHALATION 05/04/25 08:29 2.5 mg Q12HRT BRAULIO Administration Enoxaparin Sodium 40 mg 04/28/25 09:00 05/02/25 08:56 Enoxaparin 40 Mg/0.4 Ml Syringe SUB-Q 40 mg DAILY BRAULIO Administration Folic Acid 1 mg 04/29/25 09:00 05/02/25 08:52 Folic Acid 1 Mg/0.2 Ml Inj IV PUSH 1 mg QAM BRAULIO Administration Piperacillin Sod/Tazobactam 100 mls @ 200 mls/hr 04/29/25 12:30 05/02/25 05:50 Sod 4.5 gm/ Sodium Chloride IVPB Infused Q6HR BRAULIO Infusion Dexmedetomidine HCl 400 mcg in 100 mls @ 40.04 mls/hr 04/29/25 12:15 05/02/25 08:29 Precedex 400 Mcg/100 Ml IV CONT 1.3 mcg/kg/hr .Q2H30M BRAULIO 40.04 mls/hr Protocol Administration 1.3 MCG/KG/HR Propofol 100 mls @ 25.872 mls/hr 04/30/25 00:15 05/02/25 09:40 Diprivan IV CONT 10 mcg/kg/min .Q3H52M BRAULIO 7.39 mls/hr Protocol Titration 35 MCG/KG/MIN Vancomycin HCl 2,000 mg in 500 mls @ 250 mls/hr 05/01/25 22:00 05/02/25 05:53 Vancomycin 2,000 Mg/Ns 500 Ml IVPB 250 mls/hr Q8H BRAULIO Administration Midazolam HCl 100 mg in 100 mls @ 6 mls/hr 05/01/25 21:10 05/02/25 09:15 Versed 100 Mg/Ns 100 Ml IV CONT 6 mg/hr .[id number] BRAULIO 6 mls/hr Protocol Titration 6 MG/HR Potassium Chloride 100 mls @ 25 mls/hr 05/02/25 08:15 05/02/25 08:39 Kcl 40 Meq/Water 100 Ml IVPB 05/02/25 12:14 25 mls/hr ONCE ONE Administration Fentanyl Citrate 2,500 mcg in 250 mls @ 20 mls/hr 05/02/25 09:00 05/02/25 09:16 Fentanyl 2,500 Mcg/Ns 250 Ml IV CONT 200 mcg/hr .[id number] BRAULIO 20 mls/hr Protocol Titration 200 MCG/HR Midazolam HCl 2 mg 05/01/25 03:33 05/02/25 04:18 Midazolam Hcl (*Crx) 2 Mg/2 Ml Vial IV PUSH 2 mg Q2H PRN Administration agitation/sedation Multi-Ingred Cream/Lotion/Oil/Oint 1 applic 04/30/25 09:00 05/02/25 08:56 Mineral Oil/White Petrolatum Ointment EACH EYE 1 applic Q12HR BRAULIO Administration Ondansetron HCl 4 mg 05/02/25 05:00 05/02/25 04:55 Ondansetron Inj 4 Mg/2 Ml Vial IV PUSH 4 mg Q6H PRN Administration Nausea And Vomiting Pantoprazole Sodium 40 mg 04/29/25 09:00 05/02/25 08:52 Pantoprazole Sodium Iv 40 Mg Vial IV PUSH 40 mg QAM BRAULIO Administration Polyethylene Glycol 17 gm 05/02/25 09:00 05/02/25 08:56 Polyethylene Glycol 3350 17 Gm Powd.Pack PO 17 gm QAM BRAULIO Administration Sodium Chloride 10 ml 04/28/25 14:00 05/02/25 05:53 Central Line Flush IV PUSH 10 ml Q8HR BRAULIO Administration Sodium Chloride 10 ml 04/28/25 11:06 Central Line Flush IV PUSH PRN PRN with TPN bag changes Sodium Chloride 20 ml 04/28/25 11:06 05/01/25 04:59 Central Line Flush IV PUSH 20 ml PRN PRN Administration after blood draws Thiamine HCl 200 mg 04/29/25 09:00 05/02/25 08:52 Thiamine Hcl 200 Mg/2 Ml Vial IV PUSH 200 mg QAM BRAULIO Administration Radiology Results: ITS Impressions Head CT 04/28/25 08:29 Impression: 1.No acute intracranial abnormality. Abdomen X-Ray 05/01/25 11:12 Impression: 1. No acute abnormality. Chest X-Ray 05/02/25 08:20 IMPRESSION: 1. Decreased bilateral lung volumes with bilateral hazy opacities with basilar predominance which could represent atelectasis, small bilateral pleural effusions, artifact and body habitus or some combination thereof. 2. More dense retrocardiac consolidation in the left lower lung zone which could represent atelectasis or pneumonia. Labs Labs: Laboratory Results - last 24 hr 05/01/25 05/01/25 05/01/25 12:01 17:48 20:00 WBC RBC Hgb Hct MCV MCH MCHC RDW Plt Count MPV Immature Gran % (Auto) Neut % (Auto) Lymph % (Auto) [place] % (Auto) Eos % (Auto) Baso % (Auto) Lymph # (Auto) [place] # (Auto) Eos # (Auto) Baso # (Auto) Abs Immat Gran (auto) Absolute Neuts (auto) Absolute Nucleated RBC Nucleated RBC % Sodium Potassium Chloride Carbon Dioxide Anion Gap BUN Creatinine Estim Creat Clear Calc Estimated GFR Glucose POC Capillary Glucose 146 H 131 H Calcium Phosphorus Magnesium Total Bilirubin AST ALT Alkaline Phosphatase Total Protein Albumin Triglycerides Lipase Vancomycin Trough 6.6 L 05/01/25 05/02/25 05/02/25 23:53 05:18 05:18 WBC 8.0 RBC 3.64 L Hgb 11.2 L Hct 32.4 L MCV 89.0 MCH 30.8 MCHC 34.6 RDW 13.8 Plt Count 172 MPV 10.6 H Immature Gran % (Auto) 0.9 H Neut % (Auto) 64.9 Lymph % (Auto) 19.6 [place] % (Auto) 8.1 Eos % (Auto) 6.0 H Baso % (Auto) 0.5 Lymph # (Auto) 1.57 [place] # (Auto) 0.7 H Eos # (Auto) 0.5 H Baso # (Auto) 0.0 Abs Immat Gran (auto) 0.07 H Absolute Neuts (auto) 5.2 Absolute Nucleated RBC 0.000 Nucleated RBC % 0.0 Sodium 132 L Potassium 3.6 Chloride 103 Carbon Dioxide 21 L Anion Gap 8 BUN 8 L Creatinine 0.52 L Estim Creat Clear Calc 206 Estimated GFR > 60 Glucose 120 H POC Capillary Glucose 128 H Calcium 7.4 L Phosphorus 4.7 H Magnesium 1.8 Total Bilirubin 0.6 AST 36 ALT 24 Alkaline Phosphatase 139 H Total Protein 5.9 L Albumin 2.9 L Triglycerides 1806 H Cancelled Lipase < 100 Vancomycin Trough 05/02/25 08:30 WBC RBC Hgb Hct MCV MCH MCHC RDW Plt Count MPV Immature Gran % (Auto) Neut % (Auto) Lymph % (Auto) [place] % (Auto) Eos % (Auto) Baso % (Auto) Lymph # (Auto) [place] # (Auto) Eos # (Auto) Baso # (Auto) Abs Immat Gran (auto) Absolute Neuts (auto) Absolute Nucleated RBC Nucleated RBC % Sodium Potassium Chloride Carbon Dioxide Anion Gap BUN Creatinine Estim Creat Clear Calc Estimated GFR Glucose POC Capillary Glucose Calcium Phosphorus Magnesium Total Bilirubin AST ALT Alkaline Phosphatase Total Protein Albumin Triglycerides 386 H Lipase Vancomycin Trough Quality VTE Prophylaxis VTE prophylaxis: pharmacologic ordered
--- NOTE | 2025-05-02 11:15 | PCFNICU ---
ICU Rounding Note: Pt current nutrition is Vital AF 1.2 at 65ml/hr. Last recorded weight is 119.5 kg, down from 121.5 kg on admit. Bowel Motility: smear reported 05/01 Labs Reviewed:Glu 120, BUN 8, Alb 2.9, Na 132, TG 386 Meds Noted: Reglan, Zofran,Versed, Fentanyl, Precedex, Miralax Skin: WNL Additional Notes:Patient remains on mechanical vent. Tube feedings on hold 2/2 to emesis. Reglan to start today. When advancing tube feedings recommend Vital AF 1.2 goal rate at 65 ml/hr. Flush 30 ml q 4 hours. Following daily in ICU rounds. Will monitor weight, labs, skin, diet orders, meds every Friday and Friday.
[2025-05-02] MEDS: METOCLOPRAMIDE HCL INJ 10 MG/2 ML VIAL IV PUSH ×2 (11:27→16:57)
[2025-05-02] MEDS: MIDAZOLAM 100MG/NS 100ML(*CRX) 100 MG/100 ML BAG 10 MG IV CONT ×2 (14:26→23:06)
[2025-05-02] MEDS: ACETAMINOPHEN ELIXIR 325 MG/10.15 ML UDC 650 MG PO (21:09)
[2025-05-02] MEDS: FENTANYL 2,500MCG/NS250ML(*CRX 2,500 MCG/250 ML BAG 20 MCG IV CONT (21:18)
[2025-05-03] VITALS (56 sets, daily range): BP systolic 106–124; BP diastolic 74–86; PULSE 77–99; RESP 16–20; TEMP 36.9–37.8; O2SAT 90–98
[2025-05-03] MEDS: IPRATROPIUM 0.5 MG/ALBUTEROL SULFATE 2.5 MG AMPUL.NEB 3 ML INHALATION ×4 (01:38→20:08)
[2025-05-03] MEDS: ACETYLCYSTEINE 20% INHAL SOLN 800 MG/4 ML VIAL 200 MG INHALATION ×2 (01:39→07:54)
[2025-05-03] MEDS: dexmedeTOMIDine 400 MCG/100 ML 400 MCG/100 ML BAG 40.04 MCG IV CONT ×9 (02:01→22:28)
[2025-05-03 04:39] LABS: Hematocrit 35.0 % (42.0-52.0); Hemoglobin 11.2 g/dL (14.0-18.0); Immature Granulocyte Percent A 2.7 % (0-0.5); Lymphocytes Absolute Auto 1.90 K/mm3 (0.9-3.2); Mean Corpuscular HGB Conc 32.0 g/dl (32-36); Mean Corpuscular Hemoglobin 29.7 pg (26-34); Mean Corpuscular Volume 92.8 fl (80-100); Nucleated Red Blood Cells Absolute Auto 0.000 K/mm3 (0.0-0.012); Nucleated Red Blood Cells Perc 0.0 % (0.0-0.2); Platelet Count Result 179 k/mm3 (150-375); Red Blood Count 3.77 M/mm3 (4.6-6.20); White Blood Count 9.1 K/mm3 (4.5-10.0)
[2025-05-03 04:57] LABS: Alveolar/Arterial O2 Gradient 241.3 mmHg; Carboxyhemoglobin 0.8 % THb (0-2.0); Fractional Inspired Oxygen 50 %; HCO3 ABG 22.5 mEq/l (22.0-26.0); Methemoglobin ABG 0.1 %THb (0-1.5); Oxygen Content ABG 15.8 %vol (16.0-22.0); Oxygen Saturation ABG 91.6 % (95.0-100.0); PCO2 ABG 43.9 mmHg (35.0-45.0); PO2 ABG 65.8 mmHg (80.0-100.0); PO2 FiO2 Ratio Arterial Blood 1.32 %; Reduced Hemoglobin 8.7 %THb (0-5.0)
[2025-05-03 05:00] LABS: Modified Allen's Test Pass; Site Drawn RIGHT RADIAL
[2025-05-03 05:01] LABS: Arterial Blood Gas Tidal Volume 450 ml; Arterial Blood Gas Ventilator rate 18 /MIN
[2025-05-03 05:06] LABS: Alanine Aminotransferase 30 U/L (6-50); Albumin Level 3.3 g/dL (3.5-5.1); Alkaline Phosphatase 153 U/L (38-126); Anion Gap 9 mmol/L (4-12); Aspartate Amino Transferase 44 U/L (17-59); Bilirubin,Total 1.2 mg/dL (0.2-1.3); Blood Urea Nitrogen 26 mg/dL (9-20); Calcium 8.7 mg/dL (8.4-10.2); Carbon Dioxide 23 mmol/L (22-30); Chloride 105 mmol/L (98-107); Estimated CRCL calculation 57 ml/min; Estimated Glomerular Filt Rate 35; Glucose 120 mg/dL (65-110); Magnesium 2.4 mg/dL (1.6-2.3); Potassium 4.3 mmol/L (3.4-5.0); Sodium 137 mmol/L (137-145); Total Protein 6.8 g/dL (6.3-8.2); Triglycerides 392 mg/dL (<150)
[2025-05-03] MEDS: CENTRAL LINE FLUSH 10 ML IV PUSH ×3 (05:24→19:33)
[2025-05-03] MEDS: PIPERACILLIN/TAZOBACTAM SOD 4.5 GM in SODIUM CHLORIDE 0.9% IV 100 ML 200 ML IVPB ×2 (05:24→12:18)
[2025-05-03 08:27] LABS: Creatine Kinase 543 U/L (55-170)
[2025-05-03] MEDS: LACTATED RINGERS 1,000 ML 999 ML IV CONT (08:33)
[2025-05-03] MEDS: THIAMINE HCL 200 MG/2 ML VIAL IV PUSH (08:34)
[2025-05-03] MEDS: PANTOPRAZOLE SODIUM IV 40 MG VIAL IV PUSH (08:34)
[2025-05-03] MEDS: FOLIC ACID 1 MG/0.2 ML INJ IV PUSH (08:34)
[2025-05-03] MEDS: MINERAL OIL/WHITE PETROLATUM OINTMENT 1 APPLIC EACH EYE ×2 (08:34→19:33)
[2025-05-03] MEDS: ENOXAPARIN 40 MG/0.4 ML SYRINGE SUB-Q (08:34)
[2025-05-03] MEDS: SODIUM CHLORIDE 0.9% IV 1,000 ML 100 ML IV CONT (08:34)
--- NOTE | 2025-05-03 08:37 | WPDINTPN ---
Progress Note: A&P Assessment and Plan (1) Acute respiratory failure with hypoxia and hypercapnia: Code(s): J96.01 - Acute respiratory failure with hypoxia; J96.02 - Acute respiratory failure with hypercapnia Status: Acute Assessment and Plan: Patient was intubated and placed on mechanical ventilation due to altered mental status, agitation and combativeness and for airway protection. He has developed aspiration pneumonia Chest x-ray and ABGs reviewed, ventilator adjusted Continue CMV mode of ventilation, I will increase PEEP to 10. Wean FiO2 -wean FiO2 to maintain O2 sats > 92% -continue bronchodilators Continue Zosyn but I will discontinue vancomycin since MRSA screen was negative and this is likely an aspiration pneumonia. Patient also has worsening of creatinine Currently sedated with Versed, fentanyl and Precedex infusion, triglyceride levels were elevated hence propofol was discontinued (2) Acute drug overdose: Qualifiers: Encounter type: initial encounter Injury intent: intentional self-harm Qualified Code(s): T50.902A - Poisoning by unspecified drugs, medicaments and biological substances, intentional self-harm, initial encounter Code(s): T50.901A - Poisoning by unspecified drugs, medicaments and biological substances, accidental (unintentional), initial encounter Status: Acute Assessment and Plan: Patient intentionally overdosed on hydroxyzine 25 mg x60 pills, baclofen 20 mg x31 pills, trazodone 100 mg x 5 pills -poison control was notified and is following, supportive care for now -hydroxyzine and baclofen can cause hypotension, altered mental status, QT prolongation -trazodone can also cause altered mental status -EKG this morning shows normal QT interval, but T-wave abnormalities -04/28: EKG shows some ST changes, I discussed with superintendent terminal, obtain echocardiogram and troponins x2 were negative -04/29: EKG showed improved QTC -05/02: EKG showed improved QT interval and QTC Continue supportive care (3) Alcohol abuse: Code(s): F10.10 - Alcohol abuse, uncomplicated Status: Acute Assessment and Plan: Patient has a history of alcohol abuse, elevated alcohol levels on admission -will student financial services counselor on cessation of alcohol abuse once he is extubated and will also ask care coordination to provide alcohol rehab resources -continue thiamine and folic acid -currently sedated Versed, fentanyl and Precedex infusion (4) QT prolongation: Code(s): R94.31 - Abnormal electrocardiogram [ECG] [EKG] Status: Acute Assessment and Plan: QT prolongation likely related to baclofen and hydroxyzine Patient was given magnesium QT prolongation has resolved monitor Echo reviewed (5) Altered mental status: Code(s): R41.82 - Altered mental status, unspecified Status: Acute Assessment and Plan: Altered mental status likely related to multiple drug overdose -patient patient did wake up with sedation vacation and followed simple commands -now he is more agitated and requiring more sedation, this could be related to withdrawal symptoms too (6) Hypotension: Code(s): I95.9 - Hypotension, unspecified Status: Acute Assessment and Plan: Likely related to baclofen and hydroxyzine -adequately fluid-resuscitated -PICC line inserted on 04/28 -off Levophed at this time (7) Suicidal behavior: Code(s): R45.89 - Other symptoms and signs involving emotional state Status: Acute Assessment and Plan: Once patient is extubated, will have crisis management evaluate the patient for placement to a psychiatric unit (8) Electrolyte imbalance: Code(s): E87.8 - Other disorders of electrolyte and fluid balance, not elsewhere classified Status: Acute Assessment and Plan: Replace potassium, magnesium and calcium (9) SHANTEL (acute kidney injury): Code(s): N17.9 - Acute kidney failure, unspecified Status: Acute Assessment and Plan: Patient had increase in creatinine to 2.05. Etiology likely medically factorial. Patient did had episode of hypotension. Patient also was on vancomycin Will give 1 L IV fluid bolus and additional L IV fluids. Patient is also going for CT abdomen pelvis to rule out any obstruction Check CK electrolytes Monitor urine output electrolytes and creatinine If kidney function does not improve will consult nephrology. Discontinue vancomycin (10) Bowel obstruction: Code(s): K56.609 - Unspecified intestinal obstruction, unspecified as to partial versus complete obstruction Status: Acute Assessment and Plan: Patient had couple of episodes of vomiting. Patient has OG to suction. KUB suggests bowel obstruction. Will obtain CT scan of abdomen pelvis to further evaluate. NPO at this time Plan DVT prophylaxis: Lovenox Stress ulcer prophylaxis: Protonix Nutrition: Will hold tube feeds since patient has had multiple episodes of emesis/projectile vomiting. Obtain CT scan Code Status: Full code Critical Care Time Spent: 30 minutes Due to a high probability of clinically significant, life threatening deterioration, the patient required my highest level of preparedness to intervene emergently and I personally spent this critical care time directly and personally managing the patient. This critical care time included obtaining a history; examining the patient; pulse oximetry; ordering and review of studies; arranging urgent treatment with development of a management plan; evaluation of patient's response to treatment; frequent reassessment; and discussions with other providers. It was exclusive of separately billable procedures and treating other patients and teaching time. Please see Assessment and Plan section and the rest of the note for further information on patient assessment and treatment This dictation may have been done utilizing a voice recognition system. Attempts have been made to correct errors. However, there may be uncorrected grammatical, spelling, and recognitions errors present. Subjective Date/time seen: 05/03/25 Overnight events reviewed. Patient had fever. Psych good urine output. And p.o. care per day heavily sedated on fentanyl of 200 Versed of 10 hand Precedex 1.3 Continues to be on mechanical ventilation with FiO2 50% and peep of 8 Good urine output Interval history: Reason for consult: Intentional polysubstance abuse, suicidal behavior, patient took hydroxyzine 25 mg x60 pills, baclofen 20 mg x31 pills, trazodone 100 mg x 5 pills Review of Systems Review of Systems: ROS unobtainable: Yes unobtainable due to endotracheal tube, unobtainable due to medical condition and unobtainable due to mental status Exam Narrative: General: Intubated and sedated, in no acute distress HEENT:? Pupils equal and reactive, sclera is clear, ETT in place Neck:? Supple Respiratory:? Coarse breath sounds bilaterally, rales noted on the right > left. Decreased at bases, no wheezing, adequate air entry Cardiac:? S1-S2 is normal, regular rate and rhythm, Abdomen:? Soft, nontender, nondistended, hypoactive bowel sounds Extremities:? No edema, palpable pedal pulses Neuro:? Patient intubated, sedated, open his eyes, moves all extremities spontaneously but does not follow commands Skin:? No skin lesions noted Psych:? Unable to assess at this time Objective Data Vital Signs Vital Signs: Vital Signs - 24 hr 05/02/25 09:00 05/02/25 09:00 05/02/25 09:08 Temperature Pulse Rate 87 89 85 Respiratory Rate 18 21 H 23 H Blood Pressure 114/82 Pulse Oximetry 95 95 Oxygen Delivery Fraction of Inspired Oxygen 05/02/25 09:13 05/02/25 09:15 05/02/25 09:16 Temperature Pulse Rate 83 81 82 Respiratory Rate 22 H 24 H 21 H Blood Pressure Pulse Oximetry Oxygen Delivery Fraction of Inspired Oxygen 05/02/25 09:25 05/02/25 09:30 05/02/25 09:30 Temperature Pulse Rate 83 83 82 Respiratory Rate 18 18 24 H Blood Pressure Pulse Oximetry Oxygen Delivery Fraction of Inspired Oxygen 05/02/25 09:35 05/02/25 09:40 05/02/25 09:45 Temperature Pulse Rate 81 82 83 Respiratory Rate 19 18 18 Blood Pressure Pulse Oximetry Oxygen Delivery Fraction of Inspired Oxygen 05/02/25 09:45 05/02/25 09:45 05/02/25 09:52 Temperature Pulse Rate 83 87 89 Respiratory Rate 18 18 19 Blood Pressure Pulse Oximetry Oxygen Delivery Fraction of Inspired Oxygen 05/02/25 09:53 05/02/25 10:00 05/02/25 10:00 Temperature Pulse Rate 88 85 88 Respiratory Rate 22 H Blood Pressure 114/82 Pulse Oximetry 97 Oxygen Delivery Fraction of Inspired Oxygen 05/02/25 10:00 05/02/25 10:00 05/02/25 10:00 Temperature Pulse Rate 87 87 87 Respiratory Rate 19 19 24 H Blood Pressure Pulse Oximetry Oxygen Delivery Fraction of Inspired Oxygen 05/02/25 10:00 05/02/25 10:44 05/02/25 11:00 Temperature Pulse Rate 87 87 94 Respiratory Rate 18 25 H Blood Pressure 114/82 Pulse Oximetry 95 97 Oxygen Delivery Mechanical Ventilation Fraction of Inspired Oxygen 05/02/25 11:10 05/02/25 11:25 05/02/25 11:26 Temperature Pulse Rate 88 87 87 Respiratory Rate 20 18 18 Blood Pressure Pulse Oximetry Oxygen Delivery Fraction of Inspired Oxygen 05/02/25 11:36 05/02/25 11:43 05/02/25 11:43 Temperature Pulse Rate 94 90 91 Respiratory Rate 25 H 22 H 22 H Blood Pressure Pulse Oximetry Oxygen Delivery Fraction of Inspired Oxygen 05/02/25 12:00 05/02/25 12:00 05/02/25 12:00 Temperature Pulse Rate 87 87 Respiratory Rate 18 Blood Pressure 91/62 L Pulse Oximetry 94 97 Oxygen Delivery Mechanical Ventilation Fraction of Inspired Oxygen 35 05/02/25 12:00 05/02/25 12:00 05/02/25 12:00 Temperature Pulse Rate 88 88 Respiratory Rate 18 18 Blood Pressure Pulse Oximetry Oxygen Delivery Fraction of Inspired Oxygen 35 05/02/25 12:00 05/02/25 13:00 05/02/25 13:39 Temperature Pulse Rate 88 87 89 Respiratory Rate 18 18 22 H Blood Pressure 97/74 L Pulse Oximetry 97 Oxygen Delivery Fraction of Inspired Oxygen 05/02/25 13:39 05/02/25 14:00 05/02/25 14:00 Temperature Pulse Rate 89 96 95 Respiratory Rate 22 H 18 Blood Pressure 90/65 L Pulse Oximetry 91 Oxygen Delivery Fraction of Inspired Oxygen 05/02/25 14:00 05/02/25 14:00 05/02/25 14:00 Temperature Pulse Rate 89 89 89 Respiratory Rate 18 18 18 Blood Pressure Pulse Oximetry Oxygen Delivery Fraction of Inspired Oxygen 05/02/25 14:21 05/02/25 14:24 05/02/25 14:26 Temperature Pulse Rate 88 89 90 Respiratory Rate 18 18 Blood Pressure Pulse Oximetry Oxygen Delivery Mechanical Ventilation Fraction of Inspired Oxygen 35 05/02/25 14:26 05/02/25 15:00 05/02/25 16:00 Temperature Pulse Rate 90 97 95 Respiratory Rate 18 18 17 Blood Pressure 82/62 L Pulse Oximetry 90 Oxygen Delivery Fraction of Inspired Oxygen 05/02/25 16:00 05/02/25 16:00 05/02/25 16:00 Temperature 38.2 C H Pulse Rate 95 95 86 Respiratory Rate 17 18 18 Blood Pressure 102/68 Pulse Oximetry 91 Oxygen Delivery Fraction of Inspired Oxygen 05/02/25 16:00 05/02/25 16:00 05/02/25 16:00 Temperature Pulse Rate 95 95 Respiratory Rate 18 Blood Pressure Pulse Oximetry 95 Oxygen Delivery Mechanical Ventilation Fraction of Inspired Oxygen 50 35 05/02/25 16:01 05/02/25 16:49 05/02/25 17:00 Temperature Pulse Rate 93 98 95 Respiratory Rate 18 18 Blood Pressure 93/64 L Pulse Oximetry 91 Oxygen Delivery Mechanical Ventilation Fraction of Inspired Oxygen 50 05/02/25 18:00 05/02/25 18:00 05/02/25 18:00 Temperature Pulse Rate 92 91 91 Respiratory Rate 18 18 18 Blood Pressure Pulse Oximetry Oxygen Delivery Fraction of Inspired Oxygen 05/02/25 18:00 05/02/25 18:00 05/02/25 18:40 Temperature Pulse Rate 92 91 91 Respiratory Rate 18 18 Blood Pressure 91/69 L Pulse Oximetry 91 Oxygen Delivery Fraction of Inspired Oxygen 05/02/25 18:40 05/02/25 19:44 05/02/25 19:47 Temperature Pulse Rate 91 91 91 Respiratory Rate 18 19 Blood Pressure Pulse Oximetry 92 Oxygen Delivery Mechanical Ventilation Fraction of Inspired Oxygen 50 05/02/25 19:51 05/02/25 20:00 05/02/25 20:00 Temperature Pulse Rate 94 106 H 104 H Respiratory Rate 21 H 18 18 Blood Pressure Pulse Oximetry Oxygen Delivery Fraction of Inspired Oxygen 05/02/25 20:00 05/02/25 20:00 05/02/25 20:00 Temperature 38.8 C H Pulse Rate 104 H 101 H 103 H Respiratory Rate 18 19 Blood Pressure 94/68 L Pulse Oximetry 89 L 89 L Oxygen Delivery Mechanical Ventilation Fraction of Inspired Oxygen 50 05/02/25 20:00 05/02/25 20:00 05/02/25 21:00 Temperature 38.8 C H Pulse Rate 101 H 101 H Respiratory Rate 19 Blood Pressure 94/68 L Pulse Oximetry 89 L Oxygen Delivery Fraction of Inspired Oxygen 50 05/02/25 21:03 05/02/25 21:09 05/02/25 21:18 Temperature 38.8 C H Pulse Rate 106 H 104 H Respiratory Rate 18 18 Blood Pressure Pulse Oximetry Oxygen Delivery Fraction of Inspired Oxygen 05/02/25 21:18 05/02/25 21:23 05/02/25 22:00 Temperature Pulse Rate 104 H 103 H 98 Respiratory Rate 18 18 18 Blood Pressure Pulse Oximetry Oxygen Delivery Fraction of Inspired Oxygen 05/02/25 22:00 05/02/25 22:00 05/02/25 22:00 Temperature Pulse Rate 98 98 98 Respiratory Rate 18 18 Blood Pressure Pulse Oximetry Oxygen Delivery Fraction of Inspired Oxygen 05/02/25 22:00 05/02/25 22:05 05/02/25 22:47 Temperature 39.2 C H Pulse Rate 94 99 Respiratory Rate 18 Blood Pressure 113/77 Pulse Oximetry 93 90 Oxygen Delivery Mechanical Ventilation Fraction of Inspired Oxygen 50 05/02/25 23:00 05/02/25 23:06 05/02/25 23:06 Temperature Pulse Rate 90 92 92 Respiratory Rate 18 18 18 Blood Pressure 110/72 Pulse Oximetry 96 Oxygen Delivery Fraction of Inspired Oxygen 05/02/25 23:32 05/02/25 23:32 05/02/25 23:46 Temperature Pulse Rate 93 93 99 Respiratory Rate 18 18 20 Blood Pressure Pulse Oximetry Oxygen Delivery Fraction of Inspired Oxygen 05/03/25 00:00 05/03/25 00:00 05/03/25 00:00 Temperature Pulse Rate 99 88 Respiratory Rate 20 Blood Pressure Pulse Oximetry 96 Oxygen Delivery Mechanical Ventilation Fraction of Inspired Oxygen 50 50 05/03/25 00:00 05/03/25 00:00 05/03/25 00:00 Temperature Pulse Rate 88 85 82 Respiratory Rate 18 18 18 Blood Pressure 113/77 Pulse Oximetry 94 Oxygen Delivery Fraction of Inspired Oxygen 05/03/25 00:00 05/03/25 01:00 05/03/25 01:40 Temperature Pulse Rate 82 82 80 Respiratory Rate 18 18 18 Blood Pressure 114/76 Pulse Oximetry 94 Oxygen Delivery Fraction of Inspired Oxygen 05/03/25 01:42 05/03/25 02:00 05/03/25 02:00 Temperature 37.2 C Pulse Rate 80 89 89 Respiratory Rate 18 Blood Pressure 109/74 Pulse Oximetry 93 93 Oxygen Delivery Mechanical Ventilation Fraction of Inspired Oxygen 50 05/03/25 02:01 05/03/25 02:01 05/03/25 02:10 Temperature Pulse Rate 87 87 89 Respiratory Rate 18 18 18 Blood Pressure Pulse Oximetry Oxygen Delivery Fraction of Inspired Oxygen 05/03/25 02:10 05/03/25 03:00 05/03/25 04:00 Temperature Pulse Rate 89 81 88 Respiratory Rate 18 18 18 Blood Pressure 115/78 Pulse Oximetry 93 Oxygen Delivery Fraction of Inspired Oxygen 05/03/25 04:00 05/03/25 04:00 05/03/25 04:00 Temperature Pulse Rate 85 85 83 Respiratory Rate 18 18 18 Blood Pressure Pulse Oximetry 90 Oxygen Delivery Mechanical Ventilation Fraction of Inspired Oxygen 50 05/03/25 04:00 05/03/25 04:00 05/03/25 04:00 Temperature 37.1 C Pulse Rate 94 94 Respiratory Rate 18 Blood Pressure 118/81 Pulse Oximetry 90 Oxygen Delivery Fraction of Inspired Oxygen 50 05/03/25 04:31 05/03/25 04:38 05/03/25 05:00 Temperature Pulse Rate 85 85 82 Respiratory Rate 18 18 18 Blood Pressure 107/76 Pulse Oximetry 91 Oxygen Delivery Fraction of Inspired Oxygen 05/03/25 05:02 05/03/25 06:00 05/03/25 06:00 Temperature Pulse Rate 83 80 80 Respiratory Rate 18 18 Blood Pressure Pulse Oximetry 90 Oxygen Delivery Mechanical Ventilation Fraction of Inspired Oxygen 50 05/03/25 06:00 05/03/25 06:00 05/03/25 06:00 Temperature Pulse Rate 80 77 77 Respiratory Rate 18 18 Blood Pressure 109/74 Pulse Oximetry 91 Oxygen Delivery Fraction of Inspired Oxygen 05/03/25 06:59 05/03/25 06:59 05/03/25 08:00 Temperature Pulse Rate 83 83 93 Respiratory Rate 18 18 18 Blood Pressure Pulse Oximetry Oxygen Delivery Fraction of Inspired Oxygen 05/03/25 08:00 05/03/25 08:00 Temperature Pulse Rate 93 93 Respiratory Rate 18 18 Blood Pressure Pulse Oximetry Oxygen Delivery Fraction of Inspired Oxygen Intake/Output Intake/Output: Intake & Output 04/30/25 05/01/25 05/02/25 05/03/25 23:59 23:59 23:59 23:59 Intake Total 4099.9 3732.2 3247.9 587.9 Output Total 1800 6575 4300 1050 Balance 2299.9 -2842.8 -1052.1 -462.1 Meds/Results Medications: Active Medications Generic Name Dose Route Start Last Admin Trade Name Freq PRN Reason Stop Dose Admin Acetaminophen 650 mg 04/29/25 11:11 05/02/25 21:09 Acetaminophen Elixir 325 Mg/10.15 Ml Udc PO 650 mg Q6H PRN Administration Mild Pain (1-3) or Fever Albuterol/Ipratropium 3 ml 04/29/25 14:20 05/03/25 07:55 Ipratropium 0.5 Mg/Albuterol Sulfate 2.5 Mg Ampul.Neb 3 Ml INHALATION 3 ml Q6HRT BRAULIO Administration Enoxaparin Sodium 40 mg 04/28/25 09:00 05/02/25 08:56 Enoxaparin 40 Mg/0.4 Ml Syringe SUB-Q 40 mg DAILY BRAULIO Administration Folic Acid 1 mg 04/29/25 09:00 05/02/25 08:52 Folic Acid 1 Mg/0.2 Ml Inj IV PUSH 1 mg QAM BRAULIO Administration Piperacillin Sod/Tazobactam 100 mls @ 200 mls/hr 04/29/25 12:30 05/03/25 05:24 Sod 4.5 gm/ Sodium Chloride IVPB 200 mls/hr Q6HR BRAULIO Administration Dexmedetomidine HCl 400 mcg in 100 mls @ 40.04 mls/hr 04/29/25 12:15 05/03/25 08:00 Precedex 400 Mcg/100 Ml IV CONT 1.3 mcg/kg/hr .Q2H30M BRAULIO 40.04 mls/hr Protocol Titration 1.3 MCG/KG/HR Midazolam HCl 100 mg in 100 mls @ 10 mls/hr 05/01/25 21:10 05/03/25 08:00 Versed 100 Mg/Ns 100 Ml IV CONT 10 mg/hr .Q10H BRAULIO 10 mls/hr Protocol Titration 10 MG/HR Fentanyl Citrate 2,500 mcg in 250 mls @ 20 mls/hr 05/02/25 09:00 05/03/25 08:00 Fentanyl 2,500 Mcg/Ns 250 Ml IV CONT 200 mcg/hr .[id number] BRAULIO 20 mls/hr Protocol Titration 200 MCG/HR Norepinephrine Bitartrate 8 mg in 250 mls @ 9.375 mls/hr 05/02/25 15:55 05/03/25 07:50 Levophed 8 Mg/D5w 250 Ml IV CONT Not Given On Hold: 05/03/25 07:50 .Q24H BRAULIO Protocol 5 MCG/MIN Lactated Ringer's 1,000 mls @ 999 mls/hr 05/03/25 08:08 Lr - Lactated Ringers Iv IV CONT 05/03/25 09:08 .Q1H1M STA Sodium Chloride 1,000 mls @ 100 mls/hr 05/03/25 08:10 Normal Saline Iv IV CONT 05/03/25 18:09 .Q10H BRAULIO Midazolam HCl 2 mg 05/01/25 03:33 05/02/25 16:56 Midazolam Hcl (*Crx) 2 Mg/2 Ml Vial IV PUSH 2 mg Q2H PRN Administration agitation/sedation Miscellaneous Information 1 each 05/03/25 06:40 05/03/25 06:58 Please Renew Precedex. Per [employer] Procedure, It Will Discontinue If Not Renewed XX 06/02/25 06:39 1 each CLARIFY BRAULIO Administration Multi-Ingred Cream/Lotion/Oil/Oint 1 applic 04/30/25 09:00 05/02/25 21:38 Mineral Oil/White Petrolatum Ointment EACH EYE 1 applic Q12HR BRAULIO Administration Ondansetron HCl 4 mg 05/02/25 05:00 05/02/25 04:55 Ondansetron Inj 4 Mg/2 Ml Vial IV PUSH 4 mg Q6H PRN Administration Nausea And Vomiting Pantoprazole Sodium 40 mg 04/29/25 09:00 05/02/25 08:52 Pantoprazole Sodium Iv 40 Mg Vial IV PUSH 40 mg QAM BRAULIO Administration Sodium Chloride 10 ml 04/28/25 14:00 05/03/25 05:24 Central Line Flush IV PUSH 10 ml Q8HR BRAULIO Administration Sodium Chloride 10 ml 04/28/25 11:06 Central Line Flush IV PUSH PRN PRN with TPN bag changes Sodium Chloride 20 ml 04/28/25 11:06 05/01/25 04:59 Central Line Flush IV PUSH 20 ml PRN PRN Administration after blood draws Thiamine HCl 200 mg 04/29/25 09:00 05/02/25 08:52 Thiamine Hcl 200 Mg/2 Ml Vial IV PUSH 200 mg QAM RBAULIO Administration Radiology Results: ITS Impressions Head CT 04/28/25 08:29 Impression: 1.No acute intracranial abnormality. Abdomen X-Ray 05/02/25 13:22 Impression: 1. Probable small bowel obstruction. Correlation with CT recommended Chest X-Ray 05/03/25 08:12 IMPRESSION: 1. Persistent mild opacities at the bilateral lower lung zones with some progression on the left which could represent atelectasis, pneumonia, small bilateral pleural effusions or some combination thereof. Labs Labs: Laboratory Results - last 24 hr 05/02/25 05/02/25 05/02/25 08:30 11:53 17:11 WBC RBC Hgb Hct MCV MCH MCHC RDW Plt Count MPV Immature Gran % (Auto) Neut % (Auto) Lymph % (Auto) Fannin % (Auto) Eos % (Auto) Baso % (Auto) Lymph # (Auto) Fannin # (Auto) Eos # (Auto) Baso # (Auto) Abs Immat Gran (auto) Absolute Neuts (auto) Absolute Nucleated RBC Nucleated RBC % Puncture Site ABG pH ABG pCO2 ABG pO2 ABG PO2/FiO2 Ratio ABG HCO3 ABG O2 Saturation ABG O2 Content ABG Base Excess A-a Gradient Oxyhemoglobin Carboxyhemoglobin Methemoglobin Reduced Hemoglobin Total Hemoglobin O2 Delivery Device O2 Liters/Min Minute Volume Vent Rate Vent Mode FiO2 Tidal Volume PEEP Peak Inspir Pressure Pressure Support Sodium Potassium Chloride Carbon Dioxide Anion Gap BUN Creatinine Estim Creat Clear Calc Estimated GFR Glucose POC Capillary Glucose 112 H 126 H Calcium Phosphorus Magnesium Total Bilirubin AST ALT Alkaline Phosphatase Total Creatine Kinase Total Protein Albumin Triglycerides 386 H Vancomycin Trough 05/02/25 05/03/25 05/03/25 21:28 04:28 04:49 WBC 9.1 RBC 3.77 L Hgb 11.2 L Hct 35.0 L MCV 92.8 MCH 29.7 MCHC 32.0 RDW 13.6 Plt Count 179 MPV 9.6 Immature Gran % (Auto) 2.7 H Neut % (Auto) 53.8 Lymph % (Auto) 21.0 Fannin % (Auto) 16.4 H Eos % (Auto) 5.3 H Baso % (Auto) 0.8 Lymph # (Auto) 1.90 Fannin # (Auto) 1.5 H Eos # (Auto) 0.5 H Baso # (Auto) 0.1 Abs Immat Gran (auto) 0.24 H Absolute Neuts (auto) 4.9 Absolute Nucleated RBC 0.000 Nucleated RBC % 0.0 Puncture Site Right radial ABG pH 7.327 L ABG pCO2 43.9 ABG pO2 65.8 L ABG PO2/FiO2 Ratio 1.32 ABG HCO3 22.5 ABG O2 Saturation 91.6 L ABG O2 Content 15.8 L ABG Base Excess -3.5 A-a Gradient 241.3 Oxyhemoglobin 90.4 Carboxyhemoglobin 0.8 Methemoglobin 0.1 Reduced Hemoglobin 8.7 H Total Hemoglobin 12.4 O2 Delivery Device Ventilator O2 Liters/Min Not Reportable Minute Volume Not Reportable Vent Rate 18 Vent Mode Cmv FiO2 50 Tidal Volume 450 PEEP 8 Peak Inspir Pressure Not Reportable Pressure Support Not Reportable Sodium 137 Potassium 4.3 Chloride 105 Carbon Dioxide 23 Anion Gap 9 BUN 26 H D Creatinine 2.05 H Estim Creat Clear Calc 57 Estimated GFR 35 L Glucose 120 H POC Capillary Glucose Calcium 8.7 Phosphorus 8.1 H Magnesium 2.4 H Total Bilirubin 1.2 AST 44 ALT 30 Alkaline Phosphatase 153 H Total Creatine Kinase 543 H Total Protein 6.8 Albumin 3.3 L Triglycerides 392 H Vancomycin Trough 25.3 H Quality VTE Prophylaxis VTE prophylaxis: pharmacologic ordered
[2025-05-03] MEDS: MIDAZOLAM 100MG/NS 100ML(*CRX) 100 MG/100 ML BAG 10 MG IV CONT ×2 (09:05→19:28)
[2025-05-03] MEDS: FENTANYL 2,500MCG/NS250ML(*CRX 2,500 MCG/250 ML BAG 20 MCG IV CONT ×2 (09:06→21:34)
--- NOTE | 2025-05-03 10:32 | PCFNICU ---
ICU Rounding Note: Pt current nutrition is Vital AF 1.2. Last recorded weight is 120.3 kg, down from 121.5 kg on admit. Bowel Motility: No BM reported. Labs Reviewed: Cr 20.5, Glu 120, BUN 26, PO4 8.1 Meds Noted: Fentanyl, Versed, Precedex,Protonix Skin: WNL Additional Notes: Patient remains on mechanical vent. Tube feedings on hold for CT scan for possible obstruction vs ileus. If tube feedings resume recommend restarting Vital AF 1.2 at 20 ml/hr goal rate at 65 ml/hr. Flush 30 ml q 4 hours. Following daily in ICU rounds. Will monitor weight, labs, skin, diet orders, meds every Friday and Friday.
--- NOTE | 2025-05-03 11:02 | PM.CNGS ---
Assessment and Plan Assessment and plan (1) Abnormal x-ray of abdomen: Code(s): R93.5 - Abnormal findings on diagnostic imaging of other abdominal regions, including retroperitoneum Status: Acute Assessment and Plan: Patient presented to the ED on 04/28 after drug and alcohol overdose. He has been intubated in the ICU. EKG initially showed a prolonged QTC interval that has since normalized. Patient was found to have pneumonia and was started on Zosyn and vancomycin. Vancomycin has since been discontinued since MRSA screen was negative. Labs demonstrated acute kidney injury. Within the past couple of days patient began vomiting. An x-ray of the abdomen was obtained and demonstrated a possible small bowel obstruction. CT of the chest abdomen and pelvis was then obtained and did not demonstrate any obstruction. It can be assumed that this was likely an ileus. No surgical intervention necessary at this time. Would recommend continuing management with NG tube decompression. We will sign off of the patient at this time. (2) Acute drug overdose: Qualifiers: Encounter type: initial encounter Injury intent: intentional self-harm Qualified Code(s): T50.902A - Poisoning by unspecified drugs, medicaments and biological substances, intentional self-harm, initial encounter Code(s): T50.901A - Poisoning by unspecified drugs, medicaments and biological substances, accidental (unintentional), initial encounter Status: Acute (3) Alcohol abuse: Code(s): F10.10 - Alcohol abuse, uncomplicated Status: Acute (4) Acute respiratory failure with hypoxia and hypercapnia: Code(s): J96.01 - Acute respiratory failure with hypoxia; J96.02 - Acute respiratory failure with hypercapnia Status: Acute Assessment and Plan: Currently intubated and sedated with Versed, Precedex, and fentanyl. Being treated with Zosyn for pneumonia. (5) QT prolongation: Code(s): R94.31 - Abnormal electrocardiogram [ECG] [EKG] Status: Acute Assessment and Plan: EKG yesterday showed improved QT interval and QTC. Now showing T-wave abnormality, consider anterior ischemia. Manage per welcome center agent. (6) SHANTEL (acute kidney injury): Code(s): N17.9 - Acute kidney failure, unspecified Status: Acute Plan Discussed patient's case and plan of care with Dr. Nj. History of Present Illness Consult details Consult date: 05/03/25 Reason for consult: other (Small bowel obstruction) Requesting physician: Kay Robb MD Narrative: Patient is a 44-year-old male with history of hypertension, hyperlipidemia, and alcohol abuse who we have been asked to see in surgical consultation for small bowel obstruction. Patient presented to the ED on 04/28/2025 following a suicide attempt. Patient drink a large amount of alcohol and took 60 hydroxyzine 25 mg, 31 baclofen 20 mg, and 5 trazodone 100 mg. Patient was intubated in the ER for airway protection. EKG showed prolonged QTC interval of 548. Potassium 2.8. He was given 3 L of lactated Ringer's and 40 mEq of KCl. Patient was transferred to the ICU and continued on ventilation. Sedated with fentanyl and Versed. Started on Levophed. Patient on Zosyn and vancomycin for possible pneumonia. Labs also demonstrate acute kidney injury. Began having thick secretions. He began having episodes of emesis on the night of 05/01. Tube feeds via OG tube were held. Patient continued to have episodes of vomiting and KUB was obtained suggesting a bowel obstruction. At this point general surgery team was consulted. Today, patient is receiving fentanyl, Versed, and Precedex. Currently intubated in the ICU. NG tube in place with minimal greenish brown output in canister. Normal white blood cell count. BUN and creatinine elevated. Abdomen does not show any scars suggesting previous abdominal surgery. 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 The patient continues to smoke 1 pack a cigarettes a day. The patient stated that he usually drinks about 10 alcoholic beverages a week. He states every other week any does not drink when he has his child. The patient denies any marijuana or any other illicit drugs. 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 Code status full code Smoking packs per day: 1 Smoking cigarettes per day: 20.0 Years smoked: 20 Smoking pack-years: 20.00 Smoking status: Unknown if ever smoked Second hand tobacco smoke exposure: No Additional smoking assessment comments: patient sedated Alcohol intake: unknown Drinks per week: 10 Substance use: unknown Substance use type: former substance user Do You Feel Safe in your Home?: Yes Lack of Transportation: No Lack of Food: Never True Current Housing: I Have Housing Concerned About Future Housing: No Difficulty Paying Gas/Electric Bills: No Difficulty Paying for Meds: No Currently Unemployed: No Education: High School Diploma/GED Difficulty w/ Childcare or Family Care: No Gender identity (if verbalized by the patient): Male Spiritual care concerns: No Meds Home Medications and Allergies Home Medications ?Medication ?Instructions ?Recorded ?Confirmed ?Type baclofen 20 mg tablet 20 mg PO BID 04/28/25 04/28/25 History docusate sodium 100 mg capsule 100 mg PO DAILY PRN constipation 04/28/25 04/28/25 History folic acid 1 mg tablet 1 mg PO DAILY 04/28/25 04/28/25 History hydroxyzine pamoate 25 mg capsule 25 mg PO Q4H PRN anxiety 04/28/25 04/28/25 History (Vistaril) naltrexone 50 mg tablet 50 mg PO DAILY 04/28/25 04/28/25 History trazodone 100 mg tablet 100 mg PO HS PRN insomnia 04/28/25 04/28/25 History venlafaxine 75 mg capsule,extended 75 mg PO HS 04/28/25 04/28/25 History release 24 hr Allergies Allergy/AdvReac Type Severity Reaction Status Date / Time azithromycin AdvReac Unknown Other Verified 04/28/25 05:37 Vital Signs Vital Signs - 24 hr 05/02/25 11:10 05/02/25 11:25 05/02/25 11:26 Temperature Pulse Rate 88 87 87 Respiratory Rate 20 18 18 Blood Pressure Pulse Oximetry Oxygen Delivery Fraction of Inspired Oxygen 05/02/25 11:36 05/02/25 11:43 05/02/25 11:43 Temperature Pulse Rate 94 90 91 Respiratory Rate 25 H 22 H 22 H Blood Pressure Pulse Oximetry Oxygen Delivery Fraction of Inspired Oxygen 05/02/25 12:00 05/02/25 12:00 05/02/25 12:00 Temperature Pulse Rate 87 87 Respiratory Rate 18 Blood Pressure 91/62 L Pulse Oximetry 94 97 Oxygen Delivery Mechanical Ventilation Fraction of Inspired Oxygen 35 05/02/25 12:00 05/02/25 12:00 05/02/25 12:00 Temperature Pulse Rate 88 88 Respiratory Rate 18 18 Blood Pressure Pulse Oximetry Oxygen Delivery Fraction of Inspired Oxygen 35 05/02/25 12:00 05/02/25 13:00 05/02/25 13:39 Temperature Pulse Rate 88 87 89 Respiratory Rate 18 18 22 H Blood Pressure 97/74 L Pulse Oximetry 97 Oxygen Delivery Fraction of Inspired Oxygen 05/02/25 13:39 05/02/25 14:00 05/02/25 14:00 Temperature Pulse Rate 89 96 95 Respiratory Rate 22 H 18 Blood Pressure 90/65 L Pulse Oximetry 91 Oxygen Delivery Fraction of Inspired Oxygen 05/02/25 14:00 05/02/25 14:00 05/02/25 14:00 Temperature Pulse Rate 89 89 89 Respiratory Rate 18 18 18 Blood Pressure Pulse Oximetry Oxygen Delivery Fraction of Inspired Oxygen 05/02/25 14:21 05/02/25 14:24 05/02/25 14:26 Temperature Pulse Rate 88 89 90 Respiratory Rate 18 18 Blood Pressure Pulse Oximetry Oxygen Delivery Mechanical Ventilation Fraction of Inspired Oxygen 35 05/02/25 14:26 05/02/25 15:00 05/02/25 16:00 Temperature Pulse Rate 90 97 95 Respiratory Rate 18 18 17 Blood Pressure 82/62 L Pulse Oximetry 90 Oxygen Delivery Fraction of Inspired Oxygen 05/02/25 16:00 05/02/25 16:00 05/02/25 16:00 Temperature 100.8 F H Pulse Rate 95 95 86 Respiratory Rate 17 18 18 Blood Pressure 102/68 Pulse Oximetry 91 Oxygen Delivery Fraction of Inspired Oxygen 05/02/25 16:00 05/02/25 16:00 05/02/25 16:00 Temperature Pulse Rate 95 95 Respiratory Rate 18 Blood Pressure Pulse Oximetry 95 Oxygen Delivery Mechanical Ventilation Fraction of Inspired Oxygen 50 35 05/02/25 16:01 05/02/25 16:49 05/02/25 17:00 Temperature Pulse Rate 93 98 95 Respiratory Rate 18 18 Blood Pressure 93/64 L Pulse Oximetry 91 Oxygen Delivery Mechanical Ventilation Fraction of Inspired Oxygen 50 05/02/25 18:00 05/02/25 18:00 05/02/25 18:00 Temperature Pulse Rate 92 91 91 Respiratory Rate 18 18 18 Blood Pressure Pulse Oximetry Oxygen Delivery Fraction of Inspired Oxygen 05/02/25 18:00 05/02/25 18:00 05/02/25 18:40 Temperature Pulse Rate 92 91 91 Respiratory Rate 18 18 Blood Pressure 91/69 L Pulse Oximetry 91 Oxygen Delivery Fraction of Inspired Oxygen 05/02/25 18:40 05/02/25 19:44 05/02/25 19:47 Temperature Pulse Rate 91 91 91 Respiratory Rate 18 19 Blood Pressure Pulse Oximetry 92 Oxygen Delivery Mechanical Ventilation Fraction of Inspired Oxygen 50 05/02/25 19:51 05/02/25 20:00 05/02/25 20:00 Temperature Pulse Rate 94 106 H 104 H Respiratory Rate 21 H 18 18 Blood Pressure Pulse Oximetry Oxygen Delivery Fraction of Inspired Oxygen 05/02/25 20:00 05/02/25 20:00 05/02/25 20:00 Temperature 102 F H Pulse Rate 104 H 101 H 103 H Respiratory Rate 18 19 Blood Pressure 94/68 L Pulse Oximetry 89 L 89 L Oxygen Delivery Mechanical Ventilation Fraction of Inspired Oxygen 50 05/02/25 20:00 05/02/25 20:00 05/02/25 21:00 Temperature 102 F H Pulse Rate 101 H 101 H Respiratory Rate 19 Blood Pressure 94/68 L Pulse Oximetry 89 L Oxygen Delivery Fraction of Inspired Oxygen 50 05/02/25 21:03 05/02/25 21:09 05/02/25 21:18 Temperature 102 F H Pulse Rate 106 H 104 H Respiratory Rate 18 18 Blood Pressure Pulse Oximetry Oxygen Delivery Fraction of Inspired Oxygen 05/02/25 21:18 05/02/25 21:23 05/02/25 22:00 Temperature Pulse Rate 104 H 103 H 98 Respiratory Rate 18 18 18 Blood Pressure Pulse Oximetry Oxygen Delivery Fraction of Inspired Oxygen 05/02/25 22:00 05/02/25 22:00 05/02/25 22:00 Temperature Pulse Rate 98 98 98 Respiratory Rate 18 18 Blood Pressure Pulse Oximetry Oxygen Delivery Fraction of Inspired Oxygen 05/02/25 22:00 05/02/25 22:05 05/02/25 22:47 Temperature 102.5 F H Pulse Rate 94 99 Respiratory Rate 18 Blood Pressure 113/77 Pulse Oximetry 93 90 Oxygen Delivery Mechanical Ventilation Fraction of Inspired Oxygen 50 05/02/25 23:00 05/02/25 23:06 05/02/25 23:06 Temperature Pulse Rate 90 92 92 Respiratory Rate 18 18 18 Blood Pressure 110/72 Pulse Oximetry 96 Oxygen Delivery Fraction of Inspired Oxygen 05/02/25 23:32 05/02/25 23:32 05/02/25 23:46 Temperature Pulse Rate 93 93 99 Respiratory Rate 18 18 20 Blood Pressure Pulse Oximetry Oxygen Delivery Fraction of Inspired Oxygen 05/03/25 00:00 05/03/25 00:00 05/03/25 00:00 Temperature Pulse Rate 99 88 Respiratory Rate 20 Blood Pressure Pulse Oximetry 96 Oxygen Delivery Mechanical Ventilation Fraction of Inspired Oxygen 50 50 05/03/25 00:00 05/03/25 00:00 05/03/25 00:00 Temperature Pulse Rate 88 85 82 Respiratory Rate 18 18 18 Blood Pressure 113/77 Pulse Oximetry 94 Oxygen Delivery Fraction of Inspired Oxygen 05/03/25 00:00 05/03/25 01:00 05/03/25 01:40 Temperature Pulse Rate 82 82 80 Respiratory Rate 18 18 18 Blood Pressure 114/76 Pulse Oximetry 94 Oxygen Delivery Fraction of Inspired Oxygen 05/03/25 01:42 05/03/25 02:00 05/03/25 02:00 Temperature 99 F Pulse Rate 80 89 89 Respiratory Rate 18 Blood Pressure 109/74 Pulse Oximetry 93 93 Oxygen Delivery Mechanical Ventilation Fraction of Inspired Oxygen 50 05/03/25 02:01 05/03/25 02:01 05/03/25 02:10 Temperature Pulse Rate 87 87 89 Respiratory Rate 18 18 18 Blood Pressure Pulse Oximetry Oxygen Delivery Fraction of Inspired Oxygen 05/03/25 02:10 05/03/25 03:00 05/03/25 04:00 Temperature Pulse Rate 89 81 88 Respiratory Rate 18 18 18 Blood Pressure 115/78 Pulse Oximetry 93 Oxygen Delivery Fraction of Inspired Oxygen 05/03/25 04:00 05/03/25 04:00 05/03/25 04:00 Temperature Pulse Rate 85 85 83 Respiratory Rate 18 18 18 Blood Pressure Pulse Oximetry 90 Oxygen Delivery Mechanical Ventilation Fraction of Inspired Oxygen 50 05/03/25 04:00 05/03/25 04:00 05/03/25 04:00 Temperature 98.8 F Pulse Rate 94 94 Respiratory Rate 18 Blood Pressure 118/81 Pulse Oximetry 90 Oxygen Delivery Fraction of Inspired Oxygen 50 05/03/25 04:31 05/03/25 04:38 05/03/25 05:00 Temperature Pulse Rate 85 85 82 Respiratory Rate 18 18 18 Blood Pressure 107/76 Pulse Oximetry 91 Oxygen Delivery Fraction of Inspired Oxygen 05/03/25 05:02 05/03/25 06:00 05/03/25 06:00 Temperature Pulse Rate 83 80 80 Respiratory Rate 18 18 Blood Pressure Pulse Oximetry 90 Oxygen Delivery Mechanical Ventilation Fraction of Inspired Oxygen 50 05/03/25 06:00 05/03/25 06:00 05/03/25 06:00 Temperature Pulse Rate 80 77 77 Respiratory Rate 18 18 Blood Pressure 109/74 Pulse Oximetry 91 Oxygen Delivery Fraction of Inspired Oxygen 05/03/25 06:59 05/03/25 06:59 05/03/25 07:55 Temperature Pulse Rate 83 83 81 Respiratory Rate 18 18 Blood Pressure Pulse Oximetry 92 Oxygen Delivery Mechanical Ventilation Fraction of Inspired Oxygen 55 05/03/25 07:55 05/03/25 08:00 05/03/25 08:00 Temperature Pulse Rate 81 93 93 Respiratory Rate 18 18 18 Blood Pressure Pulse Oximetry Oxygen Delivery Fraction of Inspired Oxygen 05/03/25 08:00 05/03/25 09:05 05/03/25 09:05 Temperature Pulse Rate 93 88 88 Respiratory Rate 18 18 18 Blood Pressure Pulse Oximetry Oxygen Delivery Fraction of Inspired Oxygen 05/03/25 09:06 05/03/25 09:06 05/03/25 09:10 Temperature Pulse Rate 88 88 88 Respiratory Rate 18 18 18 Blood Pressure Pulse Oximetry Oxygen Delivery Fraction of Inspired Oxygen 05/03/25 09:10 Temperature Pulse Rate 88 Respiratory Rate 18 Blood Pressure Pulse Oximetry Oxygen Delivery Fraction of Inspired Oxygen Exam Const: Other: Sedated and intubated Eyes: General: appearance normal, both eyes and all related structures Neck: Neck: supple and no JVD Resp: Effort & Inspection: normal respiratory effort Cardio: Rate: regular rate GI: Inspection: non-distended GI Palp: Yes Soft to palpation, No Guarding due to palpation present (GI) and No Hernia present Auscultation: abnormal bowel sounds (Hypoactive) Skin: General skin exam: normal color and no rashes or lesions noted Extrem: General: normal to inspection Results Labs 05/03/25 04:28 05/03/25 04:28 Labs: Abnormal lab results 05/02/25 05/02/25 05/02/25 Range/Units 11:53 17:11 21:28 RBC (4.6-6.20) M/mm3 Hgb (14.0-18.0) g/dL Hct (42.0-52.0) % Immature Gran % (Auto) (0-0.5) % [place]ier % (Auto) (2.6-8.5) % Eos % (Auto) (0-4.4) % [place] # (Auto) (0.1-0.6) K/mm3 Eos # (Auto) (0-0.3) K/mm3 Abs Immat Gran (auto) (0.00-0.031) K/mm3 ABG pH (7.350-7.450) ABG pO2 (80.0-100.0) mmHg ABG O2 Saturation (95.0-100.0) % ABG O2 Content (16.0-22.0) %vol Reduced Hemoglobin (0-5.0) %THb BUN (9-20) mg/dL Creatinine (0.7-1.3) mg/dL Estimated GFR (59 - ) Glucose (65-110) mg/dL POC Capillary Glucose 112 H 126 H (65-105) mg/dl Phosphorus (2.5-4.5) mg/dL Magnesium (1.6-2.3) mg/dL Alkaline Phosphatase (38-126) U/L Total Creatine Kinase (55-170) U/L Albumin (3.5-5.1) g/dL Triglycerides (<150) mg/dL Vancomycin Trough 25.3 H (10.0-20.0) ug/mL 05/03/25 05/03/25 Range/Units 04:28 04:49 RBC 3.77 L (4.6-6.20) M/mm3 Hgb 11.2 L (14.0-18.0) g/dL Hct 35.0 L (42.0-52.0) % Immature Gran % (Auto) 2.7 H (0-0.5) % Lanier % (Auto) 16.4 H (2.6-8.5) % Eos % (Auto) 5.3 H (0-4.4) % [place] # (Auto) 1.5 H (0.1-0.6) K/mm3 Eos # (Auto) 0.5 H (0-0.3) K/mm3 Abs Immat Gran (auto) 0.24 H (0.00-0.031) K/mm3 ABG pH 7.327 L (7.350-7.450) ABG pO2 65.8 L (80.0-100.0) mmHg ABG O2 Saturation 91.6 L (95.0-100.0) % ABG O2 Content 15.8 L (16.0-22.0) %vol Reduced Hemoglobin 8.7 H (0-5.0) %THb BUN 26 H D (9-20) mg/dL Creatinine 2.05 H (0.7-1.3) mg/dL Estimated GFR 35 L (59 - ) Glucose 120 H (65-110) mg/dL POC Capillary Glucose (65-105) mg/dl Phosphorus 8.1 H (2.5-4.5) mg/dL Magnesium 2.4 H (1.6-2.3) mg/dL Alkaline Phosphatase 153 H (38-126) U/L Total Creatine Kinase 543 H (55-170) U/L Albumin 3.3 L (3.5-5.1) g/dL Triglycerides 392 H (<150) mg/dL Vancomycin Trough (10.0-20.0) ug/mL Diabetes panel 05/03/25 Range/Units 04:28 Sodium 137 (137-145) mmol/L Potassium 4.3 (3.4-5.0) mmol/L Chloride 105 (98-107) mmol/L Carbon Dioxide 23 (22-30) mmol/L BUN 26 H D (9-20) mg/dL Creatinine 2.05 H (0.7-1.3) mg/dL Glucose 120 H (65-110) mg/dL Calcium 8.7 (8.4-10.2) mg/dL AST 44 (17-59) U/L ALT 30 (6-50) U/L Alkaline Phosphatase 153 H (38-126) U/L Total Protein 6.8 (6.3-8.2) g/dL Albumin 3.3 L (3.5-5.1) g/dL Triglycerides 392 H (<150) mg/dL Calcium panel 05/03/25 Range/Units 04:28 Calcium 8.7 (8.4-10.2) mg/dL Phosphorus 8.1 H (2.5-4.5) mg/dL Albumin 3.3 L (3.5-5.1) g/dL Pituitary panel 05/03/25 Range/Units 04:28 Sodium 137 (137-145) mmol/L Potassium 4.3 (3.4-5.0) mmol/L Chloride 105 (98-107) mmol/L Carbon Dioxide 23 (22-30) mmol/L BUN 26 H D (9-20) mg/dL Creatinine 2.05 H (0.7-1.3) mg/dL Glucose 120 H (65-110) mg/dL Calcium 8.7 (8.4-10.2) mg/dL Adrenal panel 05/03/25 Range/Units 04:28 Sodium 137 (137-145) mmol/L Potassium 4.3 (3.4-5.0) mmol/L Chloride 105 (98-107) mmol/L Carbon Dioxide 23 (22-30) mmol/L BUN 26 H D (9-20) mg/dL Creatinine 2.05 H (0.7-1.3) mg/dL Glucose 120 H (65-110) mg/dL Calcium 8.7 (8.4-10.2) mg/dL Total Bilirubin 1.2 (0.2-1.3) mg/dL AST 44 (17-59) U/L ALT 30 (6-50) U/L Alkaline Phosphatase 153 H (38-126) U/L Total Protein 6.8 (6.3-8.2) g/dL Albumin 3.3 L (3.5-5.1) g/dL All other labs normal.
--- NOTE | 2025-05-03 16:38 | P.PNIM_ITS ---
Progress Note: A&P Assessment and Plan (1) Suicidal behavior: Code(s): R45.89 - Other symptoms and signs involving emotional state Status: Acute (2) Alcohol abuse: Code(s): F10.10 - Alcohol abuse, uncomplicated Status: Acute (3) QT prolongation: Code(s): R94.31 - Abnormal electrocardiogram [ECG] [EKG] Status: Acute (4) SHANTEL (acute kidney injury): Code(s): N17.9 - Acute kidney failure, unspecified Status: Acute (5) Acute drug overdose: Qualifiers: Encounter type: initial encounter Injury intent: intentional self-harm Qualified Code(s): T50.902A - Poisoning by unspecified drugs, medicaments and biological substances, intentional self-harm, initial encounter Code(s): T50.901A - Poisoning by unspecified drugs, medicaments and biological substances, accidental (unintentional), initial encounter Status: Acute Plan 44-year-old male with PMH hyperlipidemia, essential hypertension, GERD, alcohol use disorder, anxiety, depression presents to [facility] ER on the morning of 04/28/2025. Patient was at a hotel, called his daughter letting her know he overdosed on medications, daughter called EMS who arrived on the scene and found a suicide note with the patient. In the ER, initially drowsy but arousable, he became more somnolent agitated combative and was intubated for airway protection. QTC was prolonged. Received large volume fluid resuscitation. Urine tox screen negative, alcohol level at 280, acetaminophen and salicylate levels within normal limits. CT brain without acute abnormalities. Chest x-ray demonstrating mild venous pulmonary congestion with ETT in place. Subsequently admitted to the ICU and sedated with fentanyl and Versed. Patient had hypotension, Levophed is now off in his blood pressure is adequate. QTC improved as well. He remains intubated and sedated. Appears agitated when awake, concern for alcohol withdrawal. Was receiving vancomycin. At this moment he is on 100 cc of normal saline per hour. Continue to trend renal function. Strict intake/output, has Marion catheter in place, patent and draining. Will check urine electrolytes. He had vomiting, x-ray demonstrated possible SBO, however, CT chest abdomen pelvis without contrast did not demonstrate evidence of obstruction. Likely due to ileus. Surgery recommends NG tube decompression. Patient is full code Folic acid, thiamine, Protonix. Hygiene and wound prevention per ICU protocol. Normal saline infusion Hold tube feeds Lovenox 40 mg subQ q.day When extubated will need alcohol use disorder counseling and resources, will n eed transfer to psychiatric worthy for further management of intentional overdose/suicide attempt. Subjective Date/time seen: 05/03/25 16:38 Interval history: Sedated. Becomes irritated when I attempt to examine him. Otherwise comfortable. Review of Systems Review of Systems: All systems reviewed & are unremarkable except as noted in HPI and below (Subjective) Exam Const: Other: Intubated, sedated Resp: Other: Mechanical breath sounds, no adventitious sounds identified Cardio: Rate: regular rate Rhythm: regular rhythm GI: Inspection: non-distended GI Palp: Yes Soft to palpation and No Tenderness to palpation present (GI) Urinary Catheter: Urinary Catheter: patent and draining Extrem: General: no edema Objective Data Vital Signs Vital Signs: Vital Signs - 24 hr 05/02/25 16:49 05/02/25 17:00 05/02/25 18:00 Temperature Pulse Rate 98 95 92 Respiratory Rate 18 18 Blood Pressure 93/64 L Pulse Oximetry 91 Oxygen Delivery Mechanical Ventilation Fraction of Inspired Oxygen 50 05/02/25 18:00 05/02/25 18:00 05/02/25 18:00 Temperature Pulse Rate 91 91 92 Respiratory Rate 18 18 Blood Pressure Pulse Oximetry Oxygen Delivery Fraction of Inspired Oxygen 05/02/25 18:00 05/02/25 18:40 05/02/25 18:40 Temperature Pulse Rate 91 91 91 Respiratory Rate 18 18 18 Blood Pressure 91/69 L Pulse Oximetry 91 Oxygen Delivery Fraction of Inspired Oxygen 05/02/25 19:44 05/02/25 19:47 05/02/25 19:51 Temperature Pulse Rate 91 91 94 Respiratory Rate 19 21 H Blood Pressure Pulse Oximetry 92 Oxygen Delivery Mechanical Ventilation Fraction of Inspired Oxygen 50 05/02/25 20:00 05/02/25 20:00 05/02/25 20:00 Temperature Pulse Rate 106 H 104 H 104 H Respiratory Rate 18 18 18 Blood Pressure Pulse Oximetry Oxygen Delivery Fraction of Inspired Oxygen 05/02/25 20:00 05/02/25 20:00 05/02/25 20:00 Temperature 102 F H Pulse Rate 101 H 103 H Respiratory Rate 19 Blood Pressure 94/68 L Pulse Oximetry 89 L 89 L Oxygen Delivery Mechanical Ventilation Fraction of Inspired Oxygen 50 50 05/02/25 20:00 05/02/25 21:00 05/02/25 21:03 Temperature 102 F H Pulse Rate 101 H 101 H 106 H Respiratory Rate 19 18 Blood Pressure 94/68 L Pulse Oximetry 89 L Oxygen Delivery Fraction of Inspired Oxygen 05/02/25 21:09 05/02/25 21:18 05/02/25 21:18 Temperature 102 F H Pulse Rate 104 H 104 H Respiratory Rate 18 18 Blood Pressure Pulse Oximetry Oxygen Delivery Fraction of Inspired Oxygen 05/02/25 21:23 05/02/25 22:00 05/02/25 22:00 Temperature Pulse Rate 103 H 98 98 Respiratory Rate 18 18 18 Blood Pressure Pulse Oximetry Oxygen Delivery Fraction of Inspired Oxygen 05/02/25 22:00 05/02/25 22:00 05/02/25 22:00 Temperature Pulse Rate 98 98 94 Respiratory Rate 18 18 Blood Pressure 113/77 Pulse Oximetry 93 Oxygen Delivery Fraction of Inspired Oxygen 05/02/25 22:05 05/02/25 22:47 05/02/25 23:00 Temperature 102.5 F H Pulse Rate 99 90 Respiratory Rate 18 Blood Pressure 110/72 Pulse Oximetry 90 96 Oxygen Delivery Mechanical Ventilation Fraction of Inspired Oxygen 50 05/02/25 23:06 05/02/25 23:06 05/02/25 23:32 Temperature Pulse Rate 92 92 93 Respiratory Rate 18 18 18 Blood Pressure Pulse Oximetry Oxygen Delivery Fraction of Inspired Oxygen 05/02/25 23:32 05/02/25 23:46 05/03/25 00:00 Temperature Pulse Rate 93 99 99 Respiratory Rate 18 20 20 Blood Pressure Pulse Oximetry 96 Oxygen Delivery Mechanical Ventilation Fraction of Inspired Oxygen 50 05/03/25 00:00 05/03/25 00:00 05/03/25 00:00 Temperature Pulse Rate 88 88 Respiratory Rate 18 Blood Pressure 113/77 Pulse Oximetry 94 Oxygen Delivery Fraction of Inspired Oxygen 50 05/03/25 00:00 05/03/25 00:00 05/03/25 00:00 Temperature Pulse Rate 85 82 82 Respiratory Rate 18 18 18 Blood Pressure Pulse Oximetry Oxygen Delivery Fraction of Inspired Oxygen 05/03/25 01:00 05/03/25 01:40 05/03/25 01:42 Temperature Pulse Rate 82 80 80 Respiratory Rate 18 18 Blood Pressure 114/76 Pulse Oximetry 94 93 Oxygen Delivery Mechanical Ventilation Fraction of Inspired Oxygen 50 05/03/25 02:00 05/03/25 02:00 05/03/25 02:01 Temperature 99 F Pulse Rate 89 89 87 Respiratory Rate 18 18 Blood Pressure 109/74 Pulse Oximetry 93 Oxygen Delivery Fraction of Inspired Oxygen 05/03/25 02:01 05/03/25 02:10 05/03/25 02:10 Temperature Pulse Rate 87 89 89 Respiratory Rate 18 18 18 Blood Pressure Pulse Oximetry Oxygen Delivery Fraction of Inspired Oxygen 05/03/25 03:00 05/03/25 04:00 05/03/25 04:00 Temperature Pulse Rate 81 88 85 Respiratory Rate 18 18 18 Blood Pressure 115/78 Pulse Oximetry 93 Oxygen Delivery Fraction of Inspired Oxygen 05/03/25 04:00 05/03/25 04:00 05/03/25 04:00 Temperature Pulse Rate 85 83 94 Respiratory Rate 18 18 Blood Pressure Pulse Oximetry 90 Oxygen Delivery Mechanical Ventilation Fraction of Inspired Oxygen 50 05/03/25 04:00 05/03/25 04:00 05/03/25 04:31 Temperature 98.8 F Pulse Rate 94 85 Respiratory Rate 18 18 Blood Pressure 118/81 Pulse Oximetry 90 Oxygen Delivery Fraction of Inspired Oxygen 50 05/03/25 04:38 05/03/25 05:00 05/03/25 05:02 Temperature Pulse Rate 85 82 83 Respiratory Rate 18 18 Blood Pressure 107/76 Pulse Oximetry 91 90 Oxygen Delivery Mechanical Ventilation Fraction of Inspired Oxygen 50 05/03/25 06:00 05/03/25 06:00 05/03/25 06:00 Temperature Pulse Rate 80 80 80 Respiratory Rate 18 18 18 Blood Pressure Pulse Oximetry Oxygen Delivery Fraction of Inspired Oxygen 05/03/25 06:00 05/03/25 06:00 05/03/25 06:59 Temperature Pulse Rate 77 77 83 Respiratory Rate 18 18 Blood Pressure 109/74 Pulse Oximetry 91 Oxygen Delivery Fraction of Inspired Oxygen 05/03/25 06:59 05/03/25 07:00 05/03/25 07:55 Temperature Pulse Rate 83 82 81 Respiratory Rate 18 18 Blood Pressure 113/77 Pulse Oximetry 90 92 Oxygen Delivery Mechanical Ventilation Fraction of Inspired Oxygen 55 05/03/25 07:55 05/03/25 08:00 05/03/25 08:00 Temperature Pulse Rate 81 93 93 Respiratory Rate 18 18 18 Blood Pressure Pulse Oximetry Oxygen Delivery Fraction of Inspired Oxygen 05/03/25 08:00 05/03/25 08:00 05/03/25 08:00 Temperature 98.7 F Pulse Rate 93 93 87 Respiratory Rate 18 18 Blood Pressure 114/86 Pulse Oximetry 93 Oxygen Delivery Fraction of Inspired Oxygen 05/03/25 08:00 05/03/25 08:00 05/03/25 09:00 Temperature 98.6 F Pulse Rate 89 Respiratory Rate 18 Blood Pressure 106/74 Pulse Oximetry 93 93 Oxygen Delivery Mechanical Ventilation Fraction of Inspired Oxygen 55 55 05/03/25 09:05 05/03/25 09:05 05/03/25 09:06 Temperature Pulse Rate 88 88 88 Respiratory Rate 18 18 18 Blood Pressure Pulse Oximetry Oxygen Delivery Fraction of Inspired Oxygen 05/03/25 09:06 05/03/25 09:10 05/03/25 09:10 Temperature Pulse Rate 88 88 88 Respiratory Rate 18 18 18 Blood Pressure Pulse Oximetry Oxygen Delivery Fraction of Inspired Oxygen 05/03/25 10:00 05/03/25 10:00 05/03/25 10:00 Temperature 98.5 F Pulse Rate 80 80 80 Respiratory Rate 18 18 Blood Pressure 113/79 Pulse Oximetry 95 Oxygen Delivery Fraction of Inspired Oxygen 05/03/25 10:00 05/03/25 10:00 05/03/25 11:00 Temperature 98.5 F Pulse Rate 80 80 85 Respiratory Rate 18 18 18 Blood Pressure 116/82 Pulse Oximetry 94 Oxygen Delivery Fraction of Inspired Oxygen 05/03/25 11:20 05/03/25 11:40 05/03/25 11:48 Temperature Pulse Rate 83 85 Respiratory Rate 18 Blood Pressure Pulse Oximetry 93 95 Oxygen Delivery Mechanical Ventilation Mechanical Ventilation Fraction of Inspired Oxygen 55 55 05/03/25 11:51 05/03/25 12:00 05/03/25 12:00 Temperature 98.5 F Pulse Rate 86 87 Respiratory Rate 18 Blood Pressure 117/82 Pulse Oximetry 95 Oxygen Delivery Fraction of Inspired Oxygen 55 05/03/25 12:00 05/03/25 12:00 05/03/25 12:17 Temperature Pulse Rate 87 87 85 Respiratory Rate 18 18 18 Blood Pressure Pulse Oximetry Oxygen Delivery Fraction of Inspired Oxygen 05/03/25 13:01 05/03/25 13:45 05/03/25 13:50 Temperature Pulse Rate 85 85 Respiratory Rate 18 Blood Pressure 118/80 Pulse Oximetry 98 98 Oxygen Delivery Mechanical Ventilation Mechanical Ventilation Fraction of Inspired Oxygen 45 45 05/03/25 13:50 05/03/25 13:50 05/03/25 14:00 Temperature Pulse Rate 85 90 Respiratory Rate 18 16 Blood Pressure Pulse Oximetry Oxygen Delivery Fraction of Inspired Oxygen 45 05/03/25 14:00 05/03/25 14:00 05/03/25 14:00 Temperature Pulse Rate 90 90 82 Respiratory Rate 16 16 Blood Pressure Pulse Oximetry Oxygen Delivery Fraction of Inspired Oxygen 05/03/25 14:01 05/03/25 14:42 05/03/25 14:42 Temperature Pulse Rate 90 87 87 Respiratory Rate 16 18 18 Blood Pressure 123/85 Pulse Oximetry 98 Oxygen Delivery Fraction of Inspired Oxygen 05/03/25 15:01 Temperature Pulse Rate 87 Respiratory Rate 18 Blood Pressure 116/79 Pulse Oximetry 95 Oxygen Delivery Fraction of Inspired Oxygen Intake/Output Intake/Output: Intake & Output 04/30/25 05/01/25 05/02/25 05/03/25 23:59 23:59 23:59 23:59 Intake Total 4099.9 3732.2 3247.9 1111.3 Output Total 1800 6575 4300 1050 Balance 2299.9 -2842.8 -1052.1 61.3 Meds/Results Medications: Active Medications Generic Name Dose Route Start Last Admin Trade Name Freq PRN Reason Stop Dose Admin Acetaminophen 650 mg 04/29/25 11:11 05/02/25 21:09 Acetaminophen Elixir 325 Mg/10.15 Ml Udc PO 650 mg Q6H PRN Administration Mild Pain (1-3) or Fever Albuterol/Ipratropium 3 ml 04/29/25 14:20 05/03/25 13:50 Ipratropium 0.5 Mg/Albuterol Sulfate 2.5 Mg Ampul.Neb 3 Ml INHALATION 3 ml Q6HRT BRAULIO Administration Enoxaparin Sodium 40 mg 04/28/25 09:00 05/03/25 08:34 Enoxaparin 40 Mg/0.4 Ml Syringe SUB-Q 40 mg DAILY BRAULIO Administration Folic Acid 1 mg 04/29/25 09:00 05/03/25 08:34 Folic Acid 1 Mg/0.2 Ml Inj IV PUSH 1 mg QAM BRAULIO Administration Dexmedetomidine HCl 400 mcg in 100 mls @ 40.04 mls/hr 04/29/25 12:15 05/03/25 14:42 Precedex 400 Mcg/100 Ml IV CONT 1.3 mcg/kg/hr .Q2H30M BRAULIO 40.04 mls/hr Protocol Administration 1.3 MCG/KG/HR Midazolam HCl 100 mg in 100 mls @ 10 mls/hr 05/01/25 21:10 05/03/25 14:00 Versed 100 Mg/Ns 100 Ml IV CONT 10 mg/hr .Q10H BRAULIO 10 mls/hr Protocol Titration 10 MG/HR Fentanyl Citrate 2,500 mcg in 250 mls @ 20 mls/hr 05/02/25 09:00 05/03/25 14:00 Fentanyl 2,500 Mcg/Ns 250 Ml IV CONT 200 mcg/hr .[id number] BRAULIO 20 mls/hr Protocol Titration 200 MCG/HR Norepinephrine Bitartrate 8 mg in 250 mls @ 9.375 mls/hr 05/02/25 15:55 05/03/25 07:50 Levophed 8 Mg/D5w 250 Ml IV CONT Not Given On Hold: 05/03/25 07:50 .Q24H BRAULIO Protocol 5 MCG/MIN Sodium Chloride 1,000 mls @ 100 mls/hr 05/03/25 08:10 05/03/25 08:34 Normal Saline Iv IV CONT 05/03/25 18:09 100 mls/hr .Q10H BRAULIO Administration Piperacillin Sod/Tazobactam 50 mls @ 100 mls/hr 05/03/25 18:00 Sod 2.25 gm/ Sodium Chloride IVPB Q6H BRAULIO Midazolam HCl 2 mg 05/01/25 03:33 05/02/25 16:56 Midazolam Hcl (*Crx) 2 Mg/2 Ml Vial IV PUSH 2 mg Q2H PRN Administration agitation/sedation Multi-Ingred Cream/Lotion/Oil/Oint 1 applic 04/30/25 09:00 05/03/25 08:34 Mineral Oil/White Petrolatum Ointment EACH EYE 1 applic Q12HR BRAULIO Administration Ondansetron HCl 4 mg 05/02/25 05:00 05/02/25 04:55 Ondansetron Inj 4 Mg/2 Ml Vial IV PUSH 4 mg Q6H PRN Administration Nausea And Vomiting Pantoprazole Sodium 40 mg 04/29/25 09:00 05/03/25 08:34 Pantoprazole Sodium Iv 40 Mg Vial IV PUSH 40 mg QAM BRAULIO Administration Sodium Chloride 10 ml 04/28/25 14:00 05/03/25 12:22 Central Line Flush IV PUSH 10 ml Q8HR BRAULIO Administration Sodium Chloride 10 ml 04/28/25 11:06 Central Line Flush IV PUSH PRN PRN with TPN bag changes Sodium Chloride 20 ml 04/28/25 11:06 05/01/25 04:59 Central Line Flush IV PUSH 20 ml PRN PRN Administration after blood draws Thiamine HCl 200 mg 04/29/25 09:00 05/03/25 08:34 Thiamine Hcl 200 Mg/2 Ml Vial IV PUSH 200 mg QAM BRAULIO Administration Radiology Results: ITS Impressions Head CT 04/28/25 08:29 Impression: 1.No acute intracranial abnormality. Abdomen X-Ray 05/02/25 13:22 Impression: 1. Probable small bowel obstruction. Correlation with CT recommended Chest X-Ray 05/03/25 08:12 IMPRESSION: 1. Persistent mild opacities at the bilateral lower lung zones with some progression on the left which could represent atelectasis, pneumonia, small bilateral pleural effusions or some combination thereof. Chest/Abdomen/Pelvis CT 05/03/25 11:04 IMPRESSION: 1. Extensive airspace opacities in the lower lobes with volume loss, consistent with atelectasis versus pneumonia. Mild atelectasis and pneumonia in right upper lobe. Labs Labs: Laboratory Results - last 24 hr 05/02/25 05/02/25 05/03/25 17:11 21:28 04:28 WBC 9.1 RBC 3.77 L Hgb 11.2 L Hct 35.0 L MCV 92.8 MCH 29.7 MCHC 32.0 RDW 13.6 Plt Count 179 MPV 9.6 Immature Gran % (Auto) 2.7 H Neut % (Auto) 53.8 Lymph % (Auto) 21.0 [place] % (Auto) 16.4 H Eos % (Auto) 5.3 H Baso % (Auto) 0.8 Lymph # (Auto) 1.90 [place] # (Auto) 1.5 H Eos # (Auto) 0.5 H Baso # (Auto) 0.1 Abs Immat Gran (auto) 0.24 H Absolute Neuts (auto) 4.9 Absolute Nucleated RBC 0.000 Nucleated RBC % 0.0 Puncture Site ABG pH ABG pCO2 ABG pO2 ABG PO2/FiO2 Ratio ABG HCO3 ABG O2 Saturation ABG O2 Content ABG Base Excess A-a Gradient Oxyhemoglobin Carboxyhemoglobin Methemoglobin Reduced Hemoglobin Total Hemoglobin O2 Delivery Device O2 Liters/Min Minute Volume Vent Rate Vent Mode FiO2 Tidal Volume PEEP Peak Inspir Pressure Pressure Support Sodium 137 Potassium 4.3 Chloride 105 Carbon Dioxide 23 Anion Gap 9 BUN 26 H D Creatinine 2.05 H Estim Creat Clear Calc 57 Estimated GFR 35 L Glucose 120 H POC Capillary Glucose 126 H Calcium 8.7 Phosphorus 8.1 H Magnesium 2.4 H Total Bilirubin 1.2 AST 44 ALT 30 Alkaline Phosphatase 153 H Total Creatine Kinase 543 H Total Protein 6.8 Albumin 3.3 L Triglycerides 392 H Vancomycin Trough 25.3 H 05/03/25 04:49 WBC RBC Hgb Hct MCV MCH MCHC RDW Plt Count MPV Immature Gran % (Auto) Neut % (Auto) Lymph % (Auto) [place] % (Auto) Eos % (Auto) Baso % (Auto) Lymph # (Auto) [place] # (Auto) Eos # (Auto) Baso # (Auto) Abs Immat Gran (auto) Absolute Neuts (auto) Absolute Nucleated RBC Nucleated RBC % Puncture Site Right radial ABG pH 7.327 L ABG pCO2 43.9 ABG pO2 65.8 L ABG PO2/FiO2 Ratio 1.32 ABG HCO3 22.5 ABG O2 Saturation 91.6 L ABG O2 Content 15.8 L ABG Base Excess -3.5 A-a Gradient 241.3 Oxyhemoglobin 90.4 Carboxyhemoglobin 0.8 Methemoglobin 0.1 Reduced Hemoglobin 8.7 H Total Hemoglobin 12.4 O2 Delivery Device Ventilator O2 Liters/Min Not Reportable Minute Volume Not Reportable Vent Rate 18 Vent Mode Cmv FiO2 50 Tidal Volume 450 PEEP 8 Peak Inspir Pressure Not Reportable Pressure Support Not Reportable Sodium Potassium Chloride Carbon Dioxide Anion Gap BUN Creatinine Estim Creat Clear Calc Estimated GFR Glucose POC Capillary Glucose Calcium Phosphorus Magnesium Total Bilirubin AST ALT Alkaline Phosphatase Total Creatine Kinase Total Protein Albumin Triglycerides Vancomycin Trough
[2025-05-03] MEDS: PIPERACILLIN/TAZOBACTAM SOD 2.25 GM in SODIUM CHLORIDE 0.9% IV 50 ML 100 ML IVPB ×2 (17:15→23:51)
[2025-05-03 17:47] LABS: Urine Eos QC 2nd Tech Confirmed
[2025-05-03] MEDS: ONDANSETRON INJ 4 MG/2 ML VIAL IV PUSH (19:29)
[2025-05-04] VITALS (59 sets, daily range): BP systolic 104–130; BP diastolic 73–84; PULSE 84–103; RESP 18–21; TEMP 37.2–38.4; O2SAT 92–100
[2025-05-04] MEDS: dexmedeTOMIDine 400 MCG/100 ML 400 MCG/100 ML BAG 40.04 MCG IV CONT ×9 (00:55→21:38)
[2025-05-04] MEDS: IPRATROPIUM 0.5 MG/ALBUTEROL SULFATE 2.5 MG AMPUL.NEB 3 ML INHALATION ×4 (02:02→20:18)
[2025-05-04] MEDS: ACETAMINOPHEN ELIXIR 325 MG/10.15 ML UDC 650 MG PO ×2 (03:25→21:20)
[2025-05-04] MEDS: CENTRAL LINE FLUSH 10 ML IV PUSH ×3 (05:04→21:43)
[2025-05-04] MEDS: PIPERACILLIN/TAZOBACTAM SOD 2.25 GM in SODIUM CHLORIDE 0.9% IV 50 ML 100 ML IVPB (05:04)
[2025-05-04 05:07] LABS: Hematocrit 33.8 % (42.0-52.0); Hemoglobin 10.4 g/dL (14.0-18.0); Immature Granulocyte Percent A 2.2 % (0-0.5); Lymphocytes Absolute Auto 1.29 K/mm3 (0.9-3.2); Mean Corpuscular HGB Conc 30.8 g/dl (32-36); Mean Corpuscular Hemoglobin 29.0 pg (26-34); Mean Corpuscular Volume 94.2 fl (80-100); Nucleated Red Blood Cells Absolute Auto 0.000 K/mm3 (0.0-0.012); Nucleated Red Blood Cells Perc 0.0 % (0.0-0.2); Platelet Count Result 190 k/mm3 (150-375); Red Blood Count 3.59 M/mm3 (4.6-6.20); White Blood Count 8.4 K/mm3 (4.5-10.0)
[2025-05-04 05:20] LABS: Alanine Aminotransferase 27 U/L (6-50); Albumin Level 3.0 g/dL (3.5-5.1); Alkaline Phosphatase 132 U/L (38-126); Anion Gap 7 mmol/L (4-12); Aspartate Amino Transferase 40 U/L (17-59); Bilirubin,Total 0.7 mg/dL (0.2-1.3); Blood Urea Nitrogen 37 mg/dL (9-20); Calcium 8.4 mg/dL (8.4-10.2); Carbon Dioxide 22 mmol/L (22-30); Chloride 111 mmol/L (98-107); Estimated CRCL calculation 47 ml/min; Estimated Glomerular Filt Rate 29; Glucose 124 mg/dL (65-110); Magnesium 2.5 mg/dL (1.6-2.3); Potassium 4.5 mmol/L (3.4-5.0); Sodium 140 mmol/L (137-145); Total Protein 6.5 g/dL (6.3-8.2)
[2025-05-04] MEDS: MIDAZOLAM 100MG/NS 100ML(*CRX) 100 MG/100 ML BAG 10 MG IV CONT ×2 (05:39→15:38)
[2025-05-04 05:45] LABS: Alveolar/Arterial O2 Gradient 164.7 mmHg; Fractional Inspired Oxygen 40 %; HCO3 ABG 22.2 mEq/l (22.0-26.0); Oxygen Content ABG 15.6 %vol (16.0-22.0); Oxygen Saturation ABG 94.6 % (95.0-100.0); PCO2 ABG 39.9 mmHg (35.0-45.0); PO2 ABG 74.6 mmHg (80.0-100.0); PO2 FiO2 Ratio Arterial Blood 1.87 %
[2025-05-04 05:46] LABS: Site Drawn RIGHT RADIAL
[2025-05-04 05:47] LABS: Arterial Blood Gas Tidal Volume 450 ml; Arterial Blood Gas Ventilator rate 18 /MIN
[2025-05-04] MEDS: THIAMINE HCL 200 MG/2 ML VIAL IV PUSH (08:10)
[2025-05-04] MEDS: ENOXAPARIN 40 MG/0.4 ML SYRINGE SUB-Q (08:10)
[2025-05-04] MEDS: PANTOPRAZOLE SODIUM IV 40 MG VIAL IV PUSH (08:10)
[2025-05-04] MEDS: FOLIC ACID 1 MG/0.2 ML INJ IV PUSH (08:10)
[2025-05-04] MEDS: LACTATED RINGERS 1,000 ML 100 ML IV CONT ×2 (08:10→17:53)
[2025-05-04] MEDS: MINERAL OIL/WHITE PETROLATUM OINTMENT 1 APPLIC EACH EYE ×2 (08:11→20:16)
[2025-05-04] MEDS: CEFEPIME 1 GM in SODIUM CHLORIDE 0.9% IV 50 ML 100 ML IVPB ×2 (08:23→20:15)
--- NOTE | 2025-05-04 08:27 | P.PNINT_ITS ---
Progress Note: A&P Assessment and Plan (1) Acute respiratory failure with hypoxia and hypercapnia: Code(s): J96.01 - Acute respiratory failure with hypoxia; J96.02 - Acute respiratory failure with hypercapnia Status: Acute Assessment and Plan: Patient was intubated and placed on mechanical ventilation due to altered mental status, agitation and combativeness and for airway protection. He has developed aspiration pneumonia Chest x-ray and ABGs reviewed, ventilator adjusted Continue CMV mode of ventilation, I will decrease PEEP to 8. Wean FiO2. -wean FiO2 to maintain O2 sats > 92% -continue bronchodilators Sputum cultures growing MSSA Change Zosyn to cefepime and Flagyl in light of worsening renal function. Currently sedated with Versed, fentanyl and Precedex infusion, triglyceride levels were elevated hence propofol was discontinued (2) Acute drug overdose: Qualifiers: Encounter type: initial encounter Injury intent: intentional self-harm Qualified Code(s): T50.902A - Poisoning by unspecified drugs, medicaments and biological substances, intentional self-harm, initial encounter Code(s): T50.901A - Poisoning by unspecified drugs, medicaments and biological substances, accidental (unintentional), initial encounter Status: Acute Assessment and Plan: Patient intentionally overdosed on hydroxyzine 25 mg x60 pills, baclofen 20 mg x31 pills, trazodone 100 mg x 5 pills -poison control was notified and is following, supportive care for now -hydroxyzine and baclofen can cause hypotension, altered mental status, QT prolongation -trazodone can also cause altered mental status -EKG this morning shows normal QT interval, but T-wave abnormalities -04/28: EKG shows some ST changes, I discussed with aircraft engine specialist, obtain echocardiogram and troponins x2 were negative -04/29: EKG showed improved QTC -05/02: EKG showed improved QT interval and QTC Continue supportive care (3) Alcohol abuse: Code(s): F10.10 - Alcohol abuse, uncomplicated Status: Acute Assessment and Plan: Patient has a history of alcohol abuse, elevated alcohol levels on admission -will insurance counsel on cessation of alcohol abuse once he is extubated and will also ask care coordination to provide alcohol rehab resources -continue thiamine and folic acid -currently sedated Versed, fentanyl and Precedex infusion (4) QT prolongation: Code(s): R94.31 - Abnormal electrocardiogram [ECG] [EKG] Status: Acute Assessment and Plan: QT prolongation likely related to baclofen and hydroxyzine Patient was given magnesium QT prolongation has resolved monitor Echo reviewed (5) Altered mental status: Code(s): R41.82 - Altered mental status, unspecified Status: Acute Assessment and Plan: Altered mental status likely related to multiple drug overdose -patient patient did wake up with sedation vacation and followed simple commands -now he is more agitated and requiring more sedation, this could be related to withdrawal symptoms too (6) Hypotension: Code(s): I95.9 - Hypotension, unspecified Status: Acute Assessment and Plan: Likely related to baclofen and hydroxyzine -adequately fluid-resuscitated -PICC line inserted on 04/28 -off Levophed at this time (7) Suicidal behavior: Code(s): R45.89 - Other symptoms and signs involving emotional state Status: Acute Assessment and Plan: Once patient is extubated, will have crisis management evaluate the patient for placement to a psychiatric unit (8) Electrolyte imbalance: Code(s): E87.8 - Other disorders of electrolyte and fluid balance, not elsewhere classified Status: Acute Assessment and Plan: Electrolytes improved after placement (9) SHANTEL (acute kidney injury): Code(s): N17.9 - Acute kidney failure, unspecified Status: Acute Assessment and Plan: Patient had increase in creatinine to 2.05 which is now increased to 2.47. Patient has good urine output.. Etiology likely multifactorial. Patient did had episode of hypotension. Patient also was on vancomycin Continue cautious IV fluids. CT abdomen pelvis tnegative for any obstruction CK is elevated and will be monitored and fluids continued Monitor urine output electrolytes and creatinine Consult nephrology Discontinue Zosyn (10) Bowel obstruction: Code(s): K56.609 - Unspecified intestinal obstruction, unspecified as to partial versus complete obstruction Status: Acute Assessment and Plan: Patient had couple of episodes of vomiting. Patient has OG to suction. KUB suggests bowel obstruction. CT scan was done and did not show any ileus or obstruction evidence. Patient was started on tube feeds and is tolerating at 20 mL/hour. Will advance slowly Plan DVT prophylaxis: Lovenox Stress ulcer prophylaxis: Protonix Nutrition: Tube feeds Code Status: Full code Critical Care Time Spent: 30 minutes Due to a high probability of clinically significant, life threatening deterioration, the patient required my highest level of preparedness to inte rvene emergently and I personally spent this critical care time directly and personally managing the patient. This critical care time included obtaining a history; examining the patient; pulse oximetry; ordering and review of studies; arranging urgent treatment with development of a management plan; evaluation of patient's response to treatment; frequent reassessment; and discussions with other providers. It was exclusive of separately billable procedures and treating other patients and teaching time. Please see Assessment and Plan section and the rest of the note for further information on patient assessment and treatment This dictation may have been done utilizing a voice recognition system. Attempts have been made to correct errors. However, there may be uncorrected grammatical, spelling, and recognitions errors present. Subjective Date/time seen: 05/04/25 Overnight events reviewed. febrile Continues to be on mechanical ventilation 40% FiO2 and 10 of PEEP Tolerating tube feeds at 20 mL/hour Continues to be sedated with Versed fentanyl and Precedex Good urine output. Vitals acceptable Review of Systems Review of Systems: ROS unobtainable: Yes unobtainable due to endotracheal tube, unobtainable due to medical condition and unobtainable due to mental status Exam Narrative: General: Intubated and sedated, in no acute distress HEENT:? Pupils equal and reactive, sclera is clear, ETT in place Neck:? Supple Respiratory:? Coarse breath sounds bilaterally, rales noted on the right > left. Decreased at bases, no wheezing, adequate air entry Cardiac:? S1-S2 is normal, regular rate and rhythm, Abdomen:? Soft, nontender, nondistended, hypoactive bowel sounds Extremities:? No edema, palpable pedal pulses Neuro:? Patient intubated, sedated, open his eyes, moves all extremities spontaneously but does not follow commands Skin:? No skin lesions noted Psych:? Unable to assess at this time Objective Data Vital Signs Vital Signs: Vital Signs - 24 hr 05/03/25 09:00 05/03/25 09:05 05/03/25 09:05 Temperature 37.0 C Pulse Rate 89 88 88 Respiratory Rate 18 18 18 Blood Pressure 106/74 Pulse Oximetry 93 Oxygen Delivery Fraction of Inspired Oxygen 05/03/25 09:06 05/03/25 09:06 05/03/25 09:10 Temperature Pulse Rate 88 88 88 Respiratory Rate 18 18 18 Blood Pressure Pulse Oximetry Oxygen Delivery Fraction of Inspired Oxygen 05/03/25 09:10 05/03/25 10:00 05/03/25 10:00 Temperature 36.9 C Pulse Rate 88 80 80 Respiratory Rate 18 18 Blood Pressure 113/79 Pulse Oximetry 95 Oxygen Delivery Fraction of Inspired Oxygen 05/03/25 10:00 05/03/25 10:00 05/03/25 10:00 Temperature Pulse Rate 80 80 80 Respiratory Rate 18 18 18 Blood Pressure Pulse Oximetry Oxygen Delivery Fraction of Inspired Oxygen 05/03/25 11:00 05/03/25 11:20 05/03/25 11:40 Temperature 36.9 C Pulse Rate 85 83 85 Respiratory Rate 18 18 Blood Pressure 116/82 Pulse Oximetry 94 93 Oxygen Delivery Mechanical Ventilation Fraction of Inspired Oxygen 55 05/03/25 11:48 05/03/25 11:51 05/03/25 12:00 Temperature Pulse Rate 86 Respiratory Rate Blood Pressure Pulse Oximetry 95 Oxygen Delivery Mechanical Ventilation Fraction of Inspired Oxygen 55 55 05/03/25 12:00 05/03/25 12:00 05/03/25 12:00 Temperature 36.9 C Pulse Rate 87 87 87 Respiratory Rate 18 18 18 Blood Pressure 117/82 Pulse Oximetry 95 Oxygen Delivery Fraction of Inspired Oxygen 05/03/25 12:17 05/03/25 13:01 05/03/25 13:45 Temperature Pulse Rate 85 85 85 Respiratory Rate 18 18 Blood Pressure 118/80 Pulse Oximetry 98 98 Oxygen Delivery Mechanical Ventilation Fraction of Inspired Oxygen 45 05/03/25 13:50 05/03/25 13:50 05/03/25 13:50 Temperature Pulse Rate 85 Respiratory Rate 18 Blood Pressure Pulse Oximetry Oxygen Delivery Mechanical Ventilation Fraction of Inspired Oxygen 45 45 05/03/25 14:00 05/03/25 14:00 05/03/25 14:00 Temperature Pulse Rate 90 90 90 Respiratory Rate 16 16 16 Blood Pressure Pulse Oximetry Oxygen Delivery Fraction of Inspired Oxygen 05/03/25 14:00 05/03/25 14:01 05/03/25 14:42 Temperature Pulse Rate 82 90 87 Respiratory Rate 16 18 Blood Pressure 123/85 Pulse Oximetry 98 Oxygen Delivery Fraction of Inspired Oxygen 05/03/25 14:42 05/03/25 15:01 05/03/25 16:00 Temperature Pulse Rate 87 87 84 Respiratory Rate 18 18 18 Blood Pressure 116/79 Pulse Oximetry 95 Oxygen Delivery Fraction of Inspired Oxygen 05/03/25 16:00 05/03/25 16:00 05/03/25 16:00 Temperature 37.1 C Pulse Rate 84 84 86 Respiratory Rate 18 18 18 Blood Pressure 118/80 Pulse Oximetry 96 Oxygen Delivery Fraction of Inspired Oxygen 05/03/25 16:00 05/03/25 16:00 05/03/25 16:00 Temperature Pulse Rate 86 Respiratory Rate Blood Pressure Pulse Oximetry 96 Oxygen Delivery Mechanical Ventilation Fraction of Inspired Oxygen 45 45 05/03/25 16:40 05/03/25 17:00 05/03/25 17:12 Temperature Pulse Rate 83 85 85 Respiratory Rate 18 18 Blood Pressure 119/81 Pulse Oximetry 96 96 Oxygen Delivery Mechanical Ventilation Fraction of Inspired Oxygen 40 05/03/25 17:21 05/03/25 18:00 05/03/25 18:00 Temperature 37.0 C Pulse Rate 85 84 84 Respiratory Rate 18 18 18 Blood Pressure 120/81 Pulse Oximetry 95 Oxygen Delivery Fraction of Inspired Oxygen 05/03/25 18:00 05/03/25 18:00 05/03/25 18:00 Temperature Pulse Rate 84 84 84 Respiratory Rate 18 18 Blood Pressure Pulse Oximetry Oxygen Delivery Fraction of Inspired Oxygen 05/03/25 19:00 05/03/25 19:05 05/03/25 19:28 Temperature 37.8 C H Pulse Rate 96 94 94 Respiratory Rate 18 18 18 Blood Pressure 110/75 Pulse Oximetry 94 Oxygen Delivery Fraction of Inspired Oxygen 05/03/25 19:51 05/03/25 19:51 05/03/25 20:00 Temperature Pulse Rate 88 88 88 Respiratory Rate 18 18 18 Blood Pressure Pulse Oximetry Oxygen Delivery Fraction of Inspired Oxygen 05/03/25 20:00 05/03/25 20:00 05/03/25 20:00 Temperature Pulse Rate 88 88 Respiratory Rate 18 18 Blood Pressure Pulse Oximetry Oxygen Delivery Fraction of Inspired Oxygen 40 05/03/25 20:00 05/03/25 20:00 05/03/25 20:00 Temperature 37.8 C H Pulse Rate 92 90 90 Respiratory Rate 18 Blood Pressure 110/75 Pulse Oximetry 94 94 Oxygen Delivery Mechanical Ventilation Fraction of Inspired Oxygen 40 05/03/25 20:08 05/03/25 20:08 05/03/25 20:13 Temperature Pulse Rate 86 86 89 Respiratory Rate 18 18 Blood Pressure Pulse Oximetry 94 Oxygen Delivery Mechanical Ventilation Fraction of Inspired Oxygen 40 05/03/25 21:00 05/03/25 21:34 05/03/25 21:34 Temperature Pulse Rate 97 92 92 Respiratory Rate 18 18 18 Blood Pressure 116/75 Pulse Oximetry 95 Oxygen Delivery Fraction of Inspired Oxygen 05/03/25 22:00 05/03/25 22:00 05/03/25 22:00 Temperature Pulse Rate 94 94 94 Respiratory Rate 18 18 Blood Pressure 124/84 Pulse Oximetry 95 Oxygen Delivery Fraction of Inspired Oxygen 05/03/25 22:00 05/03/25 22:00 05/03/25 22:21 Temperature Pulse Rate 94 94 94 Respiratory Rate 18 18 18 Blood Pressure Pulse Oximetry Oxygen Delivery Fraction of Inspired Oxygen 05/03/25 22:28 05/03/25 22:50 05/03/25 23:00 Temperature Pulse Rate 94 90 90 Respiratory Rate 18 18 Blood Pressure 115/78 Pulse Oximetry 93 95 Oxygen Delivery Mechanical Ventilation Fraction of Inspired Oxygen 40 05/04/25 00:00 05/04/25 00:00 05/04/25 00:00 Temperature Pulse Rate 92 94 94 Respiratory Rate 18 18 18 Blood Pressure Pulse Oximetry Oxygen Delivery Fraction of Inspired Oxygen 05/04/25 00:00 05/04/25 00:00 05/04/25 00:00 Temperature Pulse Rate 94 94 Respiratory Rate 18 Blood Pressure Pulse Oximetry 95 Oxygen Delivery Mechanical Ventilation Fraction of Inspired Oxygen 40 40 05/04/25 00:00 05/04/25 00:55 05/04/25 00:55 Temperature 37.7 C H Pulse Rate 94 88 88 Respiratory Rate 18 18 18 Blood Pressure 112/77 Pulse Oximetry 94 Oxygen Delivery Fraction of Inspired Oxygen 05/04/25 01:00 05/04/25 02:00 05/04/25 02:00 Temperature Pulse Rate 90 99 99 Respiratory Rate 18 18 18 Blood Pressure 116/80 Pulse Oximetry 94 Oxygen Delivery Fraction of Inspired Oxygen 05/04/25 02:00 05/04/25 02:00 05/04/25 02:00 Temperature Pulse Rate 99 96 96 Respiratory Rate 20 18 Blood Pressure 116/78 Pulse Oximetry 94 Oxygen Delivery Fraction of Inspired Oxygen 05/04/25 02:04 05/04/25 02:04 05/04/25 02:23 Temperature Pulse Rate 98 98 94 Respiratory Rate 18 18 Blood Pressure Pulse Oximetry 95 Oxygen Delivery Mechanical Ventilation Fraction of Inspired Oxygen 40 05/04/25 03:00 05/04/25 03:24 05/04/25 03:24 Temperature 38.4 C H Pulse Rate 98 100 100 Respiratory Rate 18 18 18 Blood Pressure 116/78 Pulse Oximetry 94 Oxygen Delivery Fraction of Inspired Oxygen 05/04/25 03:25 05/04/25 04:00 05/04/25 04:00 Temperature 38.4 C H Pulse Rate 100 Respiratory Rate 18 Blood Pressure Pulse Oximetry Oxygen Delivery Fraction of Inspired Oxygen 40 05/04/25 04:00 05/04/25 04:00 05/04/25 04:00 Temperature Pulse Rate 98 98 98 Respiratory Rate 18 18 18 Blood Pressure Pulse Oximetry 94 Oxygen Delivery Mechanical Ventilation Fraction of Inspired Oxygen 40 05/04/25 04:00 05/04/25 04:00 05/04/25 04:25 Temperature 38.1 C H 38.1 C H Pulse Rate 97 97 Respiratory Rate 18 Blood Pressure 104/73 Pulse Oximetry 92 Oxygen Delivery Fraction of Inspired Oxygen 05/04/25 05:00 05/04/25 05:29 05/04/25 05:31 Temperature Pulse Rate 90 92 91 Respiratory Rate 18 18 Blood Pressure 110/75 Pulse Oximetry 94 94 Oxygen Delivery Mechanical Ventilation Fraction of Inspired Oxygen 40 05/04/25 05:39 05/04/25 05:54 05/04/25 06:00 Temperature Pulse Rate 92 91 91 Respiratory Rate 18 18 18 Blood Pressure Pulse Oximetry Oxygen Delivery Fraction of Inspired Oxygen 05/04/25 06:00 05/04/25 06:00 05/04/25 06:00 Temperature Pulse Rate 91 88 88 Respiratory Rate 18 18 Blood Pressure 110/78 Pulse Oximetry 94 Oxygen Delivery Fraction of Inspired Oxygen 05/04/25 06:03 05/04/25 07:00 05/04/25 07:47 Temperature Pulse Rate 91 89 92 Respiratory Rate 18 18 Blood Pressure 115/78 Pulse Oximetry 95 100 Oxygen Delivery Mechanical Ventilation Fraction of Inspired Oxygen 40 05/04/25 07:47 05/04/25 07:56 Temperature Pulse Rate 92 95 Respiratory Rate 18 21 H Blood Pressure Pulse Oximetry Oxygen Delivery Fraction of Inspired Oxygen Intake/Output Intake/Output: Intake & Output 05/01/25 05/02/25 05/03/25 05/04/25 23:59 23:59 23:59 23:59 Intake Total 3732.2 3247.9 1697.4 865.8 Output Total 6575 4300 3400 1650 Balance -2842.8 -1052.1 -1702.6 -784.2 Meds/Results Medications: Active Medications Generic Name Dose Route Start Last Admin Trade Name Freq PRN Reason Stop Dose Admin Acetaminophen 650 mg 04/29/25 11:11 05/04/25 03:25 Acetaminophen Elixir 325 Mg/10.15 Ml Udc PO 650 mg Q6H PRN Administration Mild Pain (1-3) or Fever Albuterol/Ipratropium 3 ml 04/29/25 14:20 05/04/25 07:47 Ipratropium 0.5 Mg/Albuterol Sulfate 2.5 Mg Ampul.Neb 3 Ml INHALATION 3 ml Q6HRT BRAULIO Administration Bisacodyl 10 mg 05/04/25 07:37 Bisacodyl 10 Mg Suppository RECTAL QAM PRN Constipation Enoxaparin Sodium 40 mg 04/28/25 09:00 05/04/25 08:10 Enoxaparin 40 Mg/0.4 Ml Syringe SUB-Q 40 mg DAILY BRAULIO Administration Folic Acid 1 mg 04/29/25 09:00 05/04/25 08:10 Folic Acid 1 Mg/0.2 Ml Inj IV PUSH 1 mg QAM BRAULIO Administration Dexmedetomidine HCl 400 mcg in 100 mls @ 40.04 mls/hr 04/29/25 12:15 05/04/25 06:03 Precedex 400 Mcg/100 Ml IV CONT 1.3 mcg/kg/hr .Q2H30M BRAULIO 40.04 mls/hr Protocol Administration 1.3 MCG/KG/HR Midazolam HCl 100 mg in 100 mls @ 10 mls/hr 05/01/25 21:10 05/04/25 06:00 Versed 100 Mg/Ns 100 Ml IV CONT 10 mg/hr .Q10H BRAULIO 10 mls/hr Protocol Titration 10 MG/HR Fentanyl Citrate 2,500 mcg in 250 mls @ 20 mls/hr 05/02/25 09:00 05/04/25 06:00 Fentanyl 2,500 Mcg/Ns 250 Ml IV CONT 200 mcg/hr .[id number] BRAULIO 20 mls/hr Protocol Titration 200 MCG/HR Norepinephrine Bitartrate 8 mg in 250 mls @ 9.375 mls/hr 05/02/25 15:55 05/03/25 07:50 Levophed 8 Mg/D5w 250 Ml IV CONT Not Given On Hold: 05/03/25 07:50 .Q24H BRAULIO Protocol 5 MCG/MIN Lactated Ringer's 1,000 mls @ 100 mls/hr 05/04/25 07:30 05/04/25 08:10 Lr - Lactated Ringers Iv IV CONT 100 mls/hr .Q10H BRAULIO Administration Cefepime HCl 1 gm/ Sodium 50 mls @ 100 mls/hr 05/04/25 09:00 05/04/25 08:23 Chloride IVPB 100 mls/hr Q12HR BRAULIO Administration Metronidazole 500 mg in 100 mls @ 100 mls/hr 05/04/25 14:00 Flagyl 500 Mg/Iso Soln 100 Ml IVPB Q8HR BRAULIO Midazolam HCl 2 mg 05/01/25 03:33 05/02/25 16:56 Midazolam Hcl (*Crx) 2 Mg/2 Ml Vial IV PUSH 2 mg Q2H PRN Administration agitation/sedation Multi-Ingred Cream/Lotion/Oil/Oint 1 applic 04/30/25 09:00 05/04/25 08:11 Mineral Oil/White Petrolatum Ointment EACH EYE 1 applic Q12HR BRAULIO Administration Ondansetron HCl 4 mg 05/02/25 05:00 05/03/25 19:29 Ondansetron Inj 4 Mg/2 Ml Vial IV PUSH 4 mg Q6H PRN Administration Nausea And Vomiting Pantoprazole Sodium 40 mg 04/29/25 09:00 05/04/25 08:10 Pantoprazole Sodium Iv 40 Mg Vial IV PUSH 40 mg QAM BRAULIO Administration Polyethylene Glycol 17 gm 05/04/25 09:00 05/04/25 08:10 Polyethylene Glycol 3350 17 Gm Powd.Pack PO 17 gm QAM BRAULIO Administration Sodium Chloride 10 ml 04/28/25 14:00 05/04/25 05:04 Central Line Flush IV PUSH 10 ml Q8HR BRAULIO Administration Sodium Chloride 10 ml 04/28/25 11:06 Central Line Flush IV PUSH PRN PRN with TPN bag changes Sodium Chloride 20 ml 04/28/25 11:06 05/01/25 04:59 Central Line Flush IV PUSH 20 ml PRN PRN Administration after blood draws Thiamine HCl 200 mg 04/29/25 09:00 05/04/25 08:10 Thiamine Hcl 200 Mg/2 Ml Vial IV PUSH 200 mg QAM BRAULIO Administration Radiology Results: ITS Impressions Head CT 04/28/25 08:29 Impression: 1.No acute intracranial abnormality. Abdomen X-Ray 05/02/25 13:22 Impression: 1. Probable small bowel obstruction. Correlation with CT recommended Chest/Abdomen/Pelvis CT 05/03/25 11:04 IMPRESSION: 1. Extensive airspace opacities in the lower lobes with volume loss, consistent with atelectasis versus pneumonia. Mild atelectasis and pneumonia in right upper lobe. Labs Labs: Laboratory Results - last 24 hr 05/03/25 05/03/25 05/03/25 04:28 17:14 23:51 WBC RBC Hgb Hct MCV MCH MCHC RDW Plt Count MPV Immature Gran % (Auto) Neut % (Auto) Lymph % (Auto) [place] % (Auto) Eos % (Auto) Baso % (Auto) Lymph # (Auto) [place] # (Auto) Eos # (Auto) Baso # (Auto) Abs Immat Gran (auto) Absolute Neuts (auto) Absolute Nucleated RBC Nucleated RBC % Puncture Site ABG pH ABG pCO2 ABG pO2 ABG PO2/FiO2 Ratio ABG HCO3 ABG O2 Saturation ABG O2 Content ABG Base Excess A-a Gradient Oxyhemoglobin Total Hemoglobin O2 Delivery Device O2 Liters/Min Minute Volume Vent Rate Vent Mode FiO2 Tidal Volume PEEP Peak Inspir Pressure Pressure Support Sodium Potassium Chloride Carbon Dioxide Anion Gap BUN Creatinine Estim Creat Clear Calc Estimated GFR Glucose POC Capillary Glucose 129 H Calcium Phosphorus Magnesium Total Bilirubin AST ALT Alkaline Phosphatase Total Creatine Kinase 543 H Total Protein Albumin Urine Eosinophils Rare Ur Random Sodium 94 Urine Creatinine 39.7 05/04/25 05/04/25 05:00 05:33 WBC 8.4 RBC 3.59 L Hgb 10.4 L Hct 33.8 L MCV 94.2 MCH 29.0 MCHC 30.8 L RDW 13.6 Plt Count 190 MPV 9.6 Immature Gran % (Auto) 2.2 H Neut % (Auto) 63.7 Lymph % (Auto) 15.4 L [place] % (Auto) 13.8 H Eos % (Auto) 4.4 Baso % (Auto) 0.5 Lymph # (Auto) 1.29 [place] # (Auto) 1.2 H Eos # (Auto) 0.4 H Baso # (Auto) 0.0 Abs Immat Gran (auto) 0.18 H Absolute Neuts (auto) 5.3 Absolute Nucleated RBC 0.000 Nucleated RBC % 0.0 Puncture Site Right radial ABG pH 7.364 ABG pCO2 39.9 ABG pO2 74.6 L ABG PO2/FiO2 Ratio 1.87 ABG HCO3 22.2 ABG O2 Saturation 94.6 L ABG O2 Content 15.6 L ABG Base Excess -2.9 A-a Gradient 164.7 Oxyhemoglobin 93.7 Total Hemoglobin 11.8 L O2 Delivery Device Ventilator O2 Liters/Min Not Reportable Minute Volume Not Reportable Vent Rate 18 Vent Mode Cmv FiO2 40 Tidal Volume 450 PEEP 10 Peak Inspir Pressure Not Reportable Pressure Support Not Reportable Sodium 140 Potassium 4.5 Chloride 111 H Carbon Dioxide 22 Anion Gap 7 BUN 37 H D Creatinine 2.47 H Estim Creat Clear Calc 47 Estimated GFR 29 L Glucose 124 H POC Capillary Glucose Calcium 8.4 Phosphorus 6.5 H Magnesium 2.5 H Total Bilirubin 0.7 AST 40 ALT 27 Alkaline Phosphatase 132 H Total Creatine Kinase Total Protein 6.5 Albumin 3.0 L Urine Eosinophils Ur Random Sodium Urine Creatinine Quality VTE Prophylaxis VTE prophylaxis: pharmacologic ordered
[2025-05-04] MEDS: FENTANYL 2,500MCG/NS250ML(*CRX 2,500 MCG/250 ML BAG 20 MCG IV CONT ×2 (09:33→21:42)
--- NOTE | 2025-05-04 10:31 | PCFNICU ---
ICU Rounding Note: Pt current nutrition is Vital AF 1.2 at 20 ml/hr. Last recorded weight is 119.7 kg, down from 121.5 kg on admit. Bowel Motility: No BM reported. Labs Reviewed: Glu 124, BUN 37, Cr 2.47, Alb 3.0 Meds Noted: Reglan, Miralax, Precedex, Fentanyl, Versed. Skin: WNL Additional Notes: Patient remain on a mechanical vent. Spoke with nursing today, tube feedings residuals at 500 ml. Tube feeding on hold at this time. Recommend Vital AF 1.2 at 20 ml/hr when advancing. Following daily in ICU rounds. Will monitor weight, labs, skin, diet orders, meds every Friday and Friday.
[2025-05-04] MEDS: METOCLOPRAMIDE HCL INJ 10 MG/2 ML VIAL IV PUSH ×2 (12:38→17:50)
--- NOTE | 2025-05-04 14:10 | P.CONNP_ITS ---
Assessment and Plan Assessment and plan (1) Acute kidney injury: Code(s): N17.9 - Acute kidney failure, unspecified Status: Acute Assessment and Plan: * as noted by rise in creatinine on 05/03 * creatinine samuel to 2.05mg/dL * normal baseline creatinine * multifactorial etiology: * hemodynamic instability/shock/hypotension * insensible losses (from fevers) * antibiotics (?) * possible infection (aspiration pneumonia) * other (?) * still with good urine output and no critical electrolytes * evaluation to date noted: * CT of S/P without obstruction * CPK mildly elevated but normal now * urine electrolyte non-prerenal * rare urine eosinophils - significance? (from antibiotics?) * UA sediment bland * follow trend of repeat labs and UOP (2) Acute respiratory failure with hypoxia and hypercapnia: Code(s): J96.01 - Acute respiratory failure with hypoxia; J96.02 - Acute respiratory failure with hypercapnia Status: Acute Assessment and Plan: * initially intubated and placed on mechanical ventilation due to altered mental status/agitation/combativeness and need for airway protection * complicated by aspiration pneumonia * sputum cultures growing MSSA * on antibiotics (3) Acute drug overdose: Qualifiers: Encounter type: initial encounter Injury intent: intentional self-harm Qualified Code(s): T50.902A - Poisoning by unspecified drugs, medicaments and biological substances, intentional self-harm, initial encounter Code(s): T50.901A - Poisoning by unspecified drugs, medicaments and biological substances, accidental (unintentional), initial encounter Status: Acute Assessment and Plan: * per history, intentionally overdosed on hydroxyzine + baclofen +trazodone * poison control was notified and is following * presumably responsible for symptoms on presenation (low BP, altered mental status...etc) * continue supportive care (4) Hypotension: Code(s): I95.9 - Hypotension, unspecified Status: Resolved Assessment and Plan: * related to drug overdose * s/p aggressive fluid resuscitation * initially on vasopressor but weaned off * follow trend of hemodynamics (5) Alcohol abuse: Code(s): F10.10 - Alcohol abuse, uncomplicated Status: Acute Assessment and Plan: * known history of alcohol abuse * elevated alcohol levels on admission * continue thiamine and folic acid (6) Altered mental status: Code(s): R41.82 - Altered mental status, unspecified Status: Acute Assessment and Plan: * though to be secondary #3 drug overdose * seems to be slowly improving at this time * follow trend of mentation I will continue to follow the patient with you while he remains hospitalized and make further recommendations as deemed necessary. Thank you for allowing me to participate in the care of this patient. L History of Present Illness Reason for Consult Consult date: 05/04/25 Reason for consult: acute renal failure Chief Complaint Chief complaint: Drug overdose History of Present Illness Narrative: All the information I have obtained is from review of the electronic medical record as well as discussion with the physician / nurses involved in the patient's care as the patient is unable to provide me any history as he is currently intubated and on mechanical ventilation at the time my visit. The patient is a 44-year-old male with a past medical history as outlined below who presented to [facility] Emergency Room via EMS for further evaluation of a drug overdose. The patient apparently just out of alcohol rehab about a week ago and apparently relapsed with regard to alcohol intake. He was currently residing at a local motel when apparently he called his daughter and stated that he had taken an overdose of multiple medications which later turned out to be hydroxyzine, baclofen, and trazodone. Following this phone call, his daughter called EMS and on their arrival to his hotel room, found the patient to be somewhat drowsy and a suicide note present. In spite of his drowsiness, he was arousable and given the above history as mentioned, he was transported to the emergency room for further assessment. On arrival to the emergency room, he was still what quite lethargic but remained arousable but over the course of his stay in the ER, he became more somnolent, agitated, and combative. He was noted be slightly tachycardic but hemodynamically stable. He was given a total of 3 L of LR and poison Control was contacted with regard to his intentional overdose of the above medications. Telemetry /EKG noted QT prolongation and his initial labs showed a white blood cell count of 9.4, hemoglobin 13.6, platelet count of 255, sodium 139, potassium 2.8, bicarb 22, normal renal function, glucose of 215, calcium 8.0, magnesium 2.0, mildly elevated ALT at 51 but otherwise normal liver function tests, albumin 4.1, ethyl alcohol level of 280, but negative salicylates and acetaminophen level. Urine drug screen was negative as well. COVID-19 testing was negative. while in the emergency room, the patient became more stuporous With increasing agitation and combativeness requiring multiple staff members to restrain him. Eventually, he was intubated for airway protection and placed on mechanical ventilation. Subsequent imaging included a CT scan of the brain with no acute intracranial abnormality,and a chest x-ray with mild venous pulmonary congestion with no pneumothorax and the ET tube in place. he was subsequently transferred to the intensive care unit for further evaluation therapy. Since his admission, he remains intubated and on mechanical ventilation in the intensive care unit. He was initially on vasopressor therapy due to hypotension but has since been weaned off with relative stability in his hemodynamics. He remains on antibiotics for presumed aspiration pneumonia as well and has been having on and off fevers. Labs done yesterday as well as today show evidence of acute kidney injury/acute renal failure. Renal consultation was requested due to his acute kidney injury/acute renal failure. As noted by his labs on admission and on previous hospital records, the patient's kidney function is normal at baseline. However, by labs done on 05/03 his creatinine increased to 2.05 mg/dL with a subsequent reading of 2.47 mg/dL by labs done this morning. In spite of this rise in his creatinine, he has no critical electrolyte abnormalities, metabolic acidosis, or evidence of volume overload and appears to continue to have fairly good urine output as well. There was some concern that perhaps the antibiotics he was on may have been responsible for his decline in kidney function and this has since been adjusted. It should be also noted that he did have several episodes of hypotension in the last 24-48 hours which may also be partly responsible for his decline in kidney function. Currently, at the time my evaluation, he appears in no acute distress and remains intubated and on mechanical ventilation. Review of Systems 2 Review of Systems: As per HPI. 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 The patient continues to smoke 1 pack a cigarettes a day. The patient stated that he usually drinks about 10 alcoholic beverages a week. He states every other week any does not drink when he has his child. The patient denies any marijuana or any other illicit drugs. 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 Code status full code Smoking packs per day: 1 Smoking cigarettes per day: 20.0 Years smoked: 20 Smoking pack-years: 20.00 Smoking status: Unknown if ever smoked Second hand tobacco smoke exposure: No Additional smoking assessment comments: patient sedated Alcohol intake: unknown Drinks per week: 10 Substance use: unknown Substance use type: former substance user Do You Feel Safe in your Home?: Yes Lack of Transportation: No Lack of Food: Never True Current Housing: I Have Housing Concerned About Future Housing: No Difficulty Paying Gas/Electric Bills: No Difficulty Paying for Meds: No Currently Unemployed: No Education: High School Diploma/GED Difficulty w/ Childcare or Family Care: No Gender identity (if verbalized by the patient): Male Spiritual care concerns: No Meds Home Medications and Allergies Home Medications ?Medication ?Instructions ?Recorded ?Confirmed ?Type baclofen 20 mg tablet 20 mg PO BID 04/28/25 History docusate sodium 100 mg capsule 100 mg PO DAILY PRN con stipation 04/28/25 04/28/25 History folic acid 1 mg tablet 1 mg PO DAILY 04/28/2504/28 History hydroxyzine pamoate 25 mg capsule 25 mg PO Q4H PRN anx iety 04/28/25 04/28/25 History (Vistaril) naltrexone 50 mg tablet 50 mg PO DAILY 04/28/2504/18 History trazodone 100 mg tablet 100 mg PO HS PRN insomnia 04/28/25 History venlafaxine 75 mg capsule,extended 75 mg PO HS 5 04/28/25 History release 24 hr Allergies Allergy/AdvReac Type Severity Reaction Status Date / Time azithromycin AdvReac Unknown Other Verified 04/28/25 05:37 Vital Signs Vital Signs Temp Pulse Resp BP Pulse Ox O2 Del Method FiO2 05/04/25 14:00 99.0 F 89 18 118/78 95 05/04/25 13:42 98 18 05/04/25 13:34 93 18 05/04/25 13:00 99.0 F 89 18 118/78 95 05/04/25 12:00 90 05/04/25 12:00 99.3 F 91 18 120/81 95 05/04/25 12:00 40 05/04/25 12:00 95 Mechanical Ventilation 40 05/04/25 12:00 91 18 05/04/25 12:00 91 18 05/04/25 12:00 91 18 05/04/25 11:16 90 18 05/04/25 11:11 90 18 05/04/25 11:00 99.4 F 90 18 117/79 95 05/04/25 10:50 89 95 Mechanical Ventilation 40 05/04/25 10:00 94 05/04/25 10:00 99.2 F 94 18 118/80 95 05/04/25 10:00 94 18 05/04/25 10:00 94 18 05/04/25 10:00 94 18 05/04/25 09:33 96 18 05/04/25 09:33 96 18 05/04/25 09:00 99.5 F 97 18 116/78 93 05/04/25 08:41 101 H 18 05/04/25 08:33 101 H 18 05/04/25 08:00 103 H 05/04/25 08:00 93 Mechanical Ventilation 40 05/04/25 08:00 40 05/04/25 08:00 100.0 F H 100 18 114/74 94 05/04/25 08:00 101 H 18 05/04/25 08:00 101 H 18 05/04/25 08:00 98 18 05/04/25 07:56 95 21 H 05/04/25 07:47 92 18 05/04/25 07:47 92 100 Mechanical Ventilation 40 05/04/25 07:00 89 18 115/78 95 05/04/25 06:03 91 18 05/04/25 06:00 88 18 110/78 94 05/04/25 06:00 88 05/04/25 06:00 91 18 05/04/25 06:00 91 18 05/04/25 05:54 91 18 05/04/25 05:39 92 18 05/04/25 05:31 91 94 Mechanical Ventilation 40 05/04/25 05:29 92 18 05/04/25 05:00 90 18 110/75 94 05/04/25 04:25 100.6 F H 05/04/25 04:00 100.6 F H 97 18 104/73 92 05/04/25 04:00 97 05/04/25 04:00 98 18 94 Mechanical Ventilation 40 05/04/25 04:00 98 18 05/04/25 04:00 98 18 05/04/25 04:00 100 18 05/04/25 04:00 40 05/04/25 03:25 101.1 F H 05/04/25 03:24 100 18 05/04/25 03:24 100 18 05/04/25 03:00 101.1 F H 98 18 116/78 94 05/04/25 02:23 94 18 05/04/25 02:04 98 18 05/04/25 02:04 98 95 Mechanical Ventilation 40 05/04/25 02:00 96 05/04/25 02:00 96 18 116/78 94 05/04/25 02:00 99 20 05/04/25 02:00 99 18 05/04/25 02:00 99 18 05/04/25 01:00 90 18 116/80 94 05/04/25 00:55 88 18 05/04/25 00:55 88 18 Exam 2 Narrative: GENERAL APPEARANCE: well developed well nourished male intubated/sedated and on mechanical ventilation HEENT: normocephalic, atraumatic, normal conjunctiva and sclera, nares patient NECK: no lymphadenopathy, thyromegaly, or JVD MOUTH: normal lips, teeth, and gums; ETT in place CARDIOVASCULAR: RRR, normal S1 and S2, no rub detected RESPIRATORY: coarse breath sounds; bibasilar rales (R > L) ABDOMEN: soft, nontender, nondistended, diminished bowel sounds EXTREMITIES: no evidence of cyanosis, clubbing, or edema NEUROLOGICAL: unable to assess Results Lab Results 05/07/25 04:44 05/07/25 14:06 Lab results: Most recent lab results ABG pH 7.364 (7.350-7.450) 05/04/25 05:33 ABG pCO2 39.9 mmHg (35.0-45.0) 05/04/25 05:33 ABG pO2 74.6 mmHg (80.0-100.0) L 05/04/25 05:33 ABG HCO3 22.2 mEq/l (22.0-26.0) 05/04/25 05:33 ABG O2 Saturation 94.6 % (95.0-100.0) L 05/04/25 05:33 Calcium 8.4 mg/dL (8.4-10.2) 05/04/25 05:00 Phosphorus 6.5 mg/dL (2.5-4.5) H 05/04/25 05:00 Magnesium 2.5 mg/dL (1.6-2.3) H 05/04/25 05:00 Urine Creatinine 39.7 mg/dL 05/03/25 17:14
[2025-05-04] MEDS: metroNIDAZOLE 500 MG/ISO 100ML 500 MG/100 ML BAG 100 MG IVPB ×2 (14:40→21:23)
--- NOTE | 2025-05-04 22:35 | P.PNIM_ITS ---
Progress Note: A&P Assessment and Plan (1) Suicidal behavior: Code(s): R45.89 - Other symptoms and signs involving emotional state Status: Acute (2) Alcohol abuse: Code(s): F10.10 - Alcohol abuse, uncomplicated Status: Acute (3) QT prolongation: Code(s): R94.31 - Abnormal electrocardiogram [ECG] [EKG] Status: Acute (4) SHANTEL (acute kidney injury): Code(s): N17.9 - Acute kidney failure, unspecified Status: Acute (5) Acute drug overdose: Qualifiers: Encounter type: initial encounter Injury intent: intentional self-harm Qualified Code(s): T50.902A - Poisoning by unspecified drugs, medicaments and biological substances, intentional self-harm, initial encounter Code(s): T50.901A - Poisoning by unspecified drugs, medicaments and biological substances, accidental (unintentional), initial encounter Status: Acute Plan 44-year-old male with PMH hyperlipidemia, essential hypertension, GERD, alcohol use disorder, anxiety, depression presents to [facility] ER on the morning of 04/28/2025. Patient was at a hotel, called his daughter letting her know he overdosed on medications, daughter called EMS who arrived on the scene and found a suicide note with the patient. In the ER, initially drowsy but arousable, he became more somnolent agitated combative and was intubated for airway protection. QTC was prolonged. Received large volume fluid resuscitation. Urine tox screen negative, alcohol level at 280, acetaminophen and salicylate levels within normal limits. CT brain without acute abnormalities. Chest x-ray demonstrating mild venous pulmonary congestion with ETT in place. Subsequently admitted to the ICU and sedated with fentanyl and Versed. Patient had hypotension, Levophed is now off in his blood pressure is adequate. QTC improved as well. He remains intubated and sedated. Appears agitated when awake, concern for alcohol withdrawal. Was receiving vancomycin. At this moment he is on 100 cc of normal saline per hour. Continue to trend renal function. Strict intake/output, has Marion catheter in place, patent and draining. Will check urine electrolytes. He had vomiting, x-ray demonstrated possible SBO, however, CT chest abdomen pelvis without contrast did not demonstrate evidence of obstruction. Likely due to ileus. Surgery recommends NG tube decompression. Patient is full code Folic acid, thiamine, Protonix. Hygiene and wound prevention per ICU protocol. Normal saline infusion Hold tube feeds Lovenox 40 mg subQ q.day When extubated will need alcohol use disorder counseling and resources, will n eed transfer to psychiatric worthy for further management of intentional overdose/suicide attempt. updated 05/04/25: spoke with shopper insights manager, sindy switched to cefepime. nephrology consulted. continueu fluids. mgmt per shopper insights manager. Subjective Date/time seen: 05/04/25 22:35 Interval history: on sedation, he does wake up and follow simple commands. comfortable without vomiting or belly pain Review of Systems Review of Systems: ROS unobtainable: Yes unobtainable due to endotracheal tube and unobtainable due to medical condition Exam Const: Other: Intubated, sedated Resp: Other: Mechanical breath sounds, no adventitious sounds identified Cardio: Rate: regular rate Rhythm: regular rhythm GI: Inspection: non-distended GI Palp: Yes Soft to palpation and No Tenderness to palpation present (GI) Urinary Catheter: Urinary Catheter: patent and draining Extrem: General: no edema Objective Data Vital Signs Vital Signs: Vital Signs - 24 hr 05/03/25 22:50 05/03/25 23:00 05/04/25 00:00 Temperature Pulse Rate 90 90 92 Respiratory Rate 18 18 Blood Pressure 115/78 Pulse Oximetry 93 95 Oxygen Delivery Mechanical Ventilation Fraction of Inspired Oxygen 40 05/04/25 00:00 05/04/25 00:00 05/04/25 00:00 Temperature Pulse Rate 94 94 Respiratory Rate 18 18 Blood Pressure Pulse Oximetry Oxygen Delivery Fraction of Inspired Oxygen 40 05/04/25 00:00 05/04/25 00:00 05/04/25 00:00 Temperature 99.9 F H Pulse Rate 94 94 94 Respiratory Rate 18 18 Blood Pressure 112/77 Pulse Oximetry 95 94 Oxygen Delivery Mechanical Ventilation Fraction of Inspired Oxygen 40 05/04/25 00:55 05/04/25 00:55 05/04/25 01:00 Temperature Pulse Rate 88 88 90 Respiratory Rate 18 18 18 Blood Pressure 116/80 Pulse Oximetry 94 Oxygen Delivery Fraction of Inspired Oxygen 05/04/25 02:00 05/04/25 02:00 05/04/25 02:00 Temperature Pulse Rate 99 99 99 Respiratory Rate 18 18 20 Blood Pressure Pulse Oximetry Oxygen Delivery Fraction of Inspired Oxygen 05/04/25 02:00 05/04/25 02:00 05/04/25 02:04 Temperature Pulse Rate 96 96 98 Respiratory Rate 18 Blood Pressure 116/78 Pulse Oximetry 94 95 Oxygen Delivery Mechanical Ventilation Fraction of Inspired Oxygen 40 05/04/25 02:04 05/04/25 02:23 05/04/25 03:00 Temperature 101.1 F H Pulse Rate 98 94 98 Respiratory Rate 18 18 18 Blood Pressure 116/78 Pulse Oximetry 94 Oxygen Delivery Fraction of Inspired Oxygen 05/04/25 03:24 05/04/25 03:24 05/04/25 03:25 Temperature 101.1 F H Pulse Rate 100 100 Respiratory Rate 18 18 Blood Pressure Pulse Oximetry Oxygen Delivery Fraction of Inspired Oxygen 05/04/25 04:00 05/04/25 04:00 05/04/25 04:00 Temperature Pulse Rate 100 98 Respiratory Rate 18 18 Blood Pressure Pulse Oximetry Oxygen Delivery Fraction of Inspired Oxygen 40 05/04/25 04:00 05/04/25 04:00 05/04/25 04:00 Temperature Pulse Rate 98 98 97 Respiratory Rate 18 18 Blood Pressure Pulse Oximetry 94 Oxygen Delivery Mechanical Ventilation Fraction of Inspired Oxygen 40 05/04/25 04:00 05/04/25 04:25 05/04/25 05:00 Temperature 100.6 F H 100.6 F H Pulse Rate 97 90 Respiratory Rate 18 18 Blood Pressure 104/73 110/75 Pulse Oximetry 92 94 Oxygen Delivery Fraction of Inspired Oxygen 05/04/25 05:29 05/04/25 05:31 05/04/25 05:39 Temperature Pulse Rate 92 91 92 Respiratory Rate 18 18 Blood Pressure Pulse Oximetry 94 Oxygen Delivery Mechanical Ventilation Fraction of Inspired Oxygen 40 05/04/25 05:54 05/04/25 06:00 05/04/25 06:00 Temperature Pulse Rate 91 91 91 Respiratory Rate 18 18 18 Blood Pressure Pulse Oximetry Oxygen Delivery Fraction of Inspired Oxygen 05/04/25 06:00 05/04/25 06:00 05/04/25 06:03 Temperature Pulse Rate 88 88 91 Respiratory Rate 18 18 Blood Pressure 110/78 Pulse Oximetry 94 Oxygen Delivery Fraction of Inspired Oxygen 05/04/25 07:00 05/04/25 07:47 05/04/25 07:47 Temperature Pulse Rate 89 92 92 Respiratory Rate 18 18 Blood Pressure 115/78 Pulse Oximetry 95 100 Oxygen Delivery Mechanical Ventilation Fraction of Inspired Oxygen 40 05/04/25 07:56 05/04/25 08:00 05/04/25 08:00 Temperature Pulse Rate 95 98 101 H Respiratory Rate 21 H 18 18 Blood Pressure Pulse Oximetry Oxygen Delivery Fraction of Inspired Oxygen 05/04/25 08:00 05/04/25 08:00 05/04/25 08:00 Temperature 100.0 F H Pulse Rate 101 H 100 Respiratory Rate 18 18 Blood Pressure 114/74 Pulse Oximetry 94 Oxygen Delivery Fraction of Inspired Oxygen 40 05/04/25 08:00 05/04/25 08:00 05/04/25 08:33 Temperature Pulse Rate 103 H 101 H Respiratory Rate 18 Blood Pressure Pulse Oximetry 93 Oxygen Delivery Mechanical Ventilation Fraction of Inspired Oxygen 40 05/04/25 08:41 05/04/25 09:00 05/04/25 09:33 Temperature 99.5 F Pulse Rate 101 H 97 96 Respiratory Rate 18 18 18 Blood Pressure 116/78 Pulse Oximetry 93 Oxygen Delivery Fraction of Inspired Oxygen 05/04/25 09:33 05/04/25 10:00 05/04/25 10:00 Temperature Pulse Rate 96 94 94 Respiratory Rate 18 18 18 Blood Pressure Pulse Oximetry Oxygen Delivery Fraction of Inspired Oxygen 05/04/25 10:00 05/04/25 10:00 05/04/25 10:00 Temperature 99.2 F Pulse Rate 94 94 94 Respiratory Rate 18 18 Blood Pressure 118/80 Pulse Oximetry 95 Oxygen Delivery Fraction of Inspired Oxygen 05/04/25 10:50 05/04/25 11:00 05/04/25 11:11 Temperature 99.4 F Pulse Rate 89 90 90 Respiratory Rate 18 18 Blood Pressure 117/79 Pulse Oximetry 95 95 Oxygen Delivery Mechanical Ventilation Fraction of Inspired Oxygen 40 05/04/25 11:16 05/04/25 12:00 05/04/25 12:00 Temperature Pulse Rate 90 91 91 Respiratory Rate 18 18 18 Blood Pressure Pulse Oximetry Oxygen Delivery Fraction of Inspired Oxygen 05/04/25 12:00 05/04/25 12:00 05/04/25 12:00 Temperature Pulse Rate 91 Respiratory Rate 18 Blood Pressure Pulse Oximetry 95 Oxygen Delivery Mechanical Ventilation Fraction of Inspired Oxygen 40 40 05/04/25 12:00 05/04/25 12:00 05/04/25 13:00 Temperature 99.3 F 99.0 F Pulse Rate 91 90 89 Respiratory Rate 18 18 Blood Pressure 120/81 118/78 Pulse Oximetry 95 95 Oxygen Delivery Fraction of Inspired Oxygen 05/04/25 13:34 05/04/25 13:34 05/04/25 13:34 Temperature Pulse Rate 94 94 93 Respiratory Rate 18 18 Blood Pressure Pulse Oximetry 95 Oxygen Delivery Mechanical Ventilation Fraction of Inspired Oxygen 40 05/04/25 13:34 05/04/25 13:42 05/04/25 14:00 Temperature Pulse Rate 93 98 101 H Respiratory Rate 18 18 18 Blood Pressure Pulse Oximetry Oxygen Delivery Fraction of Inspired Oxygen 05/04/25 14:00 05/04/25 14:00 05/04/25 14:00 Temperature 99.0 F Pulse Rate 101 H 101 H 89 Respiratory Rate 18 18 18 Blood Pressure 118/78 Pulse Oximetry 95 Oxygen Delivery Fraction of Inspired Oxygen 05/04/25 14:00 05/04/25 15:00 05/04/25 15:38 Temperature 99.0 F Pulse Rate 101 H 93 91 Respiratory Rate 18 18 Blood Pressure 120/79 Pulse Oximetry 94 Oxygen Delivery Fraction of Inspired Oxygen 05/04/25 15:38 05/04/25 16:00 05/04/25 16:00 Temperature 99.8 F H Pulse Rate 91 89 87 Respiratory Rate 18 18 18 Blood Pressure 123/83 Pulse Oximetry 95 Oxygen Delivery Fraction of Inspired Oxygen 05/04/25 16:00 05/04/25 16:00 05/04/25 16:00 Temperature Pulse Rate 88 Respiratory Rate Blood Pressure Pulse Oximetry 95 Oxygen Delivery Mechanical Ventilation Fraction of Inspired Oxygen 40 40 05/04/25 16:00 05/04/25 16:00 05/04/25 16:35 Temperature Pulse Rate 87 87 90 Respiratory Rate 18 18 18 Blood Pressure Pulse Oximetry Oxygen Delivery Fraction of Inspired Oxygen 05/04/25 16:35 05/04/25 16:43 05/04/25 17:00 Temperature 98.9 F Pulse Rate 90 87 90 Respiratory Rate 18 18 Blood Pressure 130/84 Pulse Oximetry 95 96 Oxygen Delivery Mechanical Ventilation Fraction of Inspired Oxygen 40 05/04/25 18:00 05/04/25 18:00 05/04/25 18:00 Temperature 100.1 F H Pulse Rate 90 90 90 Respiratory Rate 18 18 Blood Pressure 125/81 Pulse Oximetry 95 Oxygen Delivery Fraction of Inspired Oxygen 05/04/25 18:00 05/04/25 18:00 05/04/25 19:00 Temperature 100.4 F H Pulse Rate 90 90 86 Respiratory Rate 18 18 18 Blood Pressure 128/82 Pulse Oximetry 95 Oxygen Delivery Fraction of Inspired Oxygen 05/04/25 19:05 05/04/25 19:07 05/04/25 20:00 Temperature Pulse Rate 86 86 84 Respiratory Rate 18 18 18 Blood Pressure Pulse Oximetry Oxygen Delivery Fraction of Inspired Oxygen 05/04/25 20:00 05/04/25 20:00 05/04/25 20:15 Temperature Pulse Rate 84 84 86 Respiratory Rate 18 18 Blood Pressure Pulse Oximetry 95 Oxygen Delivery Mechanical Ventilation Fraction of Inspired Oxygen 40 05/04/25 20:18 05/04/25 20:30 05/04/25 21:20 Temperature 100.9 F H Pulse Rate 94 91 Respiratory Rate 21 H 18 Blood Pressure Pulse Oximetry Oxygen Delivery Fraction of Inspired Oxygen 05/04/25 21:37 05/04/25 21:38 05/04/25 21:42 Temperature Pulse Rate 90 90 90 Respiratory Rate 18 18 18 Blood Pressure Pulse Oximetry Oxygen Delivery Fraction of Inspired Oxygen 05/04/25 21:42 05/04/25 22:30 Temperature Pulse Rate 90 86 Respiratory Rate 18 Blood Pressure Pulse Oximetry 96 Oxygen Delivery Mechanical Ventilation Fraction of Inspired Oxygen 40 Intake/Output Intake/Output: Intake & Output 05/01/25 05/02/25 05/03/25 05/04/25 23:59 23:59 23:59 23:59 Intake Total 3732.2 3247.9 1697.4 3278.6 Output Total 6575 4300 3400 3800 Balance -2842.8 -1052.1 -1702.6 -521.4 Meds/Results Medications: Active Medications Generic Name Dose Route Start Last Admin Trade Name Freq PRN Reason Stop Dose Admin Acetaminophen 650 mg 04/29/25 11:11 05/04/25 21:20 Acetaminophen Elixir 325 Mg/10.15 Ml Udc PO 650 mg Q6H PRN Administration Mild Pain (1-3) or Fever Albuterol/Ipratropium 3 ml 04/29/25 14:20 05/04/25 20:18 Ipratropium 0.5 Mg/Albuterol Sulfate 2.5 Mg Ampul.Neb 3 Ml INHALATION 3 ml Q6HRT BRAULIO Administration Bisacodyl 10 mg 05/04/25 07:37 Bisacodyl 10 Mg Suppository RECTAL QAM PRN Constipation Enoxaparin Sodium 40 mg 04/28/25 09:00 05/04/25 08:10 Enoxaparin 40 Mg/0.4 Ml Syringe SUB-Q 40 mg DAILY BRAULIO Administration Folic Acid 1 mg 04/29/25 09:00 05/04/25 08:10 Folic Acid 1 Mg/0.2 Ml Inj IV PUSH 1 mg QAM BRAULIO Administration Dexmedetomidine HCl 400 mcg in 100 mls @ 40.04 mls/hr 04/29/25 12:15 05/04/25 21:38 Precedex 400 Mcg/100 Ml IV CONT 1.3 mcg/kg/hr .Q2H30M BRAULIO 40.04 mls/hr Protocol Administration 1.3 MCG/KG/HR Midazolam HCl 100 mg in 100 mls @ 10 mls/hr 05/01/25 21:10 05/04/25 20:00 Versed 100 Mg/Ns 100 Ml IV CONT 10 mg/hr .Q10H BRAULIO 10 mls/hr Protocol Titration 10 MG/HR Fentanyl Citrate 2,500 mcg in 250 mls @ 20 mls/hr 05/02/25 09:00 05/04/25 21:42 Fentanyl 2,500 Mcg/Ns 250 Ml IV CONT 200 mcg/hr .[id number] BRAULIO 20 mls/hr Protocol Administration 200 MCG/HR Norepinephrine Bitartrate 8 mg in 250 mls @ 9.375 mls/hr 05/02/25 15:55 05/03/25 07:50 Levophed 8 Mg/D5w 250 Ml IV CONT Not Given On Hold: 05/03/25 07:50 .Q24H BRAULIO Protocol 5 MCG/MIN Lactated Ringer's 1,000 mls @ 100 mls/hr 05/04/25 07:30 05/04/25 17:53 Lr - Lactated Ringers Iv IV CONT 100 mls/hr .Q10H BRAULIO Administration Cefepime HCl 1 gm/ Sodium 50 mls @ 100 mls/hr 05/04/25 09:00 05/04/25 20:15 Chloride IVPB 100 mls/hr Q12HR BRAULIO Administration Metronidazole 500 mg in 100 mls @ 100 mls/hr 05/04/25 14:00 05/04/25 21:23 Flagyl 500 Mg/Iso Soln 100 Ml IVPB 100 mls/hr Q8HR BRAULIO Administration Metoclopramide HCl 10 mg 05/04/25 12:00 05/04/25 17:50 Metoclopramide Hcl Inj 10 Mg/2 Ml Vial IV PUSH 10 mg Q6HR BRAULIO Administration Midazolam HCl 2 mg 05/01/25 03:33 05/02/25 16:56 Midazolam Hcl (*Crx) 2 Mg/2 Ml Vial IV PUSH 2 mg Q2H PRN Administration agitation/sedation Multi-Ingred Cream/Lotion/Oil/Oint 1 applic 04/30/25 09:00 05/04/25 20:16 Mineral Oil/White Petrolatum Ointment EACH EYE 1 applic Q12HR BRAULIO Administration Ondansetron HCl 4 mg 05/02/25 05:00 05/03/25 19:29 Ondansetron Inj 4 Mg/2 Ml Vial IV PUSH 4 mg Q6H PRN Administration Nausea And Vomiting Pantoprazole Sodium 40 mg 04/29/25 09:00 05/04/25 08:10 Pantoprazole Sodium Iv 40 Mg Vial IV PUSH 40 mg QAM BRAULIO Administration Polyethylene Glycol 17 gm 05/04/25 09:00 05/04/25 08:10 Polyethylene Glycol 3350 17 Gm Powd.Pack PO 17 gm QAM BRAULIO Administration Sodium Chloride 10 ml 04/28/25 14:00 05/04/25 21:43 Central Line Flush IV PUSH 10 ml Q8HR BRAULIO Administration Sodium Chloride 10 ml 04/28/25 11:06 Central Line Flush IV PUSH PRN PRN with TPN bag changes Sodium Chloride 20 ml 04/28/25 11:06 05/01/25 04:59 Central Line Flush IV PUSH 20 ml PRN PRN Administration after blood draws Thiamine HCl 200 mg 04/29/25 09:00 05/04/25 08:10 Thiamine Hcl 200 Mg/2 Ml Vial IV PUSH 200 mg QAM BRAULIO Administration Radiology Results: ITS Impressions Head CT 04/28/25 08:29 Impression: 1.No acute intracranial abnormality. Abdomen X-Ray 05/02/25 13:22 Impression: 1. Probable small bowel obstruction. Correlation with CT recommended Chest/Abdomen/Pelvis CT 05/03/25 11:04 IMPRESSION: 1. Extensive airspace opacities in the lower lobes with volume loss, consistent with atelectasis versus pneumonia. Mild atelectasis and pneumonia in right upper lobe. Chest X-Ray 05/04/25 08:32 IMPRESSION: 1. Little change, with persistent bibasilar atelectasis and/or airspace disease. 2. Small effusions not excluded. Labs Labs: Laboratory Results - last 24 hr 05/03/25 05/04/25 05/04/25 23:51 05:00 05:33 WBC 8.4 RBC 3.59 L Hgb 10.4 L Hct 33.8 L MCV 94.2 MCH 29.0 MCHC 30.8 L RDW 13.6 Plt Count 190 MPV 9.6 Immature Gran % (Auto) 2.2 H Neut % (Auto) 63.7 Lymph % (Auto) 15.4 L [place] % (Auto) 13.8 H Eos % (Auto) 4.4 Baso % (Auto) 0.5 Lymph # (Auto) 1.29 [place] # (Auto) 1.2 H Eos # (Auto) 0.4 H Baso # (Auto) 0.0 Abs Immat Gran (auto) 0.18 H Absolute Neuts (auto) 5.3 Absolute Nucleated RBC 0.000 Nucleated RBC % 0.0 Puncture Site Right radial ABG pH 7.364 ABG pCO2 39.9 ABG pO2 74.6 L ABG PO2/FiO2 Ratio 1.87 ABG HCO3 22.2 ABG O2 Saturation 94.6 L ABG O2 Content 15.6 L ABG Base Excess -2.9 A-a Gradient 164.7 Oxyhemoglobin 93.7 Total Hemoglobin 11.8 L O2 Delivery Device Ventilator O2 Liters/Min Not Reportable Minute Volume Not Reportable Vent Rate 18 Vent Mode Cmv FiO2 40 Tidal Volume 450 PEEP 10 Peak Inspir Pressure Not Reportable Pressure Support Not Reportable Sodium 140 Potassium 4.5 Chloride 111 H Carbon Dioxide 22 Anion Gap 7 BUN 37 H D Creatinine 2.47 H Estim Creat Clear Calc 47 Estimated GFR 29 L Glucose 124 H POC Capillary Glucose 129 H Calcium 8.4 Phosphorus 6.5 H Magnesium 2.5 H Total Bilirubin 0.7 AST 40 ALT 27 Alkaline Phosphatase 132 H Total Protein 6.5 Albumin 3.0 L
[2025-05-05] VITALS (50 sets, daily range): BP systolic 122–181; BP diastolic 81–120; PULSE 76–112; RESP 13–26; TEMP 36.8–38.1; O2SAT 91–98
[2025-05-05] MEDS: METOCLOPRAMIDE HCL INJ 10 MG/2 ML VIAL IV PUSH ×5 (00:13→23:56)
[2025-05-05] MEDS: dexmedeTOMIDine 400 MCG/100 ML 400 MCG/100 ML BAG 40.04 MCG IV CONT ×4 (00:13→08:00)
[2025-05-05] MEDS: IPRATROPIUM 0.5 MG/ALBUTEROL SULFATE 2.5 MG AMPUL.NEB 3 ML INHALATION ×4 (01:54→20:46)
[2025-05-05] MEDS: MIDAZOLAM 100MG/NS 100ML(*CRX) 100 MG/100 ML BAG 10 MG IV CONT (02:07)
[2025-05-05 03:47] LABS: Urea Random Urine 429 MG/DL
[2025-05-05] MEDS: LACTATED RINGERS 1,000 ML 100 ML IV CONT (04:08)
[2025-05-05 04:34] LABS: Hematocrit 34.7 % (42.0-52.0); Hemoglobin 10.8 g/dL (14.0-18.0); Immature Granulocyte Percent A 1.8 % (0-0.5); Lymphocytes Absolute Auto 2.18 K/mm3 (0.9-3.2); Mean Corpuscular HGB Conc 31.1 g/dl (32-36); Mean Corpuscular Hemoglobin 29.1 pg (26-34); Mean Corpuscular Volume 93.5 fl (80-100); Nucleated Red Blood Cells Absolute Auto 0.000 K/mm3 (0.0-0.012); Nucleated Red Blood Cells Perc 0.0 % (0.0-0.2); Platelet Count Result 222 k/mm3 (150-375); Red Blood Count 3.71 M/mm3 (4.6-6.20); White Blood Count 9.7 K/mm3 (4.5-10.0)
[2025-05-05 04:53] LABS: Alveolar/Arterial O2 Gradient 152.2 mmHg; Fractional Inspired Oxygen 40 %; HCO3 ABG 23.5 mEq/l (22.0-26.0); Oxygen Content ABG 15.9 %vol (16.0-22.0); Oxygen Saturation ABG 95.8 % (95.0-100.0); PCO2 ABG 43.2 mmHg (35.0-45.0); PO2 ABG 83.3 mmHg (80.0-100.0); PO2 FiO2 Ratio Arterial Blood 2.08 %
[2025-05-05 04:55] LABS: Modified Allen's Test Pass; Site Drawn RIGHT RADIAL
[2025-05-05 04:56] LABS: Arterial Blood Gas Ventilator rate 18 /MIN
[2025-05-05 04:57] LABS: Arterial Blood Gas Tidal Volume 450 ml
[2025-05-05 04:59] LABS: Alanine Aminotransferase 25 U/L (6-50); Albumin Level 3.1 g/dL (3.5-5.1); Alkaline Phosphatase 137 U/L (38-126); Anion Gap 5 mmol/L (4-12); Aspartate Amino Transferase 38 U/L (17-59); Bilirubin,Total 0.6 mg/dL (0.2-1.3); Blood Urea Nitrogen 38 mg/dL (9-20); Calcium 9.2 mg/dL (8.4-10.2); Carbon Dioxide 25 mmol/L (22-30); Chloride 111 mmol/L (98-107); Creatine Kinase 158 U/L (55-170); Estimated CRCL calculation 48 ml/min; Estimated Glomerular Filt Rate 30; Glucose 139 mg/dL (65-110); Magnesium 2.4 mg/dL (1.6-2.3); Potassium 4.5 mmol/L (3.4-5.0); Sodium 141 mmol/L (137-145); Total Protein 6.7 g/dL (6.3-8.2)
[2025-05-05] MEDS: metroNIDAZOLE 500 MG/ISO 100ML 500 MG/100 ML BAG 100 MG IVPB ×3 (05:33→22:10)
[2025-05-05] MEDS: CENTRAL LINE FLUSH 10 ML IV PUSH ×3 (05:41→20:14)
[2025-05-05] MEDS: PANTOPRAZOLE SODIUM IV 40 MG VIAL IV PUSH (08:15)
[2025-05-05] MEDS: THIAMINE HCL 200 MG/2 ML VIAL IV PUSH (08:15)
[2025-05-05] MEDS: ENOXAPARIN 40 MG/0.4 ML SYRINGE SUB-Q (08:15)
[2025-05-05] MEDS: FOLIC ACID 1 MG/0.2 ML INJ IV PUSH (08:16)
[2025-05-05] MEDS: MINERAL OIL/WHITE PETROLATUM OINTMENT 1 APPLIC EACH EYE (08:16)
--- NOTE | 2025-05-05 08:34 | P.PNINT_ITS ---
Progress Note: A&P Assessment and Plan (1) Acute respiratory failure with hypoxia and hypercapnia: Code(s): J96.01 - Acute respiratory failure with hypoxia; J96.02 - Acute respiratory failure with hypercapnia Status: Acute Assessment and Plan: Patient was intubated and placed on mechanical ventilation due to altered mental status, agitation and combativeness and for airway protection. He has developed aspiration pneumonia Chest x-ray and ABGs reviewed, ventilator adjusted Continue CMV mode of ventilation, currently 40% FiO2 and 8 of PEEP I will do sedation holiday and weaning trial Continue bronchodilators Sputum cultures growing MSSA. Change Zosyn to cefepime and Flagyl in light of SHANTEL. Currently sedated with Versed, fentanyl and Precedex infusion, triglyceride levels were elevated hence propofol was discontinued (2) Acute drug overdose: Qualifiers: Encounter type: initial encounter Injury intent: intentional self-harm Qualified Code(s): T50.902A - Poisoning by unspecified drugs, medicaments and biological substances, intentional self-harm, initial encounter Code(s): T50.901A - Poisoning by unspecified drugs, medicaments and biological substances, accidental (unintentional), initial encounter Status: Acute Assessment and Plan: Patient intentionally overdosed on hydroxyzine 25 mg x60 pills, baclofen 20 mg x31 pills, trazodone 100 mg x 5 pills -poison control was notified and is following, supportive care for now -hydroxyzine and baclofen can cause hypotension, altered mental status, QT prolongation -trazodone can also cause altered mental status -EKG this morning shows normal QT interval, but T-wave abnormalities -04/28: EKG shows some ST changes, I discussed with mold stamper, obtain ec hocardiogram and troponins x2 were negative -04/29: EKG showed improved QTC -05/02: EKG showed improved QT interval and QTC Continue supportive care (3) Alcohol abuse: Code(s): F10.10 - Alcohol abuse, uncomplicated Status: Acute Assessment and Plan: Patient has a history of alcohol abuse, elevated alcohol levels on admission -will educational guidance counselor on cessation of alcohol abuse once he is extubated and will also ask care coordination to provide alcohol rehab resources -continue thiamine and folic acid -currently sedated Versed, fentanyl and Precedex infusion (4) QT prolongation: Code(s): R94.31 - Abnormal electrocardiogram [ECG] [EKG] Status: Acute Assessment and Plan: QT prolongation likely related to baclofen and hydroxyzine Patient was given magnesium QT prolongation has resolved monitor Echo reviewed (5) Altered mental status: Code(s): R41.82 - Altered mental status, unspecified Status: Acute Assessment and Plan: Altered mental status likely related to multiple drug overdose. He has been requiring significant amount of sedatives for sedation for mechanical ventilation -patient patient did wake up with sedation vacation and followed simple commands (6) Hypotension: Code(s): I95.9 - Hypotension, unspecified Status: Acute Assessment and Plan: Likely related to baclofen and hydroxyzine -adequately fluid-resuscitated -PICC line inserted on 04/28 -off Levophed at this time (7) Suicidal behavior: Code(s): R45.89 - Other symptoms and signs involving emotional state Status: Acute Assessment and Plan: Once patient is extubated, will have crisis management evaluate the patient for placement to a psychiatric unit (8) Electrolyte imbalance: Code(s): E87.8 - Other disorders of electrolyte and fluid balance, not elsewhere classified Status: Acute Assessment and Plan: Electrolytes improved after placement (9) SHANTEL (acute kidney injury): Code(s): N17.9 - Acute kidney failure, unspecified Status: Acute Assessment and Plan: Patient had increase in creatinine to 2.05 which is now increased to 2.47. Patient has good urine output.. Etiology likely multifactorial. Patient did had episode of hypotension. Patient also was on vancomycin Continue cautious IV fluids. CT abdomen pelvis negative for any obstruction CK was elevated and now has normalized Monitor urine output electrolytes and creatinine Consulted nephrology Zosyn changed to cefepime and Flagyl Hold further IV fluids (10) Bowel obstruction: Code(s): K56.609 - Unspecified intestinal obstruction, unspecified as to partial versus complete obstruction Status: Acute Assessment and Plan: Patient had couple of episodes of vomiting. Patient has OG to suction. KUB suggests bowel obstruction. CT scan was done and did not show any ileus or obstruction evidence. Patient was started on tube feeds and is tolerating at 20 mL/hour. He did had high residuals. He was started on Reglan. Continue tube feeds. Plan DVT prophylaxis: Lovenox Stress ulcer prophylaxis: Protonix Nutrition: Tube feeds Code Status: Full code Critical Care Time Spent: 30 minutes Due to a high probability of clinically significant, life threatening deterioration, the patient required my highest level of preparedness to intervene emergently and I personally spent this critical care time directly and personally managing the patient. This critical care time included obtaining a history; examining the patient; pulse oximetry; ordering and review of studies; arranging urgent treatment with development of a management plan; evaluation of patient's response to treatment; frequent reassessment; and discussions with other providers. It was exclusive of separately billable procedures and treating other patients and teaching time. Please see Assessment and Plan section and the rest of the note for further information on patient assessment and treatment This dictation may have been done utilizing a voice recognition system. Attempts have been made to correct errors. However, there may be uncorrected grammatical, spelling, and recognitions errors present. Subjective Date/time seen: 05/05/25 Overnight events reviewed. Low-grade fever Continues to be on mechanical ventilation 40% FiO2 Tolerating tube feeds at 20 mL/hour. Continues to be sedated with Versed Precedex and fentanyl Good urine output. Vitals acceptable. No bowel movement overnight Interval history: Reason for consult: Intentional polysubstance abuse, suicidal behavior, patient took hydroxyzine 25 mg x60 pills, baclofen 20 mg x31 pills, trazodone 100 mg x 5 pills Review of Systems Review of Systems: ROS unobtainable: Yes unobtainable due to endotracheal tube, unobtainable due to medical condition and unobtainable due to mental status Exam Narrative: General: Intubated and sedated, in no acute distress HEENT:? Pupils equal and reactive, sclera is clear, ETT in place Neck:? Supple Respiratory:? Coarse breath sounds bilaterally, adequate air entry Cardiac:? S1-S2 is normal, regular rate and rhythm, Abdomen:? Soft, nontender, nondistended, bowel sounds are present Extremities:? No edema, palpable pedal pulses Neuro:? Patient intubated, sedated, open his eyes and follows commands with all 4 extremities, nodes head appropriately to questions Skin:? No skin lesions noted Psych:? Unable to assess at this time Objective Data Vital Signs Vital Signs: Vital Signs - 24 hr 05/04/25 08:41 05/04/25 09:00 05/04/25 09:33 Temperature 37.5 C Pulse Rate 101 H 97 96 Respiratory Rate 18 18 18 Blood Pressure 116/78 Pulse Oximetry 93 Oxygen Delivery Fraction of Inspired Oxygen 05/04/25 09:33 05/04/25 10:00 05/04/25 10:00 Temperature Pulse Rate 96 94 94 Respiratory Rate 18 18 18 Blood Pressure Pulse Oximetry Oxygen Delivery Fraction of Inspired Oxygen 05/04/25 10:00 05/04/25 10:00 05/04/25 10:00 Temperature 37.3 C Pulse Rate 94 94 94 Respiratory Rate 18 18 Blood Pressure 118/80 Pulse Oximetry 95 Oxygen Delivery Fraction of Inspired Oxygen 05/04/25 10:50 05/04/25 11:00 05/04/25 11:11 Temperature 37.4 C Pulse Rate 89 90 90 Respiratory Rate 18 18 Blood Pressure 117/79 Pulse Oximetry 95 95 Oxygen Delivery Mechanical Ventilation Fraction of Inspired Oxygen 40 05/04/25 11:16 05/04/25 12:00 05/04/25 12:00 Temperature Pulse Rate 90 91 91 Respiratory Rate 18 18 18 Blood Pressure Pulse Oximetry Oxygen Delivery Fraction of Inspired Oxygen 05/04/25 12:00 05/04/25 12:00 05/04/25 12:00 Temperature Pulse Rate 91 Respiratory Rate 18 Blood Pressure Pulse Oximetry 95 Oxygen Delivery Mechanical Ventilation Fraction of Inspired Oxygen 40 40 05/04/25 12:00 05/04/25 12:00 05/04/25 13:00 Temperature 37.4 C 37.2 C Pulse Rate 91 90 89 Respiratory Rate 18 18 Blood Pressure 120/81 118/78 Pulse Oximetry 95 95 Oxygen Delivery Fraction of Inspired Oxygen 05/04/25 13:34 05/04/25 13:34 05/04/25 13:34 Temperature Pulse Rate 94 94 93 Respiratory Rate 18 18 Blood Pressure Pulse Oximetry 95 Oxygen Delivery Mechanical Ventilation Fraction of Inspired Oxygen 40 05/04/25 13:34 05/04/25 13:42 05/04/25 14:00 Temperature Pulse Rate 93 98 101 H Respiratory Rate 18 18 18 Blood Pressure Pulse Oximetry Oxygen Delivery Fraction of Inspired Oxygen 05/04/25 14:00 05/04/25 14:00 05/04/25 14:00 Temperature 37.2 C Pulse Rate 101 H 101 H 89 Respiratory Rate 18 18 18 Blood Pressure 118/78 Pulse Oximetry 95 Oxygen Delivery Fraction of Inspired Oxygen 05/04/25 14:00 05/04/25 15:00 05/04/25 15:38 Temperature 37.2 C Pulse Rate 101 H 93 91 Respiratory Rate 18 18 Blood Pressure 120/79 Pulse Oximetry 94 Oxygen Delivery Fraction of Inspired Oxygen 05/04/25 15:38 05/04/25 16:00 05/04/25 16:00 Temperature 37.7 C H Pulse Rate 91 89 87 Respiratory Rate 18 18 18 Blood Pressure 123/83 Pulse Oximetry 95 Oxygen Delivery Fraction of Inspired Oxygen 05/04/25 16:00 05/04/25 16:00 05/04/25 16:00 Temperature Pulse Rate 88 Respiratory Rate Blood Pressure Pulse Oximetry 95 Oxygen Delivery Mechanical Ventilation Fraction of Inspired Oxygen 40 40 05/04/25 16:00 05/04/25 16:00 05/04/25 16:35 Temperature Pulse Rate 87 87 90 Respiratory Rate 18 18 18 Blood Pressure Pulse Oximetry Oxygen Delivery Fraction of Inspired Oxygen 05/04/25 16:35 05/04/25 16:43 05/04/25 17:00 Temperature 37.2 C Pulse Rate 90 87 90 Respiratory Rate 18 18 Blood Pressure 130/84 Pulse Oximetry 95 96 Oxygen Delivery Mechanical Ventilation Fraction of Inspired Oxygen 40 05/04/25 18:00 05/04/25 18:00 05/04/25 18:00 Temperature 37.8 C H Pulse Rate 90 90 90 Respiratory Rate 18 18 Blood Pressure 125/81 Pulse Oximetry 95 Oxygen Delivery Fraction of Inspired Oxygen 05/04/25 18:00 05/04/25 18:00 05/04/25 19:00 Temperature 38.0 C H Pulse Rate 90 90 86 Respiratory Rate 18 18 18 Blood Pressure 128/82 Pulse Oximetry 95 Oxygen Delivery Fraction of Inspired Oxygen 05/04/25 19:05 05/04/25 19:07 05/04/25 20:00 Temperature Pulse Rate 86 86 84 Respiratory Rate 18 18 18 Blood Pressure Pulse Oximetry Oxygen Delivery Fraction of Inspired Oxygen 05/04/25 20:00 05/04/25 20:00 05/04/25 20:00 Temperature Pulse Rate 84 84 90 Respiratory Rate 18 18 18 Blood Pressure Pulse Oximetry 96 Oxygen Delivery Mechanical Ventilation Fraction of Inspired Oxygen 40 05/04/25 20:00 05/04/25 20:00 05/04/25 20:00 Temperature 38.3 C H Pulse Rate 90 90 Respiratory Rate 18 Blood Pressure 127/82 Pulse Oximetry 96 Oxygen Delivery Fraction of Inspired Oxygen 40 05/04/25 20:15 05/04/25 20:18 05/04/25 20:30 Temperature Pulse Rate 86 94 91 Respiratory Rate 21 H 18 Blood Pressure Pulse Oximetry 95 Oxygen Delivery Mechanical Ventilation Fraction of Inspired Oxygen 40 05/04/25 21:00 05/04/25 21:20 05/04/25 21:37 Temperature 38.3 C H Pulse Rate 92 90 Respiratory Rate 18 18 Blood Pressure 127/81 Pulse Oximetry 94 Oxygen Delivery Fraction of Inspired Oxygen 05/04/25 21:38 05/04/25 21:42 05/04/25 21:42 Temperature Pulse Rate 90 90 90 Respiratory Rate 18 18 18 Blood Pressure Pulse Oximetry Oxygen Delivery Fraction of Inspired Oxygen 05/04/25 22:00 05/04/25 22:00 05/04/25 22:00 Temperature Pulse Rate 88 88 88 Respiratory Rate 18 18 18 Blood Pressure Pulse Oximetry Oxygen Delivery Fraction of Inspired Oxygen 05/04/25 22:00 05/04/25 22:00 05/04/25 22:20 Temperature 38.1 C H Pulse Rate 88 88 Respiratory Rate 18 Blood Pressure 126/81 Pulse Oximetry 96 Oxygen Delivery Fraction of Inspired Oxygen 05/04/25 22:30 05/04/25 23:00 05/05/25 00:00 Temperature Pulse Rate 86 85 83 Respiratory Rate 18 18 Blood Pressure 128/84 Pulse Oximetry 96 96 Oxygen Delivery Mechanical Ventilation Fraction of Inspired Oxygen 40 05/05/25 00:00 05/05/25 00:00 05/05/25 00:00 Temperature 38.1 C H Pulse Rate 83 83 83 Respiratory Rate 18 18 18 Blood Pressure 130/84 Pulse Oximetry 96 Oxygen Delivery Fraction of Inspired Oxygen 05/05/25 00:00 05/05/25 00:00 05/05/25 00:00 Temperature Pulse Rate 83 83 Respiratory Rate 18 Blood Pressure Pulse Oximetry 96 Oxygen Delivery Mechanical Ventilation Fraction of Inspired Oxygen 40 40 05/05/25 00:13 05/05/25 00:13 05/05/25 01:00 Temperature Pulse Rate 85 85 88 Respiratory Rate 18 18 18 Blood Pressure 126/81 Pulse Oximetry 94 Oxygen Delivery Fraction of Inspired Oxygen 05/05/25 01:51 05/05/25 01:54 05/05/25 02:00 Temperature Pulse Rate 82 83 82 Respiratory Rate 18 18 Blood Pressure Pulse Oximetry 96 Oxygen Delivery Mechanical Ventilation Fraction of Inspired Oxygen 40 05/05/25 02:00 05/05/25 02:00 05/05/25 02:00 Temperature Pulse Rate 82 82 82 Respiratory Rate 18 18 18 Blood Pressure 129/85 Pulse Oximetry 96 Oxygen Delivery Fraction of Inspired Oxygen 05/05/25 02:00 05/05/25 02:03 05/05/25 02:07 Temperature Pulse Rate 82 85 88 Respiratory Rate 18 18 Blood Pressure Pulse Oximetry Oxygen Delivery Fraction of Inspired Oxygen 05/05/25 02:07 05/05/25 02:47 05/05/25 02:47 Temperature Pulse Rate 88 100 100 Respiratory Rate 18 18 18 Blood Pressure Pulse Oximetry Oxygen Delivery Fraction of Inspired Oxygen 05/05/25 03:00 05/05/25 04:00 05/05/25 04:00 Temperature Pulse Rate 91 96 96 Respiratory Rate 18 18 18 Blood Pressure 131/87 Pulse Oximetry 93 Oxygen Delivery Fraction of Inspired Oxygen 05/05/25 04:00 05/05/25 04:00 05/05/25 04:00 Temperature 37.7 C H Pulse Rate 96 96 96 Respiratory Rate 18 18 18 Blood Pressure 126/81 Pulse Oximetry 91 91 Oxygen Delivery Mechanical Ventilation Fraction of Inspired Oxygen 40 05/05/25 04:00 05/05/25 04:00 05/05/25 04:58 Temperature Pulse Rate 96 92 Respiratory Rate Blood Pressure Pulse Oximetry 95 Oxygen Delivery Mechanical Ventilation Fraction of Inspired Oxygen 40 40 05/05/25 05:00 05/05/25 05:39 05/05/25 05:39 Temperature Pulse Rate 91 87 87 Respiratory Rate 18 18 18 Blood Pressure 123/82 Pulse Oximetry 94 Oxygen Delivery Fraction of Inspired Oxygen 05/05/25 06:00 05/05/25 06:00 05/05/25 06:00 Temperature Pulse Rate 87 87 87 Respiratory Rate 18 18 Blood Pressure 123/83 Pulse Oximetry 95 Oxygen Delivery Fraction of Inspired Oxygen 05/05/25 06:00 05/05/25 06:00 05/05/25 07:15 Temperature Pulse Rate 87 87 88 Respiratory Rate 18 18 19 Blood Pressure Pulse Oximetry Oxygen Delivery Fraction of Inspired Oxygen 05/05/25 07:15 05/05/25 07:25 05/05/25 08:00 Temperature Pulse Rate 88 90 99 Respiratory Rate 20 17 Blood Pressure Pulse Oximetry 96 Oxygen Delivery Mechanical Ventilation Fraction of Inspired Oxygen 40 05/05/25 08:00 Temperature Pulse Rate 99 Respiratory Rate 17 Blood Pressure Pulse Oximetry Oxygen Delivery Fraction of Inspired Oxygen Intake/Output Intake/Output: Intake & Output 05/02/25 05/03/25 05/04/25 05/05/25 23:59 23:59 23:59 23:59 Intake Total 3247.9 1697.4 3519.3 2069.5 Output Total 4300 3400 3800 2250 Balance -1052.1 -1702.6 -280.7 -180.5 Meds/Results Medications: Active Medications Generic Name Dose Route Start Last Admin Trade Name Freq PRN Reason Stop Dose Admin Acetaminophen 650 mg 04/29/25 11:11 05/04/25 21:20 Acetaminophen Elixir 325 Mg/10.15 Ml Udc PO 650 mg Q6H PRN Administration Mild Pain (1-3) or Fever Albuterol/Ipratropium 3 ml 04/29/25 14:20 05/05/25 07:15 Ipratropium 0.5 Mg/Albuterol Sulfate 2.5 Mg Ampul.Neb 3 Ml INHALATION 3 ml Q6HRT BRAULIO Administration Bisacodyl 10 mg 05/04/25 07:37 Bisacodyl 10 Mg Suppository RECTAL QAM PRN Constipation Enoxaparin Sodium 40 mg 04/28/25 09:00 05/05/25 08:15 Enoxaparin 40 Mg/0.4 Ml Syringe SUB-Q 40 mg DAILY BRAULIO Administration Folic Acid 1 mg 04/29/25 09:00 05/05/25 08:16 Folic Acid 1 Mg/0.2 Ml Inj IV PUSH 1 mg QAM BRAULIO Administration Dexmedetomidine HCl 400 mcg in 100 mls @ 40.04 mls/hr 04/29/25 12:15 05/05/25 08:00 Precedex 400 Mcg/100 Ml IV CONT 1.3 mcg/kg/hr .Q2H30M BRAULIO 40.04 mls/hr Protocol Administration 1.3 MCG/KG/HR Midazolam HCl 100 mg in 100 mls @ 10 mls/hr 05/01/25 21:10 05/05/25 06:00 Versed 100 Mg/Ns 100 Ml IV CONT 10 mg/hr .Q10H BRAULIO 10 mls/hr Protocol Titration 10 MG/HR Fentanyl Citrate 2,500 mcg in 250 mls @ 20 mls/hr 05/02/25 09:00 05/05/25 06:00 Fentanyl 2,500 Mcg/Ns 250 Ml IV CONT 200 mcg/hr .[id number] BRAULIO 20 mls/hr Protocol Titration 200 MCG/HR Norepinephrine Bitartrate 8 mg in 250 mls @ 9.375 mls/hr 05/02/25 15:55 05/03/25 07:50 Levophed 8 Mg/D5w 250 Ml IV CONT Not Given On Hold: 05/03/25 07:50 .Q24H BRAULIO Protocol 5 MCG/MIN Cefepime HCl 1 gm/ Sodium 50 mls @ 100 mls/hr 05/04/25 09:00 05/04/25 20:45 Chloride IVPB Infused Q12HR BRAULIO Infusion Metronidazole 500 mg in 100 mls @ 100 mls/hr 05/04/25 14:00 05/05/25 05:33 Flagyl 500 Mg/Iso Soln 100 Ml IVPB 100 mls/hr Q8HR BRAULIO Administration Metoclopramide HCl 10 mg 05/04/25 12:00 05/05/25 05:33 Metoclopramide Hcl Inj 10 Mg/2 Ml Vial IV PUSH 10 mg Q6HR BRAULIO Administration Midazolam HCl 2 mg 05/01/25 03:33 05/02/25 16:56 Midazolam Hcl (*Crx) 2 Mg/2 Ml Vial IV PUSH 2 mg Q2H PRN Administration agitation/sedation Multi-Ingred Cream/Lotion/Oil/Oint 1 applic 04/30/25 09:00 05/05/25 08:16 Mineral Oil/White Petrolatum Ointment EACH EYE 1 applic Q12HR BRAULIO Administration Ondansetron HCl 4 mg 05/02/25 05:00 05/03/25 19:29 Ondansetron Inj 4 Mg/2 Ml Vial IV PUSH 4 mg Q6H PRN Administration Nausea And Vomiting Pantoprazole Sodium 40 mg 04/29/25 09:00 05/05/25 08:15 Pantoprazole Sodium Iv 40 Mg Vial IV PUSH 40 mg QAM BRAULIO Administration Polyethylene Glycol 17 gm 05/04/25 09:00 05/05/25 08:15 Polyethylene Glycol 3350 17 Gm Powd.Pack PO 17 gm QAM BRAULIO Administration Sodium Chloride 10 ml 04/28/25 14:00 05/05/25 05:41 Central Line Flush IV PUSH 10 ml Q8HR BRAULIO Administration Sodium Chloride 10 ml 04/28/25 11:06 Central Line Flush IV PUSH PRN PRN with TPN bag changes Sodium Chloride 20 ml 04/28/25 11:06 05/01/25 04:59 Central Line Flush IV PUSH 20 ml PRN PRN Administration after blood draws Thiamine HCl 200 mg 04/29/25 09:00 05/05/25 08:15 Thiamine Hcl 200 Mg/2 Ml Vial IV PUSH 200 mg QAM BRAULIO Administration Radiology Results: ITS Impressions Head CT 04/28/25 08:29 Impression: 1.No acute intracranial abnormality. Abdomen X-Ray 05/02/25 13:22 Impression: 1. Probable small bowel obstruction. Correlation with CT recommended Chest/Abdomen/Pelvis CT 05/03/25 11:04 IMPRESSION: 1. Extensive airspace opacities in the lower lobes with volume loss, consistent with atelectasis versus pneumonia. Mild atelectasis and pneumonia in right upper lobe. Labs Labs: Laboratory Results - last 24 hr 05/05/25 05/05/25 05/05/25 00:10 03:01 04:26 WBC 9.7 RBC 3.71 L Hgb 10.8 L Hct 34.7 L MCV 93.5 MCH 29.1 MCHC 31.1 L RDW 13.4 Plt Count 222 MPV 9.6 Immature Gran % (Auto) 1.8 H Neut % (Auto) 58.7 Lymph % (Auto) 22.5 [place] % (Auto) 13.9 H Eos % (Auto) 2.5 Baso % (Auto) 0.6 Lymph # (Auto) 2.18 [place] # (Auto) 1.4 H Eos # (Auto) 0.2 Baso # (Auto) 0.1 Abs Immat Gran (auto) 0.17 H Absolute Neuts (auto) 5.7 Absolute Nucleated RBC 0.000 Nucleated RBC % 0.0 Puncture Site ABG pH ABG pCO2 ABG pO2 ABG PO2/FiO2 Ratio ABG HCO3 ABG O2 Saturation ABG O2 Content ABG Base Excess A-a Gradient Oxyhemoglobin Total Hemoglobin O2 Delivery Device O2 Liters/Min Minute Volume Vent Rate Vent Mode FiO2 Tidal Volume PEEP Peak Inspir Pressure Pressure Support Sodium 141 Potassium 4.5 Chloride 111 H Carbon Dioxide 25 Anion Gap 5 BUN 38 H Creatinine 2.39 H Estim Creat Clear Calc 48 Estimated GFR 30 L Glucose 139 H POC Capillary Glucose 117 H Calcium 9.2 Phosphorus 5.4 H Magnesium 2.4 H Total Bilirubin 0.6 AST 38 ALT 25 Alkaline Phosphatase 137 H Total Creatine Kinase 158 Total Protein 6.7 Albumin 3.1 L Ur Random Urea 429 Urine Creatinine 46.3 05/05/25 04:47 WBC RBC Hgb Hct MCV MCH MCHC RDW Plt Count MPV Immature Gran % (Auto) Neut % (Auto) Lymph % (Auto) [place] % (Auto) Eos % (Auto) Baso % (Auto) Lymph # (Auto) [place] # (Auto) Eos # (Auto) Baso # (Auto) Abs Immat Gran (auto) Absolute Neuts (auto) Absolute Nucleated RBC Nucleated RBC % Puncture Site Right radial ABG pH 7.353 ABG pCO2 43.2 ABG pO2 83.3 ABG PO2/FiO2 Ratio 2.08 ABG HCO3 23.5 ABG O2 Saturation 95.8 ABG O2 Content 15.9 L ABG Base Excess -2.1 A-a Gradient 152.2 Oxyhemoglobin 94.7 Total Hemoglobin 11.9 L O2 Delivery Device Ventilator O2 Liters/Min Not Reportable Minute Volume Not Reportable Vent Rate 18 Vent Mode Cmv FiO2 40 Tidal Volume 450 PEEP 5 Peak Inspir Pressure Not Reportable Pressure Support Not Reportable Sodium Potassium Chloride Carbon Dioxide Anion Gap BUN Creatinine Estim Creat Clear Calc Estimated GFR Glucose POC Capillary Glucose Calcium Phosphorus Magnesium Total Bilirubin AST ALT Alkaline Phosphatase Total Creatine Kinase Total Protein Albumin Ur Random Urea Urine Creatinine Quality VTE Prophylaxis VTE prophylaxis: pharmacologic ordered
[2025-05-05] MEDS: CEFEPIME 1 GM in SODIUM CHLORIDE 0.9% IV 50 ML 100 ML IVPB ×2 (08:37→20:13)
[2025-05-05 09:45] LABS: Alveolar/Arterial O2 Gradient 166.7 mmHg; Carboxyhemoglobin 0.4 % THb (0-2.0); Fractional Inspired Oxygen 40 %; HCO3 ABG 21.8 mEq/l (22.0-26.0); Methemoglobin ABG 0.1 %THb (0-1.5); Oxygen Content ABG 15.6 %vol (16.0-22.0); Oxygen Saturation ABG 95.2 % (95.0-100.0); PCO2 ABG 37.0 mmHg (35.0-45.0); PO2 ABG 76.0 mmHg (80.0-100.0); PO2 FiO2 Ratio Arterial Blood 1.90 %; Reduced Hemoglobin 5.2 %THb (0-5.0)
[2025-05-05 09:48] LABS: Modified Allen's Test Pass; Site Drawn RIGHT RADIAL
[2025-05-05 10:18] LABS: Arterial Blood Gas Pressure Support 5 cmH2O
[2025-05-05] MEDS: dexmedeTOMIDine 400 MCG/100 ML 400 MCG/100 ML BAG 33.88 MCG IV CONT ×2 (10:18→21:20)
[2025-05-05 10:20] LABS: Arterial Blood Gas Minute Volume 0.0 LPM; Arterial Blood Gas Tidal Volume 0 ml; Arterial Blood Gas Ventilator rate 0 /MIN; Liters per Minute 5.0 LPM; Peak Inspiratory Pressure 0 cmH2O
--- NOTE | 2025-05-05 10:49 | PCFNICU ---
ICU Rounding Note: Pt current nutrition is NPO. Nutrition recommendation: advance diet as tolerated when medically able. Last recorded weight is 115.1 kg, down from 121.5 kg. Bowel Motility: No BM reported-Miralax given today per nursing. Labs Reviewed: Glu 139, PO4 5.4, BUN 38, Cr 2.39, Hct 34.7, Hgb 10.8 Meds Noted: Lovenox, Protonix, Miralax, Thiamine, Folic Acid. Skin: WNL Additional Notes: Patient has been extubated. Diet order are NPO at this time. Spoke with Electrical Designer Drafter today, might start diet orders later today. Following daily in ICU rounds. Will monitor weight, labs, skin, diet orders, meds every 3 days.
[2025-05-05 11:08] LABS: Chloride, Urine 68 mmol/L (Not Estab.)
--- NOTE | 2025-05-05 13:06 | P.PNNP_ITS ---
Progress Note: A&P Assessment and Plan (1) Acute kidney injury: Code(s): N17.9 - Acute kidney failure, unspecified Status: Acute Assessment and Plan: * as noted by rise in creatinine on 05/03 * creatinine samuel to 2.05mg/dL * normal baseline creatinine * multifactorial etiology: * hemodynamic instability/shock/hypotension * insensible losses (fevers) * antibiotics (?) * possible infection (aspiration pneumonia) * other (?) * still with good urine output and no critical electrolytes * evaluation to date noted: * CT of S/P without obstruction * CPK mildly elevated but normal now * urine electrolyte non-prerenal * rare urine eosinophils - significance? (from antibiotics?) * UA sediment bland * follow trend of repeat labs and UOP (2) Acute respiratory failure with hypoxia and hypercapnia: Code(s): J96.01 - Acute respiratory failure with hypoxia; J96.02 - Acute respiratory failure with hypercapnia Status: Acute Assessment and Plan: * resolved - extubated today * initially intubated and placed on mechanical ventilation due to altered mental status/agitation/combativeness and need for airway protection * complicated by aspiration pneumonia * sputum cultures growing MSSA * on antibiotics (3) Acute drug overdose: Qualifiers: Encounter type: initial encounter Injury intent: intentional self-harm Qualified Code(s): T50.902A - Poisoning by unspecified drugs, medicaments and biological substances, intentional self-harm, initial encounter Code(s): T50.901A - Poisoning by unspecified drugs, medicaments and biological substances, accidental (unintentional), initial encounter Status: Acute Assessment and Plan: * per history, intentionally overdosed on hydroxyzine + baclofen + trazodone * poison control was notified and is following * presumably responsible for symptoms on presenation (low BP, altered mental status...etc) * continue supportive care (4) Hypotension: Code(s): I95.9 - Hypotension, unspecified Status: Resolved Assessment and Plan: * related to drug overdose * s/p aggressive fluid resuscitation * initially on vasopressor but weaned off * follow trend of hemodynamics (5) Alcohol abuse: Code(s): F10.10 - Alcohol abuse, uncomplicated Status: Acute Assessment and Plan: * known history of alcohol abuse * elevated alcohol levels on admission * continue thiamine and folic acid (6) Altered mental status: Code(s): R41.82 - Altered mental status, unspecified Status: Acute Assessment and Plan: * though to be secondary #3 drug overdose * seems to be slowly improving at this time * follow trend of mentation Will continue to follow. L Subjective Date/time seen: 05/05/25 13:06 Interval history: Follow-up for acute kidney injury/acute renal failure. Extubated earlier this morning with relative stability in respiratory status; following simple commands when seen; excellent urine output with slight improvement in renal function/creatinine; remains hemodynamically stable; low grade fevers noted overnight (Tmax 100.9). Exam 2 Narrative: General: WD/WN male in NAD Heart: normal S1 and S2; no rub Lungs: coarse breath sounds Abdomen: soft, nontender, nondistended, positive bowel sounds Extremities: no cyanosis or clubbing; no edema Skin: warm and dry Objective Data Vital Signs Vital Signs: Vital Signs Temp Pulse Resp BP Pulse Ox O2 Del Method O2 Flow Rate 05/05/25 13:01 102 H 24 H 147/89 H 96 05/05/25 13:00 99 23 H 96 05/05/25 13:00 100 21 H 147/89 H 96 05/05/25 12:45 102 H 26 H 95 05/05/25 12:30 100 20 96 05/05/25 12:15 101 H 17 96 05/05/25 12:01 100 19 95 05/05/25 12:00 100 19 151/98 H 95 05/05/25 12:00 102 H 05/05/25 12:00 98.2 F 100 19 151/98 H 95 05/05/25 12:00 95 Nasal Cannula 5 05/05/25 12:00 100 19 05/05/25 12:00 100 19 05/05/25 12:00 100 19 05/05/25 11:01 112 H 20 152/120 H 97 05/05/25 11:00 103 H 21 H 95 05/05/25 11:00 101 H 20 152/120 H 97 05/05/25 11:00 101 H 20 05/05/25 10:18 100 21 H 05/05/25 10:18 100 21 H 05/05/25 10:15 102 H 24 H 93 Nasal Cannula 5 05/05/25 10:00 101 H 05/05/25 10:00 101 H 23 H 149/94 H 98 05/05/25 10:00 101 H 23 H 05/05/25 10:00 101 H 23 H 05/05/25 10:00 101 H 23 H 05/05/25 09:00 98 14 127/87 96 05/05/25 08:45 95 18 05/05/25 08:45 95 18 05/05/25 08:00 98 05/05/25 08:00 99.6 F 100 18 122/81 94 05/05/25 08:00 05/05/25 08:00 94 Mechanical Ventilation 05/05/25 08:00 99 17 05/05/25 08:00 99 17 05/05/25 08:00 99 17 05/05/25 08:00 99 17 05/05/25 07:25 90 20 05/05/25 07:15 88 96 Mechanical Ventilation 05/05/25 07:15 88 19 05/05/25 07:00 99.6 F 100 18 122/81 94 05/05/25 06:00 87 18 05/05/25 06:00 87 18 05/05/25 06:00 87 18 05/05/25 06:00 87 18 123/83 95 05/05/25 06:00 87 05/05/25 05:39 87 18 05/05/25 05:39 87 18 05/05/25 05:00 91 18 123/82 94 05/05/25 04:58 92 95 Mechanical Ventilation 05/05/25 04:00 96 05/05/25 04:00 05/05/25 04:00 96 18 91 Mechanical Ventilation 05/05/25 04:00 100 F H 96 18 126/81 91 05/05/25 04:00 96 18 05/05/25 04:00 96 18 05/05/25 04:00 96 18 05/05/25 03:00 91 18 131/87 93 05/05/25 02:47 100 18 05/05/25 02:47 100 18 05/05/25 02:07 88 18 05/05/25 02:07 88 18 05/05/25 02:03 85 18 05/05/25 02:00 82 05/05/25 02:00 82 18 129/85 96 05/05/25 02:00 82 18 05/05/25 02:00 82 18 05/05/25 02:00 82 18 05/05/25 01:54 83 18 05/05/25 01:51 82 96 Mechanical Ventilation 05/05/25 01:00 88 18 126/81 94 05/05/25 00:13 85 18 05/05/25 00:13 85 18 05/05/25 00:00 83 05/05/25 00:00 05/05/25 00:00 83 18 96 Mechanical Ventilation 05/05/25 00:00 100.6 F H 83 18 130/84 96 05/05/25 00:00 83 18 05/05/25 00:00 83 18 05/05/25 00:00 83 18 05/04/25 23:00 85 18 128/84 96 05/04/25 22:30 86 96 Mechanical Ventilation 05/04/25 22:20 100.6 F H 05/04/25 22:00 88 05/04/25 22:00 88 18 126/81 96 05/04/25 22:00 88 18 05/04/25 22:00 88 18 05/04/25 22:00 88 18 05/04/25 21:42 90 18 05/04/25 21:42 90 18 05/04/25 21:38 90 18 05/04/25 21:37 90 18 05/04/25 21:20 100.9 F H 05/04/25 21:00 92 18 127/81 94 05/04/25 20:30 91 18 05/04/25 20:18 94 21 H 05/04/25 20:15 86 95 Mechanical Ventilation 05/04/25 20:00 90 05/04/25 20:00 100.9 F H 90 18 127/82 96 05/04/25 20:00 05/04/25 20:00 90 18 96 Mechanical Ventilation 05/04/25 20:00 84 18 05/04/25 20:00 84 18 05/04/25 20:00 84 18 05/04/25 19:07 86 18 05/04/25 19:05 86 18 05/04/25 19:00 100.4 F H 86 18 128/82 95 05/04/25 18:00 90 18 05/04/25 18:00 90 18 05/04/25 18:00 90 18 05/04/25 18:00 100.1 F H 90 18 125/81 95 05/04/25 18:00 90 Intake/Output Intake/Output: Intake & Output 05/02/25 05/03/25 05/04/25 05/05/25 23:59 23:59 23:59 23:59 Intake Total 3247.9 1697.4 3519.3 2707.1 Output Total 4300 3400 3800 5250 Balance -1052.1 -1702.6 -280.7 -2542.9 Meds/Results Medications: Active Medications Generic Name Dose Route Start Last Admin Trade Name Freq PRN Reason Stop Dose Admin Acetaminophen 650 mg 04/29/25 11:11 05/04/25 21:20 Acetaminophen Elixir 325 Mg/10.15 Ml Udc PO 650 mg Q6H PRN Administration Mild Pain (1-3) or Fever Albuterol/Ipratropium 3 ml 04/29/25 14:20 05/05/25 13:35 Ipratropium 0.5 Mg/Albuterol Sulfate 2.5 Mg Ampul.Neb 3 Ml INHALATION 3 ml Q6HRT BRAULIO Administration Bisacodyl 10 mg 05/04/25 07:37 Bisacodyl 10 Mg Suppository RECTAL QAM PRN Constipation Enoxaparin Sodium 40 mg 04/28/25 09:00 05/05/25 08:15 Enoxaparin 40 Mg/0.4 Ml Syringe SUB-Q 40 mg DAILY BRAULIO Administration Folic Acid 1 mg 04/29/25 09:00 05/05/25 08:16 Folic Acid 1 Mg/0.2 Ml Inj IV PUSH 1 mg QAM BRAULIO Administration Dexmedetomidine HCl 400 mcg in 100 mls @ 27.72 mls/hr 04/29/25 12:15 05/05/25 17:35 Precedex 400 Mcg/100 Ml IV CONT 0.9 mcg/kg/hr .Q3H37M BRAULIO 27.72 mls/hr Protocol Administration 0.9 MCG/KG/HR Norepinephrine Bitartrate 8 mg in 250 mls @ 9.375 mls/hr 05/02/25 15:55 05/03/25 07:50 Levophed 8 Mg/D5w 250 Ml IV CONT Not Given On Hold: 05/03/25 07:50 .Q24H BRAULIO Protocol 5 MCG/MIN Cefepime HCl 1 gm/ Sodium 50 mls @ 100 mls/hr 05/04/25 09:00 05/05/25 09:07 Chloride IVPB Infused Q12HR BRAULIO Infusion Metronidazole 500 mg in 100 mls @ 100 mls/hr 05/04/25 14:00 05/05/25 13:42 Flagyl 500 Mg/Iso Soln 100 Ml IVPB 100 mls/hr Q8HR BRAULIO Administration Metoclopramide HCl 10 mg 05/04/25 12:00 05/05/25 17:35 Metoclopramide Hcl Inj 10 Mg/2 Ml Vial IV PUSH 10 mg Q6HR BRAULIO Administration Midazolam HCl 2 mg 05/01/25 03:33 05/02/25 16:56 Midazolam Hcl (*Crx) 2 Mg/2 Ml Vial IV PUSH 2 mg Q2H PRN Administration agitation/sedation Multi-Ingred Cream/Lotion/Oil/Oint 1 applic 04/30/25 09:00 05/05/25 08:16 Mineral Oil/White Petrolatum Ointment EACH EYE 1 applic Q12HR BRAULIO Administration Ondansetron HCl 4 mg 05/02/25 05:00 05/03/25 19:29 Ondansetron Inj 4 Mg/2 Ml Vial IV PUSH 4 mg Q6H PRN Administration Nausea And Vomiting Pantoprazole Sodium 40 mg 04/29/25 09:00 05/05/25 08:15 Pantoprazole Sodium Iv 40 Mg Vial IV PUSH 40 mg QAM BRAULIO Administration Polyethylene Glycol 17 gm 05/04/25 09:00 05/05/25 08:15 Polyethylene Glycol 3350 17 Gm Powd.Pack PO 17 gm QAM BRAULIO Administration Sodium Chloride 10 ml 04/28/25 14:00 05/05/25 13:43 Central Line Flush IV PUSH 10 ml Q8HR BRAULIO Administration Sodium Chloride 10 ml 04/28/25 11:06 Central Line Flush IV PUSH PRN PRN with TPN bag changes Sodium Chloride 20 ml 04/28/25 11:06 05/01/25 04:59 Central Line Flush IV PUSH 20 ml PRN PRN Administration after blood draws Thiamine HCl 200 mg 04/29/25 09:00 05/05/25 08:15 Thiamine Hcl 200 Mg/2 Ml Vial IV PUSH 200 mg QAM BRAULIO Administration Radiology Results: ITS Impressions Head CT 04/28/25 08:29 Impression: 1.No acute intracranial abnormality. Abdomen X-Ray 05/02/25 13:22 Impression: 1. Probable small bowel obstruction. Correlation with CT recommended Chest/Abdomen/Pelvis CT 05/03/25 11:04 IMPRESSION: 1. Extensive airspace opacities in the lower lobes with volume loss, consistent with atelectasis versus pneumonia. Mild atelectasis and pneumonia in right upper lobe. Chest X-Ray 05/05/25 08:52 IMPRESSION: 1. Worsening airspace opacities right lung versus merely overlying soft tissue artifact or 2. Persistent bibasilar atelectasis and/or airspace disease. 3. Small effusions not excluded. Labs Labs: Laboratory Tests 05/05/25 04:26 05/05/25 04:26 Calcium 9.2 Phosphorus 5.4 H Magnesium 2.4 H Total Bilirubin 0.6 AST 38 ALT 25 Alkaline Phosphatase 137 H Total Creatine Kinase 158 Total Protein 6.7 Albumin 3.1 L
[2025-05-05] MEDS: dexmedeTOMIDine 400 MCG/100 ML 400 MCG/100 ML BAG 27.72 MCG IV CONT ×2 (14:11→17:35)
[2025-05-05] MEDS: ACETAMINOPHEN ELIXIR 325 MG/10.15 ML UDC 650 MG PO (20:19)
--- NOTE | 2025-05-05 20:50 | P.PNIM_ITS ---
Progress Note: A&P Assessment and Plan (1) Suicidal behavior: Code(s): R45.89 - Other symptoms and signs involving emotional state Status: Acute (2) Alcohol abuse: Code(s): F10.10 - Alcohol abuse, uncomplicated Status: Acute (3) QT prolongation: Code(s): R94.31 - Abnormal electrocardiogram [ECG] [EKG] Status: Acute (4) SHANTEL (acute kidney injury): Code(s): N17.9 - Acute kidney failure, unspecified Status: Acute Plan extubated successfully on 05/05/25. cont ICU monitoring per beam builder helper. reglan started for TF residuals, will check EKG in AM to re-assess the QTC interval. consulting PT/OT to mobilize and promote bowel motility. monitor for alcohol withdrawal. once medically stable will have care coordination and crisis provide resources and arrange for transfer to psychiatric facility, respectively. full code Time Spent With Patient Time with patient: 25 - 35 minutes Subjective Date/time seen: 05/05/25 20:50 Interval history: pt extubated. has been resting comfortably. follows commands. Review of Systems Review of Systems: ROS unobtainable: Yes unobtainable due to medical condition and unobtainable due to mental status Exam Const: General: comfortable and no acute distress HENMT: Mouth: Yes moist mucous membranes Eyes: Pupils: Equal, round and reactive pupils present Neck: Neck: supple Resp: Effort & Inspection: normal respiratory effort Auscultation: clear to auscultation bilaterally Cardio: Rate: regular rate Rhythm: regular rhythm GI: Inspection: non-distended GI Palp: Yes Soft to palpation and No Tenderness to palpation present (GI) Extrem: General: no edema Objective Data Vital Signs Vital Signs: Vital Signs - 24 hr 05/04/25 21:00 05/04/25 21:20 05/04/25 21:37 Temperature 100.9 F H Pulse Rate 92 90 Respiratory Rate 18 18 Blood Pressure 127/81 Pulse Oximetry 94 Oxygen Delivery Oxygen Flow Rate Fraction of Inspired Oxygen 05/04/25 21:38 05/04/25 21:42 05/04/25 21:42 Temperature Pulse Rate 90 90 90 Respiratory Rate 18 18 18 Blood Pressure Pulse Oximetry Oxygen Delivery Oxygen Flow Rate Fraction of Inspired Oxygen 05/04/25 22:00 05/04/25 22:00 05/04/25 22:00 Temperature Pulse Rate 88 88 88 Respiratory Rate 18 18 18 Blood Pressure Pulse Oximetry Oxygen Delivery Oxygen Flow Rate Fraction of Inspired Oxygen 05/04/25 22:00 05/04/25 22:00 05/04/25 22:20 Temperature 100.6 F H Pulse Rate 88 88 Respiratory Rate 18 Blood Pressure 126/81 Pulse Oximetry 96 Oxygen Delivery Oxygen Flow Rate Fraction of Inspired Oxygen 05/04/25 22:30 05/04/25 23:00 05/05/25 00:00 Temperature Pulse Rate 86 85 83 Respiratory Rate 18 18 Blood Pressure 128/84 Pulse Oximetry 96 96 Oxygen Delivery Mechanical Ventilation Oxygen Flow Rate Fraction of Inspired Oxygen 40 05/05/25 00:00 05/05/25 00:00 05/05/25 00:00 Temperature 100.6 F H Pulse Rate 83 83 83 Respiratory Rate 18 18 18 Blood Pressure 130/84 Pulse Oximetry 96 Oxygen Delivery Oxygen Flow Rate Fraction of Inspired Oxygen 05/05/25 00:00 05/05/25 00:00 05/05/25 00:00 Temperature Pulse Rate 83 83 Respiratory Rate 18 Blood Pressure Pulse Oximetry 96 Oxygen Delivery Mechanical Ventilation Oxygen Flow Rate Fraction of Inspired Oxygen 40 40 05/05/25 00:13 05/05/25 00:13 05/05/25 01:00 Temperature Pulse Rate 85 85 88 Respiratory Rate 18 18 18 Blood Pressure 126/81 Pulse Oximetry 94 Oxygen Delivery Oxygen Flow Rate Fraction of Inspired Oxygen 05/05/25 01:51 05/05/25 01:54 05/05/25 02:00 Temperature Pulse Rate 82 83 82 Respiratory Rate 18 18 Blood Pressure Pulse Oximetry 96 Oxygen Delivery Mechanical Ventilation Oxygen Flow Rate Fraction of Inspired Oxygen 40 05/05/25 02:00 05/05/25 02:00 05/05/25 02:00 Temperature Pulse Rate 82 82 82 Respiratory Rate 18 18 18 Blood Pressure 129/85 Pulse Oximetry 96 Oxygen Delivery Oxygen Flow Rate Fraction of Inspired Oxygen 05/05/25 02:00 05/05/25 02:03 05/05/25 02:07 Temperature Pulse Rate 82 85 88 Respiratory Rate 18 18 Blood Pressure Pulse Oximetry Oxygen Delivery Oxygen Flow Rate Fraction of Inspired Oxygen 05/05/25 02:07 05/05/25 02:47 05/05/25 02:47 Temperature Pulse Rate 88 100 100 Respiratory Rate 18 18 18 Blood Pressure Pulse Oximetry Oxygen Delivery Oxygen Flow Rate Fraction of Inspired Oxygen 05/05/25 03:00 05/05/25 04:00 05/05/25 04:00 Temperature Pulse Rate 91 96 96 Respiratory Rate 18 18 18 Blood Pressure 131/87 Pulse Oximetry 93 Oxygen Delivery Oxygen Flow Rate Fraction of Inspired Oxygen 05/05/25 04:00 05/05/25 04:00 05/05/25 04:00 Temperature 100 F H Pulse Rate 96 96 96 Respiratory Rate 18 18 18 Blood Pressure 126/81 Pulse Oximetry 91 91 Oxygen Delivery Mechanical Ventilation Oxygen Flow Rate Fraction of Inspired Oxygen 40 05/05/25 04:00 05/05/25 04:00 05/05/25 04:58 Temperature Pulse Rate 96 92 Respiratory Rate Blood Pressure Pulse Oximetry 95 Oxygen Delivery Mechanical Ventilation Oxygen Flow Rate Fraction of Inspired Oxygen 40 40 05/05/25 05:00 05/05/25 05:39 05/05/25 05:39 Temperature Pulse Rate 91 87 87 Respiratory Rate 18 18 18 Blood Pressure 123/82 Pulse Oximetry 94 Oxygen Delivery Oxygen Flow Rate Fraction of Inspired Oxygen 05/05/25 06:00 05/05/25 06:00 05/05/25 06:00 Temperature Pulse Rate 87 87 87 Respiratory Rate 18 18 Blood Pressure 123/83 Pulse Oximetry 95 Oxygen Delivery Oxygen Flow Rate Fraction of Inspired Oxygen 05/05/25 06:00 05/05/25 06:00 05/05/25 07:00 Temperature 99.6 F Pulse Rate 87 87 100 Respiratory Rate 18 18 18 Blood Pressure 122/81 Pulse Oximetry 94 Oxygen Delivery Oxygen Flow Rate Fraction of Inspired Oxygen 05/05/25 07:15 05/05/25 07:15 05/05/25 07:25 Temperature Pulse Rate 88 88 90 Respiratory Rate 19 20 Blood Pressure Pulse Oximetry 96 Oxygen Delivery Mechanical Ventilation Oxygen Flow Rate Fraction of Inspired Oxygen 40 05/05/25 08:00 05/05/25 08:00 05/05/25 08:00 Temperature Pulse Rate 99 99 99 Respiratory Rate 17 17 17 Blood Pressure Pulse Oximetry Oxygen Delivery Oxygen Flow Rate Fraction of Inspired Oxygen 05/05/25 08:00 05/05/25 08:00 05/05/25 08:00 Temperature Pulse Rate 99 Respiratory Rate 17 Blood Pressure Pulse Oximetry 94 Oxygen Delivery Mechanical Ventilation Oxygen Flow Rate Fraction of Inspired Oxygen 40 40 05/05/25 08:00 05/05/25 08:00 05/05/25 08:45 Temperature 99.6 F Pulse Rate 100 98 95 Respiratory Rate 18 18 Blood Pressure 122/81 Pulse Oximetry 94 Oxygen Delivery Oxygen Flow Rate Fraction of Inspired Oxygen 05/05/25 08:45 05/05/25 09:00 05/05/25 10:00 Temperature Pulse Rate 95 98 101 H Respiratory Rate 18 14 23 H Blood Pressure 127/87 Pulse Oximetry 96 Oxygen Delivery Oxygen Flow Rate Fraction of Inspired Oxygen 05/05/25 10:00 05/05/25 10:00 05/05/25 10:00 Temperature Pulse Rate 101 H 101 H 101 H Respiratory Rate 23 H 23 H 23 H Blood Pressure 149/94 H Pulse Oximetry 98 Oxygen Delivery Oxygen Flow Rate Fraction of Inspired Oxygen 05/05/25 10:00 05/05/25 10:15 05/05/25 10:18 Temperature Pulse Rate 101 H 102 H 100 Respiratory Rate 24 H 21 H Blood Pressure Pulse Oximetry 93 Oxygen Delivery Nasal Cannula Oxygen Flow Rate 5 Fraction of Inspired Oxygen 05/05/25 10:18 05/05/25 11:00 05/05/25 11:00 Temperature Pulse Rate 100 101 H 101 H Respiratory Rate 21 H 20 20 Blood Pressure 152/120 H Pulse Oximetry 97 Oxygen Delivery Oxygen Flow Rate Fraction of Inspired Oxygen 05/05/25 11:00 05/05/25 11:01 05/05/25 12:00 Temperature Pulse Rate 103 H 112 H 100 Respiratory Rate 21 H 20 19 Blood Pressure 152/120 H Pulse Oximetry 95 97 Oxygen Delivery Oxygen Flow Rate Fraction of Inspired Oxygen 05/05/25 12:00 05/05/25 12:00 05/05/25 12:00 Temperature Pulse Rate 100 100 Respiratory Rate 19 19 Blood Pressure Pulse Oximetry 95 Oxygen Delivery Nasal Cannula Oxygen Flow Rate 5 Fraction of Inspired Oxygen 05/05/25 12:00 05/05/25 12:00 05/05/25 12:00 Temperature 98.2 F Pulse Rate 100 102 H 100 Respiratory Rate 19 19 Blood Pressure 151/98 H 151/98 H Pulse Oximetry 95 95 Oxygen Delivery Oxygen Flow Rate Fraction of Inspired Oxygen 05/05/25 12:01 05/05/25 12:15 05/05/25 12:30 Temperature Pulse Rate 100 101 H 100 Respiratory Rate 19 17 20 Blood Pressure Pulse Oximetry 95 96 96 Oxygen Delivery Oxygen Flow Rate Fraction of Inspired Oxygen 05/05/25 12:45 05/05/25 13:00 05/05/25 13:00 Temperature Pulse Rate 102 H 100 99 Respiratory Rate 26 H 21 H 23 H Blood Pressure 147/89 H Pulse Oximetry 95 96 96 Oxygen Delivery Oxygen Flow Rate Fraction of Inspired Oxygen 05/05/25 13:01 05/05/25 13:36 05/05/25 13:43 Temperature Pulse Rate 102 H 96 101 H Respiratory Rate 24 H 16 15 Blood Pressure 147/89 H Pulse Oximetry 96 Oxygen Delivery Oxygen Flow Rate Fraction of Inspired Oxygen 05/05/25 13:43 05/05/25 13:44 05/05/25 13:45 Temperature Pulse Rate 99 99 92 Respiratory Rate 14 14 18 Blood Pressure Pulse Oximetry Oxygen Delivery Oxygen Flow Rate Fraction of Inspired Oxygen 05/05/25 13:58 05/05/25 13:58 05/05/25 14:11 Temperature Pulse Rate 110 H 108 H 109 H Respiratory Rate 23 H 21 H Blood Pressure 141/118 H Pulse Oximetry 94 Oxygen Delivery Oxygen Flow Rate Fraction of Inspired Oxygen 05/05/25 14:11 05/05/25 15:00 05/05/25 16:00 Temperature 98.2 F Pulse Rate 109 H 101 H 99 Respiratory Rate 21 H 16 16 Blood Pressure 147/108 H 159/100 H Pulse Oximetry 95 94 Oxygen Delivery Oxygen Flow Rate Fraction of Inspired Oxygen 05/05/25 16:00 05/05/25 16:00 05/05/25 16:00 Temperature Pulse Rate 99 95 Respiratory Rate 23 H Blood Pressure Pulse Oximetry 95 Oxygen Delivery Nasal Cannula Oxygen Flow Rate 3 Fraction of Inspired Oxygen 05/05/25 17:00 05/05/25 17:35 05/05/25 17:35 Temperature Pulse Rate 91 93 93 Respiratory Rate 20 13 13 Blood Pressure 143/89 H Pulse Oximetry 95 Oxygen Delivery Oxygen Flow Rate Fraction of Inspired Oxygen 05/05/25 18:00 05/05/25 18:00 05/05/25 18:00 Temperature Pulse Rate 93 93 90 Respiratory Rate 19 20 Blood Pressure 150/98 H Pulse Oximetry 91 Oxygen Delivery Oxygen Flow Rate Fraction of Inspired Oxygen Intake/Output Intake/Output: Intake & Output 05/02/25 05/03/25 05/04/25 05/05/25 23:59 23:59 23:59 23:59 Intake Total 3247.9 1697.4 3519.3 2718.7 Output Total 4300 3400 3800 6100 Balance -1052.1 -1702.6 -280.7 -3381.3 Meds/Results Medications: Active Medications Generic Name Dose Route Start Last Admin Trade Name Freq PRN Reason Stop Dose Admin Acetaminophen 650 mg 04/29/25 11:11 05/05/25 20:19 Acetaminophen Elixir 325 Mg/10.15 Ml Udc PO 650 mg Q6H PRN Administration Mild Pain (1-3) or Fever Albuterol/Ipratropium 3 ml 04/29/25 14:20 05/05/25 13:35 Ipratropium 0.5 Mg/Albuterol Sulfate 2.5 Mg Ampul.Neb 3 Ml INHALATION 3 ml Q6HRT BRAULIO Administration Bisacodyl 10 mg 05/04/25 07:37 Bisacodyl 10 Mg Suppository RECTAL QAM PRN Constipation Enoxaparin Sodium 40 mg 04/28/25 09:00 05/05/25 08:15 Enoxaparin 40 Mg/0.4 Ml Syringe SUB-Q 40 mg DAILY BRAULIO Administration Folic Acid 1 mg 04/29/25 09:00 05/05/25 08:16 Folic Acid 1 Mg/0.2 Ml Inj IV PUSH 1 mg QAM BRAULIO Administration Dexmedetomidine HCl 400 mcg in 100 mls @ 27.72 mls/hr 04/29/25 12:15 05/05/25 18:00 Precedex 400 Mcg/100 Ml IV CONT 0.9 mcg/kg/hr .Q3H37M BRAULIO 27.72 mls/hr Protocol Titration 0.9 MCG/KG/HR Norepinephrine Bitartrate 8 mg in 250 mls @ 9.375 mls/hr 05/02/25 15:55 05/03/25 07:50 Levophed 8 Mg/D5w 250 Ml IV CONT Not Given On Hold: 05/03/25 07:50 .Q24H BRAULIO Protocol 5 MCG/MIN Cefepime HCl 1 gm/ Sodium 50 mls @ 100 mls/hr 05/04/25 09:00 05/05/25 20:13 Chloride IVPB 100 mls/hr Q12HR BRAULIO Administration Metronidazole 500 mg in 100 mls @ 100 mls/hr 05/04/25 14:00 05/05/25 13:42 Flagyl 500 Mg/Iso Soln 100 Ml IVPB 100 mls/hr Q8HR BRAULIO Administration Metoclopramide HCl 10 mg 05/04/25 12:00 05/05/25 17:35 Metoclopramide Hcl Inj 10 Mg/2 Ml Vial IV PUSH 10 mg Q6HR BRAULIO Administration Midazolam HCl 2 mg 05/01/25 03:33 05/02/25 16:56 Midazolam Hcl (*Crx) 2 Mg/2 Ml Vial IV PUSH 2 mg Q2H PRN Administration agitation/sedation Multi-Ingred Cream/Lotion/Oil/Oint 1 applic 04/30/25 09:00 05/05/25 20:14 Mineral Oil/White Petrolatum Ointment EACH EYE Not Given Q12HR BRAULIO Ondansetron HCl 4 mg 05/02/25 05:00 05/03/25 19:29 Ondansetron Inj 4 Mg/2 Ml Vial IV PUSH 4 mg Q6H PRN Administration Nausea And Vomiting Pantoprazole Sodium 40 mg 04/29/25 09:00 05/05/25 08:15 Pantoprazole Sodium Iv 40 Mg Vial IV PUSH 40 mg QAM BRAULIO Administration Polyethylene Glycol 17 gm 05/04/25 09:00 05/05/25 08:15 Polyethylene Glycol 3350 17 Gm Powd.Pack PO 17 gm QAM BRAULIO Administration Sodium Chloride 10 ml 04/28/25 14:00 05/05/25 20:14 Central Line Flush IV PUSH 10 ml Q8HR BRAULIO Administration Sodium Chloride 10 ml 04/28/25 11:06 Central Line Flush IV PUSH PRN PRN with TPN bag changes Sodium Chloride 20 ml 04/28/25 11:06 05/01/25 04:59 Central Line Flush IV PUSH 20 ml PRN PRN Administration after blood draws Thiamine HCl 200 mg 04/29/25 09:00 05/05/25 08:15 Thiamine Hcl 200 Mg/2 Ml Vial IV PUSH 200 mg QAM BRAULIO Administration Radiology Results: ITS Impressions Head CT 04/28/25 08:29 Impression: 1.No acute intracranial abnormality. Abdomen X-Ray 05/02/25 13:22 Impression: 1. Probable small bowel obstruction. Correlation with CT recommended Chest/Abdomen/Pelvis CT 05/03/25 11:04 IMPRESSION: 1. Extensive airspace opacities in the lower lobes with volume loss, consistent with atelectasis versus pneumonia. Mild atelectasis and pneumonia in right upper lobe. Chest X-Ray 05/05/25 08:52 IMPRESSION: 1. Worsening airspace opacities right lung versus merely overlying soft tissue artifact or 2. Persistent bibasilar atelectasis and/or airspace disease. 3. Small effusions not excluded. Labs Labs: Laboratory Results - last 24 hr 05/03/25 05/05/25 05/05/25 17:14 00:10 03:01 WBC RBC Hgb Hct MCV MCH MCHC RDW Plt Count MPV Immature Gran % (Auto) Neut % (Auto) Lymph % (Auto) [place] % (Auto) Eos % (Auto) Baso % (Auto) Lymph # (Auto) [place] # (Auto) Eos # (Auto) Baso # (Auto) Abs Immat Gran (auto) Absolute Neuts (auto) Absolute Nucleated RBC Nucleated RBC % Puncture Site ABG pH ABG pCO2 ABG pO2 ABG PO2/FiO2 Ratio ABG HCO3 ABG O2 Saturation ABG O2 Content ABG Base Excess A-a Gradient Oxyhemoglobin Carboxyhemoglobin Methemoglobin Reduced Hemoglobin Total Hemoglobin O2 Delivery Device O2 Liters/Min Minute Volume Vent Rate Vent Mode FiO2 Tidal Volume PEEP Peak Inspir Pressure Pressure Support Sodium Potassium Chloride Carbon Dioxide Anion Gap BUN Creatinine Estim Creat Clear Calc Estimated GFR Glucose POC Capillary Glucose 117 H Calcium Phosphorus Magnesium Total Bilirubin AST ALT Alkaline Phosphatase Total Creatine Kinase Total Protein Albumin Ur Random Urea 429 Urine Creatinine 46.3 Urine Chloride 68 05/05/25 05/05/25 05/05/25 04:26 04:47 09:42 WBC 9.7 RBC 3.71 L Hgb 10.8 L Hct 34.7 L MCV 93.5 MCH 29.1 MCHC 31.1 L RDW 13.4 Plt Count 222 MPV 9.6 Immature Gran % (Auto) 1.8 H Neut % (Auto) 58.7 Lymph % (Auto) 22.5 [place] % (Auto) 13.9 H Eos % (Auto) 2.5 Baso % (Auto) 0.6 Lymph # (Auto) 2.18 [place] # (Auto) 1.4 H Eos # (Auto) 0.2 Baso # (Auto) 0.1 Abs Immat Gran (auto) 0.17 H Absolute Neuts (auto) 5.7 Absolute Nucleated RBC 0.000 Nucleated RBC % 0.0 Puncture Site Right radial Right radial ABG pH 7.353 7.389 ABG pCO2 43.2 37.0 ABG pO2 83.3 76.0 L ABG PO2/FiO2 Ratio 2.08 1.90 ABG HCO3 23.5 21.8 L ABG O2 Saturation 95.8 95.2 ABG O2 Content 15.9 L 15.6 L ABG Base Excess -2.1 -2.7 A-a Gradient 152.2 166.7 Oxyhemoglobin 94.7 94.3 Carboxyhemoglobin 0.4 Methemoglobin 0.1 Reduced Hemoglobin 5.2 H Total Hemoglobin 11.9 L 11.7 L O2 Delivery Device Ventilator Ventilator O2 Liters/Min Not Reportable 5.0 Minute Volume Not Reportable 0.0 Vent Rate 18 0 Vent Mode Cmv Spontaneous FiO2 40 40 Tidal Volume 450 0 PEEP 5 5 Peak Inspir Pressure Not Reportable 0 Pressure Support Not Reportable 5 Sodium 141 Potassium 4.5 Chloride 111 H Carbon Dioxide 25 Anion Gap 5 BUN 38 H Creatinine 2.39 H Estim Creat Clear Calc 48 Estimated GFR 30 L Glucose 139 H POC Capillary Glucose Calcium 9.2 Phosphorus 5.4 H Magnesium 2.4 H Total Bilirubin 0.6 AST 38 ALT 25 Alkaline Phosphatase 137 H Total Creatine Kinase 158 Total Protein 6.7 Albumin 3.1 L Ur Random Urea Urine Creatinine Urine Chloride 05/05/25 05/05/25 12:39 16:26 WBC RBC Hgb Hct MCV MCH MCHC RDW Plt Count MPV Immature Gran % (Auto) Neut % (Auto) Lymph % (Auto) [place] % (Auto) Eos % (Auto) Baso % (Auto) Lymph # (Auto) [place] # (Auto) Eos # (Auto) Baso # (Auto) Abs Immat Gran (auto) Absolute Neuts (auto) Absolute Nucleated RBC Nucleated RBC % Puncture Site ABG pH ABG pCO2 ABG pO2 ABG PO2/FiO2 Ratio ABG HCO3 ABG O2 Saturation ABG O2 Content ABG Base Excess A-a Gradient Oxyhemoglobin Carboxyhemoglobin Methemoglobin Reduced Hemoglobin Total Hemoglobin O2 Delivery Device O2 Liters/Min Minute Volume Vent Rate Vent Mode FiO2 Tidal Volume PEEP Peak Inspir Pressure Pressure Support Sodium Potassium Chloride Carbon Dioxide Anion Gap BUN Creatinine Estim Creat Clear Calc Estimated GFR Glucose POC Capillary Glucose 121 H 150 H Calcium Phosphorus Magnesium Total Bilirubin AST ALT Alkaline Phosphatase Total Creatine Kinase Total Protein Albumin Ur Random Urea Urine Creatinine Urine Chloride
[2025-05-06] VITALS (28 sets, daily range): BP systolic 113–170; BP diastolic 83–104; PULSE 60–106; RESP 14–26; TEMP 36.8–37.7; O2SAT 92–100
[2025-05-06] MEDS: dexmedeTOMIDine 400 MCG/100 ML 400 MCG/100 ML BAG 46.2 MCG IV CONT ×3 (02:30→04:28)
[2025-05-06] MEDS: IPRATROPIUM 0.5 MG/ALBUTEROL SULFATE 2.5 MG AMPUL.NEB 3 ML INHALATION ×3 (02:50→07:46)
[2025-05-06] MEDS: metroNIDAZOLE 500 MG/ISO 100ML 500 MG/100 ML BAG 100 MG IVPB ×3 (06:06→21:28)
[2025-05-06] MEDS: METOCLOPRAMIDE HCL INJ 10 MG/2 ML VIAL IV PUSH (06:06)
[2025-05-06] MEDS: CENTRAL LINE FLUSH 10 ML IV PUSH ×3 (06:06→20:39)
[2025-05-06 06:19] LABS: Hematocrit 35.6 % (42.0-52.0); Hemoglobin 11.7 g/dL (14.0-18.0); Immature Granulocyte Percent A 0.7 % (0-0.5); Lymphocytes Absolute Auto 1.87 K/mm3 (0.9-3.2); Mean Corpuscular HGB Conc 32.9 g/dl (32-36); Mean Corpuscular Hemoglobin 29.2 pg (26-34); Mean Corpuscular Volume 88.8 fl (80-100); Nucleated Red Blood Cells Absolute Auto 0.000 K/mm3 (0.0-0.012); Nucleated Red Blood Cells Perc 0.0 % (0.0-0.2); Platelet Count Result 274 k/mm3 (150-375); Red Blood Count 4.01 M/mm3 (4.6-6.20); White Blood Count 12.7 K/mm3 (4.5-10.0)
[2025-05-06 06:40] LABS: Alanine Aminotransferase 27 U/L (6-50); Albumin Level 3.6 g/dL (3.5-5.1); Alkaline Phosphatase 126 U/L (38-126); Anion Gap 11 mmol/L (4-12); Aspartate Amino Transferase 45 U/L (17-59); Bilirubin,Total 0.9 mg/dL (0.2-1.3); Blood Urea Nitrogen 38 mg/dL (9-20); Calcium 9.5 mg/dL (8.4-10.2); Carbon Dioxide 23 mmol/L (22-30); Chloride 109 mmol/L (98-107); Creatine Kinase 265 U/L (55-170); Estimated CRCL calculation 61 ml/min; Estimated Glomerular Filt Rate 40; Glucose 137 mg/dL (65-110); Magnesium 2.1 mg/dL (1.6-2.3); Potassium 3.6 mmol/L (3.4-5.0); Sodium 143 mmol/L (137-145); Total Protein 7.5 g/dL (6.3-8.2)
--- NOTE | 2025-05-06 07:00 | ECG_ITS ---
Test Date: 2025-05-06 09:18:16 Measurements Intervals [place] Rate: 103 P: 153 [place]: 137 QRS: 205 QRSD: 99 T: 196 QT: 376 QTc: 492 Interpretive Statements SINUS TACHYCARDIA WITH FREQUENT VENTRICULAR PREMATURE COMPLEXES ARM LEADS REVERSED [INVERTED P AND QRS IN I] ABNORMAL ECG Electronically Signed On 05-06-2025 13:04:46 CDT by Damian Barboza M.D.
[2025-05-06] MEDS: dexmedeTOMIDine 400 MCG/100 ML 400 MCG/100 ML BAG 30.8 MCG IV CONT (07:37)
--- NOTE | 2025-05-06 08:09 | P.PNINT_ITS ---
Progress Note: A&P Assessment and Plan (1) Acute respiratory failure with hypoxia and hypercapnia: Code(s): J96.01 - Acute respiratory failure with hypoxia; J96.02 - Acute respiratory failure with hypercapnia Status: Acute Assessment and Plan: Patient was intubated and placed on mechanical ventilation due to altered mental status, agitation and combativeness and for airway protection. He has developed aspiration pneumonia He was managed with CMV ventilation. 05/05 extubated after a successful weaning trial Now on room air Change bronchodilators to p.r.n. Add incentive spirometry Sputum cultures growing MSSA. Changed Zosyn to cefepime and Flagyl in light of SHANTEL. Which will be continue (2) Acute drug overdose: Qualifiers: Encounter type: initial encounter Injury intent: intentional self-harm Qualified Code(s): T50.902A - Poisoning by unspecified drugs, medicaments and biological substances, intentional self-harm, initial encounter Code(s): T50.901A - Poisoning by unspecified drugs, medicaments and biological substances, accidental (unintentional), initial encounter Status: Acute Assessment and Plan: Patient intentionally overdosed on hydroxyzine 25 mg x60 pills, baclofen 20 mg x31 pills, trazodone 100 mg x 5 pills -poison control was notified and is following, supportive care for now -hydroxyzine and baclofen can cause hypotension, altered mental status, QT prolongation -trazodone can also cause altered mental status -EKG this morning shows normal QT interval, but T-wave abnormalities -04/28: EKG shows some ST changes, I discussed with mechanical designer, obtain echocardiogram and troponins x2 were negative -04/29: EKG showed improved QTC -05/02: EKG showed improved QT interval and QTC Continue supportive care (3) Alcohol abuse: Code(s): F10.10 - Alcohol abuse, uncomplicated Status: Acute Assessment and Plan: Patient has a history of alcohol abuse, elevated alcohol levels on admission -will peer financial counselor on cessation of alcohol abuse once he is extubated and will also ask care coordination to provide alcohol rehab resources -continue thiamine and folic acid Wean Precedex infusion (4) QT prolongation: Code(s): R94.31 - Abnormal electrocardiogram [ECG] [EKG] Status: Acute Assessment and Plan: QT prolongation likely related to baclofen and hydroxyzine Patient was given magnesium QT prolongation has resolved monitor Echo reviewed (5) Altered mental status: Code(s): R41.82 - Altered mental status, unspecified Status: Acute Assessment and Plan: Altered mental status likely related to multiple drug overdose. He he required significant amount of sedatives for sedation for mechanical ventilation Currently on Precedex infusion which will be weaned off if possible today (6) Hypotension: Code(s): I95.9 - Hypotension, unspecified Status: Acute Assessment and Plan: Likely related to baclofen and hydroxyzine -adequately fluid-resuscitated -PICC line inserted on 04/28 -off Levophed at this time (7) Suicidal behavior: Code(s): R45.89 - Other symptoms and signs involving emotional state Status: Acute Assessment and Plan: Once patient is clinically improved, will have crisis management evaluate the patient for placement to a psychiatric unit Continue suicide precautions and one-to-one sitter (8) Electrolyte imbalance: Code(s): E87.8 - Other disorders of electrolyte and fluid balance, not elsewhere classified Status: Acute Assessment and Plan: Electrolytes improved after placement (9) SHANTEL (acute kidney injury): Code(s): N17.9 - Acute kidney failure, unspecified Status: Acute Assessment and Plan: Patient had increase in creatinine to 2.05 which is now increased to 2.47. Patient has good urine output.. Etiology likely multifactorial. Patient did had episode of hypotension. Patient also was on vancomycin Off IV fluids. CT abdomen pelvis negative for any obstruction CK was elevated and now has normalized Monitor urine output electrolytes and creatinine Consulted nephrology Zosyn changed to cefepime and Flagyl Hold further IV fluids Creatinine is improving (10) Bowel obstruction: Code(s): K56.609 - Unspecified intestinal obstruction, unspecified as to partial versus complete obstruction Status: Acute Assessment and Plan: Patient had couple of episodes of vomiting and he was on mechanical ventilation. Patient has NG to low intermittent suction. KUB suggests bowel obstruction. CT scan was done and did not show any ileus or obstruction evidence. Patient was started on tube feeds and is tolerating at 20 mL/hour. He did had high residuals. He was started on Reglan. 05/05 extubated He is tolerating ice chips, he does complain of nausea, he has an NG in place which has high output I will clamp NG today and start him on clear liquid diet and see how he tolerates. Repeat KUB Plan DVT prophylaxis: Lovenox Stress ulcer prophylaxis: Protonix Nutrition: Clear liquid diet PT OT Incentive spirometry Up in chair Code Status: Full code Critical Care Time Spent: 30 minutes Due to a high probability of clinically significant, life threatening deterioration, the patient required my highest level of preparedness to intervene emergently and I personally spent this critical care time directly and personally managing the patient. This critical care time included obtaining a history; examining the patient; pulse oximetry; ordering and review of studies; arranging urgent treatment with development of a management plan; evaluation of patient's response to treatment; frequent reassessment; and discussions with other providers. It was exclusive of separately billable procedures and treating other patients and teaching time. Please see Assessment and Plan section and the rest of the note for further information on patient assessment and treatment This dictation may have been done utilizing a voice recognition system. Attempts have been made to correct errors. However, there may be uncorrected grammatical, spelling, and recognitions errors present. Subjective Date/time seen: 05/06/25 Patient was extubated yesterday after a successful weaning trial. Patient is currently on Precedex infusion. He states he feels weak and tired lying in bed. He complains of pain all over his body. He also complains of nausea. He was on ice chips diet he has NG tube to low intermittent suction which has had significant output overnight. He denies any other complaints. All other systems were reviewed and were negative. He has good urine output. His vital signs otherwise stable. He is on room air. He is afebrile. No bowel movement again overnight. Interval history: Reason for consult: Intentional polysubstance abuse, suicidal behavior, patient took hydroxyzine 25 mg x60 pills, baclofen 20 mg x31 pills, trazodone 100 mg x 5 pills Review of Systems Review of Systems: All systems reviewed & are unremarkable except as noted in HPI and below (HPI) Exam Narrative: General: Alert awake oriented in no acute distress HEENT:? Pupils equal and reactive, sclera is clear, Neck:? Supple Respiratory:? Coarse breath sounds bilaterally, adequate air entry Cardiac:? S1-S2 is normal, regular rate and rhythm, Abdomen:? Soft, nontender, nondistended, bowel sounds are decreased but present, NG tube in place with output Extremities:? No edema, palpable pedal pulses Neuro:? AO x3, he follows commands with all 4 extremities, Skin:? No skin lesions noted Psych:? Normal speech and affect Objective Data Vital Signs Vital Signs: Vital Signs - 24 hr 05/05/25 08:45 05/05/25 08:45 05/05/25 09:00 Temperature Pulse Rate 95 95 98 Respiratory Rate 18 18 14 Blood Pressure 127/87 Pulse Oximetry 96 Oxygen Delivery Oxygen Flow Rate 05/05/25 10:00 05/05/25 10:00 05/05/25 10:00 Temperature Pulse Rate 101 H 101 H 101 H Respiratory Rate 23 H 23 H 23 H Blood Pressure Pulse Oximetry Oxygen Delivery Oxygen Flow Rate 05/05/25 10:00 05/05/25 10:00 05/05/25 10:15 Temperature Pulse Rate 101 H 101 H 102 H Respiratory Rate 23 H 24 H Blood Pressure 149/94 H Pulse Oximetry 98 93 Oxygen Delivery Nasal Cannula Oxygen Flow Rate 5 05/05/25 10:18 05/05/25 10:18 05/05/25 11:00 Temperature Pulse Rate 100 100 101 H Respiratory Rate 21 H 21 H 20 Blood Pressure Pulse Oximetry Oxygen Delivery Oxygen Flow Rate 05/05/25 11:00 05/05/25 11:00 05/05/25 11:01 Temperature Pulse Rate 101 H 103 H 112 H Respiratory Rate 20 21 H 20 Blood Pressure 152/120 H 152/120 H Pulse Oximetry 97 95 97 Oxygen Delivery Oxygen Flow Rate 05/05/25 12:00 05/05/25 12:00 05/05/25 12:00 Temperature Pulse Rate 100 100 100 Respiratory Rate 19 19 19 Blood Pressure Pulse Oximetry Oxygen Delivery Oxygen Flow Rate 05/05/25 12:00 05/05/25 12:00 05/05/25 12:00 Temperature 36.8 C Pulse Rate 100 102 H Respiratory Rate 19 Blood Pressure 151/98 H Pulse Oximetry 95 95 Oxygen Delivery Nasal Cannula Oxygen Flow Rate 5 05/05/25 12:00 05/05/25 12:01 05/05/25 12:15 Temperature Pulse Rate 100 100 101 H Respiratory Rate 19 19 17 Blood Pressure 151/98 H Pulse Oximetry 95 95 96 Oxygen Delivery Oxygen Flow Rate 05/05/25 12:30 05/05/25 12:45 05/05/25 13:00 Temperature Pulse Rate 100 102 H 100 Respiratory Rate 20 26 H 21 H Blood Pressure 147/89 H Pulse Oximetry 96 95 96 Oxygen Delivery Oxygen Flow Rate 05/05/25 13:00 05/05/25 13:01 05/05/25 13:36 Temperature Pulse Rate 99 102 H 96 Respiratory Rate 23 H 24 H 16 Blood Pressure 147/89 H Pulse Oximetry 96 96 Oxygen Delivery Oxygen Flow Rate 05/05/25 13:43 05/05/25 13:43 05/05/25 13:44 Temperature Pulse Rate 101 H 99 99 Respiratory Rate 15 14 14 Blood Pressure Pulse Oximetry Oxygen Delivery Oxygen Flow Rate 05/05/25 13:45 05/05/25 13:58 05/05/25 13:58 Temperature Pulse Rate 92 110 H 108 H Respiratory Rate 18 23 H Blood Pressure 141/118 H Pulse Oximetry 94 Oxygen Delivery Oxygen Flow Rate 05/05/25 14:11 05/05/25 14:11 05/05/25 15:00 Temperature Pulse Rate 109 H 109 H 101 H Respiratory Rate 21 H 21 H 16 Blood Pressure 147/108 H Pulse Oximetry 95 Oxygen Delivery Oxygen Flow Rate 05/05/25 16:00 05/05/25 16:00 05/05/25 16:00 Temperature 36.8 C Pulse Rate 99 99 Respiratory Rate 16 23 H Blood Pressure 159/100 H Pulse Oximetry 94 95 Oxygen Delivery Nasal Cannula Oxygen Flow Rate 3 05/05/25 16:00 05/05/25 17:00 05/05/25 17:35 Temperature Pulse Rate 95 91 93 Respiratory Rate 20 13 Blood Pressure 143/89 H Pulse Oximetry 95 Oxygen Delivery Oxygen Flow Rate 05/05/25 17:35 05/05/25 18:00 05/05/25 18:00 Temperature Pulse Rate 93 93 93 Respiratory Rate 13 19 Blood Pressure 150/98 H Pulse Oximetry 91 Oxygen Delivery Oxygen Flow Rate 05/05/25 18:00 05/05/25 20:00 05/05/25 20:00 Temperature 37.8 C H Pulse Rate 90 76 77 Respiratory Rate 20 21 H 21 H Blood Pressure 165/103 H Pulse Oximetry 95 Oxygen Delivery Oxygen Flow Rate 05/05/25 20:00 05/05/25 20:00 05/05/25 20:45 Temperature Pulse Rate 82 87 Respiratory Rate 14 Blood Pressure Pulse Oximetry 95 Oxygen Delivery Nasal Cannula Oxygen Flow Rate 3 05/05/25 20:45 05/05/25 20:55 05/05/25 21:20 Temperature Pulse Rate 87 84 80 Respiratory Rate 14 20 23 H Blood Pressure Pulse Oximetry 95 Oxygen Delivery Nasal Cannula Oxygen Flow Rate 3 05/05/25 21:20 05/05/25 22:00 05/05/25 22:00 Temperature Pulse Rate 80 77 77 Respiratory Rate 23 H 19 19 Blood Pressure 181/101 H Pulse Oximetry 94 Oxygen Delivery Oxygen Flow Rate 05/05/25 22:00 05/05/25 22:10 05/06/25 00:00 Temperature Pulse Rate 77 88 79 Respiratory Rate 24 H 22 H Blood Pressure Pulse Oximetry Oxygen Delivery Oxygen Flow Rate 05/06/25 00:00 05/06/25 00:00 05/06/25 00:00 Temperature 37.6 C H Pulse Rate 79 89 Respiratory Rate 22 H 25 H Blood Pressure 170/104 H Pulse Oximetry 96 96 Oxygen Delivery Nasal Cannula Oxygen Flow Rate 3 05/06/25 00:00 05/06/25 02:00 05/06/25 02:00 Temperature Pulse Rate 76 82 79 Respiratory Rate 23 H 25 H Blood Pressure 165/100 H Pulse Oximetry 92 Oxygen Delivery Oxygen Flow Rate 05/06/25 02:00 05/06/25 02:30 05/06/25 02:30 Temperature Pulse Rate 79 82 82 Respiratory Rate 23 H 23 H Blood Pressure Pulse Oximetry Oxygen Delivery Oxygen Flow Rate 05/06/25 02:50 05/06/25 02:58 05/06/25 04:00 Temperature Pulse Rate 82 88 73 Respiratory Rate 22 H 22 H 20 Blood Pressure Pulse Oximetry Oxygen Delivery Oxygen Flow Rate 05/06/25 04:00 05/06/25 04:00 05/06/25 04:00 Temperature 37.7 C H Pulse Rate 69 72 Respiratory Rate 16 Blood Pressure 156/87 H Pulse Oximetry 95 95 Oxygen Delivery Nasal Cannula Oxygen Flow Rate 1 05/06/25 04:28 05/06/25 04:28 05/06/25 06:00 Temperature Pulse Rate 79 79 80 Respiratory Rate 18 18 21 H Blood Pressure Pulse Oximetry Oxygen Delivery Oxygen Flow Rate 05/06/25 06:00 05/06/25 06:00 05/06/25 06:00 Temperature Pulse Rate 80 80 Respiratory Rate 21 H Blood Pressure 160/91 H Pulse Oximetry 94 96 Oxygen Delivery Room Air Oxygen Flow Rate 05/06/25 06:30 05/06/25 07:30 05/06/25 07:37 Temperature Pulse Rate 79 60 60 Respiratory Rate 17 15 15 Blood Pressure Pulse Oximetry Oxygen Delivery Oxygen Flow Rate 05/06/25 07:47 05/06/25 07:47 Temperature Pulse Rate 66 66 Respiratory Rate 20 20 Blood Pressure Pulse Oximetry 95 Oxygen Delivery Room Air Oxygen Flow Rate Intake/Output Intake/Output: Intake & Output 05/03/25 05/04/25 05/05/25 05/06/25 23:59 23:59 23:59 23:59 Intake Total 1697.4 3519.3 3085.3 628.8 Output Total 3400 3800 6100 3100 Balance -1702.6 -280.7 -3014.7 -2471.2 Meds/Results Medications: Active Medications Generic Name Dose Route Start Last Admin Trade Name Freq PRN Reason Stop Dose Admin Acetaminophen 650 mg 04/29/25 11:11 05/05/25 20:19 Acetaminophen Elixir 325 Mg/10.15 Ml Udc PO 650 mg Q6H PRN Administration Mild Pain (1-3) or Fever Albuterol/Ipratropium 3 ml 05/06/25 07:38 05/06/25 07:46 Ipratropium 0.5 Mg/Albuterol Sulfate 2.5 Mg Ampul.Neb 3 Ml INHALATION 3 ml Q6HRT PRN Administration Wheezing Bisacodyl 10 mg 05/04/25 07:37 Bisacodyl 10 Mg Suppository RECTAL QAM PRN Constipation Enoxaparin Sodium 40 mg 04/28/25 09:00 05/05/25 08:15 Enoxaparin 40 Mg/0.4 Ml Syringe SUB-Q 40 mg DAILY BRAULIO Administration Folic Acid 1 mg 04/29/25 09:00 05/05/25 08:16 Folic Acid 1 Mg/0.2 Ml Inj IV PUSH 1 mg QAM BRAULIO Administration Dexmedetomidine HCl 400 mcg in 100 mls @ 30.8 mls/hr 04/29/25 12:15 05/06/25 07:37 Precedex 400 Mcg/100 Ml IV CONT 1 mcg/kg/hr .Q3H15M BRAULIO 30.8 mls/hr Protocol Administration 1 MCG/KG/HR Cefepime HCl 1 gm/ Sodium 50 mls @ 100 mls/hr 05/04/25 09:00 05/05/25 20:43 Chloride IVPB Infused Q12HR BRAULIO Infusion Metronidazole 500 mg in 100 mls @ 100 mls/hr 05/04/25 14:00 05/06/25 06:06 Flagyl 500 Mg/Iso Soln 100 Ml IVPB 100 mls/hr Q8HR BRAULIO Administration Metoclopramide HCl 10 mg 05/04/25 12:00 05/06/25 06:06 Metoclopramide Hcl Inj 10 Mg/2 Ml Vial IV PUSH 10 mg Q6HR BRAULIO Administration Ondansetron HCl 4 mg 05/02/25 05:00 05/03/25 19:29 Ondansetron Inj 4 Mg/2 Ml Vial IV PUSH 4 mg Q6H PRN Administration Nausea And Vomiting Pantoprazole Sodium 40 mg 04/29/25 09:00 05/05/25 08:15 Pantoprazole Sodium Iv 40 Mg Vial IV PUSH 40 mg QAM BRAULIO Administration Polyethylene Glycol 17 gm 05/04/25 09:00 05/05/25 08:15 Polyethylene Glycol 3350 17 Gm Powd.Pack PO 17 gm QAM BRAULIO Administration Sodium Chloride 10 ml 04/28/25 14:00 05/06/25 06:06 Central Line Flush IV PUSH 10 ml Q8HR BRAULIO Administration Sodium Chloride 10 ml 04/28/25 11:06 Central Line Flush IV PUSH PRN PRN with TPN bag changes Sodium Chloride 20 ml 04/28/25 11:06 05/01/25 04:59 Central Line Flush IV PUSH 20 ml PRN PRN Administration after blood draws Thiamine HCl 100 mg 05/06/25 09:00 Thiamine Hcl 200 Mg/2 Ml Vial IV PUSH QAM BRAULIO Radiology Results: ITS Impressions Head CT 04/28/25 08:29 Impression: 1.No acute intracranial abnormality. Chest/Abdomen/Pelvis CT 05/03/25 11:04 IMPRESSION: 1. Extensive airspace opacities in the lower lobes with volume loss, consistent with atelectasis versus pneumonia. Mild atelectasis and pneumonia in right upper lobe. Chest X-Ray 05/05/25 08:52 IMPRESSION: 1. Worsening airspace opacities right lung versus merely overlying soft tissue artifact or 2. Persistent bibasilar atelectasis and/or airspace disease. 3. Small effusions not excluded. Labs Labs: Laboratory Results - last 24 hr 0905/05/25 05/05/25 17:14 09:42 12:39 WBC RBC Hgb Hct MCV MCH MCHC RDW Plt Count MPV Immature Gran % (Auto) Neut % (Auto) Lymph % (Auto) [place] % (Auto) Eos % (Auto) Baso % (Auto) Lymph # (Auto) [place] # (Auto) Eos # (Auto) Baso # (Auto) Abs Immat Gran (auto) Absolute Neuts (auto) Absolute Nucleated RBC Nucleated RBC % Puncture Site Right radial ABG pH 7.389 ABG pCO2 37.0 ABG pO2 76.0 L ABG PO2/FiO2 Ratio 1.90 ABG HCO3 21.8 L ABG O2 Saturation 95.2 ABG O2 Content 15.6 L ABG Base Excess -2.7 A-a Gradient 166.7 Oxyhemoglobin 94.3 Carboxyhemoglobin 0.4 Methemoglobin 0.1 Reduced Hemoglobin 5.2 H Total Hemoglobin 11.7 L O2 Delivery Device Ventilator O2 Liters/Min 5.0 Minute Volume 0.0 Vent Rate 0 Vent Mode Spontaneous FiO2 40 Tidal Volume 0 PEEP 5 Peak Inspir Pressure 0 Pressure Support 5 Sodium Potassium Chloride Carbon Dioxide Anion Gap BUN Creatinine Estim Creat Clear Calc Estimated GFR Glucose POC Capillary Glucose 121 H Calcium Phosphorus Magnesium Total Bilirubin AST ALT Alkaline Phosphatase Total Creatine Kinase Total Protein Albumin Urine Chloride 68 05/05/25 05/05/25 05/06/25 16:26 23:52 05:48 WBC 12.7 H RBC 4.01 L Hgb 11.7 L Hct 35.6 L MCV 88.8 D MCH 29.2 MCHC 32.9 RDW 13.1 Plt Count 274 MPV 9.7 Immature Gran % (Auto) 0.7 H Neut % (Auto) 71.4 Lymph % (Auto) 14.8 L [place] % (Auto) 11.3 H Eos % (Auto) 1.4 Baso % (Auto) 0.4 Lymph # (Auto) 1.87 [place] # (Auto) 1.4 H Eos # (Auto) 0.2 Baso # (Auto) 0.1 Abs Immat Gran (auto) 0.09 H Absolute Neuts (auto) 9.0 H Absolute Nucleated RBC 0.000 Nucleated RBC % 0.0 Puncture Site ABG pH ABG pCO2 ABG pO2 ABG PO2/FiO2 Ratio ABG HCO3 ABG O2 Saturation ABG O2 Content ABG Base Excess A-a Gradient Oxyhemoglobin Carboxyhemoglobin Methemoglobin Reduced Hemoglobin Total Hemoglobin O2 Delivery Device O2 Liters/Min Minute Volume Vent Rate Vent Mode FiO2 Tidal Volume PEEP Peak Inspir Pressure Pressure Support Sodium 143 Potassium 3.6 Chloride 109 H Carbon Dioxide 23 Anion Gap 11 BUN 38 H Creatinine 1.83 H Estim Creat Clear Calc 61 Estimated GFR 40 L Glucose 137 H POC Capillary Glucose 150 H 152 H Calcium 9.5 Phosphorus 3.5 Magnesium 2.1 Total Bilirubin 0.9 AST 45 ALT 27 Alkaline Phosphatase 126 Total Creatine Kinase 265 H Total Protein 7.5 Albumin 3.6 Urine Chloride Quality VTE Prophylaxis VTE prophylaxis: pharmacologic ordered
[2025-05-06] MEDS: ENOXAPARIN 40 MG/0.4 ML SYRINGE SUB-Q (09:06)
[2025-05-06] MEDS: CEFEPIME 1 GM in SODIUM CHLORIDE 0.9% IV 50 ML 100 ML IVPB ×2 (09:06→20:33)
[2025-05-06] MEDS: PANTOPRAZOLE SODIUM IV 40 MG VIAL IV PUSH (09:06)
[2025-05-06] MEDS: FOLIC ACID 1 MG/0.2 ML INJ IV PUSH (09:07)
[2025-05-06] MEDS: THIAMINE HCL 200 MG/2 ML VIAL 100 MG IV PUSH (09:07)
--- NOTE | 2025-05-06 11:05 | P.PNNP_ITS ---
Progress Note: A&P Assessment and Plan (1) Acute kidney injury: Code(s): N17.9 - Acute kidney failure, unspecified Status: Acute Assessment and Plan: * as noted by rise in creatinine on 05/03 * creatinine samuel to 2.05mg/dL * normal baseline creatinine * multifactorial etiology: * hemodynamic instability/shock/hypotension * insensible losses (fevers) * antibiotics (?) * possible infection (aspiration pneumonia) * other (?) * still with good urine output and no critical electrolytes * evaluation to date noted: * CT of S/P without obstruction * CPK mildly elevated but normal now * urine electrolyte non-prerenal * rare urine eosinophils - significance? (from antibiotics?) * UA sediment bland * follow trend of repeat labs and UOP (2) Acute respiratory failure with hypoxia and hypercapnia: Code(s): J96.01 - Acute respiratory failure with hypoxia; J96.02 - Acute respiratory failure with hypercapnia Status: Acute Assessment and Plan: * resolved - extubated on 05/05 * initially intubated and placed on mechanical ventilation due to altered mental status/agitation/combativeness and need for airway protection * complicated by aspiration pneumonia * sputum cultures growing MSSA * on antibiotics (3) Acute drug overdose: Qualifiers: Encounter type: initial encounter Injury intent: intentional self-harm Qualified Code(s): T50.902A - Poisoning by unspecified drugs, medicaments and biological substances, intentional self-harm, initial encounter Code(s): T50.901A - Poisoning by unspecified drugs, medicaments and biological substances, accidental (unintentional), initial encounter Status: Acute Assessment and Plan: * per history, intentionally overdosed on hydroxyzine + baclofen +trazodone * poison control was notified and is following * presumably responsible for symptoms on presenation (low BP, altered mental status...etc) * continue supportive care (4) Hypotension: Code(s): I95.9 - Hypotension, unspecified Status: Resolved Assessment and Plan: * related to drug overdose * s/p aggressive fluid resuscitation * initially on vasopressor but weaned off * follow trend of hemodynamics (5) Alcohol abuse: Code(s): F10.10 - Alcohol abuse, uncomplicated Status: Acute Assessment and Plan: * known history of alcohol abuse * elevated alcohol levels on admission * continue thiamine and folic acid (6) Altered mental status: Code(s): R41.82 - Altered mental status, unspecified Status: Acute Assessment and Plan: * though to be secondary #3 drug overdose * seems to be slowly improving at this time * follow trend of mentation Will continue to follow. L Subjective Date/time seen: 05/06/25 11:05 Interval history: Follow-up for acute kidney injury/acute renal failure. Appears to be doing reasonably well at thet time of my visit; mentation seems appropriate when seen; hemodynamically stable at this time; renal function/creatinine improving in association with excellent urine output; major complaint is that of generalized weakness and pain. Exam 2 Narrative: General: WD/WN male in NAD Heart: normal S1 and S2; no rub Lungs: coarse breath sounds Abdomen: soft, nontender, nondistended, positive bowel sounds Extremities: no cyanosis or clubbing; no edema Skin: warm and intact Objective Data Vital Signs Vital Signs: Vital Signs Temp Pulse Resp BP Pulse Ox O2 Del Method O2 Flow Rate 05/06/25 11:00 93 16 05/06/25 10:00 100 21 H 148/96 H 95 05/06/25 10:00 98 05/06/25 10:00 98 26 H 05/06/25 09:00 104 H 18 05/06/25 08:00 99 25 H 05/06/25 08:00 98.3 F 99 17 146/99 H 94 05/06/25 08:00 99 05/06/25 08:00 99 17 95 Room Air 05/06/25 07:47 66 20 05/06/25 07:47 66 20 95 Room Air 05/06/25 07:37 60 15 05/06/25 07:30 60 15 05/06/25 06:30 79 17 05/06/25 06:00 96 Room Air 05/06/25 06:00 80 05/06/25 06:00 80 21 H 160/91 H 94 05/06/25 06:00 80 21 H 05/06/25 04:28 79 18 05/06/25 04:28 79 18 05/06/25 04:00 99.8 F H 72 16 156/87 H 95 05/06/25 04:00 69 05/06/25 04:00 95 Nasal Cannula 1 05/06/25 04:00 73 20 05/06/25 02:58 88 22 H 09/19/25 02:50 82 22 H 05/06/25 02:30 82 23 H 05/06/25 02:30 82 23 H 05/06/25 02:00 79 05/06/25 02:00 79 25 H 165/100 H 92 05/06/25 02:00 82 23 H 05/06/25 00:00 76 05/06/25 00:00 96 Nasal Cannula 3 05/06/25 00:00 99.7 F H 89 25 H 170/104 H 96 05/06/25 00:00 79 22 H 05/06/25 00:00 79 22 H 05/05/25 22:10 88 24 H 05/05/25 22:00 77 05/05/25 22:00 77 19 181/101 H 94 05/05/25 22:00 77 19 05/05/25 21:20 80 23 H 05/05/25 21:20 80 23 H 05/05/25 20:55 84 20 05/05/25 20:45 87 14 95 Nasal Cannula 3 05/05/25 20:45 87 14 05/05/25 20:00 82 05/05/25 20:00 95 Nasal Cannula 3 05/05/25 20:00 100.0 F H 77 21 H 165/103 H 95 05/05/25 20:00 76 21 H 05/05/25 18:00 90 20 05/05/25 18:00 93 19 150/98 H 91 05/05/25 18:00 93 05/05/25 17:35 93 13 05/05/25 17:35 93 13 Intake/Output Intake/Output: Intake & Output 05/03/25 05/04/25 05/05/25 05/06/25 23:59 23:59 23:59 23:59 Intake Total 1697.4 3519.3 3085.3 1464.5 Output Total 3400 3800 6100 4500 Balance -1702.6 -280.7 -3014.7 -3035.5 Meds/Results Medications: Active Medications Generic Name Dose Route Start Last Admin Trade Name Freq PRN Reason Stop Dose Admin Acetaminophen 650 mg 04/29/25 11:11 05/05/25 20:19 Acetaminophen Elixir 325 Mg/10.15 Ml Udc PO 650 mg Q6H PRN Administration Mild Pain (1-3) or Fever Albuterol/Ipratropium 3 ml 05/06/25 07:38 05/06/25 07:46 Ipratropium 0.5 Mg/Albuterol Sulfate 2.5 Mg Ampul.Neb 3 Ml INHALATION 3 ml Q6HRT PRN Administration Wheezing Bisacodyl 10 mg 05/04/25 07:37 Bisacodyl 10 Mg Suppository RECTAL QAM PRN Constipation Enoxaparin Sodium 40 mg 04/28/25 09:00 05/06/25 09:06 Enoxaparin 40 Mg/0.4 Ml Syringe SUB-Q 40 mg DAILY BRAULIO Administration Folic Acid 1 mg 04/29/25 09:00 05/06/25 09:07 Folic Acid 1 Mg/0.2 Ml Inj IV PUSH 1 mg QAM BRAULIO Administration Dexmedetomidine HCl 400 mcg in 100 mls @ 0 mls/hr 04/29/25 12:15 05/06/25 14:00 Precedex 400 Mcg/100 Ml IV CONT 0 mcg/kg/hr On Hold: 05/06/25 14:35 .Q0M BRAULIO 0 mls/hr Protocol Titration 0 MCG/KG/HR Cefepime HCl 1 gm/ Sodium 50 mls @ 100 mls/hr 05/04/25 09:00 05/06/25 09:36 Chloride IVPB Infused Q12HR BRAULIO Infusion Metronidazole 500 mg in 100 mls @ 100 mls/hr 05/04/25 14:00 05/06/25 13:52 Flagyl 500 Mg/Iso Soln 100 Ml IVPB 100 mls/hr Q8HR BRAULIO Administration Metoclopramide HCl 10 mg 05/04/25 12:00 05/06/25 10:45 Metoclopramide Hcl Inj 10 Mg/2 Ml Vial IV PUSH Not Given On Hold: 05/06/25 16:11 Q6HR BRAULIO Ondansetron HCl 4 mg 05/02/25 05:00 05/06/25 13:32 Ondansetron Inj 4 Mg/2 Ml Vial IV PUSH 4 mg Q6H PRN Administration Nausea And Vomiting Pantoprazole Sodium 40 mg 04/29/25 09:00 05/06/25 09:06 Pantoprazole Sodium Iv 40 Mg Vial IV PUSH 40 mg QAM BRAULIO Administration Polyethylene Glycol 17 gm 05/04/25 09:00 05/06/25 09:07 Polyethylene Glycol 3350 17 Gm Powd.Pack PO 17 gm QAM BRAULIO Administration Sodium Chloride 10 ml 04/28/25 14:00 05/06/25 14:31 Central Line Flush IV PUSH 10 ml Q8HR BRAULIO Administration Sodium Chloride 10 ml 04/28/25 11:06 Central Line Flush IV PUSH PRN PRN with TPN bag changes Sodium Chloride 20 ml 04/28/25 11:06 05/01/25 04:59 Central Line Flush IV PUSH 20 ml PRN PRN Administration after blood draws Thiamine HCl 100 mg 05/06/25 09:00 05/06/25 09:07 Thiamine Hcl 200 Mg/2 Ml Vial IV PUSH 100 mg QAM BRAULIO Administration Radiology Results: ITS Impressions Head CT 04/28/25 08:29 Impression: 1.No acute intracranial abnormality. Chest/Abdomen/Pelvis CT 05/03/25 11:04 IMPRESSION: 1. Extensive airspace opacities in the lower lobes with volume loss, consistent with atelectasis versus pneumonia. Mild atelectasis and pneumonia in right upper lobe. Chest X-Ray 05/05/25 08:52 IMPRESSION: 1. Worsening airspace opacities right lung versus merely overlying soft tissue artifact or 2. Persistent bibasilar atelectasis and/or airspace disease. 3. Small effusions not excluded. Abdomen X-Ray 05/06/25 08:30 IMPRESSION: 1. No dilated loops of gas-filled bowel to suggest obstruction. Labs Labs: Laboratory Tests 05/06/25 05:48 05/06/25 05:48 Calcium 9.5 Phosphorus 3.5 Magnesium 2.1 Total Bilirubin 0.9 AST 45 ALT 27 Alkaline Phosphatase 126 Total Creatine Kinase 265 H Total Protein 7.5 Albumin 3.6
--- NOTE | 2025-05-06 11:11 | PCNFU ---
Nutrition Follow-Up Complete: Suboptimal Energy Intake as related to mechanical vent as evidenced by NPO. Goal:Meet estimated nutritional needs Progressing towards goal. We will continue current goal. Pt current nutrition is Clear Liquids. Nutrition recommendation: advance diet as tolerated when medically able. Last recorded weight is 111.8 kg, down from 121.5 kg on admit. Bowel Motility: No BM reported. Labs Reviewed: Glu 139, BUN 38, PO4 5.4 Meds Noted: Lovenox, Protonix, Miralax, Thiamine, Folic Acid. Skin: WNL Additional Notes: Patient is tolerating clear liquid diet. Diet supplement of Ensure Clear on trays providing an additional 240 kcal and 8 gm protein. NGT is clamped per nursing. Recommend advancing as tolerated per MD orders. Agree with diet orders. Will monitor weight, labs, skin, diet orders, meds every 3 days.
--- NOTE | 2025-05-06 13:29 | PCPTNOTE ---
Attempted PT evaluation, pt actively vomiting. Nursing present with pt. Will follow.
[2025-05-06] MEDS: ONDANSETRON INJ 4 MG/2 ML VIAL IV PUSH ×2 (13:32→20:33)
--- NOTE | 2025-05-06 15:24 | PCOTNOTE ---
Pt vomiting when attempting to see pt for evaluation. Will continue to follow.
--- NOTE | 2025-05-06 16:12 | PM.IMPN ---
Progress Note: A&P Assessment and Plan (1) Suicidal behavior: Code(s): R45.89 - Other symptoms and signs involving emotional state Status: Acute (2) Alcohol abuse: Code(s): F10.10 - Alcohol abuse, uncomplicated Status: Acute (3) QT prolongation: Code(s): R94.31 - Abnormal electrocardiogram [ECG] [EKG] Status: Acute (4) Nausea & vomiting: Code(s): R11.2 - Nausea with vomiting, unspecified Status: Acute Plan Patient doing well, tolerating clear liquid diet. He is having bowel movements. At this time will discontinue Reglan as his QTC is high and recheck an EKG in the morning to reassess. I have asked at therapist see the patient to get him mobilized as well as promoting bowel motility., he reports feeling very weak, has generalized weakness on exam. He has been counseled on alcohol use disorder. More importantly, I have allowed him to relate to me the events leading up to his suicide attempt. He reports he got out of alcohol rehab and was in a hotel because he had no where to stay any felt he had nothing left to do but to end his life. At at this time he does not endorse those feelings but he remains high risk. Continue suicide precautions. Weaning Precedex. No evidence of alcohol withdrawal at this time. SHANTEL improving, continue to appreciate Nephrology recommendations. Full code. Continue incentive spirometer. Subjective Date/time seen: 05/06/25 16:12 Interval history: Patient remains stable and improving status post extubation. He is tolerating a clear liquid diet with good bowel movements, no abdominal pain or distension. Review of Systems Review of Systems: All systems reviewed & are unremarkable except as noted in HPI and below (Subjective) Exam Const: General: comfortable and no acute distress HENMT: Mouth: Yes moist mucous membranes Eyes: Pupils: Equal, round and reactive pupils present Neck: Neck: supple Resp: Effort & Inspection: normal respiratory effort Auscultation: clear to auscultation bilaterally Cardio: Rate: regular rate Rhythm: regular rhythm GI: Inspection: non-distended GI Palp: Yes Soft to palpation and No Tenderness to palpation present (GI) Auscultation: normal bowel sounds Neuro: Motor exam (neuro): 5/5 motor strength present throughout Extrem: General: no edema Psych: Mental Status: mental status grossly normal Affect: normal affect Objective Data Vital Signs Vital Signs: Vital Signs - 24 hr 05/05/25 17:00 05/05/25 17:35 05/05/25 17:35 Temperature Pulse Rate 91 93 93 Respiratory Rate 20 13 13 Blood Pressure 143/89 H Pulse Oximetry 95 Oxygen Delivery Oxygen Flow Rate Fraction of Inspired Oxygen 05/05/25 18:00 05/05/25 18:00 05/05/25 18:00 Temperature Pulse Rate 93 93 90 Respiratory Rate 19 20 Blood Pressure 150/98 H Pulse Oximetry 91 Oxygen Delivery Oxygen Flow Rate Fraction of Inspired Oxygen 05/05/25 20:00 05/05/25 20:00 05/05/25 20:00 Temperature 100.0 F H Pulse Rate 76 77 Respiratory Rate 21 H 21 H Blood Pressure 165/103 H Pulse Oximetry 95 95 Oxygen Delivery Nasal Cannula Oxygen Flow Rate 3 Fraction of Inspired Oxygen 05/05/25 20:00 05/05/25 20:45 05/05/25 20:45 Temperature Pulse Rate 82 87 87 Respiratory Rate 14 14 Blood Pressure Pulse Oximetry 95 Oxygen Delivery Nasal Cannula Oxygen Flow Rate 3 Fraction of Inspired Oxygen 05/05/25 20:55 05/05/25 21:20 05/05/25 21:20 Temperature Pulse Rate 84 80 80 Respiratory Rate 20 23 H 23 H Blood Pressure Pulse Oximetry Oxygen Delivery Oxygen Flow Rate Fraction of Inspired Oxygen 05/05/25 22:00 05/05/25 22:00 05/05/25 22:00 Temperature Pulse Rate 77 77 77 Respiratory Rate 19 19 Blood Pressure 181/101 H Pulse Oximetry 94 Oxygen Delivery Oxygen Flow Rate Fraction of Inspired Oxygen 05/05/25 22:10 05/06/25 00:00 05/06/25 00:00 Temperature Pulse Rate 88 79 79 Respiratory Rate 24 H 22 H 22 H Blood Pressure Pulse Oximetry Oxygen Delivery Oxygen Flow Rate Fraction of Inspired Oxygen 05/06/25 00:00 05/06/25 00:00 05/06/25 00:00 Temperature 99.7 F H Pulse Rate 89 76 Respiratory Rate 25 H Blood Pressure 170/104 H Pulse Oximetry 96 96 Oxygen Delivery Nasal Cannula Oxygen Flow Rate 3 Fraction of Inspired Oxygen 05/06/25 02:00 05/06/25 02:00 05/06/25 02:00 Temperature Pulse Rate 82 79 79 Respiratory Rate 23 H 25 H Blood Pressure 165/100 H Pulse Oximetry 92 Oxygen Delivery Oxygen Flow Rate Fraction of Inspired Oxygen 05/06/25 02:30 05/06/25 02:30 05/06/25 02:50 Temperature Pulse Rate 82 82 82 Respiratory Rate 23 H 23 H 22 H Blood Pressure Pulse Oximetry Oxygen Delivery Oxygen Flow Rate Fraction of Inspired Oxygen 05/06/25 02:58 05/06/25 04:00 05/06/25 04:00 Temperature Pulse Rate 88 73 Respiratory Rate 22 H 20 Blood Pressure Pulse Oximetry 95 Oxygen Delivery Nasal Cannula Oxygen Flow Rate 1 Fraction of Inspired Oxygen 05/06/25 04:00 05/06/25 04:00 05/06/25 04:28 Temperature 99.8 F H Pulse Rate 69 72 79 Respiratory Rate 16 18 Blood Pressure 156/87 H Pulse Oximetry 95 Oxygen Delivery Oxygen Flow Rate Fraction of Inspired Oxygen 05/06/25 04:28 05/06/25 06:00 05/06/25 06:00 Temperature Pulse Rate 79 80 80 Respiratory Rate 18 21 H 21 H Blood Pressure 160/91 H Pulse Oximetry 94 Oxygen Delivery Oxygen Flow Rate Fraction of Inspired Oxygen 05/06/25 06:00 05/06/25 06:00 05/06/25 06:30 Temperature Pulse Rate 80 79 Respiratory Rate 17 Blood Pressure Pulse Oximetry 96 Oxygen Delivery Room Air Oxygen Flow Rate Fraction of Inspired Oxygen 05/06/25 07:30 05/06/25 07:37 05/06/25 07:47 Temperature Pulse Rate 60 60 66 Respiratory Rate 15 15 20 Blood Pressure Pulse Oximetry 95 Oxygen Delivery Room Air Oxygen Flow Rate Fraction of Inspired Oxygen 05/06/25 07:47 05/06/25 08:00 05/06/25 08:00 Temperature Pulse Rate 66 99 99 Respiratory Rate 20 17 Blood Pressure Pulse Oximetry 95 Oxygen Delivery Room Air Oxygen Flow Rate Fraction of Inspired Oxygen 40 05/06/25 08:00 05/06/25 08:00 05/06/25 09:00 Temperature 98.3 F Pulse Rate 99 99 104 H Respiratory Rate 17 25 H 18 Blood Pressure 146/99 H Pulse Oximetry 94 Oxygen Delivery Oxygen Flow Rate Fraction of Inspired Oxygen 05/06/25 10:00 05/06/25 10:00 05/06/25 10:00 Temperature Pulse Rate 98 98 100 Respiratory Rate 26 H 21 H Blood Pressure 148/96 H Pulse Oximetry 95 Oxygen Delivery Oxygen Flow Rate Fraction of Inspired Oxygen 05/06/25 11:00 05/06/25 12:00 05/06/25 12:00 Temperature Pulse Rate 93 106 H 106 H Respiratory Rate 16 17 17 Blood Pressure Pulse Oximetry 95 Oxygen Delivery Room Air Oxygen Flow Rate Fraction of Inspired Oxygen 40 05/06/25 12:00 05/06/25 12:00 05/06/25 14:00 Temperature 98.8 F Pulse Rate 106 H 106 H 95 Respiratory Rate 21 H 17 Blood Pressure 135/83 Pulse Oximetry 96 Oxygen Delivery Oxygen Flow Rate Fraction of Inspired Oxygen 05/06/25 14:00 05/06/25 14:00 Temperature Pulse Rate 95 95 Respiratory Rate 18 Blood Pressure 145/95 H Pulse Oximetry 94 Oxygen Delivery Oxygen Flow Rate Fraction of Inspired Oxygen Intake/Output Intake/Output: Intake & Output 05/03/25 05/04/25 05/05/25 05/06/25 23:59 23:59 23:59 23:59 Intake Total 1697.4 3519.3 3085.3 864.5 Output Total 3400 3800 6100 3100 Balance -1702.6 -280.7 -3014.7 -2235.5 Meds/Results Medications: Active Medications Generic Name Dose Route Start Last Admin Trade Name Freq PRN Reason Stop Dose Admin Acetaminophen 650 mg 04/29/25 11:11 05/05/25 20:19 Acetaminophen Elixir 325 Mg/10.15 Ml Udc PO 650 mg Q6H PRN Administration Mild Pain (1-3) or Fever Albuterol/Ipratropium 3 ml 05/06/25 07:38 05/06/25 07:46 Ipratropium 0.5 Mg/Albuterol Sulfate 2.5 Mg Ampul.Neb 3 Ml INHALATION 3 ml Q6HRT PRN Administration Wheezing Bisacodyl 10 mg 05/04/25 07:37 Bisacodyl 10 Mg Suppository RECTAL QAM PRN Constipation Enoxaparin Sodium 40 mg 04/28/25 09:00 05/06/25 09:06 Enoxaparin 40 Mg/0.4 Ml Syringe SUB-Q 40 mg DAILY BRAULIO Administration Folic Acid 1 mg 04/29/25 09:00 05/06/25 09:07 Folic Acid 1 Mg/0.2 Ml Inj IV PUSH 1 mg QAM BRAULIO Administration Dexmedetomidine HCl 400 mcg in 100 mls @ 0 mls/hr 04/29/25 12:15 05/06/25 14:00 Precedex 400 Mcg/100 Ml IV CONT 0 mcg/kg/hr On Hold: 05/06/25 14:35 .Q0M BRAULIO 0 mls/hr Protocol Titration 0 MCG/KG/HR Cefepime HCl 1 gm/ Sodium 50 mls @ 100 mls/hr 05/04/25 09:00 05/06/25 09:36 Chloride IVPB Infused Q12HR BRAULIO Infusion Metronidazole 500 mg in 100 mls @ 100 mls/hr 05/04/25 14:00 05/06/25 13:52 Flagyl 500 Mg/Iso Soln 100 Ml IVPB 100 mls/hr Q8HR BRAULIO Administration Metoclopramide HCl 10 mg 05/04/25 12:00 05/06/25 10:45 Metoclopramide Hcl Inj 10 Mg/2 Ml Vial IV PUSH Not Given On Hold: 05/06/25 16:11 Q6HR BRAULIO Ondansetron HCl 4 mg 05/02/25 05:00 05/06/25 13:32 Ondansetron Inj 4 Mg/2 Ml Vial IV PUSH 4 mg Q6H PRN Administration Nausea And Vomiting Pantoprazole Sodium 40 mg 04/29/25 09:00 05/06/25 09:06 Pantoprazole Sodium Iv 40 Mg Vial IV PUSH 40 mg QAM BRAULIO Administration Polyethylene Glycol 17 gm 05/04/25 09:00 05/06/25 09:07 Polyethylene Glycol 3350 17 Gm Powd.Pack PO 17 gm QAM BRAULIO Administration Sodium Chloride 10 ml 04/28/25 14:00 05/06/25 14:31 Central Line Flush IV PUSH 10 ml Q8HR BRAULIO Administration Sodium Chloride 10 ml 04/28/25 11:06 Central Line Flush IV PUSH PRN PRN with TPN bag changes Sodium Chloride 20 ml 04/28/25 11:06 05/01/25 04:59 Central Line Flush IV PUSH 20 ml PRN PRN Administration after blood draws Thiamine HCl 100 mg 05/06/25 09:00 05/06/25 09:07 Thiamine Hcl 200 Mg/2 Ml Vial IV PUSH 100 mg QAM BRAULIO Administration Radiology Results: ITS Impressions Head CT 04/28/25 08:29 Impression: 1.No acute intracranial abnormality. Chest/Abdomen/Pelvis CT 05/03/25 11:04 IMPRESSION: 1. Extensive airspace opacities in the lower lobes with volume loss, consistent with atelectasis versus pneumonia. Mild atelectasis and pneumonia in right upper lobe. Chest X-Ray 05/05/25 08:52 IMPRESSION: 1. Worsening airspace opacities right lung versus merely overlying soft tissue artifact or 2. Persistent bibasilar atelectasis and/or airspace disease. 3. Small effusions not excluded. Abdomen X-Ray 05/06/25 08:30 IMPRESSION: 1. No dilated loops of gas-filled bowel to suggest obstruction. Labs Labs: Laboratory Results - last 24 hr 05/05/25 05/05/25 05/06/25 16:26 23:52 05:48 WBC 12.7 H RBC 4.01 L Hgb 11.7 L Hct 35.6 L MCV 88.8 D MCH 29.2 MCHC 32.9 RDW 13.1 Plt Count 274 MPV 9.7 Immature Gran % (Auto) 0.7 H Neut % (Auto) 71.4 Lymph % (Auto) 14.8 L [place] % (Auto) 11.3 H Eos % (Auto) 1.4 Baso % (Auto) 0.4 Lymph # (Auto) 1.87 [place] # (Auto) 1.4 H Eos # (Auto) 0.2 Baso # (Auto) 0.1 Abs Immat Gran (auto) 0.09 H Absolute Neuts (auto) 9.0 H Absolute Nucleated RBC 0.000 Nucleated RBC % 0.0 Sodium 143 Potassium 3.6 Chloride 109 H Carbon Dioxide 23 Anion Gap 11 BUN 38 H Creatinine 1.83 H Estim Creat Clear Calc 61 Estimated GFR 40 L Glucose 137 H POC Capillary Glucose 150 H 152 H Calcium 9.5 Phosphorus 3.5 Magnesium 2.1 Total Bilirubin 0.9 AST 45 ALT 27 Alkaline Phosphatase 126 Total Creatine Kinase 265 H Total Protein 7.5 Albumin 3.6
--- NOTE | 2025-05-06 22:00 | PC.NURSE ---
2139 Patient had NG removed today with several bouts of emesis; Patient has had second episode of emesis since 1999, discussed need for NG again with patient. Patient initially agreeable when he thought it wouldn't be done until the morning. Clarified it would be done as soon as MD order obtained. Patient states refusal. Discussed process and possibility that patient will continue to vomit throughout evening. Patient repeats refusal but states understanding that if emesis continues we will have this conversation again since he has had zofran already and it only available q4hrs.
--- NOTE | 2025-05-06 22:38 | PC.NURSE ---
Dr Westbrook called at 1012 and made aware of several bouts of emesis. Patient is now willing to have NG placed. NG ordered to LIS and keep patient NPO. 5 attempts at placing NG: patient can not sit still or immediately starts gagging or vomiting causing tibe to coil in mouth. Dr Westbrook made aware. Will continue zofran PRN and keep NPO.
[2025-05-07] VITALS (17 sets, daily range): BP systolic 138–159; BP diastolic 92–119; PULSE 73–133; RESP 12–24; TEMP 36.4–37; O2SAT 96–99
[2025-05-07] MEDS: ONDANSETRON INJ 4 MG/2 ML VIAL IV PUSH ×2 (01:56→09:13)
[2025-05-07 04:57] LABS: Hematocrit 36.6 % (42.0-52.0); Hemoglobin 11.7 g/dL (14.0-18.0); Immature Granulocyte Percent A 0.5 % (0-0.5); Lymphocytes Absolute Auto 1.95 K/mm3 (0.9-3.2); Mean Corpuscular HGB Conc 32.0 g/dl (32-36); Mean Corpuscular Hemoglobin 29.0 pg (26-34); Mean Corpuscular Volume 90.6 fl (80-100); Nucleated Red Blood Cells Absolute Auto 0.000 K/mm3 (0.0-0.012); Nucleated Red Blood Cells Perc 0.0 % (0.0-0.2); Platelet Count Result 326 k/mm3 (150-375); Red Blood Count 4.04 M/mm3 (4.6-6.20); White Blood Count 11.5 K/mm3 (4.5-10.0)
--- NOTE | 2025-05-07 05:00 | ECG_ITS ---
Test Date: 2025-05-07 09:30:31 Measurements Intervals [place] Rate: 87 P: 28 UT: 131 QRS: -20 QRSD: 97 T: -7 QT: 384 QTc: 464 Interpretive Statements SINUS RHYTHM WITH OCCASIONAL VENTRICULAR PREMATURE COMPLEXES MINIMAL VOLTAGE CRITERIA FOR LVH, CONSIDER NORMAL VARIANT [MEETS CRITERIA IN ONE OF: R(aVL), S(V1), R(V5), R(V5/V6)+S(V1)] NONSPECIFIC ST & T-WAVE ABNORMALITY ABNORMAL ECG Compared to ECG 05/06/2025 09:18:16 ARM LEAD REVERSAL IS CORRECTED Electronically Signed On 05-08-2025 08:01:53 CDT by John Shetty M.D.
[2025-05-07] MEDS: metroNIDAZOLE 500 MG/ISO 100ML 500 MG/100 ML BAG 100 MG IVPB (05:14)
[2025-05-07] MEDS: CENTRAL LINE FLUSH 20 ML IV PUSH (05:18)
[2025-05-07] MEDS: CENTRAL LINE FLUSH 10 ML IV PUSH ×3 (05:18→21:12)
[2025-05-07 05:20] LABS: Alanine Aminotransferase 27 U/L (6-50); Albumin Level 3.9 g/dL (3.5-5.1); Alkaline Phosphatase 116 U/L (38-126); Anion Gap 11 mmol/L (4-12); Aspartate Amino Transferase 42 U/L (17-59); Bilirubin,Total 0.8 mg/dL (0.2-1.3); Blood Urea Nitrogen 27 mg/dL (9-20); Calcium 9.5 mg/dL (8.4-10.2); Carbon Dioxide 23 mmol/L (22-30); Chloride 110 mmol/L (98-107); Creatine Kinase 137 U/L (55-170); Estimated CRCL calculation 69 ml/min; Estimated Glomerular Filt Rate 46; Glucose 123 mg/dL (65-110); Magnesium 1.9 mg/dL (1.6-2.3); Potassium 3.1 mmol/L (3.4-5.0); Sodium 144 mmol/L (137-145); Total Protein 7.7 g/dL (6.3-8.2)
[2025-05-07] MEDS: CALCIUM CARBONATE (TUMS) 500 MG (200 MG ELEMENTAL) 400 MG PO (05:46)
--- NOTE | 2025-05-07 08:29 | P.PNINT_ITS ---
Progress Note: A&P Assessment and Plan (1) Acute respiratory failure with hypoxia and hypercapnia: Code(s): J96.01 - Acute respiratory failure with hypoxia; J96.02 - Acute respiratory failure with hypercapnia Status: Acute Assessment and Plan: Patient was intubated and placed on mechanical ventilation due to altered mental status, agitation and combativeness and for airway protection. He has developed aspiration pneumonia He was managed with CMV ventilation. 05/05 extubated after a successful weaning trial Now on room air Change bronchodilators to p.r.n. Continue incentive spirometry Sputum cultures growing MSSA. Changed Zosyn to cefepime and Flagyl in light of SHANTEL. Will change to QD Rocephin until pt can take PO (2) Acute drug overdose: Qualifiers: Encounter type: initial encounter Injury intent: intentional self-harm Qualified Code(s): T50.902A - Poisoning by unspecified drugs, medicaments and biological substances, intentional self-harm, initial encounter Code(s): T50.901A - Poisoning by unspecified drugs, medicaments and biological substances, accidental (unintentional), initial encounter Status: Acute Assessment and Plan: Patient intentionally overdosed on hydroxyzine 25 mg x60 pills, baclofen 20 mg x31 pills, trazodone 100 mg x 5 pills -poison control was notified and is following, supportive care for now -hydroxyzine and baclofen can cause hypotension, altered mental status, QT prolongation -trazodone can also cause altered mental status -EKG this morning shows normal QT interval, but T-wave abnormalities -04/28: EKG shows some ST changes, I discussed with provider relations representative, obtain echocardiogram and troponins x2 were negative -04/29: EKG showed improved QTC -05/02: EKG showed improved QT interval and QTC Continue supportive care (3) Alcohol abuse: Code(s): F10.10 - Alcohol abuse, uncomplicated Status: Acute Assessment and Plan: Patient has a history of alcohol abuse, elevated alcohol levels on admission -will children counselor on cessation of alcohol abuse once he is extubated and will also ask care coordination to provide alcohol rehab resources -continue thiamine and folic acid Off Precedex infusion (4) QT prolongation: Code(s): R94.31 - Abnormal electrocardiogram [ECG] [EKG] Status: Acute Assessment and Plan: QT prolongation likely related to baclofen and hydroxyzine Patient was given magnesium QT prolongation has resolved monitor Echo reviewed (5) Altered mental status: Code(s): R41.82 - Altered mental status, unspecified Status: Acute Assessment and Plan: Resolved (6) Hypotension: Code(s): I95.9 - Hypotension, unspecified Status: Acute Assessment and Plan: Likely related to baclofen and hydroxyzine -adequately fluid-resuscitated -PICC line inserted on 04/28 -off Levophed at this time (7) Suicidal behavior: Code(s): R45.89 - Other symptoms and signs involving emotional state Status: Acute Assessment and Plan: Once patient is clinically improved, will have crisis management evaluate the patient for placement to a psychiatric unit Continue suicide precautions and one-to-one sitter (8) Electrolyte imbalance: Code(s): E87.8 - Other disorders of electrolyte and fluid balance, not elsewhere classified Status: Acute Assessment and Plan: Potassium replacement ordered (9) SHANTEL (acute kidney injury): Code(s): N17.9 - Acute kidney failure, unspecified Status: Acute Assessment and Plan: Patient had increase in creatinine to 2.05 which is now increased to 2.47. Patient has good urine output.. Etiology likely multifactorial. Patient did had episode of hypotension. Patient also was on vancomycin CT abdomen pelvis negative for any obstruction CK was elevated and now has normalized Monitor urine output electrolytes and creatinine Consulted nephrology Zosyn changed to cefepime and Flagyl Restart IV fluids with potassium for replacement and as patient does not has significant p.o. intake at this time Creatinine is improving and and 1.6 now (10) Bowel obstruction: Code(s): K56.609 - Unspecified intestinal obstruction, unspecified as to partial versus complete obstruction Status: Acute Assessment and Plan: Patient had couple of episodes of vomiting and he was on mechanical ventilation. Patient has NG to low intermittent suction. KUB suggests bowel obstruction. CT scan was done and did not show any ileus or obstruction evidence. Patient was started on tube feeds and is tolerating at 20 mL/hour. He did had high residuals. He was started on Reglan. 05/05 extubated 05/06 patient was tolerating ice chips then he tolerated clear liquid diet NG was removed. Patient then had multiple episodes of nausea vomiting overnight as patient drank significant amount of carbonated soda quickly.. KUB was done and does not show any evidence of ileus under obstruction. He refused for NG insertion. 05/07 will start ice chips and water and see how he does and advance slowly depending on how he tolerates. (11) Fall: Code(s): W19.XXXA - Unspecified fall, initial encounter Status: Acute Assessment and Plan: Did not sustain any injury. Will emphasized again to the patient to call for help any time he wants to get out of bed or commode. He is AO x3 and verbalized understanding and agreed to follow instructions. I will also remove Marion catheter. PT OT has been consulted for evaluation 1:1 Sitter is at bedside. Plan DVT prophylaxis: Lovenox Stress ulcer prophylaxis: Protonix Nutrition: Resume ice chips and water and if patient does well advance to Clear liquid diet PT OT Incentive spirometry Up in chair Code Status: Full code Remove Marion catheter Transfer out of ICU today. Subjective Date/time seen: 05/07/25 Yesterday patient was doing well and was started on clear liquid diet. He tolerated clear liquid diet hence NG was removed. Later patient started having vomiting multiple times. It appears the patient drank 7-8 cans of carbonated soda in few hours. He refused reinsertion of NG. He was made NPO. Later at night patient went to commode and got out without calling for help and for became weak and fell fell on the side but sustained no injuries. He at this time denies any complaints he states he still has some nausea but overall it is better and he feels that he can drink water and ice chips. He also requesting Marion catheter to be removed. Patient denies fever, chest pain, shortness of breath, cough, abdominal pain,, diarrhea, headache or constipation. He had multiple bowel movements. All the systems were reviewed and were negative Interval history: Reason for consult: Intentional polysubstance abuse, suicidal behavior, patient took hydroxyzine 25 mg x60 pills, baclofen 20 mg x31 pills, trazodone 100 mg x 5 pills Review of Systems Review of Systems: All systems reviewed & are unremarkable except as noted in HPI and below (HPI) Exam Narrative: General: Alert awake oriented in no acute distress HEENT:? Pupils equal and reactive, sclera is clear, Neck:? Supple Respiratory:? Coarse breath sounds bilaterally, adequate air entry Cardiac:? S1-S2 is normal, regular rate and rhythm, Abdomen:? Soft, nontender, nondistended, bowel sounds are decreased but present, NG tube in place with output Extremities:? No edema, palpable pedal pulses Neuro:? AO x3, he follows commands with all 4 extremities, Skin:? No skin lesions noted Psych:? Normal speech and affect Objective Data Vital Signs Vital Signs: Vital Signs - 24 hr 05/06/25 09:00 05/06/25 10:00 05/06/25 10:00 Temperature Pulse Rate 104 H 98 98 Respiratory Rate 18 26 H Blood Pressure Pulse Oximetry Oxygen Delivery Fraction of Inspired Oxygen 05/06/25 10:00 05/06/25 11:00 05/06/25 12:00 Temperature Pulse Rate 100 93 106 H Respiratory Rate 21 H 16 17 Blood Pressure 148/96 H Pulse Oximetry 95 Oxygen Delivery Fraction of Inspired Oxygen 05/06/25 12:00 05/06/25 12:00 05/06/25 12:00 Temperature 37.1 C Pulse Rate 106 H 106 H 106 H Respiratory Rate 17 21 H Blood Pressure 135/83 Pulse Oximetry 95 96 Oxygen Delivery Room Air Fraction of Inspired Oxygen 40 05/06/25 14:00 05/06/25 14:00 05/06/25 14:00 Temperature Pulse Rate 95 95 95 Respiratory Rate 17 18 Blood Pressure 145/95 H Pulse Oximetry 94 Oxygen Delivery Fraction of Inspired Oxygen 05/06/25 16:00 05/06/25 16:00 05/06/25 16:00 Temperature 37.1 C Pulse Rate 87 95 87 Respiratory Rate 16 16 Blood Pressure 139/97 H Pulse Oximetry 94 Oxygen Delivery Room Air Fraction of Inspired Oxygen 40 05/06/25 18:00 05/06/25 18:00 05/06/25 19:42 Temperature Pulse Rate 95 95 92 Respiratory Rate 18 16 Blood Pressure 150/87 H 113/94 H Pulse Oximetry 100 Oxygen Delivery Fraction of Inspired Oxygen 05/06/25 20:00 05/06/25 20:30 05/06/25 20:40 Temperature Pulse Rate 87 80 Respiratory Rate 14 Blood Pressure Pulse Oximetry 96 Oxygen Delivery Room Air Room Air Fraction of Inspired Oxygen 05/06/25 21:55 05/06/25 21:59 05/06/25 22:00 Temperature 36.9 C Pulse Rate 101 H 91 Respiratory Rate 16 Blood Pressure 129/83 Pulse Oximetry 94 95 Oxygen Delivery Fraction of Inspired Oxygen 05/06/25 23:54 05/07/25 00:00 05/07/25 00:00 Temperature Pulse Rate 88 91 Respiratory Rate 17 Blood Pressure 163/95 H Pulse Oximetry 95 98 Oxygen Delivery Room Air Fraction of Inspired Oxygen 05/07/25 00:23 05/07/25 02:00 05/07/25 03:06 Temperature 37.0 C Pulse Rate 102 H 103 H Respiratory Rate 16 24 H Blood Pressure 138/119 H 153/101 H Pulse Oximetry 98 99 Oxygen Delivery Fraction of Inspired Oxygen 05/07/25 04:00 05/07/25 04:00 05/07/25 04:00 Temperature 36.4 C Pulse Rate 91 98 Respiratory Rate 18 Blood Pressure 159/100 H Pulse Oximetry 97 Oxygen Delivery Room Air Fraction of Inspired Oxygen 05/07/25 05:08 05/07/25 06:00 05/07/25 06:00 Temperature Pulse Rate 90 89 85 Respiratory Rate 12 17 Blood Pressure 149/97 H 159/95 H Pulse Oximetry 97 96 Oxygen Delivery Fraction of Inspired Oxygen Intake/Output Intake/Output: Intake & Output 05/04/25 05/05/25 05/06/25 05/07/25 23:59 23:59 23:59 23:59 Intake Total 3519.3 3085.3 1714.5 100 Output Total 3800 6100 4750 1075 Balance -280.7 -3014.7 -3035.5 -975 Meds/Results Medications: Active Medications Generic Name Dose Route Start Last Admin Trade Name Freq PRN Reason Stop Dose Admin Acetaminophen 650 mg 04/29/25 11:11 05/05/25 20:19 Acetaminophen Elixir 325 Mg/10.15 Ml Udc PO 650 mg Q6H PRN Administration Mild Pain (1-3) or Fever Albuterol/Ipratropium 3 ml 05/06/25 07:38 05/06/25 07:46 Ipratropium 0.5 Mg/Albuterol Sulfate 2.5 Mg Ampul.Neb 3 Ml INHALATION 3 ml Q6HRT PRN Administration Wheezing Enoxaparin Sodium 40 mg 04/28/25 09:00 05/06/25 09:06 Enoxaparin 40 Mg/0.4 Ml Syringe SUB-Q 40 mg DAILY BRAULIO Administration Folic Acid 1 mg 04/29/25 09:00 05/06/25 09:07 Folic Acid 1 Mg/0.2 Ml Inj IV PUSH 1 mg QAM BRAULIO Administration Cefepime HCl 1 gm/ Sodium 50 mls @ 100 mls/hr 05/04/25 09:00 05/06/25 22:51 Chloride IVPB Infused Q12HR BRAULIO Infusion Potassium Chloride/Sodium Chloride 1,000 mls @ 100 mls/hr 05/07/25 12:00 Kcl 20 Meq/0.45% Ns IV CONT .Q10H BRAULIO Potassium Chloride 100 mls @ 25 mls/hr 05/07/25 07:42 Kcl 40 Meq/Water 100 Ml IVPB 05/07/25 11:41 ONCE ONE Ondansetron HCl 4 mg 05/02/25 05:00 05/07/25 01:56 Ondansetron Inj 4 Mg/2 Ml Vial IV PUSH 4 mg Q6H PRN Administration Nausea And Vomiting Pantoprazole Sodium 40 mg 04/29/25 09:00 05/06/25 09:06 Pantoprazole Sodium Iv 40 Mg Vial IV PUSH 40 mg QAM BRAULIO Administration Sodium Chloride 10 ml 04/28/25 14:00 05/07/25 05:18 Central Line Flush IV PUSH 10 ml Q8HR BRAULIO Administration Sodium Chloride 10 ml 04/28/25 11:06 Central Line Flush IV PUSH PRN PRN with TPN bag changes Sodium Chloride 20 ml 04/28/25 11:06 05/07/25 05:18 Central Line Flush IV PUSH 20 ml PRN PRN Administration after blood draws Thiamine HCl 100 mg 05/06/25 09:00 05/06/25 09:07 Thiamine Hcl 200 Mg/2 Ml Vial IV PUSH 100 mg QAM BRAULIO Administration Radiology Results: ITS Impressions Head CT 04/28/25 08:29 Impression: 1.No acute intracranial abnormality. Chest/Abdomen/Pelvis CT 05/03/25 11:04 IMPRESSION: 1. Extensive airspace opacities in the lower lobes with volume loss, consistent with atelectasis versus pneumonia. Mild atelectasis and pneumonia in right upper lobe. Chest X-Ray 05/05/25 08:52 IMPRESSION: 1. Worsening airspace opacities right lung versus merely overlying soft tissue artifact or 2. Persistent bibasilar atelectasis and/or airspace disease. 3. Small effusions not excluded. Abdomen X-Ray 05/06/25 08:30 IMPRESSION: 1. No dilated loops of gas-filled bowel to suggest obstruction. Labs Labs: Laboratory Results - last 24 hr 05/07/25 04:44 WBC 11.5 H RBC 4.04 L Hgb 11.7 L Hct 36.6 L MCV 90.6 MCH 29.0 MCHC 32.0 RDW 13.1 Plt Count 326 MPV 9.9 Immature Gran % (Auto) 0.5 Neut % (Auto) 68.1 Lymph % (Auto) 16.9 L Andrew % (Auto) 13.6 H Eos % (Auto) 0.5 Baso % (Auto) 0.4 Lymph # (Auto) 1.95 Andrew # (Auto) 1.6 H Eos # (Auto) 0.1 Baso # (Auto) 0.1 Abs Immat Gran (auto) 0.06 H Absolute Neuts (auto) 7.8 H Absolute Nucleated RBC 0.000 Nucleated RBC % 0.0 Sodium 144 Potassium 3.1 L Chloride 110 H Carbon Dioxide 23 Anion Gap 11 BUN 27 H D Creatinine 1.63 H Estim Creat Clear Calc 69 Estimated GFR 46 L Glucose 123 H Calcium 9.5 Magnesium 1.9 Total Bilirubin 0.8 AST 42 ALT 27 Alkaline Phosphatase 116 Total Creatine Kinase 137 Total Protein 7.7 Albumin 3.9 Quality VTE Prophylaxis VTE prophylaxis: pharmacologic ordered
--- NOTE | 2025-05-07 08:52 | PCPTNOTE ---
attempted PT eval, pt got sitting EOB but declined further mobility d/t feeling nauseous like he needed to throw up, will follow
[2025-05-07] MEDS: PANTOPRAZOLE SODIUM IV 40 MG VIAL IV PUSH ×2 (09:12→21:12)
[2025-05-07] MEDS: THIAMINE HCL 200 MG/2 ML VIAL 100 MG IV PUSH (09:12)
[2025-05-07] MEDS: FOLIC ACID 1 MG/0.2 ML INJ IV PUSH (09:12)
[2025-05-07] MEDS: KCL 40 MEQ/WATER 100 ML 100 ML 25 ML IVPB (09:12)
[2025-05-07] MEDS: cefTRIAXone 2 GM in SODIUM CHLORIDE 0.9% IV 100 ML 200 ML IVPB (09:36)
--- NOTE | 2025-05-07 10:01 | P.PNNP_ITS ---
Progress Note: A&P Assessment and Plan (1) Acute kidney injury: Code(s): N17.9 - Acute kidney failure, unspecified Status: Acute Assessment and Plan: * slow and steady improvement noted * as noted by rise in creatinine on 05/03 * creatinine samuel to 2.05mg/dL with peak/plateau of 2.47mg/dl (on 05/04) * normal baseline creatinine * multifactorial etiology: * hemodynamic instability/shock/hypotension * insensible losses (fevers) * antibiotics (?) * possible infection (aspiration pneumonia) * other (?) * evaluation to date noted: * CT of S/P without obstruction * CPK mildly elevated but normal now * urine electrolyte non-prerenal * rare urine eosinophils - significance? (from antibiotics?) * UA sediment bland * good urine output with stable electrolytes * follow trend of repeat labs and UOP (2) Acute respiratory failure with hypoxia and hypercapnia: Code(s): J96.01 - Acute respiratory failure with hypoxia; J96.02 - Acute respiratory failure with hypercapnia Status: Acute Assessment and Plan: * resolved - extubated on 05/05 * initially intubated and placed on mechanical ventilation due to altered mental status/agitation/combativeness and need for airway protection * complicated by aspiration pneumonia * sputum cultures growing MSSA * on antibiotics (3) Acute drug overdose: Qualifiers: Encounter type: initial encounter Injury intent: intentional self-harm Qualified Code(s): T50.902A - Poisoning by unspecified drugs, medicaments and biological substances, intentional self-harm, initial encounter Code(s): T50.901A - Poisoning by unspecified drugs, medicaments and biological substances, accidental (unintentional), initial encounter Status: Acute Assessment and Plan: * per history, intentionally overdosed on hydroxyzine + baclofen +trazodone * poison control was notified and is following * presumably responsible for symptoms on presenation (low BP, altered mental status...etc) * continue supportive care (4) Hypotension: Code(s): I95.9 - Hypotension, unspecified Status: Resolved Assessment and Plan: * resolved * related to drug overdose * s/p aggressive fluid resuscitation * initially on vasopressor but weaned off * follow trend of hemodynamics (5) Alcohol abuse: Code(s): F10.10 - Alcohol abuse, uncomplicated Status: Acute Assessment and Plan: * known history of alcohol abuse * elevated alcohol levels on admission * just recently discharged from alcohol rehab * continue thiamine and folic acid (6) Altered mental status: Code(s): R41.82 - Altered mental status, unspecified Status: Acute Assessment and Plan: * resolved * though to be secondary #3 drug overdose * seems to be slowly improving at this time * follow trend of mentation (7) Suicidal behavior: Code(s): R45.89 - Other symptoms and signs involving emotional state Status: Acute Assessment and Plan: * suicide precautions * continue 1:1 sitter at this time * crisis management to evaluate (8) Generalized weakness: Code(s): R53.1 - Weakness Status: Acute Assessment and Plan: * due to acute illness and hospitalization * noted fall (evening of 05/06) -- no injuries sustained * PT/OT evaluation Will continue to follow. Subjective Date/time seen: 05/07/25 10:01 Interval history: Follow-up for acute kidney injury/acute renal failure. Tolerating clear liquid diet yesterday and NGT was dc'd; later on, had several episodes of vomiting but refused NGT replacement so made NPO; no further vomiting earlier but still with some on/off nausea; maravilla catheter removed earlier today; remains hemodynamically stable with slow improvement in renal function/creatinine with excellent urine output. Exam Narrative: General: WD/WN male in NAD Heart: normal S1 and S2; no rub Lungs: coarse breath sounds Abdomen: soft, nontender, nondistended, positive bowel sounds Extremities: no cyanosis or clubbing; no edema Skin: no rash Objective Data Vital Signs Vital Signs: Vital Signs Temp Pulse Resp BP Pulse Ox O2 Del Method FiO2 05/07/25 08:00 91 16 155/96 H 97 05/07/25 07:50 97.6 F 05/07/25 06:00 85 17 159/95 H 96 05/07/25 06:00 89 05/07/25 05:08 90 12 149/97 H 97 05/07/25 04:00 98 05/07/25 04:00 Room Air 05/07/25 04:00 97.6 F 91 18 159/100 H 97 05/07/25 03:06 103 H 24 H 153/101 H 99 05/07/25 02:00 102 H 16 138/119 H 98 05/07/25 00:23 98.6 F 05/07/25 00:00 91 05/07/25 00:00 98 Room Air 05/06/25 23:54 88 17 163/95 H 95 05/06/25 22:00 91 05/06/25 21:59 95 05/06/25 21:55 98.4 F 101 H 16 129/83 94 05/06/25 20:40 96 Room Air 05/06/25 20:30 80 14 Room Air 05/06/25 20:00 87 05/06/25 19:42 92 16 113/94 H 100 05/06/25 18:00 95 18 150/87 H 05/06/25 18:00 95 05/06/25 16:00 98.8 F 87 16 139/97 H 05/06/25 16:00 95 05/06/25 16:00 87 16 94 Room Air 40 Intake/Output Intake/Output: Intake & Output 05/04/25 05/05/25 05/06/25 05/07/25 23:59 23:59 23:59 23:59 Intake Total 3519.3 3085.3 1714.5 200 Output Total 3800 6100 4750 1075 Balance -280.7 -3014.7 -3035.5 -875 Meds/Results Medications: Active Medications Generic Name Dose Route Start Last Admin Trade Name Freq PRN Reason Stop Dose Admin Acetaminophen 650 mg 04/29/25 11:11 05/05/25 20:19 Acetaminophen Elixir 325 Mg/10.15 Ml Udc PO 650 mg Q6H PRN Administration Mild Pain (1-3) or Fever Albuterol/Ipratropium 3 ml 05/06/25 07:38 05/06/25 07:46 Ipratropium 0.5 Mg/Albuterol Sulfate 2.5 Mg Ampul.Neb 3 Ml INHALATION 3 ml Q6HRT PRN Administration Wheezing Enoxaparin Sodium 40 mg 04/28/25 09:00 05/07/25 09:10 Enoxaparin 40 Mg/0.4 Ml Syringe SUB-Q Not Given On Hold: 05/07/25 09:10 DAILY BRAULIO Folic Acid 1 mg 04/29/25 09:00 05/07/25 09:12 Folic Acid 1 Mg/0.2 Ml Inj IV PUSH 1 mg QAM BRAULIO Administration Potassium Chloride/Sodium Chloride 1,000 mls @ 100 mls/hr 05/07/25 12:00 05/07/25 12:11 Kcl 20 Meq/0.45% Ns IV CONT 100 mls/hr .Q10H BRAULIO Administration Ceftriaxone Sodium 2 gm/ 100 mls @ 200 mls/hr 05/07/25 09:00 05/07/25 10:06 Sodium Chloride IVPB Infused Q24H BRAULIO Infusion Ondansetron HCl 4 mg 05/02/25 05:00 05/07/25 09:13 Ondansetron Inj 4 Mg/2 Ml Vial IV PUSH 4 mg Q6H PRN Administration Nausea And Vomiting Pantoprazole Sodium 40 mg 05/07/25 21:00 Pantoprazole Sodium Iv 40 Mg Vial IV PUSH Q12HR BRAULIO Sodium Chloride 10 ml 04/28/25 14:00 05/07/25 14:05 Central Line Flush IV PUSH 10 ml Q8HR BRAULIO Administration Sodium Chloride 10 ml 04/28/25 11:06 Central Line Flush IV PUSH PRN PRN with TPN bag changes Sodium Chloride 20 ml 04/28/25 11:06 05/07/25 05:18 Central Line Flush IV PUSH 20 ml PRN PRN Administration after blood draws Thiamine HCl 100 mg 05/06/25 09:00 05/07/25 09:12 Thiamine Hcl 200 Mg/2 Ml Vial IV PUSH 100 mg QAM BRAULIO Administration Radiology Results: ITS Impressions Head CT 04/28/25 08:29 Impression: 1.No acute intracranial abnormality. Chest/Abdomen/Pelvis CT 05/03/25 11:04 IMPRESSION: 1. Extensive airspace opacities in the lower lobes with volume loss, consistent with atelectasis versus pneumonia. Mild atelectasis and pneumonia in right upper lobe. Chest X-Ray 05/05/25 08:52 IMPRESSION: 1. Worsening airspace opacities right lung versus merely overlying soft tissue artifact or 2. Persistent bibasilar atelectasis and/or airspace disease. 3. Small effusions not excluded. Abdomen X-Ray 05/06/25 08:30 IMPRESSION: 1. No dilated loops of gas-filled bowel to suggest obstruction. Labs Labs: Laboratory Tests 05/07/25 04:44 WBC 11.5 H Hgb 11.7 L Hct 36.6 L Plt Count 326 Sodium 144 Potassium 3.1 L Chloride 110 H Carbon Dioxide 23 Anion Gap 11 BUN 27 H D Creatinine 1.63 H Estim Creat Clear Calc 69 Estimated GFR 46 L Glucose 123 H Calcium 9.5 Magnesium 1.9 Total Bilirubin 0.8 AST 42 ALT 27 Alkaline Phosphatase 116 Total Creatine Kinase 137 Total Protein 7.7 Albumin 3.9
[2025-05-07] MEDS: KCL 20 MEQ/0.45% NS 1,000 ML 100 ML IV CONT (12:11)
--- NOTE | 2025-05-07 14:12 | WPDGICN ---
Assessment and Plan Assessment and plan (1) Upper GI bleed: Code(s): K92.2 - Gastrointestinal hemorrhage, unspecified Status: Acute Assessment and Plan: with stable hgb last egd 2021 with moderate esophagitis- most likely same, other possibility ulcer, gastritis, tear, etc will continue to monitor ppi twice daily start liquid diet if able to tolerate probably egd Friday (2) Hematemesis: Code(s): K92.0 - Hematemesis Status: Acute Assessment and Plan: monitor h/h (3) Nausea & vomiting: Code(s): R11.2 - Nausea with vomiting, unspecified Status: Acute Assessment and Plan: meds prn (4) Alcohol abuse: Code(s): F10.10 - Alcohol abuse, uncomplicated Status: Acute (5) Suicidal behavior: Code(s): R45.89 - Other symptoms and signs involving emotional state Status: Acute Assessment and Plan: field service manager on board sitter at bedside (6) SHANTEL (acute kidney injury): Code(s): N17.9 - Acute kidney failure, unspecified Status: Acute (7) Acute respiratory failure with hypoxia and hypercapnia: Code(s): J96.01 - Acute respiratory failure with hypoxia; J96.02 - Acute respiratory failure with hypercapnia Status: Acute Assessment and Plan: resolved (8) Acute drug overdose: Qualifiers: Encounter type: initial encounter Injury intent: intentional self-harm Qualified Code(s): T50.902A - Poisoning by unspecified drugs, medicaments and biological substances, intentional self-harm, initial encounter Code(s): T50.901A - Poisoning by unspecified drugs, medicaments and biological substances, accidental (unintentional), initial encounter Status: Acute GI Consult Note Consult date/time: 05/07/25 14:12 Reason for consult: hematemesis HPI: Sagar Cota is a 44 year old male presented to the ED on 04/28/2025 following a suicide attempt. Patient drank a large amount of alcohol and took 60 hydroxyzine 25 mg, 31 baclofen 20 mg, and 5 trazodone 100 mg (he completed 6 weeks of rehab but after he was discharged started drinking alcohol again), he also has been admitted previously with alcoholic hepatitis, h/o LA grade 3 esophagitis 2021 when had GIB. He was initially intubated in the ER for airway protection. EKG showed prolonged QTC interval of 548. Potassium 2.8 already treated. Patient was transferred to the ICU and continued on ventilation. Labs also demonstrate acute kidney injury but this has improved, He had emesis on the night of 05/01 and tube feeds via OG tube were held then KUB was obtained suggesting a bowel obstruction but clinically better, finally extubated. He still has nausea and one episode of emesis with tinged of blood. Hgb has been stable at 11, liver enzymes normal. Review of Systems Constitutional: Constitutional: Reports weakness Eyes: Eyes: Denies blurry vision ENT: Reports Normal hearing present Cardiovascular: Cardiovascular: Denies chest pain Respiratory: Respiratory: Reports cough Gastrointestinal: Gastrointestinal: Reports nausea Genitourinary: Genitourinary: Denies dysuria Musculoskeletal: Musculoskeletal: Denies neck pain Integumentary/Breasts: Skin/Breast: Denies rash Neurologic: Denies confusion Psychiatric: Psychiatric: Reports anxiety PMFSH Past Medical History Medical History B12 deficiency Left shoulder pain Bilateral shoulder pain Hyperlipidemia Hypertension Tachycardia Fatigue Loose stools Nausea & vomiting Acute otitis media Encounter to establish care Elevated glucose Headache GERD (gastroesophageal reflux disease) Elevated liver enzymes Alcohol abuse Coffee ground emesis 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 The patient continues to smoke 1 pack a cigarettes a day. The patient stated that he usually drinks about 10 alcoholic beverages a week. He states every other week any does not drink when he has his child. The patient denies any marijuana or any other illicit drugs. 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 Code status full code Smoking packs per day: 1 Smoking cigarettes per day: 20.0 Years smoked: 20 Smoking pack-years: 20.00 Smoking status: Unknown if ever smoked Second hand tobacco smoke exposure: No Additional smoking assessment comments: patient sedated Alcohol intake: unknown Drinks per week: 10 Substance use: unknown Substance use type: former substance user Do You Feel Safe in your Home?: Yes Lack of Transportation: No Lack of Food: Never True Current Housing: I Have Housing Concerned About Future Housing: No Difficulty Paying Gas/Electric Bills: No Difficulty Paying for Meds: No Currently Unemployed: No Education: High School Diploma/GED Difficulty w/ Childcare or Family Care: No Gender identity (if verbalized by the patient): Male Spiritual care concerns: No Meds Home Medications and Allergies Home Medications ?Medication ?Instructions ?Recorded ?Confirmed ?Type baclofen 20 mg tablet 20 mg PO BID 04/28/25 04/28/25 History docusate sodium 100 mg capsule 100 mg PO DAILY PRN constipation 04/28/25 04/28/25 History folic acid 1 mg tablet 1 mg PO DAILY 04/28/25 04/28/25 History hydroxyzine pamoate 25 mg capsule 25 mg PO Q4H PRN anxiety 04/28/25 04/28/25 History (Vistaril) naltrexone 50 mg tablet 50 mg PO DAILY 04/28/25 04/28/25 History trazodone 100 mg tablet 100 mg PO HS PRN insomnia 04/28/25 04/28/25 History venlafaxine 75 mg capsule,extended 75 mg PO HS 04/28/25 04/28/25 History release 24 hr Allergies Allergy/AdvReac Type Severity Reaction Status Date / Time azithromycin AdvReac Unknown Other Verified 04/28/25 05:37 Vital Signs Vital Signs - 24 hr 05/06/25 16:00 05/06/25 16:00 05/06/25 16:00 Temperature 98.8 F Pulse Rate 87 95 87 Respiratory Rate 16 16 Blood Pressure 139/97 H Pulse Oximetry 94 Oxygen Delivery Room Air Fraction of Inspired Oxygen 40 05/06/25 18:00 05/06/25 18:00 05/06/25 19:42 Temperature Pulse Rate 95 95 92 Respiratory Rate 18 16 Blood Pressure 150/87 H 113/94 H Pulse Oximetry 100 Oxygen Delivery Fraction of Inspired Oxygen 05/06/25 20:00 05/06/25 20:30 05/06/25 20:40 Temperature Pulse Rate 87 80 Respiratory Rate 14 Blood Pressure Pulse Oximetry 96 Oxygen Delivery Room Air Room Air Fraction of Inspired Oxygen 05/06/25 21:55 05/06/25 21:59 05/06/25 22:00 Temperature 98.4 F Pulse Rate 101 H 91 Respiratory Rate 16 Blood Pressure 129/83 Pulse Oximetry 94 95 Oxygen Delivery Fraction of Inspired Oxygen 05/06/25 23:54 05/07/25 00:00 05/07/25 00:00 Temperature Pulse Rate 88 91 Respiratory Rate 17 Blood Pressure 163/95 H Pulse Oximetry 95 98 Oxygen Delivery Room Air Fraction of Inspired Oxygen 05/07/25 00:23 05/07/25 02:00 05/07/25 03:06 Temperature 98.6 F Pulse Rate 102 H 103 H Respiratory Rate 16 24 H Blood Pressure 138/119 H 153/101 H Pulse Oximetry 98 99 Oxygen Delivery Fraction of Inspired Oxygen 05/07/25 04:00 05/07/25 04:00 05/07/25 04:00 Temperature 97.6 F Pulse Rate 91 98 Respiratory Rate 18 Blood Pressure 159/100 H Pulse Oximetry 97 Oxygen Delivery Room Air Fraction of Inspired Oxygen 05/07/25 05:08 05/07/25 06:00 05/07/25 06:00 Temperature Pulse Rate 90 89 85 Respiratory Rate 12 17 Blood Pressure 149/97 H 159/95 H Pulse Oximetry 97 96 Oxygen Delivery Fraction of Inspired Oxygen 05/07/25 07:50 05/07/25 08:00 05/07/25 08:00 Temperature 97.6 F Pulse Rate 91 133 H Respiratory Rate 16 Blood Pressure 155/96 H Pulse Oximetry 97 Oxygen Delivery Fraction of Inspired Oxygen 05/07/25 10:00 05/07/25 12:00 05/07/25 12:00 Temperature 97.7 F Pulse Rate 94 83 89 Respiratory Rate 17 Blood Pressure 148/99 H Pulse Oximetry 97 Oxygen Delivery Fraction of Inspired Oxygen 05/07/25 14:00 Temperature Pulse Rate 75 Respiratory Rate Blood Pressure Pulse Oximetry Oxygen Delivery Fraction of Inspired Oxygen Exam Const: General: comfortable and no acute distress HENMT: Face/Nose/Sinus: Normal nares present Eyes: General: appearance normal, both eyes and all related structures Neck: Neck: no JVD Resp: Auscultation: clear to auscultation bilaterally Cardio: Rate: regular rate Rhythm: regular rhythm GI: Inspection: non-distended GI Palp: Yes Soft to palpation and No Tenderness to palpation present (GI) Auscultation: normal bowel sounds Skin: General skin exam: normal color Neuro: Speech: normal speech Extrem: General: normal to inspection Psych: Mental Status: mental status grossly normal Results Labs 05/07/25 04:44 05/07/25 04:44 Labs: Short CBC 05/07/25 Range/Units 04:44 WBC 11.5 H (4.5-10.0) K/mm3 Hgb 11.7 L (14.0-18.0) g/dL Hct 36.6 L (42.0-52.0) % Plt Count 326 (150-375) k/mm3 BMP 05/07/25 04:44 Sodium 144 Potassium 3.1 L Chloride 110 H Carbon Dioxide 23 BUN 27 H D Creatinine 1.63 H Glucose 123 H Calcium 9.5 Cardiac Enzymes 05/07/25 Range/Units 04:44 Total Creatine Kinase 137 (55-170) U/L Liver Function 05/07/25 Range/Units 04:44 Total Bilirubin 0.8 (0.2-1.3) mg/dL AST 42 (17-59) U/L ALT 27 (6-50) U/L Alkaline Phosphatase 116 (38-126) U/L Albumin 3.9 (3.5-5.1) g/dL
[2025-05-07 14:28] LABS: Anion Gap 7 mmol/L (4-12); Blood Urea Nitrogen 23 mg/dL (9-20); Calcium 8.2 mg/dL (8.4-10.2); Carbon Dioxide 20 mmol/L (22-30); Chloride 109 mmol/L (98-107); Estimated CRCL calculation 81 ml/min; Estimated Glomerular Filt Rate 58; Glucose 120 mg/dL (65-110); Potassium 5.6 mmol/L (3.4-5.0); Sodium 136 mmol/L (137-145)
--- NOTE | 2025-05-07 14:28 | P.PNIM_ITS ---
Progress Note: A&P Assessment and Plan (1) Suicidal behavior: Code(s): R45.89 - Other symptoms and signs involving emotional state Status: Acute (2) Alcohol abuse: Code(s): F10.10 - Alcohol abuse, uncomplicated Status: Acute (3) QT prolongation: Code(s): R94.31 - Abnormal electrocardiogram [ECG] [EKG] Status: Acute (4) Nausea & vomiting: Code(s): R11.2 - Nausea with vomiting, unspecified Status: Acute (5) Hematemesis: Code(s): K92.0 - Hematemesis Status: Acute Plan 44-year-old male with history of esophagitis/gastritis, alcoholic hepatitis, hyperlipidemia, hypertension, alcohol use disorder, anxiety and depression who presents to [facility] on 04/28/2025 after he was found in a hotel room with a suicide note. Patient reports he was discharged from alcohol rehab recently, he went to a hotel room because he had nowhere else to go. He felt he had nothing left to do but to end his life. He reportedly intentionally overdose on the pills of hydroxyzine 25 mg, 31 pills of baclofen 20 mg, 5 pills of trazodone 100 mg. He he mentioned something about putting a gun in his mouth but does not know where he got a gun does not know where it went, so reports he saw the devil or something of that sort. Memory is hazy. None the less, he eventually called his daughter who found him in the hotel room with a suicide no. Initially he was drowsy when brought in by EMS, the emergency department he was more somnolent and intubated for airway protection. His QTC was prolonged, poison control was contacted. His alcohol level was 280, acetaminophen and salicylate levels were normal. During intubation, patient was requiring multiple sedatives. He appeared to be waking up through the sedation and being agitated. He also required a short dose of Levophed. He was liberated from the ventilator on 05/05 dry successful weaning trial. Since then, he has been A&O x3 with a normal mental status. He appears regretful, however will need to be transferred to an inpatient psychiatry unit for further evaluation and monitoring when he is medically stable. Continue incentive spirometer. While intubated he had vomiting, abdominal x-ray did not show a small-bowel obstruction. General surgery was consulted and they have since signed off. Probably ileus from the overdose of baclofen or or stunning from other medications overdose. However, post extubation he has had a black stool, a few episodes of small bloody vomitus on 05/06/2025. He is currently stable with a n ormal abdominal exam, stable hemoglobin 11.7. He has a history of gastritis/esophagitis. We have increased his Protonix to 40 mg IV b.i.d.. I have discussed with Gastroenterology and the patient will be placed on a liquid diet and we anticipate EGD to be performed on 05/09/2025. Hold Lovenox. QTC has improved. He has not had alcohol withdrawal. Continue thiamine, folic acid. I have counseled him extensively on alcohol abuse. Patient received did well. Care coordination to provide further resources. Hypokalemia, replaced. Repeat BMP now. Fluids restarted with potassium the patient does not have adequate p.o. intake. Monitor volume status. SHANTEL present on admission, continues to improve. Follow Nephrology recommendations. The patient is very weak however improving. Continue PT/OT. Fall precautions, ambulate with assistance. Patient wishes to be full code. Marion catheter removed. Suicide precautions, 1 on 1 sitter. Gastroenterology consultation Over 55 minutes spent on evaluation, discussions with the patient and coordinating with consultants and the nursing team. Subjective Date/time seen: 05/07/25 14:28 Interval history: At the time of evaluation, the patient rest comfortably. However, he reports yesterday he had a black stool. He reports vomiting a very small amount of blood yesterday on 2 separate occasions. He vomited again today but without blood. Otherwise, he does not have abdominal distension or current pain. Reports a history of alcoholic hepatitis, reports he had an EGD done before and it showed esophagitis but no ulcers, and hernia. He feels weak but that he is improving. Denies shortness of breath or chest pain. Review of Systems Review of Systems: All systems reviewed & are unremarkable except as noted in HPI and below (Subjective) Exam Const: General: comfortable and no acute distress HENMT: Mouth: Yes moist mucous membranes Eyes: Pupils: Equal, round and reactive pupils present Neck: Neck: supple Resp: Effort & Inspection: normal respiratory effort Auscultation: clear to auscultation bilaterally Cardio: Rate: regular rate Rhythm: regular rhythm GI: Inspection: non-distended GI Palp: Yes Soft to palpation and No Tenderness to palpation present (GI) Auscultation: normal bowel sounds Neuro: Motor exam (neuro): 5/5 motor strength present throughout Extrem: General: no edema Psych: Mental Status: mental status grossly normal Affect: normal affect Objective Data Vital Signs Vital Signs: Vital Signs - 24 hr 05/06/25 16:00 05/06/25 16:00 05/06/25 16:00 Temperature 98.8 F Pulse Rate 87 95 87 Respiratory Rate 16 16 Blood Pressure 139/97 H Pulse Oximetry 94 Oxygen Delivery Room Air Fraction of Inspired Oxygen 40 05/06/25 18:00 05/06/25 18:00 05/06/25 19:42 Temperature Pulse Rate 95 95 92 Respiratory Rate 18 16 Blood Pressure 150/87 H 113/94 H Pulse Oximetry 100 Oxygen Delivery Fraction of Inspired Oxygen 05/06/25 20:00 05/06/25 20:30 05/06/25 20:40 Temperature Pulse Rate 87 80 Respiratory Rate 14 Blood Pressure Pulse Oximetry 96 Oxygen Delivery Room Air Room Air Fraction of Inspired Oxygen 05/06/25 21:55 05/06/25 21:59 05/06/25 22:00 Temperature 98.4 F Pulse Rate 101 H 91 Respiratory Rate 16 Blood Pressure 129/83 Pulse Oximetry 94 95 Oxygen Delivery Fraction of Inspired Oxygen 05/06/25 23:54 05/07/25 00:00 05/07/25 00:00 Temperature Pulse Rate 88 91 Respiratory Rate 17 Blood Pressure 163/95 H Pulse Oximetry 95 98 Oxygen Delivery Room Air Fraction of Inspired Oxygen 05/07/25 00:23 05/07/25 02:00 05/07/25 03:06 Temperature 98.6 F Pulse Rate 102 H 103 H Respiratory Rate 16 24 H Blood Pressure 138/119 H 153/101 H Pulse Oximetry 98 99 Oxygen Delivery Fraction of Inspired Oxygen 05/07/25 04:00 05/07/25 04:00 05/07/25 04:00 Temperature 97.6 F Pulse Rate 91 98 Respiratory Rate 18 Blood Pressure 159/100 H Pulse Oximetry 97 Oxygen Delivery Room Air Fraction of Inspired Oxygen 05/07/25 05:08 05/07/25 06:00 05/07/25 06:00 Temperature Pulse Rate 90 89 85 Respiratory Rate 12 17 Blood Pressure 149/97 H 159/95 H Pulse Oximetry 97 96 Oxygen Delivery Fraction of Inspired Oxygen 05/07/25 07:50 05/07/25 08:00 05/07/25 08:00 Temperature 97.6 F Pulse Rate 91 133 H Respiratory Rate 16 Blood Pressure 155/96 H Pulse Oximetry 97 Oxygen Delivery Fraction of Inspired Oxygen 05/07/25 10:00 05/07/25 12:00 05/07/25 12:00 Temperature 97.7 F Pulse Rate 94 83 89 Respiratory Rate 17 Blood Pressure 148/99 H Pulse Oximetry 97 Oxygen Delivery Fraction of Inspired Oxygen 05/07/25 14:00 Temperature Pulse Rate 75 Respiratory Rate Blood Pressure Pulse Oximetry Oxygen Delivery Fraction of Inspired Oxygen Intake/Output Intake/Output: Intake & Output 05/04/25 05/05/25 05/06/25 05/07/25 23:59 23:59 23:59 23:59 Intake Total 3519.3 3085.3 1714.5 200 Output Total 3800 6100 4750 1075 Balance -280.7 -3014.7 -3035.5 -875 Meds/Results Medications: Active Medications Generic Name Dose Route Start Last Admin Trade Name Freq PRN Reason Stop Dose Admin Acetaminophen 650 mg 04/29/25 11:11 05/05/25 20:19 Acetaminophen Elixir 325 Mg/10.15 Ml Udc PO 650 mg Q6H PRN Administration Mild Pain (1-3) or Fever Albuterol/Ipratropium 3 ml 05/06/25 07:38 05/06/25 07:46 Ipratropium 0.5 Mg/Albuterol Sulfate 2.5 Mg Ampul.Neb 3 Ml INHALATION 3 ml Q6HRT PRN Administration Wheezing Enoxaparin Sodium 40 mg 04/28/25 09:00 05/07/25 09:10 Enoxaparin 40 Mg/0.4 Ml Syringe SUB-Q Not Given On Hold: 05/07/25 09:10 DAILY BRAULIO Folic Acid 1 mg 04/29/25 09:00 05/07/25 09:12 Folic Acid 1 Mg/0.2 Ml Inj IV PUSH 1 mg QAM BRAULIO Administration Potassium Chloride/Sodium Chloride 1,000 mls @ 100 mls/hr 05/07/25 12:00 05/07/25 12:11 Kcl 20 Meq/0.45% Ns IV CONT 100 mls/hr .Q10H BRAULIO Administration Ceftriaxone Sodium 2 gm/ 100 mls @ 200 mls/hr 05/07/25 09:00 05/07/25 10:06 Sodium Chloride IVPB Infused Q24H BRAULIO Infusion Ondansetron HCl 4 mg 05/02/25 05:00 05/07/25 09:13 Ondansetron Inj 4 Mg/2 Ml Vial IV PUSH 4 mg Q6H PRN Administration Nausea And Vomiting Pantoprazole Sodium 40 mg 05/07/25 21:00 Pantoprazole Sodium Iv 40 Mg Vial IV PUSH Q12HR BRAULIO Sodium Chloride 10 ml 04/28/25 14:00 05/07/25 14:05 Central Line Flush IV PUSH 10 ml Q8HR BRAULIO Administration Sodium Chloride 10 ml 04/28/25 11:06 Central Line Flush IV PUSH PRN PRN with TPN bag changes Sodium Chloride 20 ml 04/28/25 11:06 05/07/25 05:18 Central Line Flush IV PUSH 20 ml PRN PRN Administration after blood draws Thiamine HCl 100 mg 05/06/25 09:00 05/07/25 09:12 Thiamine Hcl 200 Mg/2 Ml Vial IV PUSH 100 mg QAM BRAULIO Administration Radiology Results: ITS Impressions Head CT 04/28/25 08:29 Impression: 1.No acute intracranial abnormality. Chest/Abdomen/Pelvis CT 05/03/25 11:04 IMPRESSION: 1. Extensive airspace opacities in the lower lobes with volume loss, consistent with atelectasis versus pneumonia. Mild atelectasis and pneumonia in right upper lobe. Chest X-Ray 05/05/25 08:52 IMPRESSION: 1. Worsening airspace opacities right lung versus merely overlying soft tissue artifact or 2. Persistent bibasilar atelectasis and/or airspace disease. 3. Small effusions not excluded. Abdomen X-Ray 05/06/25 08:30 IMPRESSION: 1. No dilated loops of gas-filled bowel to suggest obstruction. Labs Labs: Laboratory Results - last 24 hr 05/07/25 04:44 WBC 11.5 H RBC 4.04 L Hgb 11.7 L Hct 36.6 L MCV 90.6 MCH 29.0 MCHC 32.0 RDW 13.1 Plt Count 326 MPV 9.9 Immature Gran % (Auto) 0.5 Neut % (Auto) 68.1 Lymph % (Auto) 16.9 L [place] % (Auto) 13.6 H Eos % (Auto) 0.5 Baso % (Auto) 0.4 Lymph # (Auto) 1.95 [place] # (Auto) 1.6 H Eos # (Auto) 0.1 Baso # (Auto) 0.1 Abs Immat Gran (auto) 0.06 H Absolute Neuts (auto) 7.8 H Absolute Nucleated RBC 0.000 Nucleated RBC % 0.0 Sodium 144 Potassium 3.1 L Chloride 110 H Carbon Dioxide 23 Anion Gap 11 BUN 27 H D Creatinine 1.63 H Estim Creat Clear Calc 69 Estimated GFR 46 L Glucose 123 H Calcium 9.5 Magnesium 1.9 Total Bilirubin 0.8 AST 42 ALT 27 Alkaline Phosphatase 116 Total Creatine Kinase 137 Total Protein 7.7 Albumin 3.9
--- NOTE | 2025-05-07 14:51 | PCPTNOTE ---
attempted PT eval, pt declined again and stated he was not feeling well and throwing up all day, will follow
--- NOTE | 2025-05-07 14:54 | PCOTNOTE ---
Attempted OT eval 1440. Patient declined due to feeling nauseated and vomiting all day. Will continue to attempt.
[2025-05-07] MEDS: DEXTROSE 50% 25 GM/50 ML SYRINGE IV PUSH (17:42)
[2025-05-07] MEDS: SODIUM ZIRCONIUM CYCLOSILICATE 10 GM POWD.PACK PO (17:42)
[2025-05-07] MEDS: INSULIN HUMAN REGULAR (*BKC) 100 UNITS/ML 10 UNITS IV PUSH (17:42)
[2025-05-07 21:07] LABS: Anion Gap 12 mmol/L (4-12); Blood Urea Nitrogen 22 mg/dL (9-20); Calcium 8.9 mg/dL (8.4-10.2); Carbon Dioxide 21 mmol/L (22-30); Chloride 110 mmol/L (98-107); Estimated CRCL calculation 73 ml/min; Estimated Glomerular Filt Rate 51; Glucose 117 mg/dL (65-110); Sodium 143 mmol/L (137-145)
[2025-05-07 21:15] LABS: Potassium 3.0 mmol/L (3.4-5.0)
[2025-05-07 23:08] LABS: Potassium 3.2 mmol/L (3.4-5.0)
[2025-05-08] VITALS (16 sets, daily range): BP systolic 136–151; BP diastolic 81–99; PULSE 73–92; RESP 16–28; TEMP 36.5–36.9; O2SAT 97–99
[2025-05-08 04:35] LABS: Hematocrit 34.7 % (42.0-52.0); Hemoglobin 11.2 g/dL (14.0-18.0); Mean Corpuscular HGB Conc 32.3 g/dl (32-36); Mean Corpuscular Hemoglobin 28.9 pg (26-34); Mean Corpuscular Volume 89.7 fl (80-100); Platelet Count Result 342 k/mm3 (150-375); Red Blood Count 3.87 M/mm3 (4.6-6.20); White Blood Count 11.7 K/mm3 (4.5-10.0)
[2025-05-08 04:54] LABS: Alanine Aminotransferase 25 U/L (6-50); Albumin Level 3.7 g/dL (3.5-5.1); Alkaline Phosphatase 95 U/L (38-126); Anion Gap 12 mmol/L (4-12); Aspartate Amino Transferase 35 U/L (17-59); Bilirubin,Total 0.7 mg/dL (0.2-1.3); Blood Urea Nitrogen 20 mg/dL (9-20); Calcium 8.9 mg/dL (8.4-10.2); Carbon Dioxide 22 mmol/L (22-30); Chloride 105 mmol/L (98-107); Creatine Kinase 101 U/L (55-170); Estimated CRCL calculation 77 ml/min; Estimated Glomerular Filt Rate 55; Glucose 112 mg/dL (65-110); Magnesium 1.8 mg/dL (1.6-2.3); Potassium 3.0 mmol/L (3.4-5.0); Sodium 139 mmol/L (137-145); Total Protein 7.4 g/dL (6.3-8.2)
[2025-05-08] MEDS: CENTRAL LINE FLUSH 10 ML IV PUSH ×3 (05:53→20:23)
[2025-05-08] MEDS: cefTRIAXone 2 GM in SODIUM CHLORIDE 0.9% IV 100 ML 200 ML IVPB (09:41)
[2025-05-08] MEDS: KCL 40 MEQ/WATER 100 ML 100 ML 25 ML IVPB (09:41)
[2025-05-08] MEDS: ACETAMINOPHEN ELIXIR 325 MG/10.15 ML UDC 650 MG PO ×3 (09:42→22:51)
[2025-05-08] MEDS: ONDANSETRON INJ 4 MG/2 ML VIAL IV PUSH (09:42)
[2025-05-08] MEDS: THIAMINE HCL 200 MG/2 ML VIAL 100 MG IV PUSH (09:42)
[2025-05-08] MEDS: PANTOPRAZOLE SODIUM IV 40 MG VIAL IV PUSH ×2 (09:42→20:23)
[2025-05-08] MEDS: POTASSIUM BICARBONATE 25 MEQ TABEF 50 MEQ PO (09:42)
[2025-05-08] MEDS: FOLIC ACID 1 MG/0.2 ML INJ IV PUSH (09:55)
--- NOTE | 2025-05-08 10:29 | WPDINTPN ---
Progress Note: A&P Assessment and Plan (1) Acute respiratory failure with hypoxia and hypercapnia: Code(s): J96.01 - Acute respiratory failure with hypoxia; J96.02 - Acute respiratory failure with hypercapnia Status: Acute Assessment and Plan: Patient was intubated and placed on mechanical ventilation due to altered mental status, agitation and combativeness and for airway protection. He has developed aspiration pneumonia He was managed with CMV ventilation. 05/05 extubated after a successful weaning trial Now on room air Change bronchodilators to p.r.n. Continue incentive spirometry Sputum cultures growing MSSA. Changed Zosyn to cefepime and Flagyl in light of SHANTEL. Continue QD Rocephin until pt can take PO (2) Acute drug overdose: Qualifiers: Encounter type: initial encounter Injury intent: intentional self-harm Qualified Code(s): T50.902A - Poisoning by unspecified drugs, medicaments and biological substances, intentional self-harm, initial encounter Code(s): T50.901A - Poisoning by unspecified drugs, medicaments and biological substances, accidental (unintentional), initial encounter Status: Acute Assessment and Plan: Patient intentionally overdosed on hydroxyzine 25 mg x60 pills, baclofen 20 mg x31 pills, trazodone 100 mg x 5 pills -poison control was notified and is following, supportive care for now -hydroxyzine and baclofen can cause hypotension, altered mental status, QT prolongation -trazodone can also cause altered mental status -EKG this morning shows normal QT interval, but T-wave abnormalities -04/28: EKG shows some ST changes, I discussed with inverter and clipper, obtain echocardiogram and troponins x2 were negative -04/29: EKG showed improved QTC -05/02: EKG showed improved QT interval and QTC Continue supportive care (3) Alcohol abuse: Code(s): F10.10 - Alcohol abuse, uncomplicated Status: Acute Assessment and Plan: Patient has a history of alcohol abuse, elevated alcohol levels on admission -will student support counselor on cessation of alcohol abuse once he is extubated and will also ask care coordination to provide alcohol rehab resources -continue thiamine and folic acid Off Precedex infusion (4) QT prolongation: Code(s): R94.31 - Abnormal electrocardiogram [ECG] [EKG] Status: Acute Assessment and Plan: QT prolongation likely related to baclofen and hydroxyzine Patient was given magnesium QT prolongation has resolved monitor Echo reviewed (5) Altered mental status: Code(s): R41.82 - Altered mental status, unspecified Status: Acute Assessment and Plan: Resolved (6) Hypotension: Code(s): I95.9 - Hypotension, unspecified Status: Resolved Assessment and Plan: Likely related to baclofen and hydroxyzine -adequately fluid-resuscitated -PICC line inserted on 04/28 Resolved and off Levophed at this time (7) Suicidal behavior: Code(s): R45.89 - Other symptoms and signs involving emotional state Status: Acute Assessment and Plan: Once patient is clinically improved, will have crisis management evaluate the patient for placement to a psychiatric unit Continue suicide precautions and one-to-one sitter (8) Electrolyte imbalance: Code(s): E87.8 - Other disorders of electrolyte and fluid balance, not elsewhere classified Status: Acute Assessment and Plan: Potassium replacement ordered (9) SHANTEL (acute kidney injury): Code(s): N17.9 - Acute kidney failure, unspecified Status: Acute Assessment and Plan: Patient had increase in creatinine to 2.05 which is now increased to 2.47. Patient has good urine output.. Etiology likely multifactorial. Patient did had episode of hypotension. Patient also was on vancomycin CT abdomen pelvis negative for any obstruction CK was elevated and now has normalized Monitor urine output electrolytes and creatinine nephrology follow Zosyn changed to cefepime and Flagyl Off IV fluids Potassium replacement ordered Creatinine is improving (10) Bowel obstruction: Code(s): K56.609 - Unspecified intestinal obstruction, unspecified as to partial versus complete obstruction Status: Acute Assessment and Plan: Patient had couple of episodes of vomiting and he was on mechanical ventilation. Patient has NG to low intermittent suction. KUB suggests bowel obstruction. CT scan was done and did not show any ileus or obstruction evidence. Patient was started on tube feeds and is tolerating at 20 mL/hour. He did had high residuals. He was started on Reglan. 05/05 extubated 05/06 patient was tolerating ice chips then he tolerated clear liquid diet NG was removed. Patient then had multiple episodes of nausea vomiting overnight as patient drank significant amount of carbonated soda quickly.. KUB was done and does not show any evidence of ileus under obstruction. He refused for NG insertion. 05/07 will start ice chips and water and see how he does and advance slowly depending on how he tolerates. 05/08 no nausea vomiting at this time. Tolerating water and ice chips. Full liquid diet ordered now Patient is scheduled for EGD tomorrow morning (11) Fall: Code(s): W19.XXXA - Unspecified fall, initial encounter Status: Acute Assessment and Plan: Did not sustain any injury. Will emphasized again to the patient to call for help any time he wants to get out of bed or commode. He is AO x3 and verbalized understanding and agreed to follow instructions. I will also remove Marion catheter. PT OT has been consulted for evaluation 1:1 Sitter is at bedside. (12) Coffee ground emesis: Code(s): K92.0 - Hematemesis Status: Acute Assessment and Plan: Patient had coffee-ground emesis yesterday. He is on PPI twice daily. He is a full liquid diet. GI has been consulted. He is scheduled for EGD tomorrow morning. His hemoglobin and vitals are stable. Plan DVT prophylaxis: Lovenox is on hold. CT Stress ulcer prophylaxis: Protonix Nutrition: Full liquid diet PT OT Incentive spirometry Up in chair Code Status: Full code Remove Marion catheter Subjective Date/time seen: 05/08/25 Patient complains of insomnia. He states he was unable to sleep last night. Requesting melatonin tablet. He states the nausea is improved and he has not had any vomiting since yesterday afternoon. He has been drinking water and ice chips and would like more food. Patient denies fever, chest pain, shortness of breath, cough, abdominal pain,, diarrhea, headache or constipation. All other systems were reviewed and were negative. He is scheduled for EGD tomorrow. His vital signs are stable. He is on room air. Review of Systems Review of Systems: All systems reviewed & are unremarkable except as noted in HPI and below (HPI) Exam Narrative: General: Alert awake oriented in no acute distress HEENT:? Pupils equal and reactive, sclera is clear, Neck:? Supple Respiratory:? Coarse breath sounds bilaterally, adequate air entry Cardiac:? S1-S2 is normal, regular rate and rhythm, Abdomen:? Soft, nontender, nondistended, bowel sounds are decreased but present, NG tube in place with output Extremities:? No edema, palpable pedal pulses Neuro:? AO x3, he follows commands with all 4 extremities, Skin:? No skin lesions noted Psych:? Normal speech and affect Objective Data Vital Signs Vital Signs: Vital Signs - 24 hr 05/07/25 12:00 05/07/25 12:00 05/07/25 14:00 Temperature 36.5 C Pulse Rate 83 89 75 Respiratory Rate 17 Blood Pressure 148/99 H Pulse Oximetry 97 Oxygen Delivery 05/07/25 16:00 05/07/25 16:00 05/07/25 18:00 Temperature Pulse Rate 92 93 Respiratory Rate Blood Pressure Pulse Oximetry Oxygen Delivery Room Air 05/07/25 18:32 05/07/25 20:00 05/07/25 20:00 Temperature 36.5 C Pulse Rate 89 75 Respiratory Rate 19 Blood Pressure 152/110 H Pulse Oximetry 97 Oxygen Delivery Room Air 05/07/25 20:00 05/07/25 22:00 05/07/25 23:24 Temperature 36.6 C Pulse Rate 75 73 Respiratory Rate 17 Blood Pressure 156/92 H Pulse Oximetry 99 Oxygen Delivery Room Air 05/08/25 00:00 05/08/25 00:00 05/08/25 02:00 Temperature 36.6 C Pulse Rate 84 83 75 Respiratory Rate 21 H Blood Pressure 151/93 H Pulse Oximetry 98 Oxygen Delivery 05/08/25 03:34 05/08/25 03:36 05/08/25 04:00 Temperature 36.5 C Pulse Rate 85 89 Respiratory Rate 18 Blood Pressure 151/98 H Pulse Oximetry 98 Oxygen Delivery Room Air 05/08/25 08:00 Temperature 36.9 C Pulse Rate 89 Respiratory Rate 28 H Blood Pressure 146/98 H Pulse Oximetry 98 Oxygen Delivery Intake/Output Intake/Output: Intake & Output 05/05/25 05/06/25 05/07/25 05/08/25 23:59 23:59 23:59 23:59 Intake Total 3085.3 1714.5 2451.7 960 Output Total 6100 4750 2575 400 Balance -3014.7 -3035.5 -123.3 560 Meds/Results Medications: Active Medications Generic Name Dose Route Start Last Admin Trade Name Freq PRN Reason Stop Dose Admin Acetaminophen 650 mg 04/29/25 11:11 05/08/25 09:42 Acetaminophen Elixir 325 Mg/10.15 Ml Udc PO 650 mg Q6H PRN Administration Mild Pain (1-3) or Fever Albuterol/Ipratropium 3 ml 05/06/25 07:38 05/06/25 07:46 Ipratropium 0.5 Mg/Albuterol Sulfate 2.5 Mg Ampul.Neb 3 Ml INHALATION 3 ml Q6HRT PRN Administration Wheezing Enoxaparin Sodium 40 mg 04/28/25 09:00 05/07/25 09:10 Enoxaparin 40 Mg/0.4 Ml Syringe SUB-Q Not Given On Hold: 05/07/25 09:10 DAILY BRAULIO Folic Acid 1 mg 04/29/25 09:00 05/08/25 09:55 Folic Acid 1 Mg/0.2 Ml Inj IV PUSH 1 mg QAM BRAULIO Administration Ceftriaxone Sodium 2 gm/ 100 mls @ 200 mls/hr 05/07/25 09:00 05/08/25 09:41 Sodium Chloride IVPB 200 mls/hr Q24H BRAULIO Administration Potassium Chloride 100 mls @ 25 mls/hr 05/08/25 08:22 05/08/25 09:41 Kcl 40 Meq/Water 100 Ml IVPB 05/08/25 12:21 25 mls/hr ONCE ONE Administration Melatonin 5 mg 05/08/25 21:00 Melatonin 5 Mg Tablet PO HS BRAULIO Ondansetron HCl 4 mg 05/02/25 05:00 05/08/25 09:42 Ondansetron Inj 4 Mg/2 Ml Vial IV PUSH 4 mg Q6H PRN Administration Nausea And Vomiting Pantoprazole Sodium 40 mg 05/07/25 21:00 05/08/25 09:42 Pantoprazole Sodium Iv 40 Mg Vial IV PUSH 40 mg Q12HR BRAULIO Administration Sodium Chloride 10 ml 04/28/25 14:00 05/08/25 05:53 Central Line Flush IV PUSH 10 ml Q8HR BRAULIO Administration Sodium Chloride 10 ml 04/28/25 11:06 Central Line Flush IV PUSH PRN PRN with TPN bag changes Sodium Chloride 20 ml 04/28/25 11:06 05/07/25 05:18 Central Line Flush IV PUSH 20 ml PRN PRN Administration after blood draws Thiamine HCl 100 mg 05/06/25 09:00 05/08/25 09:42 Thiamine Hcl 200 Mg/2 Ml Vial IV PUSH 100 mg QAM BRAULIO Administration Radiology Results: ITS Impressions Head CT 04/28/25 08:29 Impression: 1.No acute intracranial abnormality. Chest/Abdomen/Pelvis CT 05/03/25 11:04 IMPRESSION: 1. Extensive airspace opacities in the lower lobes with volume loss, consistent with atelectasis versus pneumonia. Mild atelectasis and pneumonia in right upper lobe. Chest X-Ray 05/05/25 08:52 IMPRESSION: 1. Worsening airspace opacities right lung versus merely overlying soft tissue artifact or 2. Persistent bibasilar atelectasis and/or airspace disease. 3. Small effusions not excluded. Abdomen X-Ray 05/06/25 08:30 IMPRESSION: 1. No dilated loops of gas-filled bowel to suggest obstruction. Labs Labs: Laboratory Results - last 24 hr 05/07/25 05/07/25 05/07/25 14:06 20:37 22:51 WBC RBC Hgb Hct MCV MCH MCHC RDW Plt Count MPV Sodium 136 L 143 Potassium 5.6 H 3.0 L 3.2 L Chloride 109 H 110 H Carbon Dioxide 20 L 21 L Anion Gap 7 12 BUN 23 H 22 H Creatinine 1.34 H 1.50 H Estim Creat Clear Calc 81 73 Estimated GFR 58 L 51 L Glucose 120 H 117 H Calcium 8.2 L 8.9 Magnesium Total Bilirubin AST ALT Alkaline Phosphatase Total Creatine Kinase Total Protein Albumin 05/08/25 04:31 WBC 11.7 H RBC 3.87 L Hgb 11.2 L Hct 34.7 L MCV 89.7 MCH 28.9 MCHC 32.3 RDW 13.2 Plt Count 342 MPV 10.0 Sodium 139 Potassium 3.0 L Chloride 105 Carbon Dioxide 22 Anion Gap 12 BUN 20 Creatinine 1.41 H Estim Creat Clear Calc 77 Estimated GFR 55 L Glucose 112 H Calcium 8.9 Magnesium 1.8 Total Bilirubin 0.7 AST 35 ALT 25 Alkaline Phosphatase 95 Total Creatine Kinase 101 Total Protein 7.4 Albumin 3.7 Quality VTE Prophylaxis VTE prophylaxis: pharmacologic ordered
--- NOTE | 2025-05-08 12:06 | P.PNNP_ITS ---
Progress Note: A&P Assessment and Plan (1) Acute kidney injury: Code(s): N17.9 - Acute kidney failure, unspecified Status: Acute Assessment and Plan: * slow and steady improvement noted * as noted by rise in creatinine on 05/03 * creatinine samuel to 2.05mg/dL with peak/plateau of 2.47mg/dl (on 05/04) * normal baseline creatinine * multifactorial etiology: * hemodynamic instability/shock/hypotension * insensible losses (fevers) * antibiotics (?) * possible infection (aspiration pneumonia) * other (?) * evaluation to date noted: * CT of S/P without obstruction * CPK mildly elevated but normal now * urine electrolyte non-prerenal * rare urine eosinophils - significance? (from antibiotics?) * UA sediment bland * good urine output with stable electrolytes * follow trend of repeat labs and UOP (2) Acute respiratory failure with hypoxia and hypercapnia: Code(s): J96.01 - Acute respiratory failure with hypoxia; J96.02 - Acute respiratory failure with hypercapnia Status: Acute Assessment and Plan: * resolved - extubated on 05/05 * initially intubated and placed on mechanical ventilation due to altered mental status/agitation/combativeness and need for airway protection * complicated by aspiration pneumonia * sputum cultures growing MSSA * on antibiotics (3) Acute drug overdose: Qualifiers: Encounter type: initial encounter Injury intent: intentional self-harm Qualified Code(s): T50.902A - Poisoning by unspecified drugs, medicaments and biological substances, intentional self-harm, initial encounter Code(s): T50.901A - Poisoning by unspecified drugs, medicaments and biological substances, accidental (unintentional), initial encounter Status: Acute Assessment and Plan: * per history, intentionally overdosed on hydroxyzine + baclofen +trazodone * poison control was notified and is following * presumably responsible for symptoms on presenation (low BP, altered mental status...etc) * continue supportive care (4) Hypotension: Code(s): I95.9 - Hypotension, unspecified Status: Resolved Assessment and Plan: * resolved * related to drug overdose * s/p aggressive fluid resuscitation * initially on vasopressor but weaned off * follow trend of hemodynamics (5) Alcohol abuse: Code(s): F10.10 - Alcohol abuse, uncomplicated Status: Acute Assessment and Plan: * known history of alcohol abuse * elevated alcohol levels on admission * just recently discharged from alcohol rehab * continue thiamine and folic acid (6) Altered mental status: Code(s): R41.82 - Altered mental status, unspecified Status: Acute Assessment and Plan: * resolved * though to be secondary #3 drug overdose * seems to be slowly improving at this time * follow trend of mentation (7) Suicidal behavior: Code(s): R45.89 - Other symptoms and signs involving emotional state Status: Acute Assessment and Plan: * suicide precautions * continue 1:1 sitter at this time * crisis management to evaluate (8) Generalized weakness: Code(s): R53.1 - Weakness Status: Acute Assessment and Plan: * due to acute illness and hospitalization * noted fall (evening of 05/06) -- no injuries sustained * PT/OT evaluation Not much else to add -- will continue to follow intermittently. L Subjective Date/time seen: 05/08/25 12:06 Interval history: Follow-up for acute kidney injury/acute renal failure. Renal function continues to slowly improve as noted by the trend of his labs in association with reasonable urine output; only real major complaint is that of insomnia as he had a difficult time sleeping last night; nausea has improved with no further episodes of vomiting and has been tolerating clear liquid diet; no other acute issues/ events overnight or earlier this morning. Exam 2 Narrative: General: WD/WN male in NAD Heart: normal S1 and S2; no rub Lungs: coarse breath sounds Abdomen: soft, nontender, nondistended, positive bowel sounds Extremities: no cyanosis or clubbing; no edema Skin: no nodules Objective Data Vital Signs Vital Signs: Vital Signs Temp Pulse Resp BP Pulse Ox O2 Del Method 05/08/25 12:00 98.2 F 86 20 146/99 H 98 Room Air 05/08/25 10:00 91 05/08/25 09:51 Room Air 05/08/25 09:40 Room Air 05/08/25 08:00 92 05/08/25 08:00 98 Room Air 05/08/25 08:00 98.4 F 89 28 H 146/98 H 98 05/08/25 06:00 90 05/08/25 04:00 89 05/08/25 03:36 Room Air 05/08/25 03:34 97.7 F 85 18 151/98 H 98 05/08/25 02:00 75 05/08/25 00:00 83 05/08/25 00:00 97.8 F 84 21 H 151/93 H 98 05/07/25 23:24 Room Air 05/07/25 22:00 73 05/07/25 20:00 97.9 F 75 17 156/92 H 99 05/07/25 20:00 75 05/07/25 20:00 Room Air 05/07/25 18:32 97.7 F 89 19 152/110 H 97 05/07/25 18:00 93 Intake/Output Intake/Output: Intake & Output 05/05/25 05/06/25 05/07/25 05/08/25 23:59 23:59 23:59 23:59 Intake Total 3085.3 1714.5 2451.7 1160 Output Total 6100 4750 2575 1050 Balance -3014.7 -3035.5 -123.3 110 Meds/Results Medications: Active Medications Generic Name Dose Route Start Last Admin Trade Name Freq PRN Reason Stop Dose Admin Acetaminophen 650 mg 04/29/25 11:11 05/08/25 09:42 Acetaminophen Elixir 325 Mg/10.15 Ml Udc PO 650 mg Q6H PRN Administration Mild Pain (1-3) or Fever Albuterol/Ipratropium 3 ml 05/06/25 07:38 05/06/25 07:46 Ipratropium 0.5 Mg/Albuterol Sulfate 2.5 Mg Ampul.Neb 3 Ml INHALATION 3 ml Q6HRT PRN Administration Wheezing Alteplase, Recombinant 2 mg 05/08/25 10:57 05/08/25 13:39 Alteplase 2 Mg Vial (Cathflo) IV PUSH 2 mg ONCE PRN Administration Line Occlusion Enoxaparin Sodium 40 mg 04/28/25 09:00 05/07/25 09:10 Enoxaparin 40 Mg/0.4 Ml Syringe SUB-Q Not Given On Hold: 05/07/25 09:10 DAILY BRAULIO Folic Acid 1 mg 04/29/25 09:00 05/08/25 09:55 Folic Acid 1 Mg/0.2 Ml Inj IV PUSH 1 mg QAM BRAULIO Administration Ceftriaxone Sodium 2 gm/ 100 mls @ 200 mls/hr 05/07/25 09:00 05/08/25 10:11 Sodium Chloride IVPB Infused Q24H BRAULIO Infusion Melatonin 5 mg 05/08/25 21:00 Melatonin 5 Mg Tablet PO HS BRAULIO Ondansetron HCl 4 mg 05/02/25 05:00 05/08/25 09:42 Ondansetron Inj 4 Mg/2 Ml Vial IV PUSH 4 mg Q6H PRN Administration Nausea And Vomiting Pantoprazole Sodium 40 mg 05/07/25 21:00 05/08/25 09:42 Pantoprazole Sodium Iv 40 Mg Vial IV PUSH 40 mg Q12HR BRAULIO Administration Sodium Chloride 10 ml 04/28/25 14:00 05/08/25 13:39 Central Line Flush IV PUSH 10 ml Q8HR BRAULIO Administration Sodium Chloride 10 ml 04/28/25 11:06 Central Line Flush IV PUSH PRN PRN with TPN bag changes Sodium Chloride 20 ml 04/28/25 11:06 05/07/25 05:18 Central Line Flush IV PUSH 20 ml PRN PRN Administration after blood draws Thiamine HCl 100 mg 05/06/25 09:00 05/08/25 09:42 Thiamine Hcl 200 Mg/2 Ml Vial IV PUSH 100 mg QAM BRAULIO Administration Radiology Results: ITS Impressions Head CT 04/28/25 08:29 Impression: 1.No acute intracranial abnormality. Chest/Abdomen/Pelvis CT 05/03/25 11:04 IMPRESSION: 1. Extensive airspace opacities in the lower lobes with volume loss, consistent with atelectasis versus pneumonia. Mild atelectasis and pneumonia in right upper lobe. Chest X-Ray 05/05/25 08:52 IMPRESSION: 1. Worsening airspace opacities right lung versus merely overlying soft tissue artifact or 2. Persistent bibasilar atelectasis and/or airspace disease. 3. Small effusions not excluded. Abdomen X-Ray 05/06/25 08:30 IMPRESSION: 1. No dilated loops of gas-filled bowel to suggest obstruction. Labs Labs: Laboratory Tests 05/08/25 04:31 05/08/25 04:31 Calcium 8.9 Magnesium 1.8 Total Bilirubin 0.7 AST 35 ALT 25 Alkaline Phosphatase 95 Total Creatine Kinase 101 Total Protein 7.4 Albumin 3.7
[2025-05-08] MEDS: ALTEPLASE 2 MG VIAL (CATHFLO) IV PUSH ×2 (13:39→16:34)
--- NOTE | 2025-05-08 14:55 | WPDGIPROGNO ---
Progress Note: A&P Assessment and Plan (1) Coffee ground emesis: Code(s): K92.0 - Hematemesis Status: Acute Assessment and Plan: no more episodes and nausea/vomiting resolved egd tomorrow hgb stable 10-11 (2) Nausea & vomiting: Code(s): R11.2 - Nausea with vomiting, unspecified Status: Acute Assessment and Plan: almost gone (3) GERD (gastroesophageal reflux disease): Code(s): K21.9 - Gastro-esophageal reflux disease without esophagitis Status: Acute (4) Bowel obstruction: Code(s): K56.609 - Unspecified intestinal obstruction, unspecified as to partial versus complete obstruction Status: Acute Assessment and Plan: clinically resolved (5) Acute drug overdose: Qualifiers: Encounter type: initial encounter Injury intent: intentional self-harm Qualified Code(s): T50.902A - Poisoning by unspecified drugs, medicaments and biological substances, intentional self-harm, initial encounter Code(s): T50.901A - Poisoning by unspecified drugs, medicaments and biological substances, accidental (unintentional), initial encounter Status: Acute (6) Suicidal behavior: Code(s): R45.89 - Other symptoms and signs involving emotional state Status: Acute Assessment and Plan: sitter at bedside (7) Alcohol abuse: Code(s): F10.10 - Alcohol abuse, uncomplicated Status: Acute Subjective Date/time seen: 05/08/25 14:55 Interval history: no more emesis, had liquid diet had dark brown stool Review of Systems Review of Systems: All systems reviewed & are unremarkable except as noted in HPI and below Exam Const: General: comfortable and no acute distress HENMT: Face/Nose/Sinus: Normal nares present Eyes: General: appearance normal, both eyes and all related structures Neck: Neck: no JVD Resp: Auscultation: clear to auscultation bilaterally Cardio: Rate: regular rate Rhythm: regular rhythm GI: Inspection: non-distended GI Palp: Yes Soft to palpation and No Tenderness to palpation present (GI) Auscultation: normal bowel sounds Skin: General skin exam: normal color Neuro: Speech: normal speech Extrem: General: normal to inspection Psych: Mental Status: mental status grossly normal Objective Data Vital Signs Vital Signs: Vital Signs - 24 hr 05/07/25 16:00 05/07/25 16:00 05/07/25 18:00 Temperature Pulse Rate 92 93 Respiratory Rate Blood Pressure Pulse Oximetry Oxygen Delivery Room Air 05/07/25 18:32 05/07/25 20:00 05/07/25 20:00 Temperature 97.7 F Pulse Rate 89 75 Respiratory Rate 19 Blood Pressure 152/110 H Pulse Oximetry 97 Oxygen Delivery Room Air 05/07/25 20:00 05/07/25 22:00 05/07/25 23:24 Temperature 97.9 F Pulse Rate 75 73 Respiratory Rate 17 Blood Pressure 156/92 H Pulse Oximetry 99 Oxygen Delivery Room Air 05/08/25 00:00 05/08/25 00:00 05/08/25 02:00 Temperature 97.8 F Pulse Rate 84 83 75 Respiratory Rate 21 H Blood Pressure 151/93 H Pulse Oximetry 98 Oxygen Delivery 05/08/25 03:34 05/08/25 03:36 05/08/25 04:00 Temperature 97.7 F Pulse Rate 85 89 Respiratory Rate 18 Blood Pressure 151/98 H Pulse Oximetry 98 Oxygen Delivery Room Air 05/08/25 06:00 05/08/25 08:00 05/08/25 08:00 Temperature 98.4 F Pulse Rate 90 89 Respiratory Rate 28 H Blood Pressure 146/98 H Pulse Oximetry 98 98 Oxygen Delivery Room Air 05/08/25 08:00 05/08/25 09:40 05/08/25 09:51 Temperature Pulse Rate 92 Respiratory Rate Blood Pressure Pulse Oximetry Oxygen Delivery Room Air Room Air 05/08/25 10:00 05/08/25 12:00 05/08/25 12:00 Temperature 98.2 F Pulse Rate 91 86 74 Respiratory Rate 20 Blood Pressure 146/99 H Pulse Oximetry 98 Oxygen Delivery 05/08/25 12:00 Temperature Pulse Rate Respiratory Rate Blood Pressure Pulse Oximetry 98 Oxygen Delivery Room Air Intake/Output Intake/Output: Intake & Output 05/05/25 05/06/25 05/07/25 05/08/25 23:59 23:59 23:59 23:59 Intake Total 3085.3 1714.5 2451.7 1060 Output Total 6100 4750 2575 650 Balance -3014.7 -3035.5 -123.3 410 Meds/Results Medications: Active Medications Generic Name Dose Route Start Last Admin Trade Name Freq PRN Reason Stop Dose Admin Acetaminophen 650 mg 04/29/25 11:11 05/08/25 09:42 Acetaminophen Elixir 325 Mg/10.15 Ml Udc PO 650 mg Q6H PRN Administration Mild Pain (1-3) or Fever Albuterol/Ipratropium 3 ml 05/06/25 07:38 05/06/25 07:46 Ipratropium 0.5 Mg/Albuterol Sulfate 2.5 Mg Ampul.Neb 3 Ml INHALATION 3 ml Q6HRT PRN Administration Wheezing Alteplase, Recombinant 2 mg 05/08/25 10:57 05/08/25 13:39 Alteplase 2 Mg Vial (Cathflo) IV PUSH 2 mg ONCE PRN Administration Line Occlusion Enoxaparin Sodium 40 mg 04/28/25 09:00 05/07/25 09:10 Enoxaparin 40 Mg/0.4 Ml Syringe SUB-Q Not Given On Hold: 05/07/25 09:10 DAILY BRAULIO Folic Acid 1 mg 04/29/25 09:00 05/08/25 09:55 Folic Acid 1 Mg/0.2 Ml Inj IV PUSH 1 mg QAM BRAULIO Administration Ceftriaxone Sodium 2 gm/ 100 mls @ 200 mls/hr 05/07/25 09:00 05/08/25 10:11 Sodium Chloride IVPB Infused Q24H BRAULIO Infusion Melatonin 5 mg 05/08/25 21:00 Melatonin 5 Mg Tablet PO HS BRAULIO Ondansetron HCl 4 mg 05/02/25 05:00 05/08/25 09:42 Ondansetron Inj 4 Mg/2 Ml Vial IV PUSH 4 mg Q6H PRN Administration Nausea And Vomiting Pantoprazole Sodium 40 mg 05/07/25 21:00 05/08/25 09:42 Pantoprazole Sodium Iv 40 Mg Vial IV PUSH 40 mg Q12HR BRAULIO Administration Sodium Chloride 10 ml 04/28/25 14:00 05/08/25 13:39 Central Line Flush IV PUSH 10 ml Q8HR BRAULIO Administration Sodium Chloride 10 ml 04/28/25 11:06 Central Line Flush IV PUSH PRN PRN with TPN bag changes Sodium Chloride 20 ml 04/28/25 11:06 05/07/25 05:18 Central Line Flush IV PUSH 20 ml PRN PRN Administration after blood draws Thiamine HCl 100 mg 05/06/25 09:00 05/08/25 09:42 Thiamine Hcl 200 Mg/2 Ml Vial IV PUSH 100 mg QAM BRAULIO Administration Radiology Results: ITS Impressions Head CT 04/28/25 08:29 Impression: 1.No acute intracranial abnormality. Chest/Abdomen/Pelvis CT 05/03/25 11:04 IMPRESSION: 1. Extensive airspace opacities in the lower lobes with volume loss, consistent with atelectasis versus pneumonia. Mild atelectasis and pneumonia in right upper lobe. Chest X-Ray 05/05/25 08:52 IMPRESSION: 1. Worsening airspace opacities right lung versus merely overlying soft tissue artifact or 2. Persistent bibasilar atelectasis and/or airspace disease. 3. Small effusions not excluded. Abdomen X-Ray 05/06/25 08:30 IMPRESSION: 1. No dilated loops of gas-filled bowel to suggest obstruction. Labs Labs: Laboratory Results - last 24 hr 05/07/25 05/07/25 05/08/25 20:37 22:51 04:31 WBC 11.7 H RBC 3.87 L Hgb 11.2 L Hct 34.7 L MCV 89.7 MCH 28.9 MCHC 32.3 RDW 13.2 Plt Count 342 MPV 10.0 Sodium 143 139 Potassium 3.0 L 3.2 L 3.0 L Chloride 110 H 105 Carbon Dioxide 21 L 22 Anion Gap 12 12 BUN 22 H 20 Creatinine 1.50 H 1.41 H Estim Creat Clear Calc 73 77 Estimated GFR 51 L 55 L Glucose 117 H 112 H Calcium 8.9 8.9 Magnesium 1.8 Total Bilirubin 0.7 AST 35 ALT 25 Alkaline Phosphatase 95 Total Creatine Kinase 101 Total Protein 7.4 Albumin 3.7
[2025-05-08] MEDS: MELATONIN 5 MG TABLET PO (20:23)
[2025-05-09] VITALS (14 sets, daily range): BP systolic 118–146; BP diastolic 78–99; PULSE 80–109; RESP 16–24; TEMP 36.4–37.1; O2SAT 20–99
[2025-05-09] MEDS: PANTOPRAZOLE SODIUM IV 40 MG VIAL IV PUSH (10:05)
[2025-05-09] MEDS: FOLIC ACID 1 MG/0.2 ML INJ IV PUSH (10:05)
[2025-05-09] MEDS: cefTRIAXone 2 GM in SODIUM CHLORIDE 0.9% IV 100 ML 200 ML IVPB (10:05)
[2025-05-09] MEDS: THIAMINE HCL 200 MG/2 ML VIAL 100 MG IV PUSH (10:05)
[2025-05-09] MEDS: CENTRAL LINE FLUSH 10 ML IV PUSH ×2 (10:06→16:53)
--- NOTE | 2025-05-09 11:38 | PCNFU ---
Nutrition Follow-Up Complete: Suboptimal Energy Intake as related to mechanical vent as evidenced by NPO. Goal: Meet estimated nutritional needs Patient Will continue current goal. Pt current nutrition is NPO. Last recorded weight is 108.4 kg, down from 121.5 kg on admit. Bowel Motility: Last reported BM 05/09 Labs Reviewed:Glu 112, Cr 1.14, K 3.0, Hct 34.7, Hgb 11.2 Meds Noted:Lovenox, Protonix, Thiamine, Folic Acid Skin: WNL Additional Notes: Patient NPO today for EGD. Will continue to follow for diet orders. Will monitor weight, labs, skin, diet orders, meds every 3 days.
[2025-05-09] MEDS: LACTATED RINGERS 1,000 ML 150 ML IV CONT (14:00)
--- NOTE | 2025-05-09 14:26 | PM.IMPN ---
Progress Note: A&P Assessment and Plan (1) Anxiety disorder, unspecified: Code(s): F41.9 - Anxiety disorder, unspecified Status: Acute (2) Suicidal behavior: Code(s): R45.89 - Other symptoms and signs involving emotional state Status: Acute (3) Alcohol abuse: Code(s): F10.10 - Alcohol abuse, uncomplicated Status: Acute (4) Hypertension: Code(s): I10 - Essential (primary) hypertension Status: Acute (5) Hyperlipidemia: Code(s): E78.5 - Hyperlipidemia, unspecified Status: Acute (6) Elevated glucose: Code(s): R73.09 - Other abnormal glucose Status: Acute (7) Upper GI bleed: Code(s): K92.2 - Gastrointestinal hemorrhage, unspecified Status: Acute (8) Coffee ground emesis: Code(s): K92.0 - Hematemesis Status: Acute (9) Nausea & vomiting: Code(s): R11.2 - Nausea with vomiting, unspecified Status: Acute (10) SHANTEL (acute kidney injury): Code(s): N17.9 - Acute kidney failure, unspecified Status: Acute Plan 44 year old male patient who is intubated, sedated and mechanically ventilated being admitted to the ICU after he reported intentional drug overdose. Patient was reported to have been drinking alcohol and then overdosed on approximately 60 tablets of hydroxyzine 25 mg, 31 tablets of baclofen 20 mg, and 5 tablets of trazodone 100 mg. A suicide note was found with patient in his hotel room. 1) Acute respiratory failure with hypoxia and hypercapnia: Patient was intubated and placed on mechanical ventilation due to altered mental status, agitation, combativeness and airway protection He was extubated on 05/05 after successful weaning trial Had aspiration pneumonia Sputum culture grew MSSA Was initially on Zosyn, switched to cefepime and Flagyl, currently on ceftriaxone until he can take p.o. Respiratory failure has resolved Currently on room air (2) Acute drug overdose+ suicidal behavior: Patient intentionally overdosed on hydroxyzine 25 mg x60 pills, baclofen 20 mg x31 pills, trazodone 100 mg x 5 pills -poison control was notified and followed along Continue supportive care Crisis management to follow up once medically cleared One-to-one sitter (3) Alcohol abuse: Patient has a history of alcohol abuse, elevated alcohol levels on admission Alcohol cessation counseling -continue thiamine and folic acid Was on Precedex infusion while intubated (4) QT prolongation: QT prolongation likely related to baclofen and hydroxyzine Patient was given magnesium QT prolongation has resolved Echo reviewed (5) Altered mental status: Resolved (6) Hypotension: Likely related to baclofen and hydroxyzine -adequately fluid-resuscitated along with Levophed Hemodynamically stable (7) SHANTEL (acute kidney injury): Nephrology following Patient has good urine output.. Etiology likely multifactorial. Patient did had episode of hypotension, also received vancomycin CT abdomen pelvis negative for any obstruction CK was elevated and now has normalized (8) Bowel obstruction+ coffee-ground emesis: Patient had couple of episodes of vomiting and he was on mechanical ventilation. Patient has NG to low intermittent suction. KUB suggests bowel obstruction. CT scan was done and did not show any ileus or obstruction evidence. Patient was started on tube feeds and tolerated, but high residuals. He was started on Reglan. 05/05 extubated Patient then had multiple episodes of nausea vomiting overnight KUB was done and does not show any evidence of ileus under obstruction. Eventually was able to tolerate full liquid diet Plan for EGD today, also had coffee-ground emesis H&H stable Continue with PPI Appreciate GI help 9. DVT prophylaxis: Lovenox on hold 10. Code status: Full 11. Disposition: Pending improvement, physical in ICU but can be downgraded to general medicine Time Spent With Patient Time: 41 minutes Subjective Date/time seen: 05/09/25 14:26 Interval history: No acute events overnight, NPO for possible EGD today Review of Systems Review of Systems: All systems reviewed & are unremarkable except as noted in HPI and below Exam Narrative: General: Alert awake oriented in no acute distress HEENT:? Pupils equal and reactive, sclera is clear, Neck:? Supple Respiratory:? Coarse breath sounds bilaterally, adequate air entry Cardiac:? S1-S2 is normal, regular rate and rhythm, Abdomen:? Soft, nontender, nondistended, bowel sounds are decreased but present, NG tube in place with output Extremities:? No edema, palpable pedal pulses Neuro:? AO x3, he follows commands with all 4 extremities, Skin:? No skin lesions noted Psych:? Normal speech and affect Objective Data Vital Signs Vital Signs: Vital Signs - 24 hr 05/08/25 16:00 05/08/25 16:00 05/08/25 16:00 Temperature 98.5 F Pulse Rate 77 85 Respiratory Rate 21 H Blood Pressure 142/91 H Pulse Oximetry 98 99 Oxygen Delivery Room Air Fraction of Inspired Oxygen 05/08/25 18:00 05/08/25 19:56 05/08/25 19:59 Temperature Pulse Rate 92 92 92 Respiratory Rate 21 H Blood Pressure Pulse Oximetry 99 Oxygen Delivery Room Air Fraction of Inspired Oxygen 40 05/08/25 20:00 05/08/25 20:00 05/08/25 22:00 Temperature 98.5 F Pulse Rate 76 85 Respiratory Rate 18 Blood Pressure 136/93 H Pulse Oximetry 97 Oxygen Delivery Fraction of Inspired Oxygen 05/08/25 23:49 05/09/25 00:00 05/09/25 02:00 Temperature 97.7 F Pulse Rate 80 80 80 Respiratory Rate 16 16 Blood Pressure 139/81 Pulse Oximetry 99 99 Oxygen Delivery Room Air Fraction of Inspired Oxygen 40 05/09/25 04:00 05/09/25 04:00 05/09/25 04:00 Temperature 98.2 F Pulse Rate 80 81 81 Respiratory Rate 16 18 Blood Pressure Pulse Oximetry 99 96 Oxygen Delivery Room Air Fraction of Inspired Oxygen 40 05/09/25 04:00 05/09/25 05:16 05/09/25 08:00 Temperature Pulse Rate 82 Respiratory Rate Blood Pressure 130/97 H Pulse Oximetry Oxygen Delivery Room Air Fraction of Inspired Oxygen 05/09/25 08:00 05/09/25 08:00 05/09/25 09:10 Temperature 98.3 F Pulse Rate 92 84 Respiratory Rate 16 Blood Pressure 142/84 H Pulse Oximetry 20 L 97 Oxygen Delivery Room Air Fraction of Inspired Oxygen 05/09/25 10:00 05/09/25 13:57 Temperature 97.5 F L Pulse Rate 91 99 Respiratory Rate 18 Blood Pressure 135/99 H Pulse Oximetry 98 Oxygen Delivery Room Air Fraction of Inspired Oxygen Intake/Output Intake/Output: Intake & Output 05/06/25 05/07/25 05/08/25 05/09/25 23:59 23:59 23:59 23:59 Intake Total 1714.5 2451.7 1880 Output Total 8880 2575 2500 250 Balance -3035.5 -123.3 -620 -250 Meds/Results Medications: Active Medications Generic Name Dose Route Start Last Admin Trade Name Freq PRN Reason Stop Dose Admin Acetaminophen 650 mg 04/29/25 11:11 05/08/25 22:51 Acetaminophen Elixir 325 Mg/10.15 Ml Udc PO 650 mg Q6H PRN Administration Mild Pain (1-3) or Fever Albuterol/Ipratropium 3 ml 05/06/25 07:38 05/06/25 07:46 Ipratropium 0.5 Mg/Albuterol Sulfate 2.5 Mg Ampul.Neb 3 Ml INHALATION 3 ml Q6HRT PRN Administration Wheezing Alteplase, Recombinant 2 mg 05/08/25 10:57 05/08/25 16:34 Alteplase 2 Mg Vial (Cathflo) IV PUSH 2 mg ONCE PRN Administration Line Occlusion Enoxaparin Sodium 40 mg 04/28/25 09:00 05/07/25 09:10 Enoxaparin 40 Mg/0.4 Ml Syringe SUB-Q Not Given On Hold: 05/07/25 09:10 DAILY BRAULIO Folic Acid 1 mg 04/29/25 09:00 05/09/25 10:05 Folic Acid 1 Mg/0.2 Ml Inj IV PUSH 1 mg QAM BRAULIO Administration Ceftriaxone Sodium 2 gm/ 100 mls @ 200 mls/hr 05/07/25 09:00 05/09/25 10:05 Sodium Chloride IVPB 200 mls/hr Q24H BRAULIO Administration Lactated Ringer's 1,000 mls @ 150 mls/hr 05/09/25 13:55 05/09/25 14:00 Lr - Lactated Ringers Iv IV CONT 150 mls/hr .Q6H40M BRAULIO Administration Melatonin 5 mg 05/08/25 21:00 05/08/25 20:23 Melatonin 5 Mg Tablet PO 5 mg HS BRAULIO Administration Ondansetron HCl 4 mg 05/02/25 05:00 05/08/25 09:42 Ondansetron Inj 4 Mg/2 Ml Vial IV PUSH 4 mg Q6H PRN Administration Nausea And Vomiting Pantoprazole Sodium 40 mg 05/07/25 21:00 05/09/25 10:05 Pantoprazole Sodium Iv 40 Mg Vial IV PUSH 40 mg Q12HR BRAULIO Administration Sodium Chloride 10 ml 04/28/25 14:00 05/09/25 10:06 Central Line Flush IV PUSH 10 ml Q8HR BRAULIO Administration Sodium Chloride 10 ml 04/28/25 11:06 Central Line Flush IV PUSH PRN PRN with TPN bag changes Sodium Chloride 20 ml 04/28/25 11:06 05/07/25 05:18 Central Line Flush IV PUSH 20 ml PRN PRN Administration after blood draws Thiamine HCl 100 mg 05/06/25 09:00 05/09/25 10:05 Thiamine Hcl 200 Mg/2 Ml Vial IV PUSH 100 mg QAM BRAULIO Administration Radiology Results: ITS Impressions Head CT 04/28/25 08:29 Impression: 1.No acute intracranial abnormality. Chest/Abdomen/Pelvis CT 05/03/25 11:04 IMPRESSION: 1. Extensive airspace opacities in the lower lobes with volume loss, consistent with atelectasis versus pneumonia. Mild atelectasis and pneumonia in right upper lobe. Chest X-Ray 05/05/25 08:52 IMPRESSION: 1. Worsening airspace opacities right lung versus merely overlying soft tissue artifact or 2. Persistent bibasilar atelectasis and/or airspace disease. 3. Small effusions not excluded. Abdomen X-Ray 05/06/25 08:30 IMPRESSION: 1. No dilated loops of gas-filled bowel to suggest obstruction. Quality VTE Prophylaxis VTE prophylaxis: mechanical ordered
--- NOTE | 2025-05-09 14:44 | WPDANESEPPF ---
Anes - Initial Pre Proc Eval Procedure: Operation Date: 05/09/25 16:00 Proposed Procedures p Esophagogastroduodenoscopy - Tato Beltran MD Date/Time: 05/09/25 14:44 Surgeon: Beba Romero MD Pre Op Diagnosis: Drug overdose Patient Data Age: 44 Gender: M Height: 1.85 m Weight: 108.4 kg Last Vital Signs Temp 97.5 F L 05/09/25 13:57 Pulse 99 05/09/25 13:57 Resp 18 05/09/25 13:57 BP 135/99 H 05/09/25 13:57 Pulse Ox 98 05/09/25 13:57 O2 Del Method Room Air 05/09/25 13:57 O2 Flow Rate 1 05/06/25 04:00 FiO2 40 05/09/25 04:00 Allergies Allergy/AdvReac Type Severity Reaction Status Date / Time azithromycin AdvReac Unknown Other Verified 05/09/25 13:49 Home Medications ?Medication ?Instructions ?Recorded ?Confirmed ?Type baclofen 20 mg tablet 20 mg PO BID 04/28/25 04/28/25 History docusate sodium 100 mg capsule 100 mg PO DAILY PRN constipation 04/28/25 04/28/25 History folic acid 1 mg tablet 1 mg PO DAILY 04/28/25 04/28/25 History hydroxyzine pamoate 25 mg capsule 25 mg PO Q4H PRN anxiety 04/28/25 04/28/25 History (Vistaril) naltrexone 50 mg tablet 50 mg PO DAILY 04/28/25 04/28/25 History trazodone 100 mg tablet 100 mg PO HS PRN insomnia 04/28/25 04/28/25 History venlafaxine 75 mg capsule,extended 75 mg PO HS 04/28/25 04/28/25 History release 24 hr Patient hx anesthesia problems: none Family hx anesthesia problems: none Results Review: All pre-operative results and documents have been reviewed as part of the pre-operative evaluation. 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 The patient continues to smoke 1 pack a cigarettes a day. The patient stated that he usually drinks about 10 alcoholic beverages a week. He states every other week any does not drink when he has his child. The patient denies any marijuana or any other illicit drugs. 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 Code status full code Smoking packs per day: 1 Smoking cigarettes per day: 20.0 Years smoked: 20 Smoking pack-years: 20.00 Smoking status: Unknown if ever smoked Second hand tobacco smoke exposure: No Additional smoking assessment comments: patient sedated Alcohol intake: unknown Drinks per week: 10 Substance use: unknown Substance use type: former substance user Do You Feel Safe in your Home?: Yes Lack of Transportation: No Lack of Food: Never True Current Housing: I Have Housing Concerned About Future Housing: No Difficulty Paying Gas/Electric Bills: No Difficulty Paying for Meds: No Currently Unemployed: No Education: High School Diploma/GED Difficulty w/ Childcare or Family Care: No Gender identity (if verbalized by the patient): Male Spiritual care concerns: No Anes - Eval Final PreProcedure Day of Procedure 05/09/25 14:44 Patient weight: obese Lungs: normal air movement Airway: Mallampati scale class II Neurological: alert and oriented Last oral intake: >/= 8 hours ASA classification: III Emergent: yes Anesthetic plan: delay Anesthesia type and monitoring: general GIVS and standard monitoring Results Review: All pre-operative results and documents have been reviewed as part of the pre-operative evaluation. Complicated hx noted. Pt now w hx of coffe ground emesis, no SBO based on CT. Informed Consent: The patient's anesthetic plan and its attendant risks and benefits were discussed with the patient/family/POA. Questions were solicited and answers provided to the satisfaction of the patient/family/POA.
[2025-05-09] MEDS: BENZOCAINE (*SP) 60 ML SPRAY CAN (HURRICAINE) 1 SPRAY MUCOUS MEM (14:58)
--- NOTE | 2025-05-09 15:05 | S_PTH ---
PATIENT: [place] LOC: ANHICU U#:[id number] AGE/SX: 44/M ROOM: ICU RE04/28/[address]: Kay Robb MD : [id number] BED: 5 DIS: 05/11/2025 SPEC #: [id number] RECD: 05/10/25 07:20 STATUS: DEBBY REQ #: [id number] TERRI: 05/09/25 15:[address]: Tato Beltran DEPT: [facility] Surgical RECD BY: Hilary Obando ENTERED: 05/10/25 07:20 SP TYPE: Surgical OTHR DR: MD Kell Eckert APRN Sriraj T. Kanungo, MD Zohair H. Karmally, MD Tissues: A - Gastric Biopsy Procedures: Hematoxylin and Eosin Stain Gross and Microscopic Level 4
--- NOTE | 2025-05-09 15:27 | PCPTNOTE ---
The patient treatment was not able to be completed at this time due to patient out of room for test. Will plan to continue treatment per plan of care.
[2025-05-09] MEDS: ACETAMINOPHEN ELIXIR 325 MG/10.15 ML UDC 650 MG PO ×2 (16:52→22:00)
[2025-05-09] MEDS: MELATONIN 5 MG TABLET PO (22:00)
[2025-05-10] VITALS: BP 126/82; PULSE 80; RESP 16; TEMP 36.8; O2SAT 95
[2025-05-10] MEDS: CENTRAL LINE FLUSH 10 ML IV PUSH ×3 (00:05→15:15)
[2025-05-10 04:30] LABS: Hematocrit 37.5 % (42.0-52.0); Hemoglobin 11.9 g/dL (14.0-18.0); Mean Corpuscular HGB Conc 31.7 g/dl (32-36); Mean Corpuscular Hemoglobin 28.9 pg (26-34); Mean Corpuscular Volume 91.0 fl (80-100); Platelet Count Result 457 k/mm3 (150-375); Red Blood Count 4.12 M/mm3 (4.6-6.20); White Blood Count 16.2 K/mm3 (4.5-10.0)
[2025-05-10] MEDS: ACETAMINOPHEN ELIXIR 325 MG/10.15 ML UDC 650 MG PO ×3 (04:56→21:05)
[2025-05-10 04:59] LABS: Alanine Aminotransferase 25 U/L (6-50); Albumin Level 4.2 g/dL (3.5-5.1); Alkaline Phosphatase 85 U/L (38-126); Anion Gap 10 mmol/L (4-12); Aspartate Amino Transferase 31 U/L (17-59); Bilirubin,Total 0.6 mg/dL (0.2-1.3); Blood Urea Nitrogen 20 mg/dL (9-20); Calcium 9.3 mg/dL (8.4-10.2); Carbon Dioxide 23 mmol/L (22-30); Chloride 105 mmol/L (98-107); Estimated CRCL calculation 80 ml/min; Estimated Glomerular Filt Rate 57; Glucose 112 mg/dL (65-110); Magnesium 2.0 mg/dL (1.6-2.3); Potassium 3.8 mmol/L (3.4-5.0); Sodium 138 mmol/L (137-145); Total Protein 8.1 g/dL (6.3-8.2)
[2025-05-10 05:50] VITALS: TEMP 36.6
[2025-05-10 08:00] VITALS: BP 145/106; PULSE 115; PULSE 94; RESP 14; RESP 18; TEMP 36.6; O2SAT 96; O2SAT 98
[2025-05-10 08:39] LABS: Creatine Kinase 68 U/L (55-170)
[2025-05-10] MEDS: ENOXAPARIN 40 MG/0.4 ML SYRINGE SUB-Q (08:49)
[2025-05-10] MEDS: cefTRIAXone 2 GM in SODIUM CHLORIDE 0.9% IV 100 ML 200 ML IVPB (08:49)
[2025-05-10] MEDS: THIAMINE HCL 200 MG/2 ML VIAL 100 MG IV PUSH (08:49)
[2025-05-10] MEDS: PANTOPRAZOLE 40 MG TABLET PO (08:49)
[2025-05-10] MEDS: FOLIC ACID 1 MG/0.2 ML INJ IV PUSH (08:49)
--- NOTE | 2025-05-10 09:27 | PM.IMPN ---
Progress Note: A&P Assessment and Plan (1) Anxiety disorder, unspecified: Code(s): F41.9 - Anxiety disorder, unspecified Status: Acute (2) Suicidal behavior: Code(s): R45.89 - Other symptoms and signs involving emotional state Status: Acute (3) Alcohol abuse: Code(s): F10.10 - Alcohol abuse, uncomplicated Status: Acute (4) Hypertension: Code(s): I10 - Essential (primary) hypertension Status: Acute (5) Hyperlipidemia: Code(s): E78.5 - Hyperlipidemia, unspecified Status: Acute (6) Elevated glucose: Code(s): R73.09 - Other abnormal glucose Status: Acute (7) Upper GI bleed: Code(s): K92.2 - Gastrointestinal hemorrhage, unspecified Status: Acute (8) Coffee ground emesis: Code(s): K92.0 - Hematemesis Status: Acute (9) Nausea & vomiting: Code(s): R11.2 - Nausea with vomiting, unspecified Status: Acute (10) SHANTEL (acute kidney injury): Code(s): N17.9 - Acute kidney failure, unspecified Status: Acute Plan 44 year old male patient who is intubated, sedated and mechanically ventilated being admitted to the ICU after he reported intentional drug overdose. Patient was reported to have been drinking alcohol and then overdosed on approximately 60 tablets of hydroxyzine 25 mg, 31 tablets of baclofen 20 mg, and 5 tablets of trazodone 100 mg. A suicide note was found with patient in his hotel room. 1) Acute respiratory failure with hypoxia and hypercapnia: Patient was intubated and placed on mechanical ventilation due to altered mental status, agitation, combativeness and airway protection He was extubated on 05/05 after successful weaning trial Had aspiration pneumonia Sputum culture grew MSSA Was initially on Zosyn, switched to cefepime and Flagyl, currently on ceftriaxone until he can take p.o., will switch to cefazolin Respiratory failure has resolved Currently on room air (2) Acute drug overdose+ suicidal behavior: Patient intentionally overdosed on hydroxyzine 25 mg x60 pills, baclofen 20 mg x31 pills, trazodone 100 mg x 5 pills -poison control was notified and followed along -patient is medically stable, will have care coordination cardiac stress management evaluated patient from likely placement in a psych facility given his drug overdose and suicide behavior/at 10 -continue center in at bedside -maintain suicide precautions (3) Alcohol abuse: Patient has a history of alcohol abuse, elevated alcohol levels on admission Alcohol cessation counseling -continue thiamine and folic acid - (4) QT prolongation: QT prolongation likely related to baclofen and hydroxyzine Patient was given magnesium QT prolongation has resolved Echo reviewed (5) Altered mental status: Resolved (6) Hypotension: Likely related to baclofen and hydroxyzine -adequately fluid-resuscitated along with Levophed which has been off for a while Hemodynamically stable (7) SHANTEL (acute kidney injury): Nephrology following Patient has good urine output.. Etiology likely multifactorial. Patient did had episode of hypotension, also received vancomycin CT abdomen pelvis negative for any obstruction CK was elevated and now has normalized (8) Bowel obstruction+ coffee-ground emesis: Patient had couple of episodes of vomiting and he was on mechanical ventilation. Patient has NG to low intermittent suction. KUB suggests bowel obstruction. CT scan was done and did not show any ileus or obstruction evidence. Patient was started on tube feeds and tolerated, but high residuals. He was started on Reglan. 05/05 extubated Patient then had multiple episodes of nausea vomiting overnight KUB was done and does not show any evidence of ileus under obstruction. Eventually was able to tolerate full liquid diet 05/09/2025: also had coffee-ground emesis. EGD showed Reflux esophagitis, hiatal hernia, gastritis H&H stable Continue with PPI Appreciate GI help 9. DVT prophylaxis: Lovenox on hold 10. Code status: Full 11. Disposition: Pending improvement, physical in ICU but can be downgraded to general medicine Subjective Date/time seen: 05/10/25 09:27 Interval history: 05/09/2025: EGD: Reflux esophagitis, hiatal hernia, gastritis 05/10/2025: Patient being seen for hospitalist team Patient complaining of right ear discomfort, dyspnea noted any drainage, hearing loss. Denies any shortness of breath, chest pain, abdominal pain, nausea, vomiting. Patient is sitting up in chair currently in no acute distress Review of Systems Review of Systems: All systems reviewed & are unremarkable except as noted in HPI and below Exam Narrative: General: Alert awake oriented in no acute distress HEENT:? Pupils equal and reactive, sclera is clear, Neck:? Supple Respiratory:? Clear to auscultation bilaterally, adequate air entry, no wheezing Cardiac:? S1-S2 is normal, regular rate and rhythm, Abdomen:? Soft, nontender, nondistended, normoactive bowel sounds, Extremities:? No edema, palpable pedal pulses Neuro:? AO x3, he follows commands with all 4 extremities, Skin:? No skin lesions noted Psych:? Normal speech and affect Objective Data Vital Signs Vital Signs: Vital Signs - 24 hr 05/09/25 10:00 05/09/25 12:00 05/09/25 12:00 Temperature 98.3 F Pulse Rate 91 97 87 Respiratory Rate 16 Blood Pressure 146/78 H Pulse Oximetry 98 Oxygen Delivery Fraction of Inspired Oxygen 05/09/25 13:57 05/09/25 15:15 05/09/25 15:25 Temperature 97.5 F L Pulse Rate 99 109 H 95 Respiratory Rate 18 24 H 23 H Blood Pressure 135/99 H 118/78 133/98 H Pulse Oximetry 98 95 95 Oxygen Delivery Room Air Room Air Room Air Fraction of Inspired Oxygen 05/09/25 15:35 05/09/25 16:00 05/09/25 20:00 Temperature 98.7 F Pulse Rate 99 101 H 101 H Respiratory Rate 22 H 16 20 Blood Pressure 132/93 H 132/87 Pulse Oximetry 96 98 95 Oxygen Delivery Room Air Room Air Fraction of Inspired Oxygen 21 05/09/25 20:00 05/10/25 00:00 05/10/25 05:50 Temperature 98.2 F 97.9 F Pulse Rate 101 H 80 Respiratory Rate 20 16 Blood Pressure 126/82 Pulse Oximetry 95 95 Oxygen Delivery Room Air Fraction of Inspired Oxygen 21 Intake/Output Intake/Output: Intake & Output 05/07/25 05/08/25 05/09/25 05/10/25 23:59 23:59 23:59 23:59 Intake Total 2451.7 1880 780 500 Output Total 2575 2500 250 600 Balance -123.3 -620 530 -100 Meds/Results Medications: Active Medications Generic Name Dose Route Start Last Admin Trade Name Freq PRN Reason Stop Dose Admin Acetaminophen 650 mg 04/29/25 11:11 05/10/25 04:56 Acetaminophen Elixir 325 Mg/10.15 Ml Udc PO 650 mg Q6H PRN Administration Mild Pain (1-3) or Fever Albuterol/Ipratropium 3 ml 05/06/25 07:38 05/06/25 07:46 Ipratropium 0.5 Mg/Albuterol Sulfate 2.5 Mg Ampul.Neb 3 Ml INHALATION 3 ml Q6HRT PRN Administration Wheezing Alteplase, Recombinant 2 mg 05/08/25 10:57 05/08/25 16:34 Alteplase 2 Mg Vial (Cathflo) IV PUSH 2 mg ONCE PRN Administration Line Occlusion Ciprofloxacin/Hydrocortisone 3 drop 05/10/25 09:00 Ciprofloxacin Hc Otic 10 Ml RIGHT EAR Q12HR BRAULIO Enoxaparin Sodium 40 mg 04/28/25 09:00 05/10/25 08:49 Enoxaparin 40 Mg/0.4 Ml Syringe SUB-Q 40 mg DAILY BRAULIO Administration Folic Acid 1 mg 04/29/25 09:00 05/10/25 08:49 Folic Acid 1 Mg/0.2 Ml Inj IV PUSH 1 mg QAM BRAULIO Administration Ceftriaxone Sodium 2 gm/ 100 mls @ 200 mls/hr 05/07/25 09:00 05/10/25 08:49 Sodium Chloride IVPB 200 mls/hr Q24H BRAULIO Administration Melatonin 5 mg 05/08/25 21:00 05/09/25 22:00 Melatonin 5 Mg Tablet PO 5 mg HS BRAULIO Administration Ondansetron HCl 4 mg 05/02/25 05:00 05/08/25 09:42 Ondansetron Inj 4 Mg/2 Ml Vial IV PUSH 4 mg Q6H PRN Administration Nausea And Vomiting Pantoprazole Sodium 40 mg 05/10/25 09:00 05/10/25 08:49 Pantoprazole 40 Mg Tablet PO 40 mg QAM BRAULIO Administration Sodium Chloride 10 ml 04/28/25 14:00 05/10/25 08:52 Central Line Flush IV PUSH 10 ml Q8HR BRAULIO Administration Sodium Chloride 10 ml 04/28/25 11:06 Central Line Flush IV PUSH PRN PRN with TPN bag changes Sodium Chloride 20 ml 04/28/25 11:06 05/07/25 05:18 Central Line Flush IV PUSH 20 ml PRN PRN Administration after blood draws Thiamine HCl 100 mg 05/06/25 09:00 05/10/25 08:49 Thiamine Hcl 200 Mg/2 Ml Vial IV PUSH 100 mg QAM BRAULIO Administration Radiology Results: ITS Impressions Head CT 04/28/25 08:29 Impression: 1.No acute intracranial abnormality. Chest/Abdomen/Pelvis CT 05/03/25 11:04 IMPRESSION: 1. Extensive airspace opacities in the lower lobes with volume loss, consistent with atelectasis versus pneumonia. Mild atelectasis and pneumonia in right upper lobe. Chest X-Ray 05/05/25 08:52 IMPRESSION: 1. Worsening airspace opacities right lung versus merely overlying soft tissue artifact or 2. Persistent bibasilar atelectasis and/or airspace disease. 3. Small effusions not excluded. Abdomen X-Ray 05/06/25 08:30 IMPRESSION: 1. No dilated loops of gas-filled bowel to suggest obstruction. Labs Labs: Laboratory Results - last 24 hr 05/10/25 04:18 WBC 16.2 H RBC 4.12 L Hgb 11.9 L Hct 37.5 L MCV 91.0 MCH 28.9 MCHC 31.7 L RDW 13.2 Plt Count 457 H MPV 10.4 Sodium 138 Potassium 3.8 Chloride 105 Carbon Dioxide 23 Anion Gap 10 BUN 20 Creatinine 1.36 H Estim Creat Clear Calc 80 Estimated GFR 57 L Glucose 112 H Calcium 9.3 Magnesium 2.0 Total Bilirubin 0.6 AST 31 ALT 25 Alkaline Phosphatase 85 Total Creatine Kinase 68 Total Protein 8.1 Albumin 4.2 Quality VTE Prophylaxis VTE prophylaxis: mechanical ordered
--- NOTE | 2025-05-10 10:05 | PC.NURSE ---
Per Dr. Robb, medically cleared for crisis evaluation at this time. Care Coordination aware and will notify
[2025-05-10] MEDS: CIPROFLOXACIN HC OTIC 10 ML 3 DROP RIGHT EAR (12:27)
[2025-05-10] MEDS: ALPRAZolam (*CRX) 0.25 MG TABLET PO (12:55)
[2025-05-10 16:00] VITALS: BP 145/101; PULSE 78; RESP 16; TEMP 36.6; O2SAT 98
--- NOTE | 2025-05-10 18:06 | PC.NURSE ---
Per Katerin from [facility], their provider is unable to meet the needs of the patient and has declined to accept [facility] for inpatient psych care.
--- NOTE | 2025-05-10 18:12 | PC.NURSE ---
Pt. mother Chichi called stating that she has the patient's phone and wallet in her possession. Will pass this along to oncoming nurse and charge nurse.
[2025-05-10 19:53] VITALS: PULSE 78; RESP 16; O2SAT 98
[2025-05-10 21:16] LABS: Add Urine Microscopic? NO; Appearance Urine Clear (Clear); Glucose Urine UA Negative (Negative); Leukocyte Esterase Ur Negative LEU/UL (Negative); Nitrate Urine Negative (Negative); Specific Grav Ur 1.010 (1.001-1.035)
[2025-05-10 21:49] LABS: Cannabinoid Screen Urine Negative (Negative)
[2025-05-11] VITALS: BP 135/82; PULSE 78; RESP 16; TEMP 36.8; O2SAT 98
[2025-05-11] MEDS: CIPROFLOXACIN HC OTIC 10 ML 3 DROP RIGHT EAR ×2 (00:15→08:35)
[2025-05-11] MEDS: MELATONIN 5 MG TABLET PO (00:15)
[2025-05-11] MEDS: CENTRAL LINE FLUSH 10 ML IV PUSH ×3 (00:15→14:36)
[2025-05-11 07:37] VITALS: BP 135/109; PULSE 95; RESP 16; TEMP 36.7; O2SAT 98
[2025-05-11] MEDS: ACETAMINOPHEN ELIXIR 325 MG/10.15 ML UDC 650 MG PO ×2 (07:40→14:33)
[2025-05-11] MEDS: THIAMINE HCL 200 MG/2 ML VIAL 100 MG IV PUSH (08:27)
[2025-05-11] MEDS: ENOXAPARIN 40 MG/0.4 ML SYRINGE SUB-Q (08:27)
[2025-05-11] MEDS: PANTOPRAZOLE 40 MG TABLET PO (08:27)
[2025-05-11] MEDS: FOLIC ACID 1 MG/0.2 ML INJ IV PUSH (08:28)
[2025-05-11 08:46] LABS: Hematocrit 36.1 % (42.0-52.0); Hemoglobin 11.7 g/dL (14.0-18.0); Mean Corpuscular HGB Conc 32.4 g/dl (32-36); Mean Corpuscular Hemoglobin 29.0 pg (26-34); Mean Corpuscular Volume 89.4 fl (80-100); Platelet Count Result 509 k/mm3 (150-375); Red Blood Count 4.04 M/mm3 (4.6-6.20); White Blood Count 14.9 K/mm3 (4.5-10.0)
[2025-05-11 09:06] LABS: Alanine Aminotransferase 28 U/L (6-50); Albumin Level 4.1 g/dL (3.5-5.1); Alkaline Phosphatase 88 U/L (38-126); Anion Gap 11 mmol/L (4-12); Aspartate Amino Transferase 42 U/L (17-59); Bilirubin,Total 0.6 mg/dL (0.2-1.3); Blood Urea Nitrogen 17 mg/dL (9-20); Calcium 9.2 mg/dL (8.4-10.2); Carbon Dioxide 24 mmol/L (22-30); Chloride 102 mmol/L (98-107); Estimated CRCL calculation 75 ml/min; Estimated Glomerular Filt Rate 52; Glucose 157 mg/dL (65-110); Magnesium 1.9 mg/dL (1.6-2.3); Potassium 3.9 mmol/L (3.4-5.0); Sodium 137 mmol/L (137-145); Total Protein 7.9 g/dL (6.3-8.2)
--- NOTE | 2025-05-11 09:12 | P.PNIM_ITS ---
Progress Note: A&P Assessment and Plan (1) Anxiety disorder, unspecified: Code(s): F41.9 - Anxiety disorder, unspecified Status: Acute (2) Suicidal behavior: Code(s): R45.89 - Other symptoms and signs involving emotional state Status: Acute (3) Alcohol abuse: Code(s): F10.10 - Alcohol abuse, uncomplicated Status: Acute (4) Hypertension: Code(s): I10 - Essential (primary) hypertension Status: Acute (5) Hyperlipidemia: Code(s): E78.5 - Hyperlipidemia, unspecified Status: Acute (6) Elevated glucose: Code(s): R73.09 - Other abnormal glucose Status: Acute (7) Upper GI bleed: Code(s): K92.2 - Gastrointestinal hemorrhage, unspecified Status: Acute (8) Coffee ground emesis: Code(s): K92.0 - Hematemesis Status: Acute (9) Nausea & vomiting: Code(s): R11.2 - Nausea with vomiting, unspecified Status: Acute (10) SHANTEL (acute kidney injury): Code(s): N17.9 - Acute kidney failure, unspecified Status: Acute Plan 44 year old male patient who is intubated, sedated and mechanically ventilated being admitted to the ICU after he reported intentional drug overdose. Patient was reported to have been drinking alcohol and then overdosed on approximately 60 tablets of hydroxyzine 25 mg, 31 tablets of baclofen 20 mg, and 5 tablets of trazodone 100 mg. A suicide note was found with patient in his hotel room. 1) Acute respiratory failure with hypoxia and hypercapnia: Patient was intubated and placed on mechanical ventilation due to altered mental status, agitation, combativeness and airway protection He was extubated on 05/05 after successful weaning trial Had aspiration pneumonia Sputum culture grew MSSA Was initially on Zosyn, switched to cefepime and Flagyl, currently on ceftriaxone until he can take p.o., will switch to cefazolin Respiratory failure has resolved Currently on room air (2) Acute drug overdose+ suicidal behavior: Patient intentionally overdosed on hydroxyzine 25 mg x60 pills, baclofen 20 mg x31 pills, trazodone 100 mg x 5 pills -poison control was notified and followed along -patient is medically stable, will have care coordination cardiac stress management evaluated patient from likely placement in a psych facility given his drug overdose and suicide behavior/at 10 -continue center in at bedside -maintain suicide precautions (3) Alcohol abuse: Patient has a history of alcohol abuse, elevated alcohol levels on admission Alcohol cessation counseling -continue thiamine and folic acid - (4) QT prolongation: QT prolongation likely related to baclofen and hydroxyzine Patient was given magnesium QT prolongation has resolved Echo reviewed (5) Altered mental status: Resolved (6) Hypotension: Likely related to baclofen and hydroxyzine -adequately fluid-resuscitated along with Levophed which has been off for a while Hemodynamically stable (7) SHANTEL (acute kidney injury): Nephrology following Patient has good urine output.. Etiology likely multifactorial. Patient did had episode of hypotension, also received vancomycin CT abdomen pelvis negative for any obstruction CK was elevated and now has normalized (8) Bowel obstruction+ coffee-ground emesis: Patient had couple of episodes of vomiting and he was on mechanical ventilation. Patient has NG to low intermittent suction. KUB suggests bowel obstruction. CT scan was done and did not show any ileus or obstruction evidence. Patient was started on tube feeds and tolerated, but high residuals. He was started on Reglan. 05/05 extubated Patient then had multiple episodes of nausea vomiting overnight KUB was done and does not show any evidence of ileus under obstruction. Eventually was able to tolerate full liquid diet 05/09/2025: also had coffee-ground emesis. EGD showed Reflux esophagitis, hiatal hernia, gastritis H&H stable Continue with PPI Appreciate GI help 9. DVT prophylaxis: Lovenox on hold 10. Code status: Full 11: Anxiety, small dose of Xanax will be given 12: Appreciate crisis management evaluation, they were trying to place patient for inpatient psych Subjective Date/time seen: 05/11/25 09:12 Interval history: 05/09/2025: EGD: Reflux esophagitis, hiatal hernia, gastritis 05/11/2025: Patient being seen for hospitalist team Patient complaining anxiety, requesting for some anxiety antianxiety medication. Denies any shortness of breath, chest pain, abdominal pain, nausea, vomiting. Sitting up in chair, in no acute distress, tolerating oral diet Review of Systems Review of Systems: All systems reviewed & are unremarkable except as noted in HPI and below Exam Narrative: General: Alert awake oriented in no acute distress HEENT:? Pupils equal and reactive, sclera is clear, Neck:? Supple Respiratory:? Clear to auscultation bilaterally, adequate air entry, no wheezing Cardiac:? S1-S2 is normal, regular rate and rhythm, Abdomen:? Soft, nontender, nondistended, normoactive bowel sounds, Extremities:? No edema, palpable pedal pulses Neuro:? AO x3, he follows commands with all 4 extremities, Skin:? No skin lesions noted Psych:? Normal speech and affect Objective Data Vital Signs Vital Signs: Vital Signs - 24 hr 05/10/25 16:00 05/10/25 19:53 05/11/25 00:00 Temperature 97.8 F 98.2 F Pulse Rate 78 78 78 Respiratory Rate 16 16 16 Blood Pressure 145/101 H 135/82 Pulse Oximetry 98 98 98 Oxygen Delivery Room Air Fraction of Inspired Oxygen 21 05/11/25 07:37 05/11/25 08:00 Temperature 98.1 F Pulse Rate 95 Respiratory Rate 16 Blood Pressure 135/109 H Pulse Oximetry 98 Oxygen Delivery Room Air Fraction of Inspired Oxygen Intake/Output Intake/Output: Intake & Output 05/08/25 05/09/25 05/10/25 05/11/25 23:59 23:59 23:59 23:59 Intake Total 7751 211 7335 750 Output Total 2500 250 600 600 Balance -620 530 860 150 Meds/Results Medications: Active Medications Generic Name Dose Route Start Last Admin Trade Name Freq PRN Reason Stop Dose Admin Acetaminophen 650 mg 04/29/25 11:11 05/11/25 07:40 Acetaminophen Elixir 325 Mg/10.15 Ml Udc PO 650 mg Q6H PRN Administration Mild Pain (1-3) or Fever Albuterol/Ipratropium 3 ml 05/06/25 07:38 05/06/25 07:46 Ipratropium 0.5 Mg/Albuterol Sulfate 2.5 Mg Ampul.Neb 3 Ml INHALATION 3 ml Q6HRT PRN Administration Wheezing Alteplase, Recombinant 2 mg 05/08/25 10:57 05/08/25 16:34 Alteplase 2 Mg Vial (Cathflo) IV PUSH 2 mg ONCE PRN Administration Line Occlusion Ciprofloxacin/Hydrocortisone 3 drop 05/10/25 09:00 05/11/25 08:35 Ciprofloxacin Hc Otic 10 Ml RIGHT EAR 3 drop Q12HR BRAULIO Administration Enoxaparin Sodium 40 mg 04/28/25 09:00 05/11/25 08:27 Enoxaparin 40 Mg/0.4 Ml Syringe SUB-Q 40 mg DAILY BRAULIO Administration Folic Acid 1 mg 04/29/25 09:00 05/11/25 08:28 Folic Acid 1 Mg/0.2 Ml Inj IV PUSH 1 mg QAM BRAULIO Administration Melatonin 5 mg 05/08/25 21:00 05/11/25 00:15 Melatonin 5 Mg Tablet PO 5 mg HS BRAULIO Administration Ondansetron HCl 4 mg 05/02/25 05:00 05/08/25 09:42 Ondansetron Inj 4 Mg/2 Ml Vial IV PUSH 4 mg Q6H PRN Administration Nausea And Vomiting Pantoprazole Sodium 40 mg 05/10/25 09:00 05/11/25 08:27 Pantoprazole 40 Mg Tablet PO 40 mg QAM BRAULIO Administration Sodium Chloride 10 ml 04/28/25 14:00 05/11/25 07:00 Central Line Flush IV PUSH 10 ml Q8HR BRAULIO Administration Sodium Chloride 10 ml 04/28/25 11:06 Central Line Flush IV PUSH PRN PRN with TPN bag changes Sodium Chloride 20 ml 04/28/25 11:06 05/07/25 05:18 Central Line Flush IV PUSH 20 ml PRN PRN Administration after blood draws Thiamine HCl 100 mg 05/06/25 09:00 05/11/25 08:27 Thiamine Hcl 200 Mg/2 Ml Vial IV PUSH 100 mg QAM BRAULIO Administration Radiology Results: ITS Impressions Head CT 04/28/25 08:29 Impression: 1.No acute intracranial abnormality. Chest/Abdomen/Pelvis CT 05/03/25 11:04 IMPRESSION: 1. Extensive airspace opacities in the lower lobes with volume loss, consistent with atelectasis versus pneumonia. Mild atelectasis and pneumonia in right upper lobe. Chest X-Ray 05/05/25 08:52 IMPRESSION: 1. Worsening airspace opacities right lung versus merely overlying soft tissue artifact or 2. Persistent bibasilar atelectasis and/or airspace disease. 3. Small effusions not excluded. Abdomen X-Ray 05/06/25 08:30 IMPRESSION: 1. No dilated loops of gas-filled bowel to suggest obstruction. Labs Labs: Laboratory Results - last 24 hr 05/10/25 05/11/25 21:06 08:37 WBC 14.9 H RBC 4.04 L Hgb 11.7 L Hct 36.1 L MCV 89.4 MCH 29.0 MCHC 32.4 RDW 13.2 Plt Count 509 H MPV 10.7 H Sodium 137 Potassium 3.9 Chloride 102 Carbon Dioxide 24 Anion Gap 11 BUN 17 Creatinine 1.47 H Estim Creat Clear Calc 75 Estimated GFR 52 L Glucose 157 H Calcium 9.2 Magnesium 1.9 Total Bilirubin 0.6 AST 42 ALT 28 Alkaline Phosphatase 88 Total Protein 7.9 Albumin 4.1 Urine Color Yellow Urine Appearance Clear Urine pH 5.5 Ur Specific [place] 1.010 Urine Protein Negative Urine Glucose (UA) Negative Urine Ketones Negative Ur Blood (Man) Negative Urine Nitrate Negative Urine Bilirubin Negative Urine Urobilinogen 0.2 Leukocyte Esterase Rfl Negative Urine Opiates Screen Negative Urine Methadone Screen Negative Ur Barbiturates Screen Negative Ur Phencyclidine Scrn Negative Ur Amphetamine Screen Negative U Benzodiazepines Scrn Negative Urine Cocaine Screen Negative U Cannabinoids Screen Negative Quality VTE Prophylaxis VTE prophylaxis: mechanical ordered
[2025-05-11] MEDS: ALPRAZolam (*CRX) 0.25 MG TABLET PO (09:33)
--- NOTE | 2025-05-11 10:55 | PCNFU ---
Nutrition Follow-Up Complete: Suboptimal Energy Intake as related to mechanical vent as evidenced by NPO. Goal: Meet estimated nutritional needs Patient is meeting goal. No new goal. Pt current nutrition is Regular with diet supplements Last recorded weight is 108.4 kg, down from 121.5 kg on admit. Bowel Motility: Last reported BM 05/09 Labs Reviewed:Glu 112, Cr 1.36, Hgb 11.7 Meds Noted: Lovenox, Protonix, Reglan, Thiamine, Folic Acid, Miralax. Skin: WNL Additional Notes: Patient is tolerating a regular diet. Diet supplement is providing an additional 350 kcal and 20 gm protein. Agree with diet orders. Will monitor weight, labs, skin, diet orders, meds every 5 days.
--- NOTE | 2025-05-11 12:46 | PC.NURSE ---
Patient no longer having nausea and vomiting. Last time patient had emesis was on 05/08/25 prior to EGD. Patient eating meals without any issues with nausea with good appetite.
[2025-05-11 15:19] LABS: SARS-CoV-2 RNA PCR Negative (Negative)
[2025-05-11 15:59] VITALS: BP 145/107; PULSE 104; RESP 20; TEMP 36.8; O2SAT 99
--- NOTE | 2025-05-11 17:45 | PC.NURSE ---
Notified anay Benavides of patient's upcoming transfer to [facility]. He will be transported with [facility]. ETA [id number]. Dr. Kevin accepting MD and will be going to room 223A. Report called to Mabel at [facility].
--- NOTE | 2025-05-11 18:31 | PC.NURSE ---
Notified Ulysses that patient is on his way.
--- NOTE | 2025-05-11 18:33 | PC.NURSE ---
Home medication sent with patient belongings via [facility].
--- NOTE | 2025-05-24 14:22 | PM.TDS ---
Transfer Discharge Sum: Prov Provider Date of admission: 04/28/25 03:34 Primary care physician: Kell Lopez NP Admitting clinician: Beba Romero MD Consults: 04/28/25 Venous test director Consult Routine Reason for Consult:: picc 04/28/25 03:35 Consult to Physician Routine Comment: Consulting Provider: Kay Robb Reason for consultation: Overdose, intubated Has provider been notified: Yes 05/02/25 Consult to Physician Routine Comment: Consulting Provider: Marquise Nj Reason for consultation: Small Bowel Obstruction Has provider been notified: No 05/04/25 Consult to Physician Routine Comment: Spoke with provider 05/04 @ 0739 Consulting Provider: Jaime Mejia at home independent call center agent/MD group to consult: Nephrology Reason for consultation: SHANTEL Has provider been notified: Yes Receiving physician/facility: [facility] DS: Admitting Diagnosis Discharge Date 05/11/25 Admitting Diagnosis Intentional polysubstance abuse, suicidal behavior, patient took hydroxyzine 25 mg x60 pills, baclofen 20 mg x31 pills, trazodone 100 mg x 5 pills DS: Discharge Diagnosis Discharge Diagnosis (1) Anxiety disorder, unspecified: Code(s): F41.9 - Anxiety disorder, unspecified Status: Acute (2) Suicidal behavior: Code(s): R45.89 - Other symptoms and signs involving emotional state Status: Acute (3) Alcohol abuse: Code(s): F10.10 - Alcohol abuse, uncomplicated Status: Acute (4) Hypertension: Code(s): I10 - Essential (primary) hypertension Status: Acute (5) Hyperlipidemia: Code(s): E78.5 - Hyperlipidemia, unspecified Status: Acute (6) Elevated glucose: Code(s): R73.09 - Other abnormal glucose Status: Acute (7) Upper GI bleed: Code(s): K92.2 - Gastrointestinal hemorrhage, unspecified Status: Acute (8) Coffee ground emesis: Code(s): K92.0 - Hematemesis Status: Acute (9) Nausea & vomiting: Code(s): R11.2 - Nausea with vomiting, unspecified Status: Acute (10) SHANTEL (acute kidney injury): Code(s): N17.9 - Acute kidney failure, unspecified Status: Acute Plan 44 year old male patient who is intubated, sedated and mechanically ventilated being admitted to the ICU after he reported intentional drug overdose. Patient was reported to have been drinking alcohol and then overdosed on approximately 60 tablets of hydroxyzine 25 mg, 31 tablets of baclofen 20 mg, and 5 tablets of trazodone 100 mg. A suicide note was found with patient in his hotel room. 1) Acute respiratory failure with hypoxia and hypercapnia: Patient was intubated and placed on mechanical ventilation due to altered mental status, agitation, combativeness and airway protection He was extubated on 05/05 after successful weaning trial Had aspiration pneumonia Sputum culture grew MSSA Was initially on Zosyn, switched to cefepime and Flagyl, currently on ceftriaxone until he can take p.o., will switch to cefazolin Respiratory failure has resolved Currently on room air (2) Acute drug overdose+ suicidal behavior: Patient intentionally overdosed on hydroxyzine 25 mg x60 pills, baclofen 20 mg x31 pills, trazodone 100 mg x 5 pills -poison control was notified and followed along -patient is medically stable, will have care coordination cardiac stress management evaluated patient from likely placement in a psych facility given his drug overdose and suicide behavior/at 10 -continue center in at bedside -maintain suicide precautions (3) Alcohol abuse: Patient has a history of alcohol abuse, elevated alcohol levels on admission Alcohol cessation counseling -continue thiamine and folic acid - (4) QT prolongation: QT prolongation likely related to baclofen and hydroxyzine Patient was given magnesium QT prolongation has resolved Echo reviewed (5) Altered mental status: Resolved (6) Hypotension: Likely related to baclofen and hydroxyzine -adequately fluid-resuscitated along with Levophed which has been off for a while Hemodynamically stable (7) SHANTEL (acute kidney injury): Nephrology following Patient has good urine output.. Etiology likely multifactorial. Patient did had episode of hypotension, also received vancomycin CT abdomen pelvis negative for any obstruction CK was elevated and now has normalized (8) Bowel obstruction+ coffee-ground emesis: Patient had couple of episodes of vomiting and he was on mechanical ventilation. Patient has NG to low intermittent suction. KUB suggests bowel obstruction. CT scan was done and did not show any ileus or obstruction evidence. Patient was started on tube feeds and tolerated, but high residuals. He was started on Reglan. 9/18 extubated Patient then had multiple episodes of nausea vomiting overnight KUB was done and does not show any evidence of ileus under obstruction. Eventually was able to tolerate full liquid diet 05/09/2025: also had coffee-ground emesis. EGD showed Reflux esophagitis, hiatal hernia, gastritis H&H stable Continue with PPI Appreciate GI help 9. DVT prophylaxis: Lovenox on hold 10. Code status: Full 11: Anxiety, small dose of Xanax will be given 12: Appreciate crisis management evaluation, they were trying to place patient for inpatient psych Transfer Discharge Sum: Med Medications Active and Home Medications: Home Medications baclofen 20 mg tablet 20 mg PO BID 04/28/25 [History Confirmed 04/28/25] docusate sodium 100 mg capsule 100 mg PO DAILY PRN constipation 04/28/25 [History Confirmed 04/28/25] folic acid 1 mg tablet 1 mg PO DAILY 04/28/25 [History Confirmed 04/28/25] hydroxyzine pamoate 25 mg capsule (Vistaril) 25 mg PO Q4H PRN anxiety 04/28/25 [History Confirmed 04/28/25] naltrexone 50 mg tablet 50 mg PO DAILY 04/28/25 [History Confirmed 04/28/25] trazodone 100 mg tablet 100 mg PO HS PRN insomnia 04/28/25 [History Confirmed 04/28/25] venlafaxine 75 mg capsule,extended release 24 hr 75 mg PO HS 04/28/25 [History Confirmed 04/28/25] Transfer Discharge Sum: Hosp Hospital Course Hospital course: sarthak Cota is a 44 year old male with significant past medical history of hyperlipidemia, essential hypertension, nausea, GERD, alcohol abuse, elevated liver enzymes, anxiety, depression, alcoholic hepatitis presented the ED in the early hours of 04/28/2025. Patient was at a hotel, called his daughter that he overdosed on some medications, she called EMS who found a suicide note with the patient in his hotel room. Initially the patient was drowsy but arousable in the ED. while in the ED ED the patient became more somnolent, agitated, combative so was intubated for airway protection. His QTC was prolonged. Patient received 3 L IV fluids. Initial labs showed a WBC count of 9.4, hemoglobin of 13.6, platelets of 255. Potassium of 2.8, sodium 139, chloride 103, CO2 22, BUN 7, creatinine 0.73, blood glucose was 215, hemoglobin A1c was 6.3, mildly elevated ALT. TSH was 3.52. UA was unremarkable. Urine tox screen was negative, alcohol level was elevated at 280, acetaminophen and salicylate levels were within normal limits. Patient was negative for SARS-CoV-2 PCR -CT brain with no acute intracranial abnormality -chest x-ray with mild venous pulmonary congestion, ETT in place, no pneumothorax Patient was transferred to the ICU for further management, patient was intubated, mechanical ventilation, sedated with fentanyl and Versed infusion 05/05/2025: Patient was successfully extubated Developed coffee-ground emesis during the course of his hospital stay 05/09/2025: EGD showed reflux esophagitis, no varices, esophagitis was not bleeding. A hiatal hernia was found at the GE junction. Mild gastritis was seen in the antrum. The gastritis had erythematous and edematous changes but no ulcers. There was no mucosal bleeding. The bulb and 2nd portion of duodenum was normal with no ulcers or masses. No AVM, no hematin Patient was transferred to [facility] psych unit on 05/11/2025 Patient Condition: Stable Time Spent with Patient Time attestation: Total time spent providing and/or coordinating transfer services: Total time spent: Less than 30 minutes Exam Narrative: General: Alert awake oriented in no acute distress HEENT:? Pupils equal and reactive, sclera is clear, Neck:? Supple Respiratory:? Clear to auscultation bilaterally, adequate air entry, no wheezing Cardiac:? S1-S2 is normal, regular rate and rhythm, Abdomen:? Soft, nontender, nondistended, normoactive bowel sounds, Extremities:? No edema, palpable pedal pulses Neuro:? AO x3, he follows commands with all 4 extremities, Skin:? No skin lesions noted Psych:? Normal speech and affect DS: Data Data Completed and Pending Completed studies during hospitalization: Pending at discharge 05/09/25 15:05 Surgical [PTH] Routine
== END 2025-05-11 18:29 | DRG 817 ==
LOC: ANHED 04-28 03:34 → ANHICU 04-28 04:03
PROVIDERS: Internal Medicine; Internal Medicine Gastroenterology; Internal Medicine Nephrology; Nurse Practitioner; Nurse Practitioner Gerontology; Admitting Provider General Practice; Emergency Provider Emergency Medicine; PCP Nurse Practitioner Family; Visit Provider Internal Medicine
PROC: 0DJ08ZZ Inspection of Upper Intestinal Tract, Via Natural or Artificial Opening Endoscopic (ICD-10-PCS; principal; 2025-05-09 16:00)
DX: T43.592A Poisoning by other antipsychotics and neuroleptics, intentional self-harm, initial encounter (principal); J96.01 Acute respiratory failure with hypoxia; J96.02 Acute respiratory failure with hypercapnia; J69.0 Pneumonitis due to inhalation of food and vomit; J15.211 Pneumonia due to Methicillin susceptible Staphylococcus aureus; N17.9 Acute kidney failure, unspecified; T42.8X2A Poisoning by antiparkinsonism drugs and other central muscle-tone depressants, intentional self-harm, initial encounter; T43.212A Poisoning by selective serotonin and norepinephrine reuptake inhibitors, intentional self-harm, initial encounter; T51.0X2A Toxic effect of ethanol, intentional self-harm, initial encounter; K92.0 Hematemesis; K56.7 Ileus, unspecified; Z59.01 Sheltered homelessness; F10.10 Alcohol abuse, uncomplicated; Y90.8 Blood alcohol level of 240 mg/100 ml or more; E87.6 Hypokalemia; R94.31 Abnormal electrocardiogram [ECG] [EKG]; I95.9 Hypotension, unspecified; R45.89 Other symptoms and signs involving emotional state; I10 Essential (primary) hypertension; F41.9 Anxiety disorder, unspecified; Z20.822 Contact with and (suspected) exposure to COVID-19; E87.8 Other disorders of electrolyte and fluid balance, not elsewhere classified; K21.00 Gastro-esophageal reflux disease with esophagitis, without bleeding; K44.9 Diaphragmatic hernia without obstruction or gangrene; E78.5 Hyperlipidemia, unspecified; W19.XXXA Unspecified fall, initial encounter; F17.210 Nicotine dependence, cigarettes, uncomplicated; Z79.899 Other long term (current) drug therapy
CPT/HCPCS: 36415; 36569; 36600; 70450; 71045; 71250; 74018; 74019; 74176; 80048; 80053; 80069; 80143; 80179; 80202; 80307; 81003; 82077; 82375; 82436; 82550; 82570; 82805; 82948; 83036; 83050; 83690; 83735; 84100; 84132; 84300; 84443; 84478; 84484; 84540; 85018; 85025; 85027; 85055; 85999; 87070; 87186; 87205; 87635; 87641; 88305; 93005; 94002; 94003; 94640; 96361; 96374; 96375; 97116; 97162; 97165; 97530; 97535; 99285; A9270; C1751; C8929; J0295; J0613; J0616; J0692; J0696; J1171; J1650; J1815; J1836; J2003; J2250; J2405; J2470; J2543; J2704; J2765; J2997; J3010; J3373; J3411; J3475; J3480; J7030; J7040; J7120; J7639; Q9957